=== PATIENT | female | born 1980 | race Caucasian/White ===

== ENCOUNTER → 2021-01-17 09:39 | Outpatient (CLI) | payer BC, SELFPAY ==
[2019-06-10 14:00] VITALS: BMI 34.4
[2021-01-17 11:04] LABS: EXAGEN MAILED SPECIMEN
[2021-01-17 12:26] LABS: Prothrombin Time (Protime)PT. 12.7 SECONDS (11.7-14.9)
[2021-01-17 12:27] LABS: Color, Urine Yellow (Yellow); Glucose, Dipstick Normal (Normal); Ketone-Dipstick Negative (Negative); Leukocyte Esterase-Dipstick Negative /ul (Negative); Nitrite-Dipstick Negative (Negative); Occult Blood-Urine Negative /ul (Negative); Protein-Dipstick Negative (Negative); Specific Gravity, Urine 1.015 (1.002-1.030); Urine Bilirubin Dipstick Negative (Negative); Urine Clarity Clear (Clear); Urine Urobilinogen Normal (Normal)
[2021-01-17 12:28] LABS: Erythrocyte Sedimentation Rate 4 mm/hr (0-30)
[2021-01-17 12:31] LABS: Absolute Lymphocyte Count 1.81 X10^3/uL (0.83-4.51); Absolute Neutrophil Count 5.4 X10^3/uL (2.0-7.7); Basophil# 0.05 X10^3/uL; Basophil% 0.6 % (0-1); Eosinophil# 0.51 X10^3/uL; Eosinophils% 6.1 % (0-5); Hematocrit 39.4 % (37-47); Lymphocyte # 1.81 X10^3/ul (0.83-4.51); Lymphocyte % 21.7 % (19-41); Mean Corpuscular Hgb 29.7 pg (27.0-32.0); Mean Corpuscular Volume 90.2 fL (81-99); Mean Platelet Vol. 9.3 fl (6.2-12.0); Monocyte# 0.51 X10^3/uL; Monocyte% 6.1 % (0-10); NRBC Flagged by Analyzer 0 % (0-5); Neutrophil # 5.44 X10^3/uL (2.7-7.7); Neutrophil % 65.3 % (47-70); Platelet Count 366 K/mm3 (150-450); RBC Distribution Width CV 12.7 % (11.6-14.6); RBC Distribution Width SD 42.3 fl (35.1-43.9); Red Blood Count 4.37 M/mm3 (4.2-5.4); White Blood Count 8.3 K/mm3 (4.4-11.0)
[2021-01-17 12:53] LABS: Protein, Urine (Random) < 6.0 mg/dL (<11.9)
[2021-01-17 13:15] LABS: Hepatitis B Surface Antibody Reactive; Hepatitis B Surface Antigen Non-Reactive (Nonreactive); Hepatitis C Antibody Non-Reactive (Nonreactive)
[2021-01-17 13:27] LABS: ALB/GLOB Ratio 1.2 RATIO (0.9-2.4); AST(SGOT) 12 U/L (15-37); Alanine Aminotransfer ALT/SGPT 23 U/L (13-56); Albumin, Serum 3.9 g/dL (3.2-5.0); Alkaline Phosphatase 51 U/L (45-117); Anion Gap 5 (5-15); BUN 8 mg/dL (7-18); BUN/Creat Ratio 12.8 RATIO (10-20); CRP < 2.90 mg/L (0.0-3.0); Calcium,Total 8.7 mg/dL (8.5-10.1); Chloride 107 mmol/L (98-107); Creatinine, Serum 0.62 mg/dL (0.55-1.02); EST Glomerular Filtration Rate 113 mL/min (>60); Est Glom Filt Rate - Afr Amer 137 mL/min (>60); Globulin 3.3 g/dL (2.2-4.2); Glucose 85 mg/dL (74-106); Potassium 3.5 mmol/L (3.5-5.1); Protein, Total 7.2 g/dL (6.4-8.2); Sodium Level 140 mmol/L (136-145)
[2021-01-19 04:07] LABS: Dilute Prothrombin Time (dPT) 41.3 sec (0.0-55.0); Dilute Russell Viper Venom 37.1 sec (0.0-47.0); PTT-LA 35.5 sec (0.0-51.9); Thrombin Time 15.6 sec (0.0-23.0); dPT Confirm Ratio 1.17 Ratio (0.00-1.40)
[2021-01-19 07:07] LABS: Hexagonal Phase Phospholipid 0 sec (0-11); Thrombin Time 15.7 sec (0.0-23.0)
[2021-01-19 08:32] LABS: Interpretation Comment: (.)
== END ==
PROVIDERS: PCP Family Medicine; Referring Provider Internal Medicine Rheumatology; Visit Provider Internal Medicine Rheumatology
DX: M06.4 Inflammatory polyarthropathy (principal); R76.8 Other specified abnormal immunological findings in serum; M79.7 Fibromyalgia; Q66.70 Congenital pes cavus, unspecified foot; J45.909 Unspecified asthma, uncomplicated; K21.9 Gastro-esophageal reflux disease without esophagitis; R51.9 Headache, unspecified; J98.6 Disorders of diaphragm; Z86.59 Personal history of other mental and behavioral disorders; G47.30 Sleep apnea, unspecified
CPT/HCPCS: 36415; 80053; 81002; 82570; 84156; 85025; 85598; 85610; 85652; 85670; 86140; 86706; 86803; 87340

== ENCOUNTER → 2021-01-19 12:16 | Outpatient (CLI) | payer BC, SELFPAY ==
[2019-06-10 14:00] VITALS: BMI 34.4
[2021-01-19 15:40] LABS: Partial Thromboplast Time 27.3 Seconds (24.1-36.2)
== END ==
PROVIDERS: PCP Family Medicine; Referring Provider Internal Medicine Rheumatology; Visit Provider Internal Medicine Rheumatology
DX: M06.4 Inflammatory polyarthropathy (principal); R76.8 Other specified abnormal immunological findings in serum; M79.7 Fibromyalgia; Q66.70 Congenital pes cavus, unspecified foot; J45.909 Unspecified asthma, uncomplicated; K21.9 Gastro-esophageal reflux disease without esophagitis; R51.9 Headache, unspecified; J98.6 Disorders of diaphragm; Z86.59 Personal history of other mental and behavioral disorders; G47.30 Sleep apnea, unspecified
CPT/HCPCS: 85730

== ENCOUNTER → 2021-04-13 07:54 | Outpatient (CLI) | payer BC, SELFPAY ==
[2021-02-14 07:48] VITALS: BMI 34.4
[2021-04-13 10:07] LABS: Absolute Lymphocyte Count 1.68 X10^3/uL (0.83-4.51); Absolute Neutrophil Count 7.5 X10^3/uL (2.0-7.7); Basophil# 0.05 X10^3/uL; Basophil% 0.5 % (0-1); Eosinophils% 3.9 % (0-5); Hematocrit 40.1 % (37-47); Hemoglobin 13.2 g/dL (12.0-15.0); Lymphocyte # 1.68 X10^3/ul (0.83-4.51); Lymphocyte % 16.4 % (19-41); Mean Corp Hgb Conc 32.9 g/dL (32-36); Mean Corpuscular Hgb 30.7 pg (27.0-32.0); Mean Corpuscular Volume 93.3 fL (81-99); Monocyte# 0.64 X10^3/uL; Monocyte% 6.2 % (0-10); NRBC Flagged by Analyzer 0 % (0-5); Neutrophil # 7.46 X10^3/uL (2.7-7.7); Neutrophil % 72.7 % (47-70); Platelet Count 314 K/mm3 (150-450); RBC Distribution Width SD 47.1 fl (35.1-43.9); White Blood Count 10.3 K/mm3 (4.4-11.0)
[2021-04-13 10:28] LABS: ALB/GLOB Ratio 1.1 RATIO (0.9-2.4); AST(SGOT) 15 U/L (15-37); Alanine Aminotransfer ALT/SGPT 26 U/L (13-56); Albumin, Serum 3.9 g/dL (3.2-5.0); Alkaline Phosphatase 42 U/L (45-117); Anion Gap 6 (5-15); BUN 16 mg/dL (7-18); Calcium,Total 8.9 mg/dL (8.5-10.1); Chloride 106 mmol/L (98-107); Creatinine, Serum 0.67 mg/dL (0.55-1.02); EST Glomerular Filtration Rate 104 mL/min (>60); Est Glom Filt Rate - Afr Amer 126 mL/min (>60); Globulin 3.4 g/dL (2.2-4.2); Glucose 94 mg/dL (74-106); Potassium 3.7 mmol/L (3.5-5.1); Protein, Total 7.3 g/dL (6.4-8.2); Sodium Level 138 mmol/L (136-145)
== END ==
PROVIDERS: PCP Family Medicine; Referring Provider Internal Medicine Rheumatology; Visit Provider Internal Medicine Rheumatology
DX: M06.4 Inflammatory polyarthropathy (principal); Z79.899 Other long term (current) drug therapy; R76.8 Other specified abnormal immunological findings in serum; M79.7 Fibromyalgia; Q66.70 Congenital pes cavus, unspecified foot; J45.909 Unspecified asthma, uncomplicated; K21.9 Gastro-esophageal reflux disease without esophagitis; R51.9 Headache, unspecified; J98.6 Disorders of diaphragm; Z86.59 Personal history of other mental and behavioral disorders; G47.30 Sleep apnea, unspecified
CPT/HCPCS: 36415; 80053; 85025

== ENCOUNTER → 2021-06-19 07:33 | Outpatient (CLI) | payer BC, SELFPAY ==
[2021-06-19 09:56] LABS: Absolute Lymphocyte Count 1.97 X10^3/uL (0.83-4.51); Absolute Neutrophil Count 4.5 X10^3/uL (2.0-7.7); Basophil# 0.04 X10^3/uL; Basophil% 0.6 % (0-1); Eosinophil# 0.09 X10^3/uL; Eosinophils% 1.2 % (0-5); Hemoglobin 12.4 g/dL (12.0-15.0); Lymphocyte # 1.97 X10^3/ul (0.83-4.51); Lymphocyte % 27.3 % (19-41); Mean Corp Hgb Conc 33.5 g/dL (32-36); Mean Corpuscular Hgb 31.8 pg (27.0-32.0); Mean Corpuscular Volume 94.9 fL (81-99); Mean Platelet Vol. 8.9 fl (6.2-12.0); Monocyte# 0.61 X10^3/uL; Monocyte% 8.4 % (0-10); NRBC Flagged by Analyzer 0 % (0-5); Neutrophil # 4.49 X10^3/uL (2.7-7.7); Neutrophil % 62.2 % (47-70); Platelet Count 341 K/mm3 (150-450); RBC Distribution Width CV 14.4 % (11.6-14.6); RBC Distribution Width SD 49.5 fl (35.1-43.9); White Blood Count 7.2 K/mm3 (4.4-11.0)
[2021-06-19 10:54] LABS: ALB/GLOB Ratio 1.2 RATIO (0.9-2.4); AST(SGOT) 13 U/L (15-37); Alanine Aminotransfer ALT/SGPT 20 U/L (13-56); Albumin, Serum 3.8 g/dL (3.2-5.0); Alkaline Phosphatase 39 U/L (45-117); Anion Gap 11 (5-15); BUN 10 mg/dL (7-18); BUN/Creat Ratio 16.3 RATIO (10-20); Calcium,Total 8.7 mg/dL (8.5-10.1); Chloride 104 mmol/L (98-107); Creatinine, Serum 0.62 mg/dL (0.55-1.02); EST Glomerular Filtration Rate 114 mL/min (>60); Est Glom Filt Rate - Afr Amer 138 mL/min (>60); Globulin 3.3 g/dL (2.2-4.2); Glucose 80 mg/dL (74-106); Potassium 3.4 mmol/L (3.5-5.1); Protein, Total 7.1 g/dL (6.4-8.2); Sodium Level 141 mmol/L (136-145)
== END ==
PROVIDERS: PCP Family Medicine; Referring Provider Internal Medicine Rheumatology; Visit Provider Internal Medicine Rheumatology
DX: M06.4 Inflammatory polyarthropathy (principal); R76.8 Other specified abnormal immunological findings in serum; M79.7 Fibromyalgia; Q66.70 Congenital pes cavus, unspecified foot; J45.909 Unspecified asthma, uncomplicated; K21.9 Gastro-esophageal reflux disease without esophagitis; R51.9 Headache, unspecified; J98.6 Disorders of diaphragm; Z86.59 Personal history of other mental and behavioral disorders; G47.30 Sleep apnea, unspecified; Z79.899 Other long term (current) drug therapy
CPT/HCPCS: 36415; 80053; 85025

== ENCOUNTER → 2021-08-28 10:41 | Outpatient (CLI) | payer BC, SELFPAY ==
[2021-08-28 12:29] LABS: Absolute Lymphocyte Count 1.66 X10^3/uL (0.83-4.51); Absolute Neutrophil Count 4.2 X10^3/uL (2.0-7.7); Basophil# 0.03 X10^3/uL; Basophil% 0.5 % (0-1); Eosinophil# 0.15 X10^3/uL; Eosinophils% 2.3 % (0-5); Hematocrit 43.2 % (37-47); Hemoglobin 14.1 g/dL (12.0-15.0); Lymphocyte # 1.66 X10^3/ul (0.83-4.51); Lymphocyte % 25.1 % (19-41); Mean Corp Hgb Conc 32.6 g/dL (32-36); Mean Corpuscular Hgb 31.7 pg (27.0-32.0); Mean Corpuscular Volume 97.1 fL (81-99); Mean Platelet Vol. 8.5 fl (6.2-12.0); Monocyte# 0.52 X10^3/uL; Monocyte% 7.9 % (0-10); NRBC Flagged by Analyzer 0 % (0-5); Neutrophil # 4.24 X10^3/uL (2.7-7.7); Neutrophil % 63.9 % (47-70); Platelet Count 315 K/mm3 (150-450); RBC Distribution Width CV 12.6 % (11.6-14.6); RBC Distribution Width SD 44.7 fl (35.1-43.9); Red Blood Count 4.45 M/mm3 (4.2-5.4); White Blood Count 6.6 K/mm3 (4.4-11.0)
[2021-08-28 12:41] LABS: AST(SGOT) 13 U/L (15-37); Alanine Aminotransfer ALT/SGPT 21 U/L (13-56); Albumin, Serum 3.5 g/dL (3.2-5.0); Alkaline Phosphatase 44 U/L (45-117); Anion Gap 6 (5-15); BUN 9 mg/dL (7-18); BUN/Creat Ratio 14.4 RATIO (10-20); Calcium,Total 8.8 mg/dL (8.5-10.1); Chloride 106 mmol/L (98-107); Creatinine, Serum 0.62 mg/dL (0.55-1.02); EST Glomerular Filtration Rate 112 mL/min (>60); Est Glom Filt Rate - Afr Amer 136 mL/min (>60); Globulin 3.6 g/dL (2.2-4.2); Glucose 63 mg/dL (74-106); Potassium 3.7 mmol/L (3.5-5.1); Protein, Total 7.1 g/dL (6.4-8.2); Sodium Level 142 mmol/L (136-145)
== END ==
PROVIDERS: PCP Family Medicine; Referring Provider Internal Medicine Rheumatology; Visit Provider Internal Medicine Rheumatology
DX: M06.4 Inflammatory polyarthropathy (principal); Z79.899 Other long term (current) drug therapy; R76.8 Other specified abnormal immunological findings in serum; M79.7 Fibromyalgia; Q66.70 Congenital pes cavus, unspecified foot; J45.909 Unspecified asthma, uncomplicated; K21.9 Gastro-esophageal reflux disease without esophagitis; R51.9 Headache, unspecified; J98.6 Disorders of diaphragm; Z86.59 Personal history of other mental and behavioral disorders; G47.30 Sleep apnea, unspecified
CPT/HCPCS: 36415; 80053; 85025

== ENCOUNTER 2021-10-26 07:23 | Outpatient (CLI) | payer BC, SELFPAY ==
[2021-10-26 10:04] LABS: Absolute Lymphocyte Count 1.61 X10^3/uL (0.83-4.51); Absolute Neutrophil Count 1.9 X10^3/uL (2.0-7.7); Basophil# 0.02 X10^3/uL; Basophil% 0.5 % (0-1); Eosinophils% 2.5 % (0-5); Hematocrit 37.4 % (37-47); Hemoglobin 12.5 g/dL (12.0-15.0); Lymphocyte # 1.61 X10^3/ul (0.83-4.51); Lymphocyte % 40.4 % (19-41); Mean Corp Hgb Conc 33.4 g/dL (32-36); Mean Corpuscular Hgb 32.8 pg (27.0-32.0); Mean Corpuscular Volume 98.2 fL (81-99); Mean Platelet Vol. 8.7 fl (6.2-12.0); Monocyte# 0.35 X10^3/uL; Monocyte% 8.8 % (0-10); NRBC Flagged by Analyzer 0 % (0-5); Neutrophil % 47.5 % (47-70); Platelet Count 296 K/mm3 (150-450); RBC Distribution Width CV 13.3 % (11.6-14.6); RBC Distribution Width SD 48.5 fl (35.1-43.9); Red Blood Count 3.81 M/mm3 (4.2-5.4)
[2021-10-26 10:22] LABS: ALB/GLOB Ratio 1.2 RATIO (0.9-2.4); AST(SGOT) 18 U/L (15-37); Alanine Aminotransfer ALT/SGPT 31 U/L (13-56); Albumin, Serum 3.6 g/dL (3.2-5.0); Alkaline Phosphatase 40 U/L (45-117); Anion Gap 2 (5-15); BUN 8 mg/dL (7-18); BUN/Creat Ratio 12.9 RATIO (10-20); Chloride 107 mmol/L (98-107); Creatinine, Serum 0.62 mg/dL (0.55-1.02); EST Glomerular Filtration Rate 113 mL/min (>60); Est Glom Filt Rate - Afr Amer 137 mL/min (>60); Globulin 3.1 g/dL (2.2-4.2); Glucose 71 mg/dL (74-106); Potassium 3.9 mmol/L (3.5-5.1); Protein, Total 6.7 g/dL (6.4-8.2); Sodium Level 138 mmol/L (136-145)
== END 2021-10-26 23:59 | disposition home or self-care (01) ==
LOC: MTLAB 07:25
PROVIDERS: PCP Family Medicine; Referring Provider Internal Medicine Rheumatology; Visit Provider Internal Medicine Rheumatology
DX: M06.4 Inflammatory polyarthropathy (principal); Z79.899 Other long term (current) drug therapy; R76.8 Other specified abnormal immunological findings in serum; M79.7 Fibromyalgia; Q66.70 Congenital pes cavus, unspecified foot; J45.909 Unspecified asthma, uncomplicated; K21.9 Gastro-esophageal reflux disease without esophagitis; R51.9 Headache, unspecified; J98.6 Disorders of diaphragm; Z86.59 Personal history of other mental and behavioral disorders; G47.30 Sleep apnea, unspecified
CPT/HCPCS: 36415; 80053; 85025

== ENCOUNTER → 2021-12-21 | Outpatient (CLI) | payer BC, SELFPAY ==
[2021-12-21 10:19] LABS: Absolute Lymphocyte Count 1.65 X10^3/uL (0.83-4.51); Basophil# 0.04 X10^3/uL; Basophil% 0.7 % (0-1); Eosinophil# 0.16 X10^3/uL; Hematocrit 37.7 % (37-47); Hemoglobin 12.5 g/dL (12.0-15.0); Lymphocyte # 1.65 X10^3/ul (0.83-4.51); Lymphocyte % 30.8 % (19-41); Mean Corp Hgb Conc 33.2 g/dL (32-36); Mean Corpuscular Hgb 31.7 pg (27.0-32.0); Mean Corpuscular Volume 95.7 fL (81-99); Mean Platelet Vol. 8.5 fl (6.2-12.0); Monocyte# 0.53 X10^3/uL; Monocyte% 9.9 % (0-10); NRBC Flagged by Analyzer 0 % (0-5); Neutrophil # 2.97 X10^3/uL (2.7-7.7); Neutrophil % 55.4 % (47-70); Platelet Count 331 K/mm3 (150-450); RBC Distribution Width CV 12.5 % (11.6-14.6); RBC Distribution Width SD 43.9 fl (35.1-43.9); Red Blood Count 3.94 M/mm3 (4.2-5.4); White Blood Count 5.4 K/mm3 (4.4-11.0)
[2021-12-21 10:42] LABS: ALB/GLOB Ratio 1.1 RATIO (0.9-2.4); AST(SGOT) 20 U/L (15-37); Alanine Aminotransfer ALT/SGPT 23 U/L (13-56); Albumin, Serum 3.7 g/dL (3.2-5.0); Alkaline Phosphatase 38 U/L (45-117); Anion Gap 3 (5-15); BUN 10 mg/dL (7-18); Calcium,Total 8.3 mg/dL (8.5-10.1); Chloride 106 mmol/L (98-107); Creatinine, Serum 0.62 mg/dL (0.55-1.02); EST Glomerular Filtration Rate 112 mL/min (>60); Est Glom Filt Rate - Afr Amer 136 mL/min (>60); Globulin 3.3 g/dL (2.2-4.2); Glucose 90 mg/dL (74-106); Sodium Level 137 mmol/L (136-145)
== END | disposition home or self-care (01) ==
LOC: MTLAB 07:45
PROVIDERS: PCP Family Medicine; Referring Provider Internal Medicine Rheumatology; Visit Provider Internal Medicine Rheumatology
DX: M06.4 Inflammatory polyarthropathy (principal); R76.8 Other specified abnormal immunological findings in serum; M79.7 Fibromyalgia; Q66.70 Congenital pes cavus, unspecified foot; J45.909 Unspecified asthma, uncomplicated; K21.9 Gastro-esophageal reflux disease without esophagitis; R51.9 Headache, unspecified; J98.6 Disorders of diaphragm; G47.30 Sleep apnea, unspecified; Z79.899 Other long term (current) drug therapy; Z86.59 Personal history of other mental and behavioral disorders
CPT/HCPCS: 36415; 80053; 85025

== ENCOUNTER → 2022-03-08 | Outpatient (CLI) | payer BC, SELFPAY ==
[2022-03-08 12:36] LABS: Absolute Lymphocyte Count 1.96 X10^3/uL (0.83-4.51); Absolute Neutrophil Count 2.9 X10^3/uL (2.0-7.7); Basophil# 0.02 X10^3/uL; Basophil% 0.4 % (0-1); Eosinophil# 0.11 X10^3/uL; Hemoglobin 12.3 g/dL (12.0-15.0); Lymphocyte # 1.96 X10^3/ul (0.83-4.51); Mean Corp Hgb Conc 34.2 g/dL (32-36); Mean Corpuscular Hgb 32.8 pg (27.0-32.0); Mean Platelet Vol. 8.9 fl (6.2-12.0); Monocyte# 0.49 X10^3/uL; NRBC Flagged by Analyzer 0 % (0-5); Neutrophil # 2.86 X10^3/uL (2.7-7.7); Neutrophil % 52.4 % (47-70); Platelet Count 260 K/mm3 (150-450); RBC Distribution Width SD 45.3 fl (35.1-43.9); Red Blood Count 3.75 M/mm3 (4.2-5.4); White Blood Count 5.5 K/mm3 (4.4-11.0)
[2022-03-08 12:51] LABS: ALB/GLOB Ratio 1.3 RATIO (0.9-2.4); AST(SGOT) 18 U/L (15-37); Alanine Aminotransfer ALT/SGPT 22 U/L (13-56); Albumin, Serum 3.8 g/dL (3.2-5.0); Alkaline Phosphatase 35 U/L (45-117); Anion Gap 5 (5-15); BUN 16 mg/dL (7-18); BUN/Creat Ratio 21.2 RATIO (10-20); Calcium,Total 8.7 mg/dL (8.5-10.1); Chloride 108 mmol/L (98-107); Creatinine, Serum 0.76 mg/dL (0.55-1.02); EST Glomerular Filtration Rate 90 mL/min (>60); Est Glom Filt Rate - Afr Amer 109 mL/min (>60); Globulin 2.9 g/dL (2.2-4.2); Glucose 76 mg/dL (74-106); Potassium 3.6 mmol/L (3.5-5.1); Protein, Total 6.7 g/dL (6.4-8.2); Sodium Level 139 mmol/L (136-145)
== END | disposition home or self-care (01) ==
LOC: MTLAB 10:25
PROVIDERS: PCP Family Medicine; Referring Provider Internal Medicine Rheumatology; Visit Provider Internal Medicine Rheumatology
DX: M06.4 Inflammatory polyarthropathy (principal); R76.8 Other specified abnormal immunological findings in serum; M79.7 Fibromyalgia; Q66.70 Congenital pes cavus, unspecified foot; J45.909 Unspecified asthma, uncomplicated; K21.9 Gastro-esophageal reflux disease without esophagitis; R51.9 Headache, unspecified; J98.6 Disorders of diaphragm; G47.30 Sleep apnea, unspecified; Z86.59 Personal history of other mental and behavioral disorders; Z79.899 Other long term (current) drug therapy
CPT/HCPCS: 36415; 80053; 85025

== ENCOUNTER → 2022-06-21 | Outpatient (CLI) | payer BC, SELFPAY ==
[2022-06-21 09:59] LABS: Absolute Lymphocyte Count 1.46 X10^3/uL (0.83-4.51); Absolute Neutrophil Count 2.3 X10^3/uL (2.0-7.7); Basophil# 0.02 X10^3/uL; Basophil% 0.5 % (0-1); Eosinophil# 0.09 X10^3/uL; Eosinophils% 2.2 % (0-5); Hematocrit 36.6 % (37-47); Hemoglobin 12.2 g/dL (12.0-15.0); Lymphocyte # 1.46 X10^3/ul (0.83-4.51); Lymphocyte % 34.9 % (19-41); Mean Corp Hgb Conc 33.3 g/dL (32-36); Mean Corpuscular Volume 96.1 fL (81-99); Mean Platelet Vol. 8.7 fl (6.2-12.0); Monocyte# 0.29 X10^3/uL; Monocyte% 6.9 % (0-10); NRBC Flagged by Analyzer 0 % (0-5); Platelet Count 305 K/mm3 (150-450); RBC Distribution Width CV 12.5 % (11.6-14.6); RBC Distribution Width SD 42.8 fl (35.1-43.9); Red Blood Count 3.81 M/mm3 (4.2-5.4); White Blood Count 4.2 K/mm3 (4.4-11.0)
[2022-06-21 10:36] LABS: ALB/GLOB Ratio 1.2 RATIO (0.9-2.4); AST(SGOT) 15 U/L (15-37); Alanine Aminotransfer ALT/SGPT 20 U/L (13-56); Albumin, Serum 3.6 g/dL (3.2-5.0); Alkaline Phosphatase 39 U/L (45-117); Anion Gap 5 (5-15); BUN 9 mg/dL (7-18); BUN/Creat Ratio 15.1 RATIO (10-20); Calcium,Total 8.7 mg/dL (8.5-10.1); Chloride 107 mmol/L (98-107); EST Glomerular Filtration Rate 118 mL/min (>60); Est Glom Filt Rate - Afr Amer 143 mL/min (>60); Glucose 83 mg/dL (74-106); Potassium 3.6 mmol/L (3.5-5.1); Protein, Total 6.6 g/dL (6.4-8.2); Sodium Level 139 mmol/L (136-145)
== END | disposition home or self-care (01) ==
LOC: MTLAB 07:25
PROVIDERS: PCP Family Medicine; Referring Provider Internal Medicine Rheumatology; Visit Provider Internal Medicine Rheumatology
DX: M06.4 Inflammatory polyarthropathy (principal); Z79.899 Other long term (current) drug therapy; R76.8 Other specified abnormal immunological findings in serum; M79.7 Fibromyalgia; Q66.70 Congenital pes cavus, unspecified foot; J45.909 Unspecified asthma, uncomplicated; K21.9 Gastro-esophageal reflux disease without esophagitis; R51.9 Headache, unspecified; J98.6 Disorders of diaphragm; Z86.59 Personal history of other mental and behavioral disorders; G47.30 Sleep apnea, unspecified
CPT/HCPCS: 36415; 80053; 85025

== ENCOUNTER → 2022-06-28 | Outpatient (CLI) | payer BC, SELFPAY ==
--- NOTE | 2022-06-28 08:55 | RAD_ITS ---
HISTORY: PAIN. TECHNIQUE: XR Chest 2 Views. COMPARISON: None. FINDINGS: CARDIOMEDIASTINAL BORDERS: Cardiac silhouette within normal limits in size. Mediastinal contour unremarkable. LUNGS: Mild linear left basilar opacity with elevation of the left hemidiaphragm. Right upper quadrant surgical clips. PLEURA: No pleural effusion or pneumothorax seen. OSSEOUS STRUCTURES: Unremarkable. RAD/Chest PA and Lateral IMPRESSION: Elevation of the left hemidiaphragm with mild left basilar atelectasis or scarring. Electronically Signed: Leah Lackey MD at 9:21 EDT ,
[2022-07-02 15:07] LABS: QNTFERON TB Mitogen Value > 10.00 IU/mL (.); QNTFERON TB Nil Value 0.06 IU/mL (.); QNTFERON TB1+ Ag Value 0.13 IU/mL (.); QNTFERON TB2+ Ag Value 0.23 IU/mL (.)
[2022-07-04 15:43] LABS: QNTIFERON TB Positive Criteria Negative (Negative)
== END | disposition home or self-care (01) ==
LOC: MTLAB 08:25
PROVIDERS: PCP Family Medicine; Referring Provider Internal Medicine Rheumatology; Visit Provider Internal Medicine Rheumatology
DX: M06.09 Rheumatoid arthritis without rheumatoid factor, multiple sites (principal); Z79.899 Other long term (current) drug therapy; R76.8 Other specified abnormal immunological findings in serum; M79.7 Fibromyalgia; M70.62 Trochanteric bursitis, left hip; J45.909 Unspecified asthma, uncomplicated; K21.9 Gastro-esophageal reflux disease without esophagitis; R51.9 Headache, unspecified; J98.6 Disorders of diaphragm; Z86.59 Personal history of other mental and behavioral disorders; G47.30 Sleep apnea, unspecified; Q66.70 Congenital pes cavus, unspecified foot
CPT/HCPCS: 36415; 71046; 86480

== ENCOUNTER → 2022-09-19 | Outpatient (CLI) | payer BC, SELFPAY ==
[2022-09-19 10:17] LABS: Absolute Lymphocyte Count 1.05 X10^3/uL (0.83-4.51); Absolute Neutrophil Count 2.9 X10^3/uL (2.0-7.7); Basophil# 0.03 X10^3/uL; Basophil% 0.7 % (0-1); Eosinophil# 0.09 X10^3/uL; Hematocrit 36.6 % (37-47); Hemoglobin 12.1 g/dL (12.0-15.0); Lymphocyte # 1.05 X10^3/ul (0.83-4.51); Lymphocyte % 22.9 % (19-41); Mean Corp Hgb Conc 33.1 g/dL (32-36); Mean Corpuscular Hgb 32.1 pg (27.0-32.0); Mean Corpuscular Volume 97.1 fL (81-99); Monocyte# 0.48 X10^3/uL; Monocyte% 10.5 % (0-10); NRBC Flagged by Analyzer 0 % (0-5); Neutrophil # 2.88 X10^3/uL (2.7-7.7); Neutrophil % 62.6 % (47-70); Platelet Count 274 K/mm3 (150-450); RBC Distribution Width CV 12.6 % (11.6-14.6); RBC Distribution Width SD 43.7 fl (35.1-43.9); Red Blood Count 3.77 M/mm3 (4.2-5.4); White Blood Count 4.6 K/mm3 (4.4-11.0)
[2022-09-19 10:38] LABS: ALB/GLOB Ratio 1.3 RATIO (0.9-2.4); AST(SGOT) 19 U/L (15-37); Alanine Aminotransfer ALT/SGPT 26 U/L (13-56); Albumin, Serum 3.8 g/dL (3.2-5.0); Alkaline Phosphatase 37 U/L (45-117); Anion Gap 4 (5-15); BUN 7 mg/dL (7-18); BUN/Creat Ratio 10.1 RATIO (10-20); Calcium,Total 8.6 mg/dL (8.5-10.1); Chloride 107 mmol/L (98-107); Creatinine, Serum 0.69 mg/dL (0.55-1.02); EST Glomerular Filtration Rate 100 mL/min (>60); Est Glom Filt Rate - Afr Amer 121 mL/min (>60); Glucose 78 mg/dL (74-106); Potassium 3.8 mmol/L (3.5-5.1); Protein, Total 6.8 g/dL (6.4-8.2); Sodium Level 140 mmol/L (136-145)
== END | disposition home or self-care (01) ==
LOC: MTLAB 07:29
PROVIDERS: PCP Family Medicine; Referring Provider Internal Medicine Rheumatology; Visit Provider Internal Medicine Rheumatology
DX: Z79.899 Other long term (current) drug therapy (principal); M06.4 Inflammatory polyarthropathy; R76.8 Other specified abnormal immunological findings in serum; M79.7 Fibromyalgia; Q66.70 Congenital pes cavus, unspecified foot; J45.909 Unspecified asthma, uncomplicated; K21.9 Gastro-esophageal reflux disease without esophagitis; R51.9 Headache, unspecified; J98.6 Disorders of diaphragm; Z86.59 Personal history of other mental and behavioral disorders; G47.30 Sleep apnea, unspecified
CPT/HCPCS: 36415; 80053; 85025

== ENCOUNTER → 2022-12-13 | Outpatient (CLI) | payer BC, SELFPAY ==
[2022-12-13 10:22] LABS: Absolute Lymphocyte Count 1.83 X10^3/uL (0.83-4.51); Absolute Neutrophil Count 3.6 X10^3/uL (2.0-7.7); Basophil# 0.02 X10^3/uL; Basophil% 0.3 % (0-1); Eosinophil# 0.12 X10^3/uL; Hematocrit 37.2 % (37-47); Hemoglobin 12.2 g/dL (12.0-15.0); Lymphocyte # 1.83 X10^3/ul (0.83-4.51); Lymphocyte % 30.1 % (19-41); Mean Corp Hgb Conc 32.8 g/dL (32-36); Mean Corpuscular Hgb 31.7 pg (27.0-32.0); Mean Corpuscular Volume 96.6 fL (81-99); Mean Platelet Vol. 8.9 fl (6.2-12.0); Monocyte# 0.48 X10^3/uL; Monocyte% 7.9 % (0-10); NRBC Flagged by Analyzer 0 % (0-5); Neutrophil % 59.4 % (47-70); Platelet Count 371 K/mm3 (150-450); RBC Distribution Width CV 12.7 % (11.6-14.6); RBC Distribution Width SD 43.8 fl (35.1-43.9); Red Blood Count 3.85 M/mm3 (4.2-5.4); White Blood Count 6.1 K/mm3 (4.4-11.0)
[2022-12-13 11:20] LABS: ALB/GLOB Ratio 1.2 RATIO (0.9-2.4); AST(SGOT) 16 U/L (15-37); Alanine Aminotransfer ALT/SGPT 21 U/L (13-56); Albumin, Serum 3.7 g/dL (3.2-5.0); Alkaline Phosphatase 40 U/L (45-117); Anion Gap 4 (5-15); BUN 12 mg/dL (7-18); BUN/Creat Ratio 16.5 RATIO (10-20); Calcium,Total 8.9 mg/dL (8.5-10.1); Chloride 107 mmol/L (98-107); Creatinine, Serum 0.73 mg/dL (0.55-1.02); EST Glomerular Filtration Rate 94 mL/min (>60); Est Glom Filt Rate - Afr Amer 113 mL/min (>60); Globulin 3.2 g/dL (2.2-4.2); Glucose 88 mg/dL (74-106); Potassium 3.8 mmol/L (3.5-5.1); Protein, Total 6.9 g/dL (6.4-8.2); Sodium Level 137 mmol/L (136-145)
== END | disposition home or self-care (01) ==
PROVIDERS: PCP Family Medicine; Referring Provider Internal Medicine Rheumatology; Visit Provider Internal Medicine Rheumatology
DX: M06.09 Rheumatoid arthritis without rheumatoid factor, multiple sites (principal); Z79.899 Other long term (current) drug therapy; R76.8 Other specified abnormal immunological findings in serum; M79.7 Fibromyalgia; M70.62 Trochanteric bursitis, left hip; J45.909 Unspecified asthma, uncomplicated; K21.9 Gastro-esophageal reflux disease without esophagitis; R51.9 Headache, unspecified; J98.6 Disorders of diaphragm; Z86.59 Personal history of other mental and behavioral disorders; G47.30 Sleep apnea, unspecified; Q66.70 Congenital pes cavus, unspecified foot
CPT/HCPCS: 36415; 80053; 85025

== ENCOUNTER → 2023-03-10 | Outpatient (CLI) | payer BC, SELFPAY ==
[2023-03-10 10:22] LABS: ALB/GLOB Ratio 1.2 RATIO (0.9-2.4); AST(SGOT) 18 U/L (15-37); Alanine Aminotransfer ALT/SGPT 25 U/L (13-56); Albumin, Serum 3.6 g/dL (3.2-5.0); Alkaline Phosphatase 38 U/L (45-117); Anion Gap 3 (5-15); BUN 10 mg/dL (7-18); BUN/Creat Ratio 14.3 RATIO (10-20); Calcium,Total 8.6 mg/dL (8.5-10.1); Chloride 109 mmol/L (98-107); EST Glomerular Filtration Rate 98 mL/min (>60); Est Glom Filt Rate - Afr Amer 119 mL/min (>60); Globulin 2.9 g/dL (2.2-4.2); Glucose 88 mg/dL (74-106); Potassium 3.4 mmol/L (3.5-5.1); Protein, Total 6.5 g/dL (6.4-8.2); Sodium Level 140 mmol/L (136-145)
[2023-03-10 10:58] LABS: Absolute Lymphocyte Count 2.06 X10^3/uL (0.83-4.51); Absolute Neutrophil Count 3.8 X10^3/uL (2.0-7.7); Basophil# 0.03 X10^3/uL; Basophil% 0.5 % (0-1); Eosinophil# 0.13 X10^3/uL; Hematocrit 37.2 % (37-47); Hemoglobin 12.2 g/dL (12.0-15.0); Lymphocyte # 2.06 X10^3/ul (0.83-4.51); Lymphocyte % 31.3 % (19-41); Mean Corp Hgb Conc 32.8 g/dL (32-36); Mean Corpuscular Hgb 31.9 pg (27.0-32.0); Mean Corpuscular Volume 97.4 fL (81-99); Mean Platelet Vol. 9.1 fl (6.2-12.0); Monocyte# 0.55 X10^3/uL; Monocyte% 8.3 % (0-10); NRBC Flagged by Analyzer 0 % (0-5); Neutrophil % 57.6 % (47-70); Platelet Count 293 K/mm3 (150-450); RBC Distribution Width CV 12.7 % (11.6-14.6); RBC Distribution Width SD 45.1 fl (35.1-43.9); Red Blood Count 3.82 M/mm3 (4.2-5.4); White Blood Count 6.6 K/mm3 (4.4-11.0)
== END | disposition home or self-care (01) ==
LOC: MTLAB 07:16
PROVIDERS: PCP Family Medicine; Referring Provider Internal Medicine Rheumatology; Visit Provider Internal Medicine Rheumatology
DX: M06.09 Rheumatoid arthritis without rheumatoid factor, multiple sites (principal); Z79.899 Other long term (current) drug therapy; R76.8 Other specified abnormal immunological findings in serum; M79.7 Fibromyalgia; M70.62 Trochanteric bursitis, left hip; J45.909 Unspecified asthma, uncomplicated; K21.9 Gastro-esophageal reflux disease without esophagitis; R51.9 Headache, unspecified; J98.6 Disorders of diaphragm; Z86.59 Personal history of other mental and behavioral disorders; G47.30 Sleep apnea, unspecified; Q66.70 Congenital pes cavus, unspecified foot
CPT/HCPCS: 36415; 80053; 85025

== ENCOUNTER → 2023-06-03 | Outpatient (CLI) | payer BC, SELFPAY ==
[2023-06-03 10:06] LABS: Absolute Lymphocyte Count 1.88 X10^3/uL (0.83-4.51); Absolute Neutrophil Count 5.4 X10^3/uL (2.0-7.7); Basophil# 0.03 X10^3/uL; Basophil% 0.4 % (0-1); Eosinophil# 0.09 X10^3/uL; Eosinophils% 1.1 % (0-5); Hematocrit 38.3 % (37-47); Hemoglobin 12.2 g/dL (12.0-15.0); Lymphocyte # 1.88 X10^3/ul (0.83-4.51); Lymphocyte % 23.5 % (19-41); Mean Corp Hgb Conc 31.9 g/dL (32-36); Mean Corpuscular Hgb 30.7 pg (27.0-32.0); Mean Corpuscular Volume 96.2 fL (81-99); Mean Platelet Vol. 8.7 fl (6.2-12.0); Monocyte# 0.56 X10^3/uL; NRBC Flagged by Analyzer 0 % (0-5); Neutrophil # 5.43 X10^3/uL (2.7-7.7); Neutrophil % 67.9 % (47-70); Platelet Count 295 K/mm3 (150-450); RBC Distribution Width CV 12.6 % (11.6-14.6); RBC Distribution Width SD 45.2 fl (35.1-43.9); Red Blood Count 3.98 M/mm3 (4.2-5.4)
[2023-06-03 10:47] LABS: ALB/GLOB Ratio 1.3 RATIO (0.9-2.4); AST(SGOT) 15 U/L (15-37); Alanine Aminotransfer ALT/SGPT 22 U/L (13-56); Albumin, Serum 3.7 g/dL (3.2-5.0); Alkaline Phosphatase 42 U/L (45-117); Anion Gap 5 (5-15); BUN 6 mg/dL (7-18); BUN/Creat Ratio 10.7 RATIO (10-20); Calcium,Total 8.8 mg/dL (8.5-10.1); Chloride 109 mmol/L (98-107); Creatinine, Serum 0.56 mg/dL (0.55-1.02); EST Glomerular Filtration Rate 126 mL/min (>60); Est Glom Filt Rate - Afr Amer 152 mL/min (>60); Globulin 2.8 g/dL (2.2-4.2); Glucose 81 mg/dL (74-106); Potassium 3.5 mmol/L (3.5-5.1); Protein, Total 6.5 g/dL (6.4-8.2); Sodium Level 141 mmol/L (136-145)
== END | disposition home or self-care (01) ==
LOC: MTLAB 07:23
PROVIDERS: PCP Family Medicine; Referring Provider Internal Medicine Rheumatology; Visit Provider Internal Medicine Rheumatology
DX: M06.09 Rheumatoid arthritis without rheumatoid factor, multiple sites (principal); Z79.899 Other long term (current) drug therapy; R76.8 Other specified abnormal immunological findings in serum; M79.7 Fibromyalgia; M70.62 Trochanteric bursitis, left hip; J45.909 Unspecified asthma, uncomplicated; K21.9 Gastro-esophageal reflux disease without esophagitis; R51.9 Headache, unspecified; J98.6 Disorders of diaphragm; Z86.59 Personal history of other mental and behavioral disorders; G47.30 Sleep apnea, unspecified; Q66.70 Congenital pes cavus, unspecified foot
CPT/HCPCS: 36415; 80053; 85025

== ENCOUNTER → 2023-09-04 | Outpatient (CLI) | payer BC, SELFPAY ==
--- OUTSIDE RECORDS SUMMARY | 2023-09-04 07:29 | XMS RPT_ITS | CCD ---
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 Davide Lee Primary Care Unavail sunni Lee, Dr. Davide Severino Attending Unavail able Dr. Davide Lee Referring Unavail able Medications Current Medications Medication Drug Class(es) Dates Sig (Normalized) Sig (Original) 1 ml etanercept 50 mg/ml auto-injector (1 source) Tumor Necrosis Factor Karen Start: 10-25-2022 EnbreL SureClick 50 mg/mL (1 mL) Pen single use prefilled syringe folic acid 1 mg oral tablet (16 sources) Start: 11-13-2022 folic acid (FOLVITE) 1 MG tablet Completed/Discontinued Medications Medication Drug Class(es) Dates Sig (Normalized) Sig (Original) [id number] 200 actuat albuterol 0.09 mg/actuat metered dose inhaler (20 sources) beta2-Adrenergic Agonist Start: 07-12-2021 Albuterol Sulfate HFA 108 (90 Base) MCG/ACT Inhalation Aerosol Solution Quantity: 18 Refills: 0 Ordered: 12-Jul-2021 DO Start : 12-Jul-2021 Active Problems Active Problems Problem Classification Problem Date Documented Date Episodic/Chronic Asthma (20 sources) Mild persistent asthma; Translations: [Asthma, unspecified type, unspecified] Onset: 02-11-2023 Chronic Conditions associated with dizziness or vertigo (8 sources) Dizziness; Translations: [Dizziness and giddiness] 04-29-2021 Episodic Esophageal disorders (18 sources) Gastroesophageal reflux disease; Translations: [Esophageal reflux] Chronic Genitourinary symptoms and ill-defined conditions (4 sources) Increased frequency of urination; Translations: [Urinary frequency] Episodic Immunizations and screening for infectious disease (1 source) Contact with or exposure to other viral diseases; Translations: [Exposure to confirmed case of COVID-19] Episodic Mood disorders (3 sources) Major depressive disorder; Translations: [Major depression] Chronic Osteoarthritis (1 source) Osteoarthritis of wrist Chronic Other aftercare (9 sources) Drug-induced immunodeficiency ; Translations: [Long-term (current) use of other medications] Episodic Other connective tissue disease (2 sources) Fibromyalgia; Translations: [Myalgia and myositis, unspecified] Episodic Other connective tissue disease (1 source) Pain in both feet; Translations: [Pain in right foot] 11-25-2022 Episodic Other connective tissue disease (2 sources) Pain in right foot; Translations: [Pain in right foot] Onset: 11-25-2022 Episodic Other connective tissue disease (2 sources) Pain in left foot; Translations: [Pain in left foot] Onset: 11-25-2022 Episodic Other lower respiratory disease (18 sources) Paralysis of diaphragm ; Translations: [Disorders of diaphragm] Episodic Other lower respiratory disease (2 sources) Cough; Translations: [Cough] Episodic Other nervous system disorders (2 sources) Ataxia; Translations: [Lack of coordination] 04-30-2021 Episodic Other non-traumatic joint disorders (11 sources) Multiple joint pain; Translations: [Pain in joint, multiple sites] Episodic Other non-traumatic joint disorders (2 sources) Sesamoiditis; Translations: [Other specified joint disorders, left ankle and foot] 11-25-2022 Episodic Other non-traumatic joint disorders (2 sources) Other specified joint disorders, left ankle and foot; Translations: [Other specified joint disorders, left ankle and foot] Onset: 11-25-2022 Episodic Other non-traumatic joint disorders (2 sources) Other specified joint disorders, right ankle and foot; Translations: [Other specified joint disorders, right ankle and foot] Onset: 11-25-2022 Episodic Other nutritional; endocrine; and metabolic disorders (3 sources) Obesity; Translations: [Obesity] Chronic Other nutritional; endocrine; and metabolic disorders (18 sources) Body mass index 30+ - obesity; Translations: [Body Mass Index 33.0-33.9, adult] Chronic Other nutritional; endocrine; and metabolic disorders (2 sources) Abnormal weight loss; Translations: [Loss of weight] Episodic Other screening for suspected conditions (not mental disorders or infectious disease) (10 sources) Breast neoplasm screening status; Translations: [Other screening mammogram] Onset: 02-11-2023 Episodic Other skin disorders (1 source) Acquired keratoderma; Translations: [Acquired keratosis [keratoderma] palmaris et plantaris] 11-25-2022 Episodic Other skin disorders (2 sources) Acquired keratosis [keratoderma] palmaris et plantaris; Translations: [Acquired keratosis (keratoderma) palmaris et plantaris] Onset: 11-25-2022 Episodic Other upper respiratory disease (18 sources) Allergic rhinitis; Translations: [Allergic rhinitis, cause unspecified] Chronic Other upper respiratory infections (9 sources) Chronic sinusitis; Translations: [Unspecified sinusitis (chronic)] Chronic Other upper respiratory infections (1 source) Acute upper respiratory infection; Translations: [Acute upper respiratory infections of unspecified site] Episodic Otitis media and related conditions (5 sources) Dysfunction of eustachian tube; Translations: [Dysfunction of Eustachian tube] Episodic Residual codes; unclassified (18 sources) Sleep apnea; Translations: [Unspecified sleep apnea] Chronic Residual codes; unclassified (2 sources) Generalized aches and pains; Translations: [Generalized pain] Episodic Rheumatoid arthritis and related disease (4 sources) Inflammatory polyarthropathy; Translations: [Unspecified inflammatory polyarthropathy] Onset: 02-11-2023 Chronic Unclassified (2 sources) DIZZY,NAUSEA 04-29-2021 Past or Other Problems Problem Classification Problem Date Documented Da te Episodic/Chronic Screening and history of mental health and substance abuse codes (15 sources) H/O: depression; Translations: [Personal history of other mental disorders] Resolved: 10-16-2020 Episodic Unclassified (1 source) Left wrist pain Results Test Name Value Interpretation Reference Range Facil ity Vital Signs Date Time Vital Sign Value Performing Clinician Facility 11-25-2022 10:47-0400 Body temperature 99.1 [degF] Rhonda Adolfo DPM Work Phone: [facility] 11-25-2022 10:47-0400 Diastolic blood pressure 66 mm[Hg] Rhonda Adolfo DPM Work Phone: [facility] 11-25-2022 10:47-0400 Heart rate 91 /min Rhonda Adolfo DPM Work Phone: [facility] 11-25-2022 10:47-0400 Systolic blood pressure 99 mm[Hg] Rhonda Compton DPM Work Phone: [facility] 02-08-2022 08:22-0400 Body height 147.32 cm Davide Lee Work Phone: [facility] Work Phone: 02-08-2022 08:22-0400 Body mass index (BMI) [Ratio] 30.72 kg/m2 Davide Lee Work Phone: [facility] Work Phone: 02-08-2022 08:22-0400 Body surface area Derived from formula 1.6 m2 Davide Lee [facility] Phone[facility] Work Phone: 02-08-2022 08:22-0400 Body weight 66.68 kg Davide Lee Work Phone: [facility] Work Phone: 02-08-2022 08:22-0400 Diastolic blood pressure 72 mm[Hg] Davide Lee Work Phone: [facility] Work Phone: 02-08-2022 08:22-0400 Heart rate 78 /min Davide Lee Work Phone: [facility] Work Phone: 02-08-2022 08:22-0400 SaO2% (BldA) [Mass fraction] 98 % Davide Lee Work Phone: [facility] Work Phone: 02-08-2022 08:22-0400 Systolic blood pressure 118 mm[Hg] Davide Lee Work Phone: [facility] Work Phone: 12-04-2021 10:27-0400 Body height 147.32 cm Daivde Lee Work Phone: [facility] Work Phone: 12-04-2021 10:27-0400 Body mass index (BMI) [Ratio] 31.56 kg/m2 Davide Lee Work Phone: [facility] Work Phone: 12-04-2021 10:27-0400 Body surface area Derived from formula 1.62 m2 Davide Lee Work Phone: [facility] Work Phone: 12-04-2021 10:27-0400 Body weight 68.49 kg Davide Lee Work Phone: [facility] Work Phone: 12-04-2021 10:27-0400 Diastolic blood pressure 64 mm[Hg] Davide Lee Work Phone: [facility] Work Phone: 12-04-2021 10:27-0400 Heart rate 96 /min Davide Lee Work Phone: [facility] Work Phone: 12-04-2021 10:27-0400 Systolic blood pressure 120 mm[Hg] Davide Lee Work Phone: [facility] Work Phone: 07-13-2021 11:36-0500 Body height 147.32 cm Davide Lee Work Phone: [facility] Work Phone: 07-13-2021 11:36-0500 Body mass index (BMI) [Ratio] 29.29 kg/m2 Davide Lee Work Phone: [facility] Work Phone: 07-13-2021 11:36-0500 Body surface area Derived from formula 1.57 m2 Davide Lee Work Phone: [facility] Work Phone: 07-13-2021 11:36-0500 Body temperature 98.9 [degF] Davide Huber Lee Work Phone: [facility] Work Phone: 07-13-2021 11:36-0500 Body weight 63.56 kg Davide Lee Work Phone: [facility] Work Phone: 07-13-2021 11:36-0500 Diastolic blood pressure 68 mm[Hg] Davide Lee Work Phone: [facility] Work Phone: 07-13-2021 11:36-0500 Heart rate 84 /min Davide Lee Work Phone: [facility] Work Phone: 07-13-2021 11:36-0500 Systolic blood pressure 118 mm[Hg] Davide Lee Work Phone: [facility] Work Phone: 05-25-2021 08:52-0400 Body height 147.32 cm Davide Lee Work Phone: [facility] Work Phone: 05-25-2021 08:52-0400 Body mass index (BMI) [Ratio] 31.21 kg/m2 Davide Lee Work Phone: [facility] Work Phone: 05-25-2021 08:52-0400 Body surface area Derived from formula 1.61 m2 Davide Lee Work Phone: [facility] Work Phone: 05-25-2021 08:52-0400 Body temperature 97.7 [degF] Davide Lee Work Phone: [facility] Work Phone: 05-25-2021 08:52-0400 Body weight 67.73 kg Davideestuardo Lee Work Phone: [facility] Work Phone: 05-25-2021 08:52-0400 Diastolic blood pressure 70 mm[Hg] Davideestuardo Lee Work Phone: [facility] Work Phone: 05-25-2021 08:52-0400 Heart rate 94 /min Davide Lee Work Phone: [facility] Work Phone: 05-25-2021 08:52-0400 SaO2% (BldA) [Mass fraction] 99 % Davideestuardo Lee Work Phone: [facility] Work Phone: 05-25-2021 08:52-0400 Systolic blood pressure 116 mm[Hg] Davide Lee Work Phone: [facility] Work Phone: 05-11-2021 17:21-0400 Diastolic blood pressure 65 mm[Hg] Davide Lee Other Phone: [facility] 05-11-2021 17:21-0400 Heart rate 92 /min Davide Lee Other Phone: [facility] 05-11-2021 17:21-0400 Respiratory rate 16 /min Davide Lee Other Phone: [facility] 05-11-2021 17:21-0400 SaO2% (BldA) [Mass fraction] 96 % Davide Lee Other Phone: [facility] 05-11-2021 17:21-0400 Systolic blood pressure 106 mm[Hg] Davide Lee Other Phone: [facility] 04-30-2021 06:30-0400 Diastolic blood pressure 75 mm[Hg] Davide Lee Other Phone: [facility] 04-30-2021 06:30-0400 Heart rate 69 /min Davide Lee Other Phone: [facility] 04-30-2021 06:30-0400 Respiratory rate 16 /min Davide Lee Other Phone: [facility] 04-30-2021 06:30-0400 SaO2% (BldA) [Mass fraction] 95 % Davide Lee Other Phone: [facility] 04-30-2021 06:30-0400 Systolic blood pressure 99 mm[Hg] Davide Lee Other Phone: [facility] 07-20-2018 10:16-0500 BMI (Body Mass Index) 28.28 kg/m2 Jayy Saab [facility] 07-20-2018 10:16-0500 Height 149.9 cm Jayy Saab [facility] 07-20-2018 10:16-0500 Weight 63.5 kg Jayy Saab [facility] Encounters Encounter Date Encounter Type Care Provider Facility Start: 02-27-[address] Davide Lee Facility:[id number] Start: 02-18-2023 End: 02-19-2023 ambulatory DAVIDE LEE [facility] Start: 02-11-2023 End: 02-11-[address] [facility] Start: 11-25-2022 End: 11-25-2022 ambulatory DAVIDE LEE [facility] Start: 11-25-2022 End: 11-25-2022 Office outpatient new 30 minutes Rhonda Cope DPM Work Phone: [facility] Physician [facility] Pod[facility] Procedures Date Procedure Procedure Detail Performing Clinician Start: 02-18-2023 Lipid panel DAVIDE Escamilla Start: 04-29-2021 End: 04-29-2021 EKG impression Alessia Alexandraneri Start: 07-20-2018 End: 07-20-2018 Radex wrist complete minimum 3 views Jayy Saab Work Phone: Abdominal hysterectomy Davide Lee section Davide Lee Cholecystectomy Davide Lee Endoscopic balloon dilatation of ostium of paranasal sinus Davide Lee Tonsillectomy Davide Lee Plan of Treatment Date Care Activity Detail Author Start: 12-16-2022 End: 12-16-2022 Patient encounter procedure 12/16/2022 7:45 AM EDT Office Visit [facility] Physician [facility] [address] [place] [address] Rhonda Cope DPM [address] [place] [address] [facility] Start: 05-02-2022 Influenza vaccination Sequential Influenza Vaccine (#1) [facility] Start: 02-08-2022 EPV, Provider: Davide Lee, Status: Pen, Time: 8:20 AM EPV, Provider: Davide Lee, Status: Pen, Time: 8:20 AM [facility] Work Phone: Start: 2021 Screening for malignant neoplasm of breast Mammogram [facility] Start: 05-02-2018 Influenza vaccination SEQUENTIAL INFLUENZA VACCINE (#1) [facility] Start: 1999 Hepatitis C screening Hepatitis C Screening [facility] Start: 1996 HIV screening HIV Screening [facility] Start: 1993 Depression screening using PHQ-9 (Patient Health Questionnaire 9) score Depression Screening (PHQ-2/9) [facility] Start: 1984 History and physical examination, annual for health maintenance Wellness Visit [facility] Start: 01-15-1982 COVID-19 Vaccine (#1) COVID-19 Vaccine (#1) [facility] Start: 1981 Screening for malignant neoplasm of cervix PAP SMEAR [facility] Start: 1981 Tetanus vaccination [facility] Immunizations Immunization Date Immunization Notes Care Provider Fa andres 05-17-2020 Seasonal, quadrivale nt, recombinant, injectable influenza vaccine, preservative free Davide Lee Work Phone: [employer] Work Phone: 10-22-2006 TD(adult) unspecifie d formulation Davide Lee Work Phone: [facility] Phone: 10-29-1999 hepatitis B vaccine, pediatric or pediatric/adolescent dosage Davide Lee Work Phone: [facility] Phone: 10-29-1999 TD(adult) unspecifie d formulation Davide Lee Work Phone: [employer] Phone: 03-14-1999 hepatitis B vaccine, pediatric or pediatric/adolescent dosage Davide Lee Work Phone: [employer] Phone: 01-31-1999 hepatitis B vaccine, pediatric or pediatric/adolescent dosage Davide Lee Work Phone: [employer] Work Phone: 05-15-1994 measles, mumps and rubella virus vaccine Davide Lee Work Phone: [facility] Work Phone: 11-16-1986 diphtheria, tetanus toxoids and acellular pertussis vaccine, unspecified formulation Davide Huber Lee Work Phone: [facility] Work Phone: 11-16-1986 trivalent poliovirus vaccine, live, oral Davide Huebr Brooks Work Phone: [facility] Work Phone: 06-12-1983 diphtheria, tetanus toxoids and acellular pertussis vaccine, unspecified formulation Davide Huber Lee Work Phone: [facility] Work Phone: 04-10-1983 measles, mumps and rubella virus vaccine Davide Huber Lee Work Phone: [facility] Work Phone: 06-12-1982 trivalent poliovirus vaccine, live, oral Davide Huber Lee Work Phone: [facility] Work Phone: 04-25-1982 diphtheria, tetanus toxoids and pertussis vaccine Davide Huber Lee Work Phone: [facility] Work Phone: 1980 diphtheria, tetanus toxoids and pertussis vaccine Davide Huber Lee Work Phone: [facility] Work Phone: 1980 trivalent poliovirus vaccine, live, oral Davide Lee Work Phone: [facility] Work Phone: 1980 diphtheria, tetanus toxoids and pertussis vaccine Davide Lee Work Phone: [facility] Work Phone: 1980 trivalent poliovirus vaccine, live, oral Davide Lee Work Phone: [facility] Work Phone: Payers Date Payer Category Payer Unknown 2022 Unknown [id number] 1980 Unknown [id number] 1980 Unknown [id number] 1980 Unknown [id number] 1980 Unknown [id number] Social History Date Type Detail Facility Start: 07-20-2018 End: 11-25-2022 Tobacco smoking status NHIS Never smoker [facility] Start: 1980 Sex Assigned At Not on file [facility] Tobacco smoking consumption unknown [facility] Start: 10-10-2021 Denies alcohol consumption Denies alcohol consumption [facility] Work Phone: Start: 11-25-2022 Tobacco use and exposure Smokeless tobacco non-user [facility] Start: 11-25-2022 Alcohol intake Current drinke r of alcohol (finding) [facility] Start: 10-10-2021 Tobacco use panel [facility] Start: 11-25-2022 Alcohol Comment rarely [facility] Start: 07-20-2018 Gender identity Identifies as female gender (finding) [facility] Start: 07-20-2018 Sexual orientation Heterosexual (fin ding) [facility] Start: 11-15-2022 End: 11-25-2022 Exposure to SARS-CoV-2 (event) Not sure [facility] NEGATED: Highlighted row - - [facility] Work Phone: Functional Status Date Assessment Result Facility NEGATED: Highlighted row Functional performance Functional status health issues are not documented Disease [facility] Work Phone: Mental Status Date Assessment Result Facility NEGATED: Highlighted row Cognitive function [Interpretation] Cognitive status health issues are not documented Disease [facility] Work Phone: Clinical Notes 05-01-2021 to 11-25-2022 Patient InstructionsRhonda Cope DPM - 11/25/2022 10:48 AM EDT Note Date & Type Note Facility 11-25-2022 Instructions Rhonda Cope DPM - 11/25/2022 11:32 AM EDT Sesamoiditis Plantar Porokeratosis (PPK) documented in this encounter [facility] 11-25-2022 History of Present illness Narrative Images from the original note were not included. NEW Patient Visit Rhonda Cope DPM Patient Name: Darrin Flores. . Date of : 1980, 42 y.o.. Gender: female. Subjective: Patient is a pleasant 42-year-old female who presents to clinic concerned about warts to bilateral feet. States that they have been present for 2-3 months. States that she has tried oxao-coj-odjgvxe remedies with no success. States that her feet hurt her at the end of the day after she has been on for 10 hours wearing steel toe shoes. 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 Denies any trauma or injury. Denies fevers, chills, nausea, vomiting, chest pain, shortness of breath, or any other constitutional symptoms. Past Medical History: Diagnosis Date Asthma Fibromyalgia RA (rheumatoid arthritis) ([facility]) Past Surgical History: Procedure Laterality Date SECTION, CLASSIC GALLBLADDER PARTIAL HYSTERECTOMY TONSILLECTOMY Social History Socioeconomic History Marital status: Tobacco Use Smoking status: Never Smokeless tobacco: Never Vaping Use Vaping status: Never Used Substance and Sexual Activity Alcohol use: Yes Comment: rarely Drug use: Never Physical Examination: BP 99/66 (BP Location: Left arm, Patient Position: Sitting, BP Cuff Size: Adult) Pulse 91 Temp 99.1 F (37.3 C) (Infrared) General Appearance: Alert, cooperative, no distress, appears stated age. Podiatric Exam Vascular: DP and PT pulses are palpable 2/4. Capillary refill time is less than 3 secs to distal digits. Skin temperature is warm to warm from proximal tibial tuberosity to distal digit. Neurological: Gross sensation is intact. Protective sensation is intact. Dermatologic: No appreciable verrucous lesions noted to the plantar first metatarsal head, bilaterally. 1 small very superficial plantar porokeratotic lesion noted subfirst metatarsal head. Upon debridement no underlying nucleated core is noted. No surrounding erythema, edema. Interdigital spaces are clean dry and intact. Musculoskeletal: Pain on palpation subfirst metatarsal head, bilaterally, especially at the medial sesamoid. Patient is able to wiggle digits. Hallux abductovalgus deformity noted bilaterally, left worse than right. Small medial prominence noted bilaterally. Ankle joint range of motion is intact. Muscle strength is 5/5 to dorsiflexors, plantar flexors, inverters and everters. Compartments soft and compressible. No calf pain Diagnoses: 1. Sesamoiditis of left foot 2. Sesamoiditis of right foot 3. Acquired plantar porokeratosis 4. Bilateral foot pain Assessment/Plan: Patient was seen and evaluated. Discussed all clinical findings. Patient has small porokeratotic lesions of the first metatarsal head, bilaterally. Upon debridement of lesions, no nucleated core noted. Discussed with patient that her pain is likely secondary to her hallux abductovalgus deformity which puts pressures on her sesamoid bones and her pain is primarily at the tibial sesamoid. Discussed offloading and good supportive shoes while at home and to avoid barefoot walking, flip-flops or slippers. Meloxicam was prescribed and sent to her pharmacy to help decrease pain and inflammation. All questions were answered to patient satisfaction. Patient understands to call with any questions or concerns. Patient is to follow-up in 2-3 weeks for evaluation and new x-rays of bilateral feet This note was partially created using voice recognition software and is inherently subject to errors including those of syntax and sound-alike substitutions which may escape proofreading. In such instances, original meaning may be extrapolated by contextual derivation. Rhonda Cope DPM, MS Podiatric Physician & Surgeon documented in this encounter [facility] 01-17-2022 History of Present illness Narrative Darrin presents with a few days of urinary urgency, frequency and left flank pain, mild nausea. No vomiting, no fevers/chills.Left eyebrow twitching the last week, will monitor and let us know if that persists. [facility] Work Phone: 11-27-2021 History of Present illness Narrative Darrin presents with a few days of urinary urgency, frequency and left flank pain, mild nausea. No vomiting, no fevers/chills.Left eyebrow twitching the last week, will monitor and let us know if that persists. [facility] Work Phone: 09-11-2021 History of Present illness Narrative Darrin presents virtually with cough and cold symptoms that started around 09/11. She went to urgent care 09/13 and was treated with augmentin. COmpleted the augmentin, still has cough and congestion, and now has symptoms of vaginal yeast infection. She has a history of mild persistent asthma and has used her rescue inhaler a few times.She had covid this past fall and received the monoclonal antibody infusion. She is not vaccinated. . Her spouse has covid. Advised I do not recommend testing as its not going to change our management at this point. She states she needs it for work since her spouse is positive.Denies shortness of breath. [facility] Work Phone: 05-01-2021 Note Send Summary: Discharge Summary Providers: Provider RoleProvider Name AttendingSoSharon Suárez Julie O Note Recipients: PCP Discharge: Summary: Admission Date: .30-Apr-2021 06:20:00 Discharge Date: 01-May-2021 Attending Physician at Discharge: Sharon Ricardo Admission Reason: VERTIGO Final Discharge Diagnoses: 1. Vertigo 2. Hx of asthma 3. dizziness 4. dehydration Procedures: none Condition at Discharge: Satisfactory Disposition at Discharge: .Home Vital Signs: T PRBPSpO2 [id number]% Date/Time05/01 8: 8: 8: 8: 8:05 Range(36.5C - 36.5C ) (84 - 84 ) (18 - 18 ) (114 - 114 )/ (78 - 78 ) (94% - 94% ) Date: Weight/Scale Type:Height: 30-Apr-2021 18:4870 kg / tzi766.3 cm Physical Exam: Constitutional: Well developed female resting in bed on room air, awake/alert/oriented x3, no distress, alert and cooperative Eyes: PERRL, EOMI, clear sclera ENMT: mucous membranes moist, no apparent injury, no lesions seen Head/Neck: NCAT Respiratory/Thorax: Patent airways, CTAB, normal breath sounds with good chest expansion, thorax symmetric on room air Cardiovascular: Regular, rate and rhythm, no murmurs, 2+ equal pulses of the extremities, normal S 1and S 2 Gastrointestinal: Nondistended, soft, non-tender, no rebound tenderness or guarding, +BS Musculoskeletal: ROM intact, no joint swelling, normal strength Extremities: Freely moves all extremities, no cyanosis, edema, contusions or wounds, no clubbing Neurological: alert and oriented x3, intact senses and motor responses, normal strength Lymphatic: No significant lymphadenopathy Psychological: Appropriate mood and behavior, no confusion or delusions Skin: Warm and dry, no lesions, no rashes Hospital Course: Darrin Flores is a 40 year old female with past medical history of fibromyalgia, asthma, arthritis, and allergies since to the emergency department today as a transfer from an outside hospital for an MRI in the setting of dizziness, ataxia, and nausea. Patient was transferred here for an MRI with concern for a potential basilar stroke. Upon examination of patient on [place] [id number], patient is resting in bed on her back on room air. She states that Friday night she began to develop dizziness and nausea. She states that it has worsened since then and she has had trouble walking. When asked if she falls more to the left or right when she tries to walk, she states that she does not recall falling in a certain direction. At this time she states that she is not currently nauseous. She states that the dizziness is worse when moving and she currently states that she is not dizzy while resting in bed. Patient states that she has never experienced dizziness like this before. She notes a mild headache across her forehead, but states that it is improving. She denies any episodes of emesis over the last few days. She denies fever, chills, chest pain, shortness of breath, abdominal pain, trouble urinating, diarrhea, constipation, lower extremity pain and weakness. Neurology was consulted and examined patient in the ED. They reviewed the MRI brain and found no evidence of a posterior stroke. Neurology believes this is likely benign vertigo and they recommend Adenike maneuvers, meclizine, and symptomatic treatment per primary team. stable for discharge > 35 minutes spent coordinating the discharge of the patient Discharge Information: and Continuing Care: Lab Results - Pending: None Radiology Results - Pending: None Discharge Instructions: Activity: activity as tolerated. Nutrition/Diet: resume normal diet Additional Orders: Additional Instructions: 1. You been diagnosed with vertigo. continue meclizine 25 mg every 8 hours for dizziness and for refills please contact your primary care provider Follow Up Appointments: Follow-Up Appointment 01: Physician/Dept/Service: Dr. Davide Lee Primary Care Physician Scheduled Date/Time: 08-May-2021 08:40 Location: [address] [place] [address] Discharge Medications: Home Medication montelukast 10 mg oral tablet - 1 tab(s) orally once a day omeprazole 20 mg oral delayed release capsule - 1 cap(s) orally once a day Breo Ellipta 100 mcg-25 mcg/inh inhalation powder - 1 puff(s) inhaled once a day Flonase 50 mcg/inh nasal spray - 1 spray(s) nasal once a day meclizine 25 mg oral tablet - 1 tab(s) orally 3 times a day PRN Medication albuterol 2.5 mg/3 mL (0.083%) inhalation solution - 3 milliliter(s) inhaled every 6 hours, As Needed wheezing and dyspnea Electronic Signatures: Sharon Ricardo () (Signed 02-May-2021 04:02) Authored: Send Summary, Summary Content, Ongoing Care, Note Completion Last Updated: 02-May-2021 04:02 by Sharon Ricardo () [facility] 05-01-2021 Note History of Present I llness: /Lactating: Are You no (1) Are You Currently Breastfeedingno (1) HPI: Darrin Flores is a 40 year old female with past medical history of fibromyalgia, asthma, arthritis, and allergies since to the emergency department today as a transfer from an outside hospital for an MRI in the setting of dizziness, ataxia, and nausea. Patient was transferred here for an MRI with concern for a potential basilar stroke. Upon examination of patient [place] [address], patient is resting in bed on her back on room air. She states that Friday night she began to develop dizziness and nausea. She states that it has worsened since then and she has had trouble walking. When asked if she falls more to the left or right when she tries to walk, she states that she does not recall falling in a certain direction. At this time she states that she is not currently nauseous. She states that the dizziness is worse when moving and she currently states that she is not dizzy while resting in bed. Patient states that she has never experienced dizziness like this before. She notes a mild headache across her forehead, but states that it is improving. She denies any episodes of emesis over the last few days. She denies fever, chills, chest pain, shortness of breath, abdominal pain, trouble urinating, diarrhea, constipation, lower extremity pain and weakness. Neurology was consulted and examined patient in the ED. They reviewed the MRI brain and found no evidence of a posterior stroke. Neurology believes this is likely benign vertigo and they recommend Adenike maneuvers, meclizine, and symptomatic treatment per primary team. ED Course: 04/29/21 Labs: CBC: WNL, Repeat PENDING CMP: Glucose 108. K 3.4. AG 8. Repeat PENDING UA: WNL UDS: WNL COVID: Negative on 04/29/2021 Imaging: CT Head w/o contrast: No findings of an acute intracranial process. MRI Brain w/o contrast: No acute infarct, hemorrhage or mass is noted. The white matter has a few focal FLAIR hyperintensities which may be secondary to migraine, hypertension, demyelinating, degenerative,chronic microvascular ischemic or other etiologies. MRA Head and Neck w/o contrast: Normal cerebral MR angiogram. Normal cervical carotid/vertebral MR angiogram. CXR: No acute disease. Elevation of the left hemidiaphragm. Medications: Tylenol, valium, toradol, Compazine, NS 1L IV bolus VS: T 98.6. HR 83. RR 18. BP 120/82. 98% on room air Past Medical History: Fibromyalgia, asthma, arthritis, allergies Past Surgical History: x 3, partial hysterectomy, balloon septoplasty, cholecystectomy, tonsillectomy Allergies/Intolerances: NKDA Home medications: Confirmed with Patient. Albuterol nebulizer 3ml Q6hr PRN Breo Ellipta 100mcg-25mcg inhalation 1 puff PO Daily Flonase 50mcg 1 spray per nasal Daily Montelukast 10mg PO Daily Omeprazole 20mg PO Daily Social History: Tobacco: denies; Alcohol: denies; Illicit: denies Family History: lung CA, leukemia, CHF, Skin CA, asthma ROS: a 14 point review of systems was performed and is negatives except for positives noted in HPI above. Social History: Social History: Smoking Statusnever smoker (1) Alcohol Usedenies(1) Drug Usedenies (1) Allergies: No Known Allergies: Medications Prior to Admission: Outpatient Meds have not been reviewed. Objective: Objective Information: T PRBPSpO2 [id number]% Date/Time04/30 6:288/30 18: 18: 18: 18:00 Range(37C - 37C ) (78 - 105 ) (10 - 18 ) (101 - 120 )/ (63 - 82 ) (78% - 100% ) Highest temp of 37 C was recorded at 04/30 6:28 Pain reported at 04/30 22:00: 0 = None Physical Exam by System: Constitutional: Well developed female resting in bed on room air, awake/alert/oriented x3, no distress, alert and cooperative Eyes: PERRL, EOMI, clear sclera ENMT: mucous membranes moist, no apparent injury, no lesions seen Head/Neck: NCAT Respiratory/Thorax: Patent airways, CTAB, normal breath sounds with good chest expansion, thorax symmetric on room air Cardiovascular: Regular, rate and rhythm, no murmurs, 2+ equal pulses of the extremities, normal S 1and S 2 Gastrointestinal: Nondistended, soft, non-tender, no rebound tenderness or guarding, +BS Musculoskeletal: ROM intact, no joint swelling, normal strength Extremities: Freely moves all extremities, no cyanosis, edema, contusions or wounds, no clubbing Neurological: alert and oriented x3, intact senses and motor responses, normal strength Lymphatic: No significant lymphadenopathy Psychological: Appropriate mood and behavior, no confusion or delusions Skin: Warm and dry, no lesions, no rashes Medications: Medications: Continuous Medications 1. Lactated Ringers Infusion: 1000 mL IntraVenous Scheduled Medications (more content not included)... [facility] N[facility] infusion. helped with symptoms.[facility] [employer] Phone: History of Present illness NarrativeShe presents today for right ear pain after having COVID, having some pressure in both ears. She was treated with z pack and prednisone. She continues to have a lingering cough. It is improved. No sputum. Some shortness of breath. Denies fever or body aches. No GI symptoms. Did have infusion. helped with symptoms.[employer] Phone: History of Present illness Narrative* Pt presents for flare up of chronic sinus symptoms . History of recurrent sinus infections, on methotrexate for inflammatory polyarthropathy. * Several days of nasal congestion and bilateral maxillary pain. No cough, no shortness of breath. * Note weight loss, states started new job in September, and doesn't eat regular meals, working third shift. Recommend some labs to begin with. [facility] Phone: Summary Purpose Family History No Family History Records Found Grandparent Name Dates Details Family history of lung cance r(V16.1, Z80.1) Status:Active Family history of heart fail ure(V17.49, Z82.49) Status:Active Family history of leukemia(V 16.6, Z80.6) Status:Active Mother Name Dates Details Family history of malignant neoplasm of skin(V16.8, Z80.8) Status:Active Family history of asthma(V17 .5, Z82.5) Status:Active Grandparent Name Dates Details Family history of lung cance r(V16.1, Z80.1) Status:Active Family history of heart fail ure(V17.49, Z82.49) Status:Active Family history of leukemia(V 16.6, Z80.6) Status:Active Mother Name Dates Details Family history of malignant neoplasm of skin(V16.8, Z80.8) Status:Active Family history of asthma(V17 .5, Z82.5) Status:Active Grandparent Name Dates Details Family history of lung cance r(V16.1, Z80.1) Status:Active Family history of heart fail ure(V17.49, Z82.49) Status:Active Family history of leukemia(V 16.6, Z80.6) Status:Active Mother Name Dates Details Family history of malignant neoplasm of skin(V16.8, Z80.8) Status:Active Family history of asthma(V17 .5, Z82.5) Status:Active Unknown Family Member Name Dates Details Family history of malignant neoplasm of skin: Mother(V16.8, Z80.8) Status:Active Family history of asthma: Mo ther(V17.5, Z82.5) Status:Active Family history of lung cance r: Grandparent(V16.1, Z80.1) Status:Active Family history of heart fail ure: Grandparent(V17.49, Z82.49) Status:Active Family history of leukemia: Grandparent(V16.6, Z80.6) Status:Active Unknown Family Member Name Dates Details Family history of malignant neoplasm of skin: Mother(V16.8, Z80.8) Status:Active Family history of asthma: Mo ther(V17.5, Z82.5) Status:Active Family history of lung cance r: Grandparent(V16.1, Z80.1) Status:Active Family history of heart fail ure: Grandparent(V17.49, Z82.49) Status:Active Family history of leukemia: Grandparent(V16.6, Z80.6) Status:Active Unknown Family Member Name Dates Details Family history of malignant neoplasm of skin: Mother(V16.8, Z80.8) Status:Active Family history of asthma: Mo ther(V17.5, Z82.5) Status:Active Family history of lung cance r: Grandparent(V16.1, Z80.1) Status:Active Family history of heart fail ure: Grandparent(V17.49, Z82.49) Status:Active Family history of leukemia: Grandparent(V16.6, Z80.6) Status:Active Unknown Family Member Name Dates Details Family history of malignant neoplasm of skin: Mother(V16.8, Z80.8) Status:Active Family history of asthma: Mo ther(V17.5, Z82.5) Status:Active Family history of lung cance r: Grandparent(V16.1, Z80.1) Status:Active Family history of heart fail ure: Grandparent(V17.49, Z82.49) Status:Active Family history of leukemia: Grandparent(V16.6, Z80.6) Status:Active Unknown Family Member Name Dates Details Family history of malignant neoplasm of skin: Mother(V16.8, Z80.8) Status:Active Family history of asthma: Mo ther(V17.5, Z82.5) Status:Active Family history of lung cance r: Grandparent(V16.1, Z80.1) Status:Active Family history of heart fail ure: Grandparent(V17.49, Z82.49) Status:Active Family history of leukemia: Grandparent(V16.6, Z80.6) Status:Active Unknown Family Member Name Dates Details Family history of malignant neoplasm of skin: Mother(V16.8, Z80.8) Status:Active Family history of asthma: Mo ther(V17.5, Z82.5) Status:Active Family history of lung cance r: Grandparent(V16.1, Z80.1) Status:Active Family history of heart fail ure: Grandparent(V17.49, Z82.49) Status:Active Family history of leukemia: Grandparent(V16.6, Z80.6) Status:Active Unknown Family Member Name Dates Details Family history of malignant neoplasm of skin: Mother(V16.8, Z80.8) Status:Active Family history of asthma: Mo ther(V17.5, Z82.5) Status:Active Family history of lung cance r: Grandparent(V16.1, Z80.1) Status:Active Family history of heart fail ure: Grandparent(V17.49, Z82.49) Status:Active Family history of leukemia: Grandparent(V16.6, Z80.6) Status:Active Unknown Family Member Name Dates Details Family history of malignant neoplasm of skin: Mother(V16.8, Z80.8) Status:Active Family history of asthma: Mo ther(V17.5, Z82.5) Status:Active Family history of lung cance r: Grandparent(V16.1, Z80.1) Status:Active Family history of heart fail ure: Grandparent(V17.49, Z82.49) Status:Active Family history of leukemia: Grandparent(V16.6, Z80.6) Status:Active Unknown Family Member Name Dates Details Family history of malignant neoplasm of skin: Mother(V16.8, Z80.8) Status:Active Family history of asthma: Mo ther(V17.5, Z82.5) Status:Active Family history of lung cance r: Grandparent(V16.1, Z80.1) Status:Active Family history of heart fail ure: Grandparent(V17.49, Z82.49) Status:Active Family history of leukemia: Grandparent(V16.6, Z80.6) Status:Active Unknown Family Member Name Dates Details Family history of malignant neoplasm of skin: Mother(V16.8, Z80.8) Status:Active Family history of asthma: Mo ther(V17.5, Z82.5) Status:Active Family history of lung cance r: Grandparent(V16.1, Z80.1) Status:Active Family history of heart fail ure: Grandparent(V17.49, Z82.49) Status:Active Family history of leukemia: Grandparent(V16.6, Z80.6) Status:Active Unknown Family Member Name Dates Details Family history of leukemia: Grandparent(V16.6, Z80.6) Status:Active Family history of heart fail ure: Grandparent(V17.49, Z82.49) Status:Active Family history of lung cance r: Grandparent(V16.1, Z80.1) Status:Active Family history of asthma: Mo ther(V17.5, Z82.5) Status:Active Family history of malignant neoplasm of skin: Mother(V16.8, Z80.8) Status:Active Unknown Family Member Name Dates Details Family history of malignant neoplasm of skin: Mother(V16.8, Z80.8) Status:Active Family history of asthma: Mo ther(V17.5, Z82.5) Status:Active Family history of lung cance r: Grandparent(V16.1, Z80.1) Status:Active Family history of heart fail ure: Grandparent(V17.49, Z82.49) Status:Active Family history of leukemia: Grandparent(V16.6, Z80.6) Status:Active Unknown Family Member Name Dates Details Family history of malignant neoplasm of skin: Mother(V16.8, Z80.8) Status:Active Family history of asthma: Mo ther(V17.5, Z82.5) Status:Active Family history of lung cance r: Grandparent(V16.1, Z80.1) Status:Active Family history of heart fail ure: Grandparent(V17.49, Z82.49) Status:Active Family history of leukemia: Grandparent(V16.6, Z80.6) Status:Active Unknown Family Member Name Dates Details Family history of malignant neoplasm of skin: Mother(V16.8, Z80.8) Status:Active Family history of asthma: Mo ther(V17.5, Z82.5) Status:Active Family history of lung cance r: Grandparent(V16.1, Z80.1) Status:Active Family history of heart fail ure: Grandparent(V17.49, Z82.49) Status:Active Family history of leukemia: Grandparent(V16.6, Z80.6) Status:Active Unknown Family Member Name Dates Details Family history of leukemia: Grandparent(V16.6, Z80.6) Status:Active Family history of heart fail ure: Grandparent(V17.49, Z82.49) Status:Active Family history of lung cance r: Grandparent(V16.1, Z80.1) Status:Active Family history of asthma: Mo ther(V17.5, Z82.5) Status:Active Family history of malignant neoplasm of skin: Mother(V16.8, Z80.8) Status:Active Advance Directives No Advanced Directives Records FoundNo Advanced Directives Records FoundNo Advanced Directives Records FoundNo Advanced Directives Records FoundNo Advanced Directives Records FoundNo Advanced Directives Records FoundNo Advanced Directives Records FoundNo Advanced Directives Records Found History of Present Illness * Jayy Saab MD - 07/20/2018 12:32 PM EST Darrin comes in today for followup of left wrist. Darrin had a significant injury to her left wrist she said back in May of 2018. At the end of May she was helping her family tear a roof off a building and the repetitive activity and the motion, she said she had a significant pain and discomfort on the outside of the left wrist and it has been about 2 months. She has had no brace, no shots, no therapy. She has been doing some Tylenol. ALLERGIES None. MEDICINES Singulair. Claritin, Tylenol. SURGERIES She had 3 C sections, partial hysterectomy, gallbladder surgery, tonsillectomy, foot neuroma. ILLNESSES Asthma. REVIEW OF SYSTEMS Left wrist pain. SOCIAL HISTORY Does not smoke. Does not drink. FAMILY HISTORY Positive for cancer. Negative for heart attack and stroke. IMAGING X-rays 3 views of the left wrist due to pain reveals normal left wrist with no fracture, no dislocation, no malalignment. PHYSICAL EXAM General: She is awake, alert and oriented x3. Ambulates without assistive device. Extremities: Full range of motion throughout the left hand. Full range of motion throughout the left wrist. She has no snuffbox tenderness. Negative Los's negative. Negative Tinel's and Phalen's. Negative Adson and Doss maneuver. Negative Thomas test. She has exquisite tenderness over theleft wrist flexor carpi ulnaris and triangular fibrocartilage complex. IMPRESSION 1. Left wrist flexor tendinitis. 2. Left wrist triangular fibrocartilage complex (TFCC) tear. PLAN At this point in time, we are going to proceed forward with 20 mg of Kenalog and 2.5 mL of 1% lidocaine without epinephrine in the left wrist TFCC. Patient tolerated the procedure well. If this failsto give her relief, we will have to consider potential physical therapy. If all measures would fail, we would consider MRI and surgical arthroscopy. in this encounter Assessments Diagnosis TFCC (triangular fibrocartil age complex) injury, left, initial encounter - Primary Left wrist pain Pain in joint, forearm Chief Complaint right ear pain on and off since having covid. Had covid stymptom 05/06 tested positive 05/10. Still does have a little bit of coughright ear pain on and off since having covid. Had covid stymptom 05/06 tested positive 05/10. Still does have a little bit of coughChief Complaint: DARRIN FLORES is here with a chief complaint of C/O SINUS PAIN AND PRESSURE; ALSOHAS SOME SINUS DRAINAGE X 2-3D.* Chief Complaint: DARRIN FLORES is here with a chief complaint of VIRTUAL VISIT; C/O NONPRODUCTIVE COUGH AND HEAD CONGESTION SINCE 09/13/21; WAS SEEN AT [facility] AND TREATED FOR EAR INFECTION; HAS COMPLETED THOSE ATB'S; PTS TESTED POSITIVE FOR COVID YESTERDAY. * An interactive audio and video telecommunication system which permits real time communications between the patient (at the originating site) and provider (at the distant site) was utilized to providethis telehealth service. Chief Complaint: DARRIN FLORES is here with a chief complaint of C/O URINARY FREQUENCY AND URGENCYX 5-6D.Chief Complaint: DARRIN FLORES is here with a chief complaint of C/O URINARY FREQUENCY AND URGENCYX 5-6D. Additional Source Comments INFORMATION SOURCE (unrecogn ized section and content) DATE CREATED AUTHOR AUTHOR'S ORGANIZ ATION 04/30/2019 [facility] DATE CREATED AUTHOR AUTHOR'S ORGANIZ ATION 02/08/2022 [facility] DATE CREATED AUTHOR AUTHOR'S ORGANIZ ATION 02/08/2022 [facility] DATE CREATED AUTHOR AUTHOR'S ORGANIZ ATION 11/26/2022 [facility] DATE CREATED AUTHOR AUTHOR'S ORGANIZ ATION 02/19/2023 [facility] DATE CREATED AUTHOR AUTHOR'S ORGANIZ ATION 02/22/2023 [facility] DATE CREATED AUTHOR AUTHOR'S ORGANIZ ATION 03/01/2023 [facility] Reason for Visit (unrecogniz ed section and content) Reason Comments Foot Problem Bilateral possible w arts x 2-3 mos - pt has tried OTC remedies with no success - pt states that the areas are becoming painful <item><item> Privacy Markings (unrecogniz ed section and content) Section Author: Virgie العلي PROHIBITION ON REDISCLOSURE OF CONFIDENTIAL INFORMATION This notice accompanies a disclosure of information concerning a client made to you with the consent of such client. Section Author: Virgie العلي PROHIBITION ON REDISCLOSURE OF CONFIDENTIAL INFORMATION This notice accompanies a disclosure of information concerning a client made to you with the consent of such client. Care Teams (unrecognized sec tion and content) FOR RECORDS PERTAINING TO PATIENTS WHO ARE OR HAVE BEEN ENROLLED IN A CHEMICAL DEPENDENCY/SUBSTANCEABUSE PROGRAM, SOME INFORMATION MAY BE OMITTED. This clinical summary was aggregated from multiple sources. Caution should be exercised in using it in the provision of clinical care. This summary normalizes information from multiple sources, and as a consequence, information in this document may materially change the coding, format and clinical context of patient data. In addition, data may be omitted in some cases. CLINICAL DECISIONS SHOULD BE BASED ON THE PRIMARY CLINICAL RECORDS. [employer] [facility]. provides no warranty or guarantee of the accuracy or completeness of information in this document.
[2023-09-04 10:24] LABS: Absolute Lymphocyte Count 2.64 X10^3/uL (0.83-4.51); Basophil# 0.04 X10^3/uL; Basophil% 0.5 % (0-1); Eosinophil# 0.26 X10^3/uL; Eosinophils% 3.5 % (0-5); Hematocrit 38.2 % (37-47); Hemoglobin 12.5 g/dL (12.0-15.0); Lymphocyte # 2.64 X10^3/ul (0.83-4.51); Lymphocyte % 35.1 % (19-41); Mean Corp Hgb Conc 32.7 g/dL (32-36); Mean Corpuscular Hgb 30.9 pg (27.0-32.0); Mean Corpuscular Volume 94.6 fL (81-99); Mean Platelet Vol. 8.9 fl (6.2-12.0); Monocyte# 0.56 X10^3/uL; Monocyte% 7.4 % (0-10); NRBC Flagged by Analyzer 0 % (0-5); Neutrophil # 4.01 X10^3/uL (2.7-7.7); Neutrophil % 53.4 % (47-70); Platelet Count 312 K/mm3 (150-450); RBC Distribution Width CV 12.5 % (11.6-14.6); RBC Distribution Width SD 43.5 fl (35.1-43.9); Red Blood Count 4.04 M/mm3 (4.2-5.4); White Blood Count 7.5 K/mm3 (4.4-11.0)
[2023-09-04 10:53] LABS: ALB/GLOB Ratio 1.1 RATIO (0.9-2.4); AST(SGOT) 12 U/L (15-37); Alanine Aminotransfer ALT/SGPT 20 U/L (13-56); Albumin, Serum 3.5 g/dL (3.2-5.0); Alkaline Phosphatase 45 U/L (45-117); Anion Gap 6 (5-15); BUN 11 mg/dL (7-18); BUN/Creat Ratio 15.6 RATIO (10-20); Calcium,Total 8.7 mg/dL (8.5-10.1); Chloride 106 mmol/L (98-107); EST Glomerular Filtration Rate 97 mL/min (>60); Est Glom Filt Rate - Afr Amer 117 mL/min (>60); Globulin 3.2 g/dL (2.2-4.2); Glucose 79 mg/dL (74-106); Protein, Total 6.7 g/dL (6.4-8.2); Sodium Level 138 mmol/L (136-145)
== END | disposition home or self-care (01) ==
LOC: MTLAB 07:25
PROVIDERS: PCP Family Medicine; Referring Provider Internal Medicine Rheumatology; Visit Provider Internal Medicine Rheumatology
DX: M06.09 Rheumatoid arthritis without rheumatoid factor, multiple sites (principal); Z79.899 Other long term (current) drug therapy; R76.8 Other specified abnormal immunological findings in serum; M79.7 Fibromyalgia; M70.62 Trochanteric bursitis, left hip; J45.909 Unspecified asthma, uncomplicated; K21.9 Gastro-esophageal reflux disease without esophagitis; R51.9 Headache, unspecified; J98.6 Disorders of diaphragm; Z86.59 Personal history of other mental and behavioral disorders; G47.30 Sleep apnea, unspecified; Q66.70 Congenital pes cavus, unspecified foot
CPT/HCPCS: 36415; 80053; 85025

== ENCOUNTER → 2023-11-26 | Outpatient (CLI) | payer BC, SELFPAY ==
[2023-11-26 10:44] LABS: Absolute Lymphocyte Count 1.86 X10^3/uL (0.83-4.51); Absolute Neutrophil Count 5.1 X10^3/uL (2.0-7.7); Basophil# 0.06 X10^3/uL; Basophil% 0.8 % (0-1); Eosinophil# 0.29 X10^3/uL; Eosinophils% 3.7 % (0-5); Hematocrit 40.4 % (37-47); Hemoglobin 13.3 g/dL (12.0-15.0); Lymphocyte # 1.86 X10^3/ul (0.83-4.51); Lymphocyte % 23.6 % (19-41); Mean Corp Hgb Conc 32.9 g/dL (32-36); Mean Corpuscular Hgb 30.4 pg (27.0-32.0); Mean Corpuscular Volume 92.2 fL (81-99); Mean Platelet Vol. 9.1 fl (6.2-12.0); Monocyte# 0.54 X10^3/uL; Monocyte% 6.9 % (0-10); NRBC Flagged by Analyzer 0 % (0-5); Neutrophil % 64.6 % (47-70); Platelet Count 334 K/mm3 (150-450); RBC Distribution Width CV 12.5 % (11.6-14.6); RBC Distribution Width SD 42.5 fl (35.1-43.9); Red Blood Count 4.38 M/mm3 (4.2-5.4); White Blood Count 7.9 K/mm3 (4.4-11.0)
[2023-11-26 11:08] LABS: ALB/GLOB Ratio 1.2 RATIO (0.9-2.4); AST(SGOT) 17 U/L (15-37); Alanine Aminotransfer ALT/SGPT 22 U/L (13-56); Albumin, Serum 3.8 g/dL (3.2-5.0); Alkaline Phosphatase 48 U/L (45-117); Anion Gap 4 (5-15); BUN 9 mg/dL (7-18); BUN/Creat Ratio 13.5 RATIO (10-20); Calcium,Total 8.5 mg/dL (8.5-10.1); Chloride 107 mmol/L (98-107); Creatinine, Serum 0.67 mg/dL (0.55-1.02); EST Glomerular Filtration Rate 103 mL/min (>60); Est Glom Filt Rate - Afr Amer 125 mL/min (>60); Globulin 3.3 g/dL (2.2-4.2); Glucose 90 mg/dL (74-106); Potassium 4.1 mmol/L (3.5-5.1); Protein, Total 7.1 g/dL (6.4-8.2); Sodium Level 137 mmol/L (136-145)
== END | disposition home or self-care (01) ==
PROVIDERS: PCP Family Medicine; Referring Provider Internal Medicine Rheumatology; Visit Provider Internal Medicine Rheumatology
DX: M06.09 Rheumatoid arthritis without rheumatoid factor, multiple sites (principal); Z79.899 Other long term (current) drug therapy; R76.8 Other specified abnormal immunological findings in serum; M79.7 Fibromyalgia
CPT/HCPCS: 36415; 80053; 85025

== ENCOUNTER → 2024-02-19 | Outpatient (CLI) | payer BC, SELFPAY ==
[2024-02-19 09:49] LABS: Absolute Lymphocyte Count 2.02 X10^3/uL (0.83-4.51); Absolute Neutrophil Count 5.3 X10^3/uL (2.0-7.7); Basophil# 0.05 X10^3/uL; Basophil% 0.6 % (0-1); Eosinophil# 0.21 X10^3/uL; Eosinophils% 2.5 % (0-5); Hematocrit 39.3 % (37-47); Hemoglobin 12.9 g/dL (12.0-15.0); Lymphocyte # 2.02 X10^3/ul (0.83-4.51); Lymphocyte % 24.3 % (19-41); Mean Corp Hgb Conc 32.8 g/dL (32-36); Mean Corpuscular Volume 91.4 fL (81-99); Mean Platelet Vol. 8.8 fl (6.2-12.0); Monocyte# 0.69 X10^3/uL; Monocyte% 8.3 % (0-10); NRBC Flagged by Analyzer 0 % (0-5); Neutrophil # 5.31 X10^3/uL (2.7-7.7); Neutrophil % 64.1 % (47-70); Platelet Count 324 K/mm3 (150-450); RBC Distribution Width CV 12.5 % (11.6-14.6); RBC Distribution Width SD 41.5 fl (35.1-43.9); White Blood Count 8.3 K/mm3 (4.4-11.0)
[2024-02-19 11:02] LABS: ALB/GLOB Ratio 1.1 RATIO (0.9-2.4); AST(SGOT) 17 U/L (15-37); Alanine Aminotransfer ALT/SGPT 19 U/L (13-56); Albumin, Serum 3.7 g/dL (3.2-5.0); Alkaline Phosphatase 48 U/L (45-117); Anion Gap 10 (5-15); BUN 18 mg/dL (7-18); Chloride 104 mmol/L (98-107); Creatinine, Serum 0.82 mg/dL (0.55-1.02); EST Glomerular Filtration Rate 81 mL/min (>60); Est Glom Filt Rate - Afr Amer 98 mL/min (>60); Globulin 3.3 g/dL (2.2-4.2); Glucose 88 mg/dL (74-106); Potassium 3.8 mmol/L (3.5-5.1); Sodium Level 136 mmol/L (136-145)
== END | disposition home or self-care (01) ==
LOC: MTLAB 07:20
PROVIDERS: PCP Family Medicine; Referring Provider Internal Medicine Rheumatology; Visit Provider Internal Medicine Rheumatology
DX: M06.09 Rheumatoid arthritis without rheumatoid factor, multiple sites (principal); R76.8 Other specified abnormal immunological findings in serum; M79.7 Fibromyalgia; Z79.899 Other long term (current) drug therapy
CPT/HCPCS: 36415; 80053; 85025

== ENCOUNTER → 2024-05-12 | Outpatient (CLI) | payer BC, SELFPAY ==
[2024-05-12 10:07] LABS: Absolute Lymphocyte Count 2.07 X10^3/uL (0.83-4.51); Absolute Neutrophil Count 5.7 X10^3/uL (2.0-7.7); Basophil# 0.05 X10^3/uL; Basophil% 0.6 % (0-1); Eosinophil# 0.15 X10^3/uL; Eosinophils% 1.8 % (0-5); Hematocrit 37.3 % (37-47); Hemoglobin 12.3 g/dL (12.0-15.0); Lymphocyte # 2.07 X10^3/ul (0.83-4.51); Lymphocyte % 24.2 % (19-41); Mean Corpuscular Hgb 30.3 pg (27.0-32.0); Mean Corpuscular Volume 91.9 fL (81-99); Mean Platelet Vol. 8.8 fl (6.2-12.0); Monocyte# 0.59 X10^3/uL; Monocyte% 6.9 % (0-10); NRBC Flagged by Analyzer 0 % (0-5); Neutrophil # 5.65 X10^3/uL (2.7-7.7); Neutrophil % 66.1 % (47-70); Platelet Count 313 K/mm3 (150-450); RBC Distribution Width SD 43.8 fl (35.1-43.9); Red Blood Count 4.06 M/mm3 (4.2-5.4); White Blood Count 8.5 K/mm3 (4.4-11.0)
[2024-05-12 10:48] LABS: ALB/GLOB Ratio 1.1 RATIO (0.9-2.4); AST(SGOT) 19 U/L (15-37); Alanine Aminotransfer ALT/SGPT 26 U/L (13-56); Albumin, Serum 3.7 g/dL (3.2-5.0); Alkaline Phosphatase 45 U/L (45-117); Anion Gap 9 (5-15); BUN 14 mg/dL (7-18); BUN/Creat Ratio 22.2 RATIO (10-20); Calcium,Total 8.9 mg/dL (8.5-10.1); Chloride 105 mmol/L (98-107); Creatinine, Serum 0.63 mg/dL (0.55-1.02); EST Glomerular Filtration Rate 110 mL/min (>60); Est Glom Filt Rate - Afr Amer 133 mL/min (>60); Globulin 3.3 g/dL (2.2-4.2); Glucose 77 mg/dL (74-106); Potassium 4.1 mmol/L (3.5-5.1); Sodium Level 138 mmol/L (136-145)
== END | disposition home or self-care (01) ==
LOC: MTLAB 07:21
PROVIDERS: PCP Family Medicine; Referring Provider Internal Medicine Rheumatology; Visit Provider Internal Medicine Rheumatology
DX: M06.09 Rheumatoid arthritis without rheumatoid factor, multiple sites (principal); Z79.899 Other long term (current) drug therapy; R76.8 Other specified abnormal immunological findings in serum; M79.7 Fibromyalgia
CPT/HCPCS: 36415; 80053; 85025

== ENCOUNTER → 2024-07-01 | Outpatient (CLI) | payer BC, SELFPAY | END | disposition home or self-care (01) | PROVIDERS: PCP Family Medicine; Referring Provider Otolaryngology; Visit Provider Otolaryngology | DX: J32.9 Chronic sinusitis, unspecified (principal) | CPT/HCPCS: 87070; 87077; 87186; 87205 ==

== ENCOUNTER → 2024-07-20 | Outpatient (CLI) | payer BC, SELFPAY | END | disposition home or self-care (01) | LOC: PSN 07:48 | PROVIDERS: PCP Family Medicine; Referring Provider Internal Medicine Critical Care Medicine; Visit Provider Internal Medicine Critical Care Medicine | DX: J45.909 Unspecified asthma, uncomplicated (principal); Z79.631 Long term (current) use of antimetabolite agent | CPT/HCPCS: 94060; 94726; 94729 ==

== ENCOUNTER → 2024-08-04 | Outpatient (CLI) | payer BC, SELFPAY ==
[2024-08-04 10:40] LABS: Absolute Lymphocyte Count 2.08 X10^3/uL (0.83-4.51); Absolute Neutrophil Count 4.3 X10^3/uL (2.0-7.7); Basophil# 0.06 X10^3/uL; Basophil% 0.8 % (0-1); Eosinophil# 0.16 X10^3/uL; Eosinophils% 2.2 % (0-5); Hematocrit 38.4 % (37-47); Hemoglobin 12.5 g/dL (12.0-15.0); Lymphocyte # 2.08 X10^3/ul (0.83-4.51); Lymphocyte % 28.9 % (19-41); Mean Corp Hgb Conc 32.6 g/dL (32-36); Mean Corpuscular Hgb 29.6 pg (27.0-32.0); Mean Platelet Vol. 8.8 fl (6.2-12.0); Monocyte# 0.58 X10^3/uL; Monocyte% 8.1 % (0-10); NRBC Flagged by Analyzer 0 % (0-5); Neutrophil # 4.29 X10^3/uL (2.7-7.7); Neutrophil % 59.7 % (47-70); Platelet Count 322 K/mm3 (150-450); RBC Distribution Width CV 12.7 % (11.6-14.6); RBC Distribution Width SD 41.8 fl (35.1-43.9); Red Blood Count 4.22 M/mm3 (4.2-5.4); White Blood Count 7.2 K/mm3 (4.4-11.0)
[2024-08-04 11:13] LABS: ALB/GLOB Ratio 1.6 RATIO (0.9-2.4); AST(SGOT) 17 U/L (15-37); Alanine Aminotransfer ALT/SGPT 19 U/L (13-56); Albumin, Serum 4.1 g/dL (3.2-5.0); Alkaline Phosphatase 44 U/L (45-117); Anion Gap 6 (5-15); BUN 8 mg/dL (7-18); BUN/Creat Ratio 11.8 RATIO (10-20); Calcium,Total 8.6 mg/dL (8.5-10.1); Chloride 107 mmol/L (98-107); Creatinine, Serum 0.68 mg/dL (0.55-1.02); EST Glomerular Filtration Rate 101 mL/min (>60); Est Glom Filt Rate - Afr Amer 122 mL/min (>60); Globulin 2.5 g/dL (2.2-4.2); Glucose 84 mg/dL (74-106); Potassium 3.6 mmol/L (3.5-5.1); Protein, Total 6.6 g/dL (6.4-8.2); Sodium Level 138 mmol/L (136-145)
== END | disposition home or self-care (01) ==
LOC: MTLAB 07:38
PROVIDERS: PCP Family Medicine; Referring Provider Internal Medicine Rheumatology; Visit Provider Internal Medicine Rheumatology
DX: M06.09 Rheumatoid arthritis without rheumatoid factor, multiple sites (principal); Z79.899 Other long term (current) drug therapy; R76.8 Other specified abnormal immunological findings in serum; M79.7 Fibromyalgia
CPT/HCPCS: 36415; 80053; 85025

== ENCOUNTER → 2024-09-09 | Outpatient (CLI) | payer BC, SELFPAY | END | disposition home or self-care (01) | PROVIDERS: PCP Family Medicine; Referring Provider Nurse Practitioner Family; Visit Provider Nurse Practitioner Family | DX: G47.33 Obstructive sleep apnea (adult) (pediatric) (principal) | CPT/HCPCS: 95806 ==

== ENCOUNTER → 2024-11-04 | Outpatient (CLI) | payer BC, SELFPAY ==
[2024-11-04 10:04] LABS: Absolute Lymphocyte Count 1.95 X10^3/uL (0.83-4.51); Absolute Neutrophil Count 4.7 X10^3/uL (2.0-7.7); Basophil# 0.03 X10^3/uL; Basophil% 0.4 % (0-1); Eosinophil# 0.17 X10^3/uL; Eosinophils% 2.3 % (0-5); Hematocrit 39.4 % (37-47); Hemoglobin 12.8 g/dL (12.0-15.0); Lymphocyte # 1.95 X10^3/ul (0.83-4.51); Lymphocyte % 26.1 % (19-41); Mean Corp Hgb Conc 32.5 g/dL (32-36); Mean Corpuscular Volume 92.5 fL (81-99); Mean Platelet Vol. 8.8 fl (6.2-12.0); Monocyte# 0.56 X10^3/uL; Monocyte% 7.5 % (0-10); NRBC Flagged by Analyzer 0 % (0-5); Neutrophil # 4.73 X10^3/uL (2.7-7.7); Neutrophil % 63.4 % (47-70); Platelet Count 380 K/mm3 (150-450); RBC Distribution Width CV 13.2 % (11.6-14.6); Red Blood Count 4.26 M/mm3 (4.2-5.4); White Blood Count 7.5 K/mm3 (4.4-11.0)
[2024-11-04 10:44] LABS: ALB/GLOB Ratio 1.6 RATIO (0.9-2.4); AST(SGOT) 20 U/L (<=31); Alanine Aminotransfer ALT/SGPT 16 U/L (<=34); Albumin, Serum 4.2 g/dL (3.5-5.0); Alkaline Phosphatase 48 U/L (35-104); Anion Gap 11 (5-15); BUN 8 mg/dL (4-19); Calcium,Total 8.9 mg/dL (7.6-11.0); Carbon Dioxide 23.7 mmol/L (21.0-32.0); Chloride 105 mmol/L (98-108); EST Glomerular Filtration Rate 110 (>60); Globulin 2.6 g/dL (2.2-4.2); Glucose 79 mg/dL (70-99); Potassium 3.7 mmol/L (3.3-5.1); Protein, Total 6.8 g/dL (5.9-8.4); Sodium Level 139 mmol/L (133-145); Total Bilirubin 0.24 mg/dL (0.00-1.30)
== END | disposition home or self-care (01) ==
LOC: MTLAB 07:04
PROVIDERS: PCP Family Medicine; Referring Provider Internal Medicine Rheumatology; Visit Provider Internal Medicine Rheumatology
DX: M06.09 Rheumatoid arthritis without rheumatoid factor, multiple sites (principal); Z79.899 Other long term (current) drug therapy; R76.8 Other specified abnormal immunological findings in serum; M79.7 Fibromyalgia
CPT/HCPCS: 36415; 80053; 85025

== ENCOUNTER → 2025-02-01 | Outpatient (CLI) | payer BC, SELFPAY ==
--- OUTSIDE RECORDS SUMMARY | 2025-02-01 07:13 | XMS RPT_ITS | CCD ---
Author Organization [facility] Care Team Providers Care Remelt Operator Name Role Phone Yesenia Lee Unavailable Yesenia Lee Unavailable Yesenia Lee Unavailable Unavailable Yesenia Lee Unavailable Yesenia Lee Unavailable Francisco J Frazier Unavailable Unavailable Yesenia Lee Unavailable Unavailable Unavailable Hiram Seth Unavailable Dr. Yesenia Lee Primary Care Provider Dr. Dom Diamond Attending Provider Dr. Dom Diamond Referring Provider Dr. Yesenia Lee Primary Care Provider Dr. Yesenia Lee Referring Provider Fernanda APPLICATION ENGINEER, APPLICATION ENGINEER-C Suzanna Attending Provider Yesenia Lee MD Primary Care Provider YESENIA LEE Primary Care Unavailable RHONDA COPE Attending Unavailable Dr. Yesenia Lee Primary Care Provider Dr. Yesenia Lee Referring Provider [phone] Fernanda APPLICATION ENGINEER, APPLICATION ENGINEER-C Suzanna Attending Provider YESENIA LEE Primary Care Unavailable Dr. Yesenia Lee Primary Care Unavail Dr. Yesenia Westfall Attending Unavail able Dr. Yesenia Lee Referring Unavail Dr. Yesenia Westfall Primary Care Provider Dr. Yesenia Lee Referring Provider [phone] Dr. Dom Diamond Attending Provider Dr. Yesenia Lee Primary Care Provider Dr. Yesenia Lee Referring Provider Dr. Dom Diamond Attending Provider Yesenia Lee MD Unavailable Yesenia Lee MD Primary Care Provider YESENIA LEE Referring Unavailable YESENIA LEE Primary Care Unavailable YESENIA LEE Referring Unavailable YESENIA LEE Primary Care Unavailable YESENIA LEE Primary Care Unavailable SENTHIL ALAS Attending Unavailable Yesenia Lee MD Unavailable Yesenia Lee MD Primary Care Provider YESENIA LEE Attending Unavailable YESENIA LEE Primary Care Unavailable YESENIA LEE Attending Unavailable YESENIA LEE Referring Unavailable YESENIA LEE Primary Care Unavailable YESENIA LEE Attending Unavailable YESENIA LEE Primary Care Unavailable YESENIA LEE Attending Unavailable YESENIA LEE Primary Care Unavailable Brooks WHITLEY, Dr. Yesenia Ngo Primary Care Provider Amber WHITLEY, Dr. Russell Attending Provider Amber WHITLEY, Dr. Russell Referring Provider Brooks WHITLEY, Dr. Yesenia Ngo Referring Provider Zenobia SANCHEZ-Faviola Little Attending Provider Zenobia SANCHEZ-Faviola Little Referring Provider Yesenia Lee Referring Unavailable Yesenia Lee Primary Care Unavailable Faviola Fregoso Attending Unavailable Yvonne Clark Referring Unavailable Yesenia Lee Primary Care Unavailable Yvonne Clark Attending Unavailable Yvonne Clark Referring Unavailable Yesenia Lee Primary Care Unavailable Yvonne Clark Attending Unavailable Yvonne Clark Referring Unavailable Yvonne Clark Attending Unavailable Yesenia Lee Primary Care Unavailable Dom Diamond Referring Unavailable Stanley Dalton Attending Unavailable Yesenia Lee Primary Care Unavailable Yesenia Lee Referring Unavailable Yesenia Lee Primary Care Unavailable Faviola Fregoso Attending Unavailable Yesenia Lee Primary Care Unavailable Faviola Fregoso Attending Unavailable Yesenia Lee Referring Unavailable Yvonne Clark Attending Unavailable Yesenia Lee Primary Care Unavailable Yvonne Clark Referring Unavailable Yesenia Lee Primary Care Unavailable Faviola Fregoso Attending Unavailable Faviola Fregoso Referring Unavailable Yesenia Lee Primary Care Unavailable Quang Locke Attending UnavailQuang Michale Referring UnavailDom Khan Referring Unavailable Yesenia Lee Primary Care Unavailable Dom Diamond Attending Unavailable Medications Current Medications Medication Drug Class(es) Dates Sig (Normalized) Sig (Original) 8 hr acetaminophen 650 mg extended release oral tablet (3 sources) Start: 08-28-2023 Acetaminophen (Tylenol Arthritis Pain) 650 mg tablet extended release Active 1300 mg PO Q8H as needed for pain August 28, 2023 1:00am albuterol 0.83 mg/ml inhalation solution (20 sources) beta2-Adrenergic Agonist Start: 08-21-2021 take 1 puff(s) by inhalation every six hours Albuterol Sulfate Active 2 PUFF INHALATION EVERY 6 HOURS August 21, 2021 1:54pm Start: 08-16-2021 End: 08-21-2021 take 1 puff(s) by inhalation every six hours Albuterol Sulfate Discontinued 2 PUFF INHALATION EVERY 6 HOURS August 16, 2021 1:44pm August 21, 2021 1:55pm Start: 07-12-2021 Albuterol Sulf ate HFA 108 (90 Base) MCG/ACT Inhalation Aerosol Solution Quantity: 18 Refills: 0 Ordered: 12-Jul-2021 DO Start : 12-Jul-2021 Active Start: 07-12-2021 Albuterol Sulf ate HFA 108 (90 Base) MCG/ACT Inhalation Aerosol Solution Quantity: 18 Refills: 0 Ordered: 12-Jul-2021 DO Start : 12-Jul-2021 Active Start: 05-16-2020 albuterol 2.5 mg /3 mL (0.083 %) nebulizer solution Inhale. 05/16/2020 Active Start: 05-16-2020 End: 08-28-2023 take 2.5 mg by inhalation every four hours as needed for wheezing Albuterol Sulfate 2.5 mg /3 mL (0.083 %) solution for nebulization Discontinued 2.5 mg INHALATION Q4H as needed for shortness of breath or wheezing August 30, 2022 10:07am August 28, 2023 9:17am Start: 06-09-2019 End: 08-28-2023 Albuterol Sulfate 90 mcg/act uation HFA aerosol inhaler Active 2 NMA INHALATION EVERY 6 HOURS August 28, 2023 9:16am Start: 06-09-2019 End: 08-28-2023 take 1 puff(s) by inhalation every six hours Albuterol Sulfate Discontinued 2 PUFF INHALATION EVERY 6 HOURS August 21, 2021 1:54pm February 28, 2022 7:51am take 2 puff(s) by in halation every six hours albuterol 90 mcg/actuation inhaler 2 PUFF INHALED EVERY 6 HOURS Active ALBUTEROL INHL I nhale . 0 Active take 3 mL by inhalat ion every six hours as needed albuterol 2.5 mg/3 mL (0.083%) inhalation solution ; 3 milliliter(s) inhaled every 6 hours, As Needed wheezing and dyspnea Quantity: 0 Refills: 0 Ordered: 30-Apr-2021 Sharon Ricardo Generic Substitution Allowed amoxicillin 875 mg / clavulanate 125 mg oral tablet (3 sources) Penicillin-class Antibacterial Start: 06-11-2024 End: 06-18-2024 take 1 tablet by mouth twice daily amoxicillin-pot clavulanate (Augmentin) 875-125 mg tablet Indications: Left facial swelling Take 1 tablet (875 mg) by mouth 2 times a day for 7 days. 14 tablet 06/11/2024 06/18/2024 Discontinued (Therapy completed) Start: 05-18-2024 End: 05-25-2024 take 1 tablet by mouth twice daily amoxicillin-pot clavulanate (Augmentin) 875-125 mg tablet Indications: Acute non-recurrent maxillary sinusitis Take 1 tablet by mouth 2 times a day for 7 days. 14 tablet 05/18/2024 05/25/2024 Active 60 actuat budesonide 0.16 mg/actuat / formoterol fumarate 0.0045 mg/actuat metered dose inhaler (10 sources) Corticosteroid, beta2-Adrenergic Agonist Start: 08-28-2023 take 2 puff(s) by inhalation twice daily Symbicort 160-4.5 mcg/actuation inhaler Inhale 2 puffs 2 times a day. 08/28/2023 Active Start: 08-28-2023 End: 08-20-2024 Budesonide-Formoterol (Symbi anna) 160-4.5 mcg/actuation HFA aerosol inhaler Discontinued 2 NMA INHALATION TWICE A DAY 10.2 August 28, 2023 1:00am August 20, 2024 12:02pm Start: 08-28-2023 take 1 puff(s) by in halation twice daily Budesonide-Formoterol (Symbicort) 160-4.5 mcg/actuation HFA aerosol inhaler Active 2 PUFF INHALATION TWICE A DAY 10.2 August 28, 2023 1:00am Start: 08-28-2023 take 1 puff(s) by in halation twice daily Budesonide-Formoterol (Symbicort) 160-4.5 mcg/actuation HFA aerosol inhaler Active 2 PUFF INHALATION TWICE A DAY 10.2 August 28, 2023 12:00am 1 ml etanercept 50 mg/ml auto-injector (6 sources) Tumor Necrosis Factor Karen Start: 10-25-2022 EnbreL SureClick 50 mg/mL (1 mL) Pen single use prefilled syringe Start: 08-30-2022 End: 08-28-2023 Etanercept (Enbrel) 50 mg/mL (1 mL) syringe Discontinued 50 mg SC EVERY WEEK August 30, 2022 1:00am August 28, 2023 8:54am fluconazole 150 mg oral tablet (7 sources) Azole Antifungal Start: 06-11-2024 End: 06-18-2024 take 1 tablet by mouth once fluconazole (Diflucan) 150 mg tablet Indications: Left facial swelling Take 1 tablet (150 mg) by mouth 1 time for 1 dose. 1 tablet 1 06/11/2024 06/18/2024 Discontinued (Therapy completed) Start: 05-18-2024 End: 05-22-2024 fluconazole (Diflucan) 150 m g tablet Indications: Acute non-recurrent maxillary sinusitis Take 1 tablet (150 mg) by mouth every 3 days for 2 doses. 2 tablet 05/18/2024 05/22/2024 Active Start: 09-25-2021 take 1 tablet by mouth once Fl uconazole 150 MG Oral Tablet TAKE 1 TABLET 1 TIME ONLY. Quantity: 1 Refills: 1 Ordered: 25-Sep-2021 Yesenia Lee MD Start : 25-Sep-2021 Active Start: 08-10-2019 take 1 tablet by mouth once Fl uconazole 150 MG Oral Tablet TAKE 1 TABLET 1 TIME ONLY. Quantity: 1 Refills: 1 Yesenia Lee MD Start : 10-Aug-2019 Active fluticasone propionate 0.05 mg/actuat metered dose nasal spray (20 sources) Corticosteroid Start: 07-26-2019 take 1 spray(s) nasal route twice daily Fluticasone Propionate 50 MCG/ACT Nasal Suspension USE 1 SPRAY IN EACH NOSTRIL TWICE DAILY Quantity: 1 Refills: 11 Ordered: 25-May-2021 Madeline Ruiz Start : 26-Jul-2019 Active Start: 07-26-2019 take 2 spray(s) nasa l route once daily Fluticasone Propionate 50 MCG/ACT Nasal Suspension SPRAY 2 SPRAY Daily in each nostril Quantity: 1 Refills: 3 Ordered: 26-Jul-2019 Yesenia Lee MD Start : 26-Jul-2019 Active Start: 06-09-2019 End: 08-28-2023 Fluticasone Propionate (Flon ase Allergy Relief) 50 mcg/actuation spray,suspension Active 2 NMA INTRANASAL DAILY 3 August 28, 2023 9:12am Start: 06-09-2019 End: 08-28-2023 Fluticasone Propionate (Flon ase Allergy Relief) 50 mcg/actuation spray,suspension Discontinued 2 SPRAY INTRANASAL DAILY 47.4 September 20, 2020 4:42pm February 28, 2022 7:51am take 2 spray(s) nasa l route once daily fluticasone (Flonase) 50 mcg/actuation nasal spray Administer 2 sprays into each nostril once daily. Active Flonase 50 mcg/i nh nasal spray ; 1 spray(s) nasal once a day Quantity: 0 Refills: 0 Ordered: 30-Apr-2021 Sharon Ricardo Generic Substitution Allowed 30 actuat fluticasone furoate 0.1 mg/actuat / vilanterol 0.025 mg/actuat dry powder inhaler (20 sources) Corticosteroid, beta2-Adrenergic Agonist Start: 08-20-2024 Fluticasone Furoate-Vilanterol (Breo Ellipta) 100-25 mcg/dose blister with device Active 1 NMA INHALATION Q24H 60 August 20, 2024 1:00am Start: 08-30-2022 End: 08-28-2023 Fluticasone Furoate-Vilanter ol (Breo Ellipta) 200-25 mcg/dose blister with device Discontinued 1 NMA INHALATION Q24H 3 August 30, 2022 10:07am August 28, 2023 9:09am Start: 08-30-2022 End: 08-28-2023 Fluticasone Furoate-Vilanter ol (Breo Ellipta) 200-25 mcg/dose blister with device Discontinued 1 INH INHALATION Q24H 3 August 30, 2022 10:07am August 28, 2023 9:09am Start: 08-30-2022 End: 08-28-2023 Fluticasone Furoate-Vilanter ol (Breo Ellipta) 200-25 mcg/dose blister with device Discontinued 1 INH INHALATION Q24H 3 August 30, 2022 9:07am August 28, 2023 8:09am Start: 08-30-2022 Fluticasone Fu roate-Vilanterol (Breo Ellipta) 200-25 mcg/dose blister with device Active 1 INH INHALATION Q24H 3 August 30, 2022 10:07am Start: 08-30-2022 Fluticasone Fu roate-Vilanterol (Breo Ellipta) 200-25 mcg/dose blister with device Active 1 INH INHALATION Q24H 3 August 30, 2022 9:07am Start: 02-28-2022 End: 08-30-2022 Fluticasone Furoate-Vilanter ol (Breo Ellipta) 200-25 mcg/dose blister with device Discontinued 1 NMA INHALATION Q24H 60 February 28, 2022 7:50am August 30, 2022 10:10am Start: 02-28-2022 End: 08-30-2022 Fluticasone Furoate-Vilanter ol (Breo Ellipta) 200-25 mcg/dose blister with device Discontinued 1 INH INHALATION Q24H 60 February 28, 2022 7:50am August 30, 2022 10:10am Start: 02-28-2022 End: 08-30-2022 Fluticasone Furoate-Vilanter ol (Breo Ellipta) 200-25 mcg/dose blister with device Discontinued 1 INH INHALATION Q24H 60 February 28, 2022 6:50am August 30, 2022 9:10am Start: 02-28-2022 Fluticasone Fu roate-Vilanterol (Breo Ellipta) 200-25 mcg/dose blister with device Active 1 INH INHALATION Q24H 60 February 28, 2022 7:50am Start: 07-12-2021 Breo Ellipta 2 00-25 MCG/INH AEPB Quantity: 60 Refills: 0 Ordered: 12-Jul-2021 DO Start : 12-Jul-2021 Active Start: 02-14-2021 Fluticasone Fu roate-Vilanterol (Breo Ellipta) 200-25 mcg/dose blister with device Active 1 INH INHALATION Q24H 60 February 14, 2021 8:02am Start: 02-14-2021 End: 02-28-2022 Fluticasone Furoate-Vilanter ol (Breo Ellipta) 200-25 mcg/dose blister with device Discontinued 1 NMA INHALATION Q24H 60 February 14, 2021 12:00am February 28, 2022 7:51am Start: 02-14-2021 End: 02-28-2022 Fluticasone Furoate-Vilanter ol (Breo Ellipta) 200-25 mcg/dose blister with device Discontinued 1 INH INHALATION Q24H 60 February 13, 2021 11:00pm February 28, 2022 6:51am Start: 02-14-2021 End: 02-28-2022 Fluticasone Furoate-Vilanter ol (Breo Ellipta) 200-25 mcg/dose blister with device Discontinued 1 INH INHALATION Q24H 60 February 14, 2021 12:00am February 28, 2022 7:51am Start: 06-10-2019 End: 02-14-2021 Fluticasone Furoate-Vilanter ol (Breo Ellipta) 100-25 mcg/dose blister with device Discontinued 1 NMA INHALATION Q24H September 20, 2020 4:41pm February 14, 2021 8:02am after inhalation, rinse mouth with water and spit out; do not swallow Start: 06-10-2019 End: 02-14-2021 Fluticasone Furoate-Vilanter ol (Breo Ellipta) 100-25 mcg/dose blister with device Discontinued 1 INH INHALATION Q24H 3 September 20, 2020 4:41pm February 14, 2021 8:02am after inhalation, rinse mouth with water and spit out; do not swallow End: 01-02-2024 Breo Ellipta 200-25 mcg/dose inhaler TAKE 1 INHALATION EVERY DAY 01/02/2024 Discontinued (Med List Cleanup) fluticasone furo ate-vilanteroL (Breo Ellipta) 200-25 mcg/dose DsDv Inhale daily . 0 Active Breo Ellipta 100 -25 MCG/INH Inhalation Aerosol Powder Breath Activated Quantity: 0 Refills: 0 Ordered: 02-Aug-2019 DO Active take 1 puff(s) by in halation once daily Breo Ellipta 100 mcg-25 mcg/inh inhalation powder ; 1 puff(s) inhaled once a day Quantity: 0 Refills: 0 Ordered: 30-Apr-2021 Sharon Ricardo Generic Substitution Allowed folic acid 1 mg oral tablet (20 sources) Start: 11-13-2022 folic acid (FO LVITE) 1 MG tablet Start: 08-16-2021 take 2 tablets by [facility] once daily Folic Acid 1 mg tablet Active 2 mg PO DAILY August 16, 2021 1:00am Start: 08-16-2021 take 2 mg by mouth once daily Folic Acid Active 2 MG PO DAILY August 16, 2021 1:00am Start: 04-20-2021 Folic Acid 1 M G Oral Tablet Quantity: 180 Refills: 0 Ordered: 20-Apr-2021 DO Start : 20-Apr-2021 Active hydroxychloroquine sulfate 200 mg oral tablet (20 sources) Antimalarial, Antirheumatic Agent Start: 10-08-2022 take 1.5 tablets by mouth once daily hydroxychloroquine (Plaquenil) 200 mg tablet Take 1.5 tablets (300 mg) by mouth once daily. 10/08/2022 Active Start: 02-28-2022 take 1 tablet by constantino once daily Hydroxychloroquine 200 mg tablet Active 200 mg PO DAILY February 28, 2022 12:00am loratadine 10 mg oral tablet (1 source) Start: 08-20-2024 take 1 capsule by mouth once daily Loratadine (Allergy Relief (Loratadine)) 10 mg capsule Active 10 mg PO daily August 20, 2024 1:00am 24 hr loratadine 10 mg / pseudoephedrine sulfate 240 mg extended release oral tablet (20 sources) alpha-Adrenerg ic Agonist Start: 06-18-2024 take 1 tablet by mouth once daily loratadine-pseudoep hedrine (Claritin-D 24-hour) 10-240 mg 24 hr tablet Indications: Chronic sinusitis, unspecified location TAKE 1 TABLET BY MOUTH EVERY DAY 90 tablet 3 06/18/2024 Active Start: 02-23-2024 End: 06-18-2024 take 1 tablet by mouth once daily in the morning loratadine-pseudoephedrine (Claritin-D 24-hour) 10-240 mg 24 hr tablet Indications: Chronic sinusitis, unspecified location TAKE 1 TABLET BY MOUTH EVERY DAY 30 tablet 2 06/01/2024 8:01 AM EDT 02/23/2024 06/18/2024 Discontinued (Reorder) Start: 06-09-2019 End: 02-07-2024 take 1 tablet by mouth once daily loratadine-pseudoephedrine (Claritin-D 24-hour) 10-240 mg 24 hr tablet TAKE 1 TABLET BY MOUTH EVERY DAY 30 tablet 11 02/07/2023 Active Start: 07-14-2018 End: 08-20-2024 take 1 tablet by mouth every twenty-four hours Loratadine-Pseudoephedrine (Claritin-D 2 4 Hour) 10-240 mg tablet extended release 24 hr Discontinued 1 {tbl} PO DAILY February 07, 2023 2:44pm August 20, 2024 12:04pm Start: 04-12-2018 End: 06-11-2024 loratadine-pseudoephedrine ( Claritin-D 24-hour) 10-240 mg 24 hr tablet 04/12/2018 06/11/2024 Discontinued (Therapy completed) meclizine hydrochloride 25 mg oral tablet (9 sources) Antiemetic Start: 05-01-2021 End: 05-15-2021 take 1 tablet by mouth three times daily meclizine 25 mg oral tablet ; 1 tab(s) orally 3 times a day Quantity: 45 Refills: 0 Ordered: 01-May-2021 Sharon Ricardo Start: 01-May-2021 End: 15-May-2021 Generic Substitution Allowed Meclizine HCl - 25 MG Oral Tablet Quantity: 0 Refills: 0 Ordered: 08-May-2021 DO Active meloxicam 15 mg oral tablet (1 source) Nonsteroidal Anti-inflammatory Drug Start: 11-25-2022 End: 11-25-2023 take 1 tablet by mouth once daily meloxicam (MOBIC) 15 MG tablet Take 1 (one) tablet (15 mg total) by mouth daily . 30 tablet 3 11/25/2022 11/25/2023 Active methotrexate 2.5 mg oral tablet (20 sources) Folate Analog Metabolic Inhibitor Start: 08-16-2021 Methotrexate Sodium 2.5 mg tablet Active 17.5 mg PO EVERY WEEK August 16, 2021 1:00am Start: 08-16-2021 take 17.5 mg by mout h every week Methotrexate Sodium Active 17.5 MG PO EVERY WEEK August 16, 2021 1:00am Start: 04-20-2021 take 8 tablets by mo uth every week methotrexate (TREXALL) 2.5 MG tablet TAKE 8 TABLETS BY MOUTH ONE TIME PER WEEK 0 09/26/2022 Active Start: 04-20-2021 take 7 tablets by mo uth every week Methotrexate Sodium 2.5 MG Oral Tablet TAKE 7 TABLETS PER WEEK. Quantity: 0 Refills: 0 Ordered: 20-Apr-2021 DO Start : 20-Apr-2021 Active Start: 04-20-2021 take 6 tablets by mo uth every week Methotrexate Sodium 2.5 MG Oral Tablet TAKE 6 TABLET(S) ORAL ONCE A WEEK Quantity: 24 Refills: 0 Ordered: 20-Apr-2021 DO Start : 20-Apr-2021 Active multivitamin (THERAGRAN) per tablet (1 source) multivitamin (THERAGRAN) per tablet Take by mouth . 0 Active multivitamin tablet (1 source) End: multivitamin tablet Take by mouth. 01/02/2024 Discontinued (Med List Cleanup) omeprazole 40 mg delayed release oral capsule (20 sources) Proton Pump Inhibitor Start: take 1 capsule by mouth once daily omeprazole (PriLOSEC) [address] capsule Indications: Mild persistent asthma, uncomplicated ([facility]) Take 1 capsule (40 mg) by mouth once daily. Do not crush or chew. 90 capsule 05/17/2024 Active take 1 capsule by mouth once adriana ly omeprazole 20 mg oral delayed release capsule ; 1 cap(s) orally once a day Quantity: 0 Refills: 0 Ordered: 30-Apr-2021 Sharon Ricardo Generic Substitution Allowed predniSONE 10 mg oral tablet (20 sources) Start: 01-02-2024 End: 06-11-2024 predniSONE (Deltasone) 10 mg tablet Indications: Pruritic rash 4 tabs daily for 3 days, 3 tabs daily for 3 days, 2 tabs daily for 3 days, 1 tab daily for 3 days, then discontinue 30 tablet 01/02/2024 06/11/2024 Discontinued (Therapy completed) Start: 09-25-2021 predniSONE 10 MG Oral Tablet TAKE 4 TABLETS DAILY FOR 3 DAYS,3 TABLETS DAILY FOR 3 DAYS, 2 TABLETS DAILY FOR 3 DAYS AND 1 TABLET DAILY FOR 3 DAYS, THEN STOP. Quantity: 30 Refills: 0 Ordered: 25-Sep-2021 Yesenia Lee MD Start : 25-Sep-2021 Active Start: 08-16-2021 Prednisone 10 mg tablet Active 10 mg PO .prn as needed August 16, 2021 1:00am Start: 05-10-2021 predniSONE 10 MG Oral Tablet TAKE 4 TABLETS DAILY FOR 3 DAYS,3 TABLETS DAILY FOR 3 DAYS, 2 TABLETS DAILY FOR 3 DAYS AND 1 TABLET DAILY FOR 3 DAYS, THEN STOP. Quantity: 30 Refills: 0 Ordered: 10-May-2021 Yesenia Lee MD Start : 10-May-2021 Active Start: 03-15-2021 predniSONE 10 MG Oral Tablet Quantity: 30 Refills: 0 Ordered: 15-Mar-2021 DO Start : 15-Mar-2021 Active Start: 06-17-2019 End: 02-14-2021 take 3 tablets by mouth once daily at mealtime Prednisone 20 mg tablet Discontinued 60 mg PO daily June 21, 2019 9:36am February 14, 2021 7:45am administer with food or milk Start: 06-17-2019 End: 02-14-2021 take 60 mg by mouth once daily at mealtime Prednisone Discontinued 60 MG PO daily June 21, 2019 9:36am February 14, 2021 7:45am administer with food or milk Completed/Discontinued Medications Medication Drug Class(es) Dates Sig (Normalized) Sig (Original) azithromycin 500 mg oral tablet (14 sources) Macrolide Antimicrobial Start: 07-13-2021 take 1 tablet by mouth once daily Azithromycin 500 MG Oral Tablet TAKE 1 TABLET DAILY UNTIL FINISHED. Quantity: 5 Refills: 1 Ordered: 13-Jul-2021 Yesenia Lee MD Start : 13-Jul-2021 Active Start: 05-08-2021 take 1 tablet by constantino th once daily Azithromycin 500 MG Oral Tablet TAKE 1 TABLET DAILY UNTIL FINISHED. Quantity: 5 Refills: 0 Ordered: 08-May-2021 Yesenia Lee MD Start : 08-May-2021 Active Start: 06-21-2019 End: 05-16-2020 take 1 tablet by mouth once daily Azithromycin 250 mg tablet Discontinued 250 mg PO daily June 21, 2019 12:00am May 16, 2020 7:18am cephalexin 500 mg oral capsule (2 sources) Cephalosporin Antibacterial Start: 12-06-2021 take 1 capsule by mouth three times daily Cephalexin 500 MG Oral Capsule TAKE 1 CAPSULE 3 TIMES DAILY. Quantity: 21 Refills: 0 Ordered: 06-Dec-2021 Yesenia Lee MD Start : 06-Dec-2021 Active repalce macrobid cholecalciferol 0.025 mg oral capsule (6 sources) Vitamin D Vitamin D (Cholecalciferol) 25 MCG (1000 UT) Oral Capsule Quantity: 0 Refills: 0 Ordered: 16-Oct-2020 DO Active clobetasol propionate 0.0005 mg/mg topical ointment (12 sources) Corticosteroid Start: 06-09-2019 End: 08-28-2023 Clobetasol 0.05 % ointment Discontinued 1 NMA TOPICAL THREE TIMES A DAY June 09, 2019 12:00am August 28, 2023 8:54am Clobetasol Propi mag 0.05 % External Ointment Refills: 0 DO Active DULoxetine 30 mg delayed release oral capsule (3 sources) Serotonin and Norepinephrine Reuptake Inhibitor Start: 09-16-2019 take 1 capsule by mouth once daily DULoxetine HCl - 30 MG Oral Capsule Delayed Release Particles TAKE 1 CAPSULE Daily Quantity: 30 Refills: 5 Yesenia Lee MD Start : 16-Sep-2019 Active 120 actuat formoterol fumarate 0.005 mg/actuat / mometasone furoate 0.2 mg/actuat metered dose inhaler (9 sources) Corticosteroid, beta2-Adrenergic Agonist Start: 06-09-2019 End: 06-10-2019 Mometasone-Formote rol (Dulera) 200-5 mcg/actuation HFA aerosol inhaler Discontinued 2 NMA INHALATION TWICE A DAY June 09, 2019 12:00am June 10, 2019 2:29pm Start: 06-09-2019 End: 06-10-2019 take 1 puff(s) by inhalation twice daily Mometasone-Formoterol (Dulera) 200-5 mcg/actuation HFA aerosol inhaler Discontinued 2 PUFF INHALATION TWICE A DAY June 09, 2019 12:00am June 10, 2019 2:29pm montelukast 10 mg oral tablet (20 sources) Leukotriene Receptor Antagonist Start: 06-09-2019 End: 08-28-2023 take 1 tablet by mouth once daily in the evening Montelukast 10 mg tablet Discontinued 10 mg PO EVERY EVENING September 20, 2020 4:42pm February 14, 2021 8:07am Start: 06-26-2018 montelukast (S INGULAIR) 10 mg tablet every evening . 12 06/26/2018 Active Multi-Vitamins Oral Tablet (1 source) Multi-Vitamins O ral Tablet Refills: 0 DO Active Multi-Vitamins TABS (2 sources) Multi-Vitamins T ABS Refills: 0 DO Active Multi-Vitamins T ABS Refills: 0 Active Multi-Vitamins TABS (6 sources) Multi-Vitamins T ABS Quantity: 0 Refills: 0 Ordered: 02-Aug-2019 DO Active nitrofurantoin, macrocrystals 25 mg / nitrofurantoin, monohydrate 75 mg oral capsule (6 sources) Nitrofuran Antibacterial Start: 022 take 1 capsule by mouth once daily Nitrofurantoin Monohyd Macro 100 MG Oral Capsule TAKE 1 CAPSULE EVERY 12 HOURS DAILY. Quantity: 14 Refills: 0 Ordered: 04-Dec-2021 Yesenia Lee MD Start : 04-Dec-2021 Active Start: 04-10-2021 take 1 capsule by mo ut every twelve hours Nitrofurantoin Monohyd Macro 100 MG Oral Capsule TAKE 1 CAPSULE BY MOUTH EVERY 12 HOURS FOR 5 DAYS Quantity: 10 Refills: 0 Ordered: 10-Apr-2021 DO Start : 10-Apr-2021 Complete Potassimin TABS (1 source) Potassimin TABS Quantity: 0 Refills: 0 Ordered: 25-Sep-2021 DO Active 1 ml triamcinolone acetonide 40 mg/ml injection (2 sources) Corticosteroid Start: 07-20-2018 End: 07-20-2018 triamcinolone acetonide (KENALOG-40) injection 20 mg Start: 07-20-2018 End: 07-20-2018 triamcinolone acetonide (MARINA ALOG-40) injection 20 mg Vitamin B12 TABS (6 sources) Vitamin B12 TABS Quantity: 0 Refills: 0 Ordered: 16-Oct-2020 DO Active Problems Active Problems Problem Classification Problem Date Documented Date Episodic/Chronic Allergic reactions (12 sources) Environmental allergy; Translations: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 or hospitalization. She has not required prednisone or antibiotic therapy for her breathing. She denies shortness of breath. 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 She will utilize her albuterol inhaler when she experiences this. She has no cough and no shortness of breath. She denies fever, chills, body aches. She denies chest palpitations and chest tightness. She continues to not consistently use Breo 100. She reports understanding of rinsing her mouth out after use. She is also using Claritin with good benefit. Patient does remain on hydroxychloroquine and methotrexate. Patient is not reporting any changes in recent dosing. Patient does have prednisone, but states she rarely takes it as she hates the fact that it keeps her awake at night. Patient never takes more than 10 mg a day. Patient does state that her family has told her that she is starting to snore again. Patient did have mild sleep apnea initially from a study in 2016 when her BMI was 34. Patient is not currently using any CPAP machine. Nocturia occurs times 2. She does experience occasional morning headache and occasional dry mouth. She indicates that she will sleep in all positions and that she has a new adjustable bed. She indicates that she did not have routine smoking in her lifetime. She reports that she smoked approximately 20 to 30 cigarettes in her lifetime. The smoking occurred when she would drink alcohol in her younger years. She no longer drinks alcohol. PFT from July 20, 2024 which shows no evidence of large airway obstructive ventilatory defect. There is no significant response to aerosolized bronchodilators. Lung volumes are within normal limits along with diffusion capacity. Documentation reviewed with patient today includes: Unattended sleep study shows AHI 7.5 from September 09, 2024. Intake Vital Signs 08/20/24 08:09 09/28/24 07:44 Height 4 ft 10.5 in 4 ft 10.5 in Weight: 158 lb BMI 32.4 BP 107/69 Blood Pressure Location Lt brachial Position Sitting Respiration 18 Pulse 102 H Pulse Source Monitor Temp 97.4 F L Temperature Source Temporal Artery Pulse Oximetry (%) 98 Oxygen Delivery (more content not included)... Normal [facility] Pulmonary Visit Reporton Pulmonary Visit Report [facility] [place] [address] [place] [address] OFFICE VISIT Date of Service: 08/20/24 MR#: [id number] Acct: [id number] Name: TRUDY FLORES Rep #: [id number] : 1980 Provider: Faviola Fregoso NP Age/Sex: 44/F [place] [facility] Status: Signed Assessment and Plan Assessment and Plan (1) Asthma: Status: Chronic Qualifiers: Asthma complication type: uncomplicated Asthma persistence: persistent Asthma severity: moderate Qualified Code(s): J45.40 - Moderate persistent asthma, uncomplicated Plan: The patient is willing to return to inhaler use as she continues to be symptomatic with wheeze despite a stable PFT. I have recommended Breo 100, 1 inhalation daily followed by good oral care. Continue to use albuterol and as-needed basis. If symptoms worsen or respiratory illness occurs she is to notify this practice. Flu shot has been recommended but patient declined today. The patient is asking today about a refill for Claritin-D. She is asking why it was not sent in as requested. This was discussed at length as to the potential side effects of the pseudoephedrine. The patient understands that Claritin-D should not be used on a daily basis. She would like to receive an order for Claritin to help control her allergy symptoms, this was send to pharmacy. 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 There is no evidence of this occurring today with a preserved gas transfer. (3) Rheumatoid arthritis: Status: Chronic Qualifiers: Laterality: bilateral Rheumatoid arthritis location: hand Rheumatoid factor presence: unspecified presence Qualified Code(s): M06.9 - Rheumatoid arthritis, unspecified Plan: Rheumatoid can also occur in lung but there is no evidence that this is present with the preserved DLCO and lung volumes seen on recent PFT. (4) JASON (obstructive sleep apnea): Status: Chronic Comment: AHI 7.4 when BMI was 34 from 2016 Plan: There is a possibility that the patient could continue to have mild sleep apnea especially in supine positioning. She does have clinical symptoms of sleep apnea. Unfortunately the last testing is greater than 5 years old. At this point I would recommend a home sleep study and attempt to obtain supine sleep. I plan to follow-up in 6 weeks to reassess. Orders: Orders Unattended Sleep Study Today G47.33 - Obstructive sleep apnea (adult) (pediatric) Medications: New fluticasone furoate-vilanterol 100-25 mcg/dose (Breo Ellipta) 1 inh inhalation Q24H 60 ea 2RF J45.40 - Moderate persistent asthma, uncomplicated loratadine (Allergy Relief (loratadine)) 10 mg PO QDAY 90 caps 3RF Discontinued loratadine-pseudoephedrine 10-240 mg ER (Claritin-D 24 Hour) Discontinued Reason: Order Changed 1 TAB PO DAILY 30 tabs 11RF budesonide-formoterol 160-4.5 mcg/actuation (Symbicort) Discontinued Reason: Order Changed 2 puffs inhalation BID 10.2 grams 11RF Plan Details Follow Up: 6 Weeks (LMR) HPI HPI Comments Details: This is a 44-year-old female patient who presents for follow-up regarding asthma and with a history of methotrexate use for rheumatoid arthritis. She is ambulatory and on room air She has not had recent ER visits or hospitalization. She has not required prednisone or antibiotic therapy for her breathing. However, she did require use of antibiotic therapy for a nasal infection in May and then in June. She is planning for a balloon sinuplasty in a few weeks. At last visit she had indicated that her symptoms had worsened. She had not been using Breo in a consistent manner. Symbicort was prescribed to patient and it was recommended that she utilize this inhaler on an as-needed basis. The patient reports that she has not utilized this inhaled therapy. 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 She will utilize her albuterol inhaler when she experiences this. She has no cough and no shortness of breath. She denies fever, chills, body aches. She denies chest palpitations and chest tightness. She does have occasional right lateral chest wall pain which will occur 0-1 times per month. For her occupation she does lift and rotate when lifting quite often. The patient is asking today about a refill for Claritin-D. She is asking why it was not sent in as requested. This was discussed at length as to the potential side effects of the pseudoephedrine. The patient understands that Claritin-D should not be used on a daily basis. She would like to receive an order for Claritin to help control her allergy symptoms. Patient does remain on hydroxychloroquine and methotrexate. Patient is not reporting any changes in recent dosing. Patient d (more content not included)... Normal [facility] Absolute neutrophil countOrd ered By: Yvonne Clark on 08-04-2024 Neutrophils (Bld) [#/Vol] 4.3 10*3/uL 2.0-7.7 [facility] Albumin to globulin ratioOrd ered By: Yvonne Clark on 08-04-2024 Albumin/Globulin [Mass ratio] 1.6 {ratio} 0.9-2.4 [facility] Basophil percentageOrdered B y: Yvonne Clark on 08-04-2024 Basophils/100 WBC (Bld) 0.8 % 0-1 [facility] Bilirubin, totalOrdered By: Yvonne Clark on 08-04-2024 Bilirubin [Mass/Vol] 0.30 mg/dL 0.20-1.00 [facility] Comment on above: For patients on eltr ombopag therapy, use of Dimension [place] TBIL is not recommended. Blood urea nitrogen (BUN)/cr eatinine ratioOrdered By: Yvonne Clark on 08-04-2024 Urea nitrogen/Creatinine [Mass ratio] 11.8 mg/mg 10-20 [facility] CBC W/Diff, Automatedon 12-0 Absolute Lymph 2.08 X10 3/uL Normal 0.83-4.51 [facility] Comment on above: Performed By: #### L 100.0100, L500.4050 #### [facility] [address] [place], [address] Absolute Neut 4.3 X10 3/uL Normal 2.0-7.7 [facility] Comment on above: Performed By: #### L 100.0100, L500.4050 #### [facility] [address] [place], [address] Basophils/100 WBC (Bld) 0.8 % Normal 0-1 [facility] Comment on above: Performed By: #### L 100.0100, L500.4050 #### [facility] [address] [place], [address] Eosinophils/100 WBC (Bld) 2.2 % Normal 0-5 [facility] Comment on above: Performed By: #### L 100.0100, L500.4050 #### [facility] [address] [place], [address] Erythrocyte distribution width (RBC) [Ratio] 12.7 % Normal 11.6-14.6 [facility] Comment on above: Performed By: #### L 100.0100, L500.4050 #### [facility] [address] [place], [address] Hematocrit (Bld) [Volume fraction] 38.4 % Normal 37-47 [facility] Comment on above: Performed By: #### L 100.0100, L500.4050 #### [facility] [address] [place], [address] Hemoglobin (Bld) [Mass/Vol] 12.5 g/dL Normal 12.0-15.0 [facility] Comment on above: Performed By: #### L 100.0100, L500.4050 #### [facility] [address] [place], [address] IG% 0.300 Normal 0.0-0.9 [facility] Comment on above: Result Comment: IG% - Immature Granulocytes (promyelocytes, myelocytes and metamyelocytes) > 1% indicates that a LEFT SHIFT is Present. Performed By: #### L 100.0100, L500.4050 #### [facility] [address] [place], [address] Lymphocytes/100 WBC (Bld) 28.9 % Normal 19-41 [facility] Comment on above: Performed By: #### L 100.0100, L500.4050 #### [facility] [address] [place], [address] MCH (RBC) [Entitic mass] 29.6 pg Normal 27.0-32.0 [facility] Comment on above: Performed By: #### L 100.0100, L500.4050 #### [facility] [address] [place], [address] MCHC (RBC) [Mass/Vol] 32.6 g/dL Normal 32-36 [facility] Comment on above: Performed By: #### L 100.0100, L500.4050 #### [facility] [address] [place], [address] MCV (RBC) [Entitic vol] 91.0 fL Normal 81-99 [facility] Comment on above: Performed By: #### L 100.0100, L500.4050 #### [facility] [address] [place], [address] Monocytes/100 WBC (Bld) 8.1 % Normal 0-10 [facility] Comment on above: Performed By: #### L 100.0100, L500.4050 #### [facility] [address] [place], [address] Neutrophils/100 WBC (Bld) 59.7 % Normal 47-70 [facility] Comment on above: Performed By: #### L 100.0100, L500.4050 #### [facility] [address] [place], [address] Nucleated RBC (Bld) [#/Vol] 0 10*3/uL Normal 0-5 [facility] Comment on above: Performed By: #### L 100.0100, L500.4050 #### [facility] [address] [place], [address] Platelet mean volume (Bld) [Entitic vol] 8.8 fL Normal 6.2-12.0 [facility] Comment on above: Performed By: #### L 100.0100, L500.4050 #### [facility] [address] [place], [address] Platelets (Bld) [#/Vol] 322 10*3/uL Normal 150-450 [facility] Comment on above: Performed By: #### L 100.0100, L500.4050 #### [facility] [address] [place], [address] RBC (Bld) [#/Vol] 4.22 10*6/uL Normal 4.2-5.4 [facility] Comment on above: Performed By: #### L 100.0100, L500.4050 #### [facility] [address] [place], [address] RDW SD 41.8 fl Normal 35.1-43.9 [facility] Comment on above: Performed By: #### L 100.0100, L500.4050 #### [facility] [address] [place], [address] WBC (Bld) [#/Vol] 7.2 10*3/uL Normal 4.4-11.0 [facility] Comment on above: Performed By: #### L 100.0100, L500.4050 #### [facility] [address] [place], [address] Carbon dioxide measurementOr dered By: Yvonne Clark on 08-04-2024 CO2 [Moles/Vol] 26.0 mmol/L 21.0-32.0 [facility] Chloride measurementOrdered By: Yvonne Clark on 08-04-2024 Chloride [Moles/Vol] 107 mmol/L 98-107 [facility] Comprehensive Metabolic Prof ilon 08-04-2024 Albumin [Mass/Vol] 4.1 g/dL Normal 3.2-5.0 [facility] Comment on above: Performed By: #### L 100.0100, L500.4050 #### [facility] [address] [place], [address] Albumin/Globulin [Mass ratio] 1.6 {ratio} Normal 0.9-2.4 [facility] Comment on above: Performed By: #### L 100.0100, L500.4050 #### [facility] [address] [place], [address] ALK P 44 U/L Low 45-117 [facility] Comment on above: Performed By: #### L 100.0100, L500.4050 #### [facility] [address] [place], [address] ALT [Catalytic activity/Vol] 19 U/L Normal 13-56 [facility] Comment on above: Performed By: #### L 100.0100, L500.4050 #### [facility] [address] [place], [address] AST [Catalytic activity/Vol] 17 U/L Normal 15-37 [facility] Comment on above: Performed By: #### L 100.0100, L500.4050 #### [facility] [address] [place], [address] Bilirubin [Mass/Vol] 0.30 mg/dL Normal 0.20-1.00 [facility] Comment on above: Result Comment: For patients on eltrombopag therapy, use of Dimension [place] TBIL is not recommended. Performed By: #### L 100.0100, L500.4050 #### [facility] [address] [place], [address] BUN/CRE 11.8 RATIO Normal 10-20 [facility] Comment on above: Performed By: #### L 100.0100, L500.4050 #### [facility] [address] [place], [address] CA,Total 8.6 mg/dL Normal 8.5-10.1 [facility] Comment on above: Performed By: #### L 100.0100, L500.4050 #### [facility] [address] [place], [address] Chloride [Moles/Vol] 107 mmol/L Normal 98-107 [facility] Comment on above: Performed By: #### L 100.0100, L500.4050 #### [facility] [address] [place], [address] CO2 [Moles/Vol] 26.0 mmol/L Normal 21.0-32.0 [facility] Comment on above: Performed By: #### L 100.0100, L500.4050 #### [facility] [address] [place], [address] Creatinine [Mass/Vol] 0.68 mg/dL Normal 0.55-1.02 [facility] Comment on above: Result Comment: The validity of the calculated GFR GFRAA in patients over 70 years has not been determined. Clinical correlation is essential. Performed By: #### L 100.0100, L500.4050 #### [facility] [address] [place], [address] EST GFR - AA 122 mL/min Normal >60 [facility] Comment on above: Result Comment: Afri can [place] GFR Calc Performed By: #### L 100.0100, L500.4050 #### [facility] [address] [place], [address] GAP 6 Normal 5-15 [facility] Comment on above: Performed By: #### L 100.0100, L500.4050 #### [facility] [address] [place], [address] GFR/1.73 sq M.predicted among non-blacks MDRD (S/P/Bld) [Vol rate/Area] 101 mL/min/{1.73_m2} Normal >60 [facility] Comment on above: Result Comment: Non- GFR Calc Performed By: #### L 100.0100, L500.4050 #### [facility] [address] [place], [address] Globulin (S) [Mass/Vol] 2.5 g/dL Normal 2.2-4.2 [facility] Comment on above: Performed By: #### L 100.0100, L500.4050 #### [facility] [address] [place], [address] Glucose [Mass/Vol] 84 mg/dL Normal 74-106 [facility] Comment on above: Performed By: #### L 100.0100, L500.4050 #### [facility] [address] [place], [address] Potassium [Moles/Vol] 3.6 mmol/L Normal 3.5-5.1 [facility] Comment on above: Performed By: #### L 100.0100, L500.4050 #### [facility] [address] [place], [address] Sodium [Moles/Vol] 138 mmol/L Normal 136-145 [facility] Comment on above: Performed By: #### L 100.0100, L500.4050 #### [facility] [address] [place], [address] T PROT 6.6 g/dL Normal 6.4-8.2 [facility] Comment on above: Performed By: #### L 100.0100, L500.4050 #### [facility] [address] [place], [address] Urea nitrogen [Mass/Vol] 8 mg/dL Normal 7-18 [facility] Comment on above: Performed By: #### L 100.0100, L500.4050 #### [facility] [address] [place], [address] Eosinophil percentageOrdered By: Yvonne Clark on 08-04-2024 Eosinophils/100 WBC (Bld) 2.2 % 0-5 [facility] Erythrocyte distribution wid th ratioOrdered By: Yvonne Clark on 08-04-2024 Erythrocyte distribution width (RBC) [Ratio] 12.7 % 11.6-14.6 [facility] Erythrocyte distribution wid th standard deviationOrdered By: Yvonne Clark on 08-04-2024 Erythrocyte distribution width (RBC) [Entitic vol] 41.8 fL 35.1-43.9 [facility] Estimated glomerular filtrat ion rate (GFR) AmericanOrdered By: Yvonne Clark on 08-04-2024 Estimated GFR (MDRD) Amer 122 mL/min >60 [facility] Comment on above: GFR Calc Glomerular filtration rate ( GFR) estimationOrdered By: Yvonne Clark on 08-04-2024 Estimated GFR (MDRD) Non-Af Amer 101 mL/min >60 [facility] Comment on above: Non- GFR Calc Glucose measurementOrdered B y: Yvonne Clark on 08-04-2024 Glucose [Mass/Vol] 84 mg/dL 74-106 [facility] Hematocrit Auto (Bld) [Volum e fraction]Ordered By: Yvonne Clark on 08-04-2024 Hematocrit (Bld) [Volume fraction] 38.4 % 37-47 [facility] Hemoglobin measurementOrdere d By: Yvonne Clark on 08-04-2024 Hemoglobin (Bld) [Mass/Vol] 12.5 g/dL 12.0-15.0 [facility] Immature granulocytes/100 WB C Auto (Bld)Ordered By: Yvonne Clark on 08-04-2024 Immature granulocytes/100 WBC (Bld) 0.300 % 0.0-0.9 [facility] Comment on above: IG% - Immature Granu locytes (promyelocytes, myelocytes and metamyelocytes) > 1% indicates that a LEFT SHIFT is Present. Laboratory - Chemistry and C hemistry - challengeOrdered By: Yvonne Clark on 08-04-2024 AST [Catalytic activity/Vol] 17 U/L 15-37 [facility] Lymphocytes Auto (Unsp spec) [#/Vol]Ordered By: Yvonne Clark on 08-04-2024 Lymphocytes (Bld) [#/Vol] 2.08 10*3/uL 0.83-4.51 [facility] Lymphocytes/100 WBC Auto (Un sp spec)Ordered By: Yvonne Clark on 08-04-2024 Lymphocytes/100 WBC (Bld) 28.9 % 19-41 [facility] MCV (mean corpuscular volume ) determinationOrdered By: Yvonne Clark on 08-04-2024 MCV (RBC) [Entitic vol] 91.0 fL 81-99 [facility] Mean corpuscular hemoglobin (MCH) determinationOrdered By: Yvonne Clark on 08-04-2024 MCH (RBC) [Entitic mass] 29.6 pg 27.0-32.0 [facility] Mean corpuscular hemoglobin concentration (MCHC) determinationOrdered By: Yvonne Clark on 08-04-2024 MCHC (RBC) [Mass/Vol] 32.6 g/dL 32-36 [facility] Mean platelet volume determi nationOrdered By: Yvonne Clark on 08-04-2024 Platelet mean volume (Bld) [Entitic vol] 8.8 fL 6.2-12.0 [facility] Monocyte percentageOrdered B y: Yvonne Clark on 08-04-2024 Monocytes/100 WBC (Bld) 8.1 % 0-10 [facility] Neutrophil percentageOrdered By: Yvonne Clark on 08-04-2024 Neutrophils/100 WBC (Bld) 59.7 % 47-70 [facility] Nucleated red blood cell per centageOrdered By: Yvonne Clark on 08-04-2024 Nucleated RBC/100 WBC (Bld) [Ratio] 0 % 0-5 [facility] Platelet countOrdered By: Roni Clark on 08-04-2024 Platelets (Bld) [#/Vol] 322 10*3/uL 150-450 [facility] Potassium measurementOrdered By: Yvonne Clark on 08-04-2024 Potassium [Moles/Vol] 3.6 mmol/L 3.5-5.1 [facility] RBC Auto (Bld) [#/Vol]Ordere d By: Yvonne Clark on 08-04-2024 RBC (Bld) [#/Vol] 4.22 10*6/uL 4.2-5.4 [facility] Serum anion gap measurementO rdered By: Yvonne Clark on 08-04-2024 Anion gap [Moles/Vol] 6 mmol/L 5-15 [facility] Serum globulin measurementOr dered By: Yvonne Clark on 08-04-2024 Globulin (S) [Mass/Vol] 2.5 g/dL 2.2-4.2 [facility] Serum or plasma alanine sullivan otransferase (ALT) measurementOrdered By: Yvonne Clark on 08-04-2024 ALT [Catalytic activity/Vol] 19 U/L 13-56 [facility] Serum or plasma albumin gracia urement (mass/volume)Ordered By: Yvonne Clark on 08-04-2024 Albumin [Mass/Vol] 4.1 g/dL 3.2-5.0 [facility] Serum or plasma alkaline nicole sphatase measurementOrdered By: Yvonne Clark on 08-04-2024 ALP [Catalytic activity/Vol] 44 U/L Low 45-117 [facility] Serum or plasma calcium gracia urement (mass/volume)Ordered By: Yvonne Clark on 08-04-2024 Calcium [Mass/Vol] 8.6 mg/dL 8.5-10.1 [facility] Serum or plasma creatinine m easurement (mass/volume)Ordered By: Yvonne Clark on 08-04-2024 Creatinine [Mass/Vol] 0.68 mg/dL 0.55-1.02 [facility] Comment on above: The validity of the calculated GFR & GFRAA in patients over 70 years has not been determined. Clinical correlation is essential. Serum or plasma urea nitroge n measurement (mass/volume)Ordered By: Yvonne Clark on 08-04-2024 Urea nitrogen [Mass/Vol] 8 mg/dL 7-18 [facility] Sodium levelOrdered By: Rey Clark on 08-04-2024 Sodium [Moles/Vol] 138 mmol/L 136-145 [facility] Total proteinOrdered By: Mikel Clark on 08-04-2024 Protein [Mass/Vol] 6.6 g/dL 6.4-8.2 [facility] White blood cell (WBC) count Ordered By: Yvonne Clark on 08-04-2024 WBC (Bld) [#/Vol] 7.2 10*3/uL 4.4-11.0 [facility] Nasopharyngeal Cultureon NAC Staphylococcus aureu s Amount Growth 2+ Staphylococcus aureus: REACTION cefOXitin Susc Islt Doxycycline Islt BLUE <=0.5 S Clindamycin Islt BLUE 0.25 S Clindamycin.induced Susc Islt NEG Erythromycin Islt BLUE >=8 R Gentamicin Islt BLUE <=0.5 S Linezolid Islt BLUE 2 S Moxifloxacin Islt BLUE <=0.25 S Oxacillin Susc Islt 0.5 S Tetracycline Islt BLUE <=1 S TMP SMX Islt BLUE <=10 S Vancomycin Islt BLUE 1 S Normal [facility] Comment on above: Performed By: #### M 100.1999, M100.2500 #### [facility] [address] [place], [address] Gram Stainon 07-02-2024 GS Positive Normal [facility] Comment on above: Performed By: #### M 100.1999, M100.2500 #### [facility] [address] [place], [address] CBC W/Diff, Automatedon 05-02 Absolute Lymph 2.07 X10 3/uL Normal 0.83-4.51 [facility] Comment on above: Performed By: #### L 100.0100, L500.4050 #### [facility] [address] [place], [address] Absolute Neut 5.7 X10 3/uL Normal 2.0-7.7 [facility] Comment on above: Performed By: #### L 100.0100, L500.4050 #### [facility] [address] [place], [address] Basophils/100 WBC (Bld) 0.6 % Normal 0-1 [facility] Comment on above: Performed By: #### L 100.0100, L500.4050 #### [facility] [address] [place], [address] Eosinophils/100 WBC (Bld) 1.8 % Normal 0-5 [facility] Comment on above: Performed By: #### L 100.0100, L500.4050 #### [facility] [address] [place], [address] Erythrocyte distribution width (RBC) [Ratio] 13.0 % Normal 11.6-14.6 [facility] Comment on above: Performed By: #### L 100.0100, L500.4050 #### [facility] [address] [place], [address] Hematocrit (Bld) [Volume fraction] 37.3 % Normal 37-47 [facility] Comment on above: Performed By: #### L 100.0100, L500.4050 #### [facility] [address] [place], [address] Hemoglobin (Bld) [Mass/Vol] 12.3 g/dL Normal 12.0-15.0 [facility] Comment on above: Performed By: #### L 100.0100, L500.4050 #### [facility] [address], [address] IG% 0.400 Normal 0.0-0.9 [facility] Comment on above: Result Comment: IG% - Immature Granulocytes (promyelocytes, myelocytes and metamyelocytes) > 1% indicates that a LEFT SHIFT is Present. Performed By: #### L 100.0100, L500.4050 #### [facility] [address] [place], [address] Lymphocytes/100 WBC (Bld) 24.2 % Normal 19-41 [facility] Comment on above: Performed By: #### L 100.0100, L500.4050 #### [facility] [address] [place], [address] MCH (RBC) [Entitic mass] 30.3 pg Normal 27.0-32.0 [facility] Comment on above: Performed By: #### L 100.0100, L500.4050 #### [facility] [address] [place], [address] MCHC (RBC) [Mass/Vol] 33.0 g/dL Normal 32-36 [facility] Comment on above: Performed By: #### L 100.0100, L500.4050 #### [facility] [address] [place], [address] MCV (RBC) [Entitic vol] 91.9 fL Normal 81-99 [facility] Comment on above: Performed By: #### L 100.0100, L500.4050 #### [facility] [address] [place], [address] Monocytes/100 WBC (Bld) 6.9 % Normal 0-10 [facility] Comment on above: Performed By: #### L 100.0100, L500.4050 #### [facility] [address] [place], [address] Neutrophils/100 WBC (Bld) 66.1 % Normal 47-70 [facility] Comment on above: Performed By: #### L 100.0100, L500.4050 #### [facility] [address] [place], [address] Nucleated RBC (Bld) [#/Vol] 0 10*3/uL Normal 0-5 [facility] Comment on above: Performed By: #### L 100.0100, L500.4050 #### [facility] [address] [place], [address] Platelet mean volume (Bld) [Entitic vol] 8.8 fL Normal 6.2-12.0 [facility] Comment on above: Performed By: #### L 100.0100, L500.4050 #### [facility] [address] [place], [address] Platelets (Bld) [#/Vol] 313 10*3/uL Normal 150-450 [facility] Comment on above: Performed By: #### L 100.0100, L500.4050 #### [facility] [address] [place], [address] RBC (Bld) [#/Vol] 4.06 10*6/uL Low 4.2-5.4 [facility] Comment on above: Performed By: #### L 100.0100, L500.4050 #### [facility] [address] [place], [address] RDW SD 43.8 fl Normal 35.1-43.9 [facility] Comment on above: Performed By: #### L 100.0100, L500.4050 #### [facility] [address] [place], [address] WBC (Bld) [#/Vol] 8.5 10*3/uL Normal 4.4-11.0 [facility] Comment on above: Performed By: #### L 100.0100, L500.4050 #### [facility] [address] [place], [address] Comprehensive Metabolic Prof [facility] 05-12-2024 Albumin [Mass/Vol] 3.7 g/dL Normal 3.2-5.0 [facility] Comment on above: Performed By: #### L 100.0100, L500.4050 #### [facility] [address] [place], [address] Albumin/Globulin [Mass ratio] 1.1 {ratio} Normal 0.9-2.4 [facility] Comment on above: Performed By: #### L 100.0100, L500.4050 #### [facility] [address] [place], [address] ALK P 45 U/L Normal 45-117 [facility] Comment on above: Performed By: #### L 100.0100, L500.4050 #### [facility] [address] [place], [address] ALT [Catalytic activity/Vol] 26 U/L Normal 13-56 [facility] Comment on above: Performed By: #### L 100.0100, L500.4050 #### [facility] [address] [place], [address] AST [Catalytic activity/Vol] 19 U/L Normal 15-37 [facility] Comment on above: Performed By: #### L 100.0100, L500.4050 #### [facility] [address] [place], [address] Bilirubin [Mass/Vol] 0.30 mg/dL Normal 0.20-1.00 [facility] Comment on above: Result Comment: For patients on eltrombopag therapy, use of Dimension [place] TBIL is not recommended. Performed By: #### L 100.0100, L500.4050 #### [facility] [address] [place], [address] BUN/CRE 22.2 RATIO High 10-20 [facility] Comment on above: Performed By: #### L 100.0100, L500.4050 #### [facility] [address] [place], [address] CA,Total 8.9 mg/dL Normal 8.5-10.1 [facility] Comment on above: Performed By: #### L 100.0100, L500.4050 #### [facility] [address] [place], [address] Chloride [Moles/Vol] 105 mmol/L Normal 98-107 [facility] Comment on above: Performed By: #### L 100.0100, L500.4050 #### [facility] [address] [place], [address] CO2 [Moles/Vol] 24.0 mmol/L Normal 21.0-32.0 [facility] Comment on above: Performed By: #### L 100.0100, L500.4050 #### [facility] [address] [place], [address] Creatinine [Mass/Vol] 0.63 mg/dL Normal 0.55-1.02 [facility] Comment on above: Result Comment: The validity of the calculated GFR GFRAA in patients over 70 years has not been determined. Clinical correlation is essential. Performed By: #### L 100.0100, L500.4050 #### [facility] [address] [place], [address] EST GFR - AA 133 mL/min Normal >60 [facility] Comment on above: Result Comment: Afri can [place] GFR Calc Performed By: #### L 100.0100, L500.4050 #### [facility] [address] [place], [address] GAP 9 Normal 5-15 [facility] Comment on above: Performed By: #### L 100.0100, L500.4050 #### [facility] [address] [place], [address] GFR/1.73 sq M.predicted among non-blacks MDRD (S/P/Bld) [Vol rate/Area] 110 mL/min/{1.73_m2} Normal >60 [facility] Comment on above: Result Comment: Non- GFR Calc Performed By: #### L 100.0100, L500.4050 #### [facility] [address] [place], [address] Globulin (S) [Mass/Vol] 3.3 g/dL Normal 2.2-4.2 [facility] Comment on above: Performed By: #### L 100.0100, L500.4050 #### [facility] [address] [place], [address] Glucose [Mass/Vol] 77 mg/dL Normal 74-106 [facility] Comment on above: Performed By: #### L 100.0100, L500.4050 #### [facility] [address] [place], [address] Potassium [Moles/Vol] 4.1 mmol/L Normal 3.5-5.1 [facility] Comment on above: Performed By: #### L 100.0100, L500.4050 #### [facility] [address] [place], [address] Sodium [Moles/Vol] 138 mmol/L Normal 136-145 [facility] Comment on above: Performed By: #### L 100.0100, L500.4050 #### [facility] [address] [place], [address] T PROT 7.0 g/dL Normal 6.4-8.2 [facility] Comment on above: Performed By: #### L 100.0100, L500.4050 #### [facility] [address] [place], [address] Urea nitrogen [Mass/Vol] 14 mg/dL Normal 7-18 [facility] Comment on above: Performed By: #### L 100.0100, L500.4050 #### [facility] [address] [place], [address] BI MAMMO BILATERAL SCREENING TOMOSYNTHESISon 03-08-2024 BI MAMMO BILATERAL SCREENING TOMOSYNTHESIS Interpreted By: Anthony Espinoza, STUDY: BI MAMMO BILATERAL SCREENING TOMOSYNTHESIS; 03/08/2024 9:48 am ACCESSION NUMBER(S): [id number] ORDERING CLINICIAN: YESENIA LEE INDICATION: Screening. COMPARISON: Digital mammograms dated 02/27/2023 FINDINGS: CC and MLO 2D digital mammograms and digital breast tomosynthesis images were obtained of the bilateral breasts. 3-D volume images were reconstructed in 4 views at an independent workstation as 1 mm slices through the breasts in both the CC and MLO projections. Density: There are areas of scattered fibroglandular tissue. No discrete mass or focal asymmetry is identified. No suspicious microcalcifications or foci of architectural distortion are seen. There has been no significant change. This study was interpreted with CAD. IMPRESSION: No mammographic evidence of malignancy. BI-RADS CATEGORY: BI-RADS Category: 1 Negative. Recommendation: Routine Screening Mammogram in 1 Year. Recommended Date: 1 Year. Laterality: Bilateral. MACRO: None Signed by: Anthony Espinoza 03/08/2024 11:40 AM Dictation workstation: [id number] [facility] CT CARDIAC SCORING WO IV CON TRASTon 03-08-2024 CT CARDIAC SCORING WO IV CONTRAST Interpreted By: Lorrie Camargo, STUDY: CT CARDIAC SCORING WO IV CONTRAST; 03/08/2024 9:21 am INDICATION: Signs/Symptoms:screening. COMPARISON: None. ACCESSION NUMBER(S): [id number] ORDERING CLINICIAN: YESENIA LEE TECHNIQUE: Using prospective ECG gating, CT scan of the coronary arteries was performed without intravenous contrast. Coronary calcium scoring was performed according to the method of Agatston. FINDINGS: The score and distribution of calcium in the coronary arteries is as follows: LM 0 LAD 0 LCx 0 RCA 0 Total 0 The visualized mid/lower ascending thoracic aorta measures 2.5 cm in diameter. The heart is normal in size. No pericardial effusion is present. No gross evidence of mediastinal or hilar lymphadenopathy or masses is identified. The visualized segments of the lungs are normally expanded. Left hemidiaphragm is elevated. The visualized subdiaphragmatic structures appear intact. IMPRESSION: 1. Coronary artery calcium score of 0*. 2. Left hemidiaphragm is elevated *Coronary artery calcium scoring may be helpful in predicting the risk for future coronary heart disease events. According to the [place] [employer] Clinical Expert Consensus Task Force, such testing provides important prognostic information in patients with more than one coronary heart disease risk factor. The coronary artery calcium score correlates with the annual risk of a non-fatal myocardial infarction or coronary heart disease . Coronary artery score Annual Risk 0-99 0.4% 100-399 1.3% >400 2.4% These three breakpoints correspond to lower, intermediate and high risk states for future coronary events. Such information should be used, along with appropriate clinical judgment, to make decisions regarding the intensity of risk factor management strategies to treat blood lipids and to modify other non-lipid coronary risk factors. Reference: Adama P et al. Circulation. 2007; 115:402-426 MACRO: None Signed by: Lorrie Camargo 03/08/2024 4:32 PM Dictation workstation: [id number] [facility] CT for calcium scoring WO co ntrast and CTA W contrast IV Heart and coronary arterieson 03-08-2024 1. Coronary artery c alcium score of 0*. 2. Left hemidiaphragm is elevated *Coronary artery calcium scoring may be helpful in predicting the risk for future coronary heart disease events. According to the [place] [employer] Clinical Expert Consensus Task Force, such testing provides important prognostic information in patients with more than one coronary heart disease risk factor. The coronary artery calcium score correlates with the annual risk of a non-fatal myocardial infarction or coronary heart disease . Coronary artery score Annual Risk 0-99 0.4% 100-399 1.3% >400 2.4% These three breakpoints correspond to lower, intermediate and high risk states for future coronary events. Such information should be used, along with appropriate clinical judgment, to make decisions regarding the intensity of risk factor management strategies to treat blood lipids and to modify other non-lipid coronary risk factors. Reference: Deerfield P et al. Circulation. 2007; 115:402-426 MACRO: None Signed by: Lorrie Camargo 03/08/2024 4:32 PM Dictation workstation: [id number] [facility] Interpreted By: Lorrie Pulliam, STUDY: CT CARDIAC SCORING WO IV CONTRAST; 03/08/2024 9:21 am INDICATION: Signs/Symptoms:screening. COMPARISON: None. ACCESSION NUMBER(S): [id number] ORDERING CLINICIAN: YESENIA LEE TECHNIQUE: Using prospective ECG gating, CT scan of the coronary arteries was performed without intravenous contrast. Coronary calcium scoring was performed according to the method of Agatston. FINDINGS: The score and distribution of calcium in the coronary arteries is as follows: LM 0 LAD 0 LCx 0 RCA 0 Total 0 The visualized mid/lower ascending thoracic aorta measures 2.5 cm in diameter. The heart is normal in size. No pericardial effusion is present. No gross evidence of mediastinal or hilar lymphadenopathy or masses is identified. The visualized segments of the lungs are normally expanded. Left hemidiaphragm is elevated. The visualized subdiaphragmatic structures appear intact. Lorrie Frankel MD - 03/08/2024 Interpreted By: Lorrie Camargo, STUDY: CT CARDIAC SCORING WO IV CONTRAST; 03/08/2024 9:21 am INDICATION: Signs/Symptoms:screening. COMPARISON: None. ACCESSION NUMBER(S): [id number] ORDERING CLINICIAN: YESENIA LEE TECHNIQUE: Using prospective ECG gating, CT scan of the coronary arteries was performed without intravenous contrast. Coronary calcium scoring was performed according to the method of Agatston. FINDINGS: The score and distribution of calcium in the coronary arteries is as follows: LM 0 LAD 0 LCx 0 RCA 0 Total 0 The visualized mid/lower ascending thoracic aorta measures 2.5 cm in diameter. The heart is normal in size. No pericardial effusion is present. No gross evidence of mediastinal or hilar lymphadenopathy or masses is identified. The visualized segments of the lungs are normally expanded. Left hemidiaphragm is elevated. The visualized subdiaphragmatic structures appear intact. IMPRESSION: 1. Coronary artery calcium score of 0*. 2. Left hemidiaphragm is elevated *Coronary artery calcium scoring may be helpful in predicting the risk for future coronary heart disease events. According to the [place] [employer] Clinical Expert Consensus Task Force, such testing provides important prognostic information in patients with more than one coronary heart disease risk factor. The coronary artery calcium score correlates with the annual risk of a non-fatal myocardial infarction or coronary heart disease . Coronary artery score Annual Risk 0-99 0.4% 100-399 1.3% >400 2.4% These three breakpoints correspond to lower, intermediate and high risk states for future coronary events. Such information should be used, along with appropriate clinical judgment, to make decisions regarding the intensity of risk factor management strategies to treat blood lipids and to modify other non-lipid coronary risk factors. Reference: Deerfield P et al. Circulation. 2007; 115:402-426 MACRO: None Signed by: Lorrie Camargo 03/08/2024 4:32 PM Dictation workstation: [id number] [facility] Work Phone: Radiology Study observation (narrative) [facility] Work Phone: CT for calcium scoring WO co ntrast and CTA W contrast IV Heart and coronary arteriesOrdered By: Lorrie Camargo on 03-08-2024 [facility] Work Phone: DBT Breast - bilateralon No mammographic evid ence of malignancy. BI-RADS CATEGORY: BI-RADS Category: 1 Negative. Recommendation: Routine Screening Mammogram in 1 Year. Recommended Date: 1 Year. Laterality: Bilateral. MACRO: None Signed by: Anthony Espinoza 03/08/2024 11:40 AM Dictation workstation: [id number] [facility]ODAL Interpreted By: Anthony Pina, STUDY: BI MAMMO BILATERAL SCREENING TOMOSYNTHESIS; 03/08/2024 9:48 am ACCESSION NUMBER(S): [id number] ORDERING CLINICIAN: YESENIA LEE INDICATION: Screening. COMPARISON: Digital mammograms dated 02/27/2023 FINDINGS: CC and MLO 2D digital mammograms and digital breast tomosynthesis images were obtained of the bilateral breasts. 3-D volume images were reconstructed in 4 views at an independent workstation as 1 mm slices through the breasts in both the CC and MLO projections. Density: There are areas of scattered fibroglandular tissue. No discrete mass or focal asymmetry is identified. No suspicious microcalcifications or foci of architectural distortion are seen. There has been no significant change. This study was interpreted with CAD. MMODAL Anthony Espinoza MD - 03/08/2024 Interpreted By: Anthony Espinoza, STUDY: BI MAMMO BILATERAL SCREENING TOMOSYNTHESIS; 03/08/2024 9:48 am ACCESSION NUMBER(S): [id number] ORDERING CLINICIAN: YESENIA LEE INDICATION: Screening. COMPARISON: Digital mammograms dated 02/27/2023 FINDINGS: CC and MLO 2D digital mammograms and digital breast tomosynthesis images were obtained of the bilateral breasts. 3-D volume images were reconstructed in 4 views at an independent workstation as 1 mm slices through the breasts in both the CC and MLO projections. Density: There are areas of scattered fibroglandular tissue. No discrete mass or focal asymmetry is identified. No suspicious microcalcifications or foci of architectural distortion are seen. There has been no significant change. This study was interpreted with CAD. IMPRESSION: No mammographic evidence of malignancy. BI-RADS CATEGORY: BI-RADS Category: 1 Negative. Recommendation: Routine Screening Mammogram in 1 Year. Recommended Date: 1 Year. Laterality: Bilateral. MACRO: None Signed by: Anthony Espinoza 03/08/2024 11:40 AM Dictation workstation: [id number] [facility] Work Phone: Radiology Study observation (narrative) [facility] Work Phone: DBT Breast - bilateralOrdere d By: Anthony Espinoza on 03-08-2024 [facility] Work Phone: CBC W/Diff, Automatedon 01-31 Absolute Lymph 2.02 X10 3/uL Normal 0.83-4.51 [facility] Comment on above: Performed By: #### L 500.4050, L100.0100 ####[facility] [address] [place], [address] Absolute Neut 5.3 X10 3/uL Normal 2.0-7.7 [facility] Comment on above: Performed By: #### L 500.4050, L100.0100 ####[facility] [address] [place], [address] Basophils/100 WBC (Bld) 0.6 % Normal 0-1 [facility] Comment on above: Performed By: #### L 500.4050, L100.0100 ####[facility] [address] [place], [address] Eosinophils/100 WBC (Bld) 2.5 % Normal 0-5 [facility] Comment on above: Performed By: #### L 500.4050, L100.0100 ####[facility] [address] [place], [address] Erythrocyte distribution width (RBC) [Ratio] 12.5 % Normal 11.6-14.6 [facility] Comment on above: Performed By: #### L 500.4050, L100.0100 ####[facility] [address] [place], [address] Hematocrit (Bld) [Volume fraction] 39.3 % Normal 37-47 [facility] Comment on above: Performed By: #### L 500.4050, L100.0100 ####[facility] [address] [place], [address] Hemoglobin (Bld) [Mass/Vol] 12.9 g/dL Normal 12.0-15.0 [facility] Comment on above: Performed By: #### L 500.4050, L100.0100 ####[facility] [address] [place], [address] IG% 0.200 Normal 0.0-0.9 [facility] Comment on above: Result Comment: IG% - Immature Granulocytes (promyelocytes, myelocytes and metamyelocytes) > 1% indicates that a LEFT SHIFT is Present. Performed By: #### L 500.4050, L100.0100 ####[facility] [address] [place], [address] Lymphocytes/100 WBC (Bld) 24.3 % Normal 19-41 [facility] Comment on above: Performed By: #### L 500.4050, L100.0100 ####[facility] [address] [place], [address] MCH (RBC) [Entitic mass] 30.0 pg Normal 27.0-32.0 [facility] Comment on above: Performed By: #### L 500.4050, L100.0100 ####[facility] [address] [place], [address] MCHC (RBC) [Mass/Vol] 32.8 g/dL Normal 32-36 [facility] Comment on above: Performed By: #### L 500.4050, L100.0100 ####[facility] [address] [place], [address] MCV (RBC) [Entitic vol] 91.4 fL Normal 81-99 [facility] Comment on above: Performed By: #### L 500.4050, L100.0100 ####[facility] [address] [place], [address] Monocytes/100 WBC (Bld) 8.3 % Normal 0-10 [facility] Comment on above: Performed By: #### L 500.4050, L100.0100 ####[facility] [address] [place], [address] Neutrophils/100 WBC (Bld) 64.1 % Normal 47-70 [facility] Comment on above: Performed By: #### L 500.4050, L100.0100 ####[facility] [address] [place], [address] Nucleated RBC (Bld) [#/Vol] 0 10*3/uL Normal 0-5 [facility] Comment on above: Performed By: #### L 500.4050, L100.0100 ####[facility] [address] [place], [address] Platelet mean volume (Bld) [Entitic vol] 8.8 fL Normal 6.2-12.0 [facility] Comment on above: Performed By: #### L 500.4050, L100.0100 ####[facility] [address] [place], [address] Platelets (Bld) [#/Vol] 324 10*3/uL Normal 150-450 [facility] Comment on above: Performed By: #### L 500.4050, L100.0100 ####[facility] [address] [place], [address] RBC (Bld) [#/Vol] 4.30 10*6/uL Normal 4.2-5.4 [facility] Comment on above: Performed By: #### L 500.4050, L100.0100 ####[facility] [address] [place], [address] RDW SD 41.5 fl Normal 35.1-43.9 [facility] Comment on above: Performed By: #### L 500.4050, L100.0100 ####[facility] [address] [place], [address] WBC (Bld) [#/Vol] 8.3 10*3/uL Normal 4.4-11.0 [facility] Comment on above: Performed By: #### L 500.4050, L100.0100 ####[facility] [address] [place], [address] Comprehensive Metabolic [facility] 02-19-2024 Albumin [Mass/Vol] 3.7 g/dL Normal 3.2-5.0 [facility] Comment on above: Performed By: #### L 500.4050, L100.0100 ####[facility] [address] [place], [address] Albumin/Globulin [Mass ratio] 1.1 {ratio} Normal 0.9-2.4 [facility] Comment on above: Performed By: #### L 500.4050, L100.0100 ####[facility] [address] [place], [address] ALK P 48 U/L Normal 45-117 [facility] Comment on above: Performed By: #### L 500.4050, L100.0100 ####[facility] [address] [place], [address] ALT [Catalytic activity/Vol] 19 U/L Normal 13-56 [facility] Comment on above: Performed By: #### L 500.4050, L100.0100 ####[facility] [address] [place], [address] AST [Catalytic activity/Vol] 17 U/L Normal 15-37 [facility] Comment on above: Performed By: #### L 500.4050, L100.0100 ####[facility] [address] [place], [address] Bilirubin [Mass/Vol] 0.30 mg/dL Normal 0.20-1.00 [facility] Comment on above: Result Comment: For patients on eltrombopag therapy, use of Dimension [place] TBIL is not recommended. Performed By: #### L 500.4050, L100.0100 ####[facility] [address] [place], [address] BUN/CRE 22.0 RATIO High 10-20 [facility] Comment on above: Performed By: #### L 500.4050, L100.0100 ####[facility] [address] [place], [address] CA,Total 9.0 mg/dL Normal 8.5-10.1 [facility] Comment on above: Performed By: #### L 500.4050, L100.0100 ####[facility] [address] [place], [address] Chloride [Moles/Vol] 104 mmol/L Normal 98-107 [facility] Comment on above: Performed By: #### L 500.4050, L100.0100 ####[facility] [address] [place], [address] CO2 [Moles/Vol] 22.0 mmol/L Normal 21.0-32.0 [facility] Comment on above: Performed By: #### L 500.4050, L100.0100 ####[facility] [address] [place], [address] Creatinine [Mass/Vol] 0.82 mg/dL Normal 0.55-1.02 [facility] Comment on above: Result Comment: The validity of the calculated GFR GFRAA in patients over 70 years has not been determined. Clinical correlation is essential. Performed By: #### L 500.4050, L100.0100 ####[facility] [address] [place], [address] EST GFR - AA 98 mL/min Normal >60 [facility] Comment on above: Result Comment: Afri can [place] GFR Calc Performed By: #### L 500.4050, L100.0100 ####[facility] [address] [place], [address] GAP 10 Normal 5-15 [facility] Comment on above: Performed By: #### L 500.4050, L100.0100 ####[facility] [address] [place], [address] GFR/1.73 sq M.predicted among non-blacks MDRD (S/P/Bld) [Vol rate/Area] 81 mL/min/{1.73_m2} Normal >60 [facility] Comment on above: Result Comment: Non- GFR Calc Performed By: #### L 500.4050, L100.0100 ####[facility] [address] [place], [address] Globulin (S) [Mass/Vol] 3.3 g/dL Normal 2.2-4.2 [facility] Comment on above: Performed By: #### L 500.4050, L100.0100 ####[facility] [address] [place], [address] Glucose [Mass/Vol] 88 mg/dL Normal 74-106 [facility] Comment on above: Performed By: #### L 500.4050, L100.0100 ####[facility] [address] [place], [address] Potassium [Moles/Vol] 3.8 mmol/L Normal 3.5-5.1 [facility] Comment on above: Performed By: #### L 500.4050, L100.0100 ####[facility] [address] [place], [address] Sodium [Moles/Vol] 136 mmol/L Normal 136-145 [facility] Comment on above: Performed By: #### L 500.4050, L100.0100 ####[facility] [address] [place], [address] T PROT 7.0 g/dL Normal 6.4-8.2 [facility] Comment on above: Performed By: #### L 500.4050, L100.0100 ####[facility] [address] [place], [address] Urea nitrogen [Mass/Vol] 18 mg/dL Normal 7-18 [facility] Comment on above: Performed By: #### L 500.4050, L100.0100 ####[facility] [address] [place], [address] Absolute lymphocyte countOrd ered By: Yvonne Clark on 11-26-2023 Lymphocytes Auto (Unsp spec) [#/Vol] 1.86 10*3/uL 0.83-4.51 [facility] Automated lymphocyte count a s percentage of total leukocytesOrdered By: Yvonne Clark on 11-26-2023 Lymphocytes/100 WBC Auto (Unsp spec) 23.6 % 19-41 [facility] Basophil percentageOrdered B y: Yvonne Clark on 11-26-2023 Basophils/100 WBC (Bld) 0.8 % 0-1 [facility] Bilirubin [Mass/Vol] 0.30 mg/dL 0.20-1.00 [facility] Comment on above: For patients on eltr ombopag therapy, use of Dimension [place] TBIL is not recommended. Chloride [Moles/Vol] 107 mmol/L 98-107 [facility] Eosinophils/100 WBC (Bld) 3.7 % 0-5 [facility] Glucose [Mass/Vol] 90 mg/dL 74-106 [facility] Hemoglobin (Bld) [Mass/Vol] 13.3 g/dL 12.0-15.0 [facility] Monocytes/100 WBC (Bld) 6.9 % 0-10 [facility] Neutrophils (Bld) [#/Vol] 5.1 10*3/uL 2.0-7.7 [facility] Neutrophils/100 WBC (Bld) 64.6 % 47-70 [facility] Potassium [Moles/Vol] 4.1 mmol/L 3.5-5.1 [facility] Protein [Mass/Vol] 7.1 g/dL 6.4-8.2 [facility] Sodium [Moles/Vol] 137 mmol/L 136-145 [facility] WBC (Bld) [#/Vol] 7.9 10*3/uL 4.4-11.0 [facility] Determination of erythrocyte mean corpuscular volume (MCV)Ordered By: Yvonne Clark on 11-26-2023 MCV (RBC) [Entitic vol] 92.2 fL 81-99 [facility] Erythrocyte distribution wid th ratioOrdered By: Yvonne Clark on 11-26-2023 Erythrocyte distribution width (RBC) [Ratio] 12.5 % 11.6-14.6 [facility] Erythrocyte distribution wid th standard deviationOrdered By: Yvonne Clark on 11-26-2023 Erythrocyte distribution width (RBC) [Entitic vol] 42.5 fL 35.1-43.9 [facility] Hematocrit Auto (Bld) [Volum e fraction]Ordered By: Yvonne Clark on 11-26-2023 Hematocrit (Bld) [Volume fraction] 40.4 % 37-47 [facility] Immature granulocytes/100 WB C Auto (Bld)Ordered By: Yvonne Clark on 11-26-2023 Immature granulocytes/100 WBC (Bld) 0.400 % 0.0-0.9 [facility] Comment on above: IG% - Immature Granu locytes (promyelocytes, myelocytes and metamyelocytes) > 1% indicates that a LEFT SHIFT is Present. Laboratory - Chemistry and C hemistry - challengeOrdered By: Yvonne Clark on 11-26-2023 Albumin/Globulin [Mass ratio] 1.2 {ratio} 0.9-2.4 [facility] ALP [Catalytic activity/Vol] 48 U/L 45-117 [facility] ALT [Catalytic activity/Vol] 22 U/L 13-56 [facility] CO2 [Moles/Vol] 26.0 mmol/L 21.0-32.0 [facility] Globulin (S) [Mass/Vol] 3.3 g/dL 2.2-4.2 [facility] Urea nitrogen/Creatinine [Mass ratio] 13.5 mg/mg 10-20 [facility] Laboratory - Hematology and Cell countsOrdered By: Yvonne Clark on 11-26-2023 MCH (RBC) [Entitic mass] 30.4 pg 27.0-32.0 [facility] MCHC (RBC) [Mass/Vol] 32.9 g/dL 32-36 [facility] Nucleated RBC/100 WBC (Bld) [Ratio] 0 % 0-5 [facility] Platelet mean volume (Bld) [Entitic vol] 9.1 fL 6.2-12.0 [facility] Platelets (Bld) [#/Vol] 334 10*3/uL 150-450 [facility] No Panel InformationOrdered By: Yvonne Clark on 11-26-2023 Estimated GFR (MDRD) Amer 125 mL/min >60 [facility] Comment on above: GFR Calc Estimated GFR (MDRD) Non-Af Amer 103 mL/min >60 [facility] Comment on above: Non- GFR Calc RBC Auto (Bld) [#/Vol]Ordere d By: Yvonne Clark on 11-26-2023 RBC (Bld) [#/Vol] 4.38 10*6/uL 4.2-5.4 [facility] Serum or plasma calcium gracia urement (mass/volume)Ordered By: Yvonne Clark on 11-26-2023 Calcium [Mass/Vol] 8.5 mg/dL 8.5-10.1 [facility] Serum or plasma creatinine m easurement (mass/volume)Ordered By: Yvonne Clark on 03-27-2024 Creatinine [Mass/Vol] 0.67 mg/dL 0.55-1.02 [facility] Comment on above: The validity of the calculated GFR & GFRAA in patients over 70 years has not been determined. Clinical correlation is essential. Serum or plasma urea nitroge n measurement (mass/volume)Ordered By: Yvonne Clark on 11-26-2023 Urea nitrogen [Mass/Vol] 9 mg/dL 7-18 [facility] Thin prep Papanicolaou smear with manual screeningOrdered By: Yvonne Clark on 11-26-2023 Thin prep Papanicolaou smear with manual screening 3.8 g/dL 3.2-5.0 [facility] Thin prep Papanicolaou smear with manual screening 17 U/L 15-37 [facility] Thin prep Papanicolaou smear with manual screening 4 5-15 [facility] Absolute lymphocyte countOrd ered By: Yvonne Clark on 09-04-2023 Lymphocytes Auto (Unsp spec) [#/Vol] 2.64 10*3/uL 0.83-4.51 [facility] Basophil percentageOrdered B y: Yvonne Clark on 09-04-2023 Basophils/100 WBC (Bld) 0.5 % 0-1 [facility] Bilirubin [Mass/Vol] 0.20 mg/dL 0.20-1.00 [facility] Comment on above: For patients on eltr ombopag therapy, use of Dimension [place] TBIL is not recommended. Chloride [Moles/Vol] 106 mmol/L 98-107 [facility] Eosinophils/100 WBC (Bld) 3.5 % 0-5 [facility] Glucose [Mass/Vol] 79 mg/dL 74-106 [facility] Neutrophils (Bld) [#/Vol] 4.0 10*3/uL 2.0-7.7 [facility] Neutrophils/100 WBC (Bld) 53.4 % 47-70 [facility] Potassium [Moles/Vol] 4.0 mmol/L 3.5-5.1 [facility] Protein [Mass/Vol] 6.7 g/dL 6.4-8.2 [facility] Sodium [Moles/Vol] 138 mmol/L 136-145 [facility] WBC (Bld) [#/Vol] 7.5 10*3/uL 4.4-11.0 [facility] Blood erythrocytes count (nu mber/volume)Ordered By: Yvonne Clark on 09-04-2023 RBC (Bld) [#/Vol] 4.04 10*6/uL 4.2-5.4 [facility] Blood hemoglobin measurement (mass/volume)Ordered By: Yvonne Clark on 09-04-2023 Hemoglobin (Bld) [Mass/Vol] 12.5 g/dL 12.0-15.0 [facility] Blood lymphocytes/100 leukoc ytesOrdered By: Yvonneconner Clark on 09-04-2023 Lymphocytes/100 WBC (Bld) 35.1 % 19-41 [facility] Blood monocytes/100 leukocyt esOrdered By: Yvonne Clark on 09-04-2023 Monocytes/100 WBC (Bld) 7.4 % 0-10 [facility] Blood platelet mean volumeOr dered By: Yvonne Clark on 09-04-2023 Platelet mean volume (Bld) [Entitic vol] 8.9 fL 6.2-12.0 [facility] Determination of erythrocyte mean corpuscular volume (MCV)Ordered By: Yvonne Clark on 09-04-2023 MCV (RBC) [Entitic vol] 94.6 fL 81-99 [facility] Hematocrit Auto (Bld) [Volum e fraction]Ordered By: Yvonne Clark on 09-04-2023 Hematocrit (Bld) [Volume fraction] 38.2 % 37-47 [facility] Laboratory - Chemistry and C hemistry - challengeOrdered By: Yvonne Clark on 09-04-2023 ALP [Catalytic activity/Vol] 45 U/L 45-117 [facility] ALT [Catalytic activity/Vol] 20 U/L 13-56 [facility] CO2 [Moles/Vol] 26.0 mmol/L 21.0-32.0 [facility] Globulin (S) [Mass/Vol] 3.2 g/dL 2.2-4.2 [facility] Urea nitrogen/Creatinine [Mass ratio] 15.6 mg/mg 10-20 [facility] Laboratory - Hematology and Cell countsOrdered By: Yvonne Clark on 09-04-2023 Erythrocyte distribution width (RBC) [Entitic vol] 43.5 fL 35.1-43.9 [facility] Erythrocyte distribution width (RBC) [Ratio] 12.5 % 11.6-14.6 [facility] Immature granulocytes/100 WBC (Bld) 0.100 % 0.0-0.9 [facility] Comment on above: IG% - Immature Granu locytes (promyelocytes, myelocytes and metamyelocytes) > 1% indicates that a LEFT SHIFT is Present. MCH (RBC) [Entitic mass] 30.9 pg 27.0-32.0 [facility] Nucleated RBC/100 WBC (Bld) [Ratio] 0 % 0-5 [facility] MCHC Auto (RBC) [Mass/Vol]Or dered By: Yvonne Clark on 09-04-2023 MCHC (RBC) [Mass/Vol] 32.7 g/dL 32-36 [facility] No Panel InformationOrdered By: Yvonne Clark on 09-04-2023 Estimated GFR (MDRD) Amer 117 mL/min >60 [facility] Comment on above: GFR Calc Estimated GFR (MDRD) Non-Af Amer 97 mL/min >60 [facility] Comment on above: Non- GFR Calc Platelets bldOrdered By: Mikel Clark on 09-04-2023 Platelets (Bld) [#/Vol] 312 10*3/uL 150-450 [facility] Serum or plasma albumin gracia urement (mass/volume)Ordered By: Yvonne Clark on 09-04-2023 Albumin [Mass/Vol] 3.5 g/dL 3.2-5.0 [facility] Serum or plasma albumin/glob ulin mass ratioOrdered By: Yvonne Clark on 09-04-2023 Albumin/Globulin [Mass ratio] 1.1 {ratio} 0.9-2.4 [facility] Serum or plasma calcium gracia urement (mass/volume)Ordered By: Yvonne Clark on 09-04-2023 Calcium [Mass/Vol] 8.7 mg/dL 8.5-10.1 [facility] Serum or plasma creatinine m easurement (mass/volume)Ordered By: Yvonne Clark on 09-04-2023 Creatinine [Mass/Vol] 0.70 mg/dL 0.55-1.02 [facility] Comment on above: The validity of the calculated GFR & GFRAA in patients over 70 years has not been determined. Clinical correlation is essential. Serum or plasma urea nitroge n measurement (mass/volume)Ordered By: Yvonne Clark on 09-04-2023 Urea nitrogen [Mass/Vol] 11 mg/dL 7-18 [facility] Thin prep Papanicolaou smear with manual screeningOrdered By: Yvonneconner Clark on 09-04-2023 Thin prep Papanicolaou smear with manual screening 12 U/L 15-37 [facility] Thin prep Papanicolaou smear with manual screening 6 5-15 [facility] Absolute lymphocyte countOrd ered By: Yvonne Clark on 06-03-2023 Lymphocytes Auto (Unsp spec) [#/Vol] 1.88 10*3/uL 0.83-4.51 [facility] Basophil percentageOrdered B y: Yvonne Clark on 06-03-2023 Basophils/100 WBC (Bld) 0.4 % 0-1 [facility] Bilirubin [Mass/Vol] 0.30 mg/dL 0.20-1.00 [facility] Comment on above: For patients on eltr ombopag therapy, use of Dimension [place] TBIL is not recommended. Chloride [Moles/Vol] 109 mmol/L 98-107 [facility] Eosinophils/100 WBC (Bld) 1.1 % 0-5 [facility] Glucose [Mass/Vol] 81 mg/dL 74-106 [facility] Neutrophils (Bld) [#/Vol] 5.4 10*3/uL 2.0-7.7 [facility] Neutrophils/100 WBC (Bld) 67.9 % 47-70 [facility] Potassium [Moles/Vol] 3.5 mmol/L 3.5-5.1 [facility] Protein [Mass/Vol] 6.5 g/dL 6.4-8.2 [facility] Sodium [Moles/Vol] 141 mmol/L 136-145 [facility] WBC (Bld) [#/Vol] 8.0 10*3/uL 4.4-11.0 [facility] Blood erythrocytes count (nu mber/volume)Ordered By: Yvonne Clark on 06-03-2023 RBC (Bld) [#/Vol] 3.98 10*6/uL 4.2-5.4 [facility] Blood hemoglobin measurement (mass/volume)Ordered By: Yvonne Clark on 06-03-2023 Hemoglobin (Bld) [Mass/Vol] 12.2 g/dL 12.0-15.0 [facility] Blood lymphocytes/100 leukoc ytesOrdered By: Yvonneconner Clark on 06-03-2023 Lymphocytes/100 WBC (Bld) 23.5 % 19-41 [facility] Blood monocytes/100 leukocyt esOrdered By: Yvonneconner Clark on 06-03-2023 Monocytes/100 WBC (Bld) 7.0 % 0-10 [facility] Blood platelet mean volumeOr dered By: Yvonne Clark on 06-03-2023 Platelet mean volume (Bld) [Entitic vol] 8.7 fL 6.2-12.0 [facility] Determination of erythrocyte mean corpuscular volume (MCV)Ordered By: Yvonne Clark on 06-03-2023 MCV (RBC) [Entitic vol] 96.2 fL 81-99 [facility] Hematocrit Auto (Bld) [Volum e fraction]Ordered By: Yvonne Clark on 06-03-2023 Hematocrit (Bld) [Volume fraction] 38.3 % 37-47 [facility] Laboratory - Chemistry and C hemistry - challengeOrdered By: Yvonne Clark on 06-03-2023 ALP [Catalytic activity/Vol] 42 U/L 45-117 [facility] ALT [Catalytic activity/Vol] 22 U/L 13-56 [facility] CO2 [Moles/Vol] 27.0 mmol/L 21.0-32.0 [facility] Globulin (S) [Mass/Vol] 2.8 g/dL 2.2-4.2 [facility] Urea nitrogen/Creatinine [Mass ratio] 10.7 mg/mg 10-20 [facility] Laboratory - Hematology and Cell countsOrdered By: Yvonne Clark on 06-03-2023 Erythrocyte distribution width (RBC) [Entitic vol] 45.2 fL 35.1-43.9 [facility] Erythrocyte distribution width (RBC) [Ratio] 12.6 % 11.6-14.6 [facility] Immature granulocytes/100 WBC (Bld) 0.100 % 0.0-0.9 [facility] Comment on above: IG% - Immature Granu locytes (promyelocytes, myelocytes and metamyelocytes) > 1% indicates that a LEFT SHIFT is Present. MCH (RBC) [Entitic mass] 30.7 pg 27.0-32.0 [facility] Nucleated RBC/100 WBC (Bld) [Ratio] 0 % 0-5 [facility] MCHC Auto (RBC) [Mass/Vol]Or dered By: Yvonne Clark on 06-03-2023 MCHC (RBC) [Mass/Vol] 31.9 g/dL 32-36 [facility] No Panel InformationOrdered By: Yvonne Clark on 06-03-2023 Estimated GFR (MDRD) Amer 152 mL/min >60 [facility] Comment on above: GFR Calc Estimated GFR (MDRD) Non-Af Amer 126 mL/min >60 [facility] Comment on above: Non- GFR Calc Platelets bldOrdered By: Mikel Clark on 06-03-2023 Platelets (Bld) [#/Vol] 295 10*3/uL 150-450 [facility] Serum or plasma albumin gracia urement (mass/volume)Ordered By: Yvonne Clark on 06-03-2023 Albumin [Mass/Vol] 3.7 g/dL 3.2-5.0 [facility] Serum or plasma albumin/glob ulin mass ratioOrdered By: Yvonne Clark on 06-03-2023 Albumin/Globulin [Mass ratio] 1.3 {ratio} 0.9-2.4 [facility] Serum or plasma calcium gracia urement (mass/volume)Ordered By: Yvonne Clark on 06-03-2023 Calcium [Mass/Vol] 8.8 mg/dL 8.5-10.1 [facility] Serum or plasma creatinine m easurement (mass/volume)Ordered By: Yvonne Clark on 06-03-2023 Creatinine [Mass/Vol] 0.56 mg/dL 0.55-1.02 [facility] Comment on above: The validity of the calculated GFR & GFRAA in patients over 70 years has not been determined. Clinical correlation is essential. Serum or plasma urea nitroge n measurement (mass/volume)Ordered By: Yvonne Clark on 06-03-2023 Urea nitrogen [Mass/Vol] 6 mg/dL 7-18 [facility] Thin prep Papanicolaou smear with manual screeningOrdered By: Yvonne Clark on 06-03-2023 Thin prep Papanicolaou smear with manual screening 15 U/L 15-37 [facility] Thin prep Papanicolaou smear with manual screening 5 5-15 [facility] DIGITAL MAMM SCREENING W/ TO Odom 02-27-2023 DIGITAL MAMM SCREENING W/ AGUSTIN Patient Name: TRUDY FLORES STUDY: Digital mammography screening with agustin; 02/27/2023 9:55 am ACCESSION NUMBER(S): [id number] ORDERING CLINICIAN: YESENIA LEE INDICATION: Screening. COMPARISON: Comparison is made to prior digital mammograms dated 02/22/2022 FINDINGS: CC and MLO 2D digital mammograms and digital breast tomosynthesis images were obtained of the bilateral breasts. 3-D volume images were reconstructed in 4 views at an independent workstation as 1 mm slices through the breasts in both the CC and MLO projections. There are areas of scattered fibroglandular tissue. No discrete mass or focal asymmetry is identified. No suspicious microcalcifications or foci of architectural distortion are seen. There has been no significant change. This study was interpreted with CAD. IMPRESSION: No mammographic evidence of malignancy. BI-RADS CATEGORY: Category: 1 - Negative. Recommendation: 1 Year Screening. Electronically signed by: ANTHONY ESPINOZA MD Normal [facility] LIPID PANEL (CORONARY RISK 2 )on 02-18-2023 Cholesterol [Mass/Vol] 145 mg/dL Normal 0 - 199 [facility] Comment on above: Result Comment: . AGE DESIRABLE BORDERLINE HIGH HIGH 0-19 Y 0 - 169 170 - 199 >/= 200 20-24 Y 0 - 189 190 - 224 >/= 225 >24 Y 0 - 199 200 - 239 >/= 240 All ranges are based on fasting samples. Specific therapeutic targets will vary based on patient-specific cardiac risk. . Pediatric guidelines reference:Pediatrics 2011, 128(S5). Adult guidelines reference: NCEP ATPIII Guidelines, ARMEN 2001, 258:2486-97 . Venipuncture immediately after or during the administration of Metamizole may lead to falsely low results. Testing should be performed immediately prior to Metamizole dosing. Performed By: #### L IPID #### [address] [address] Cholesterol in HDL [Mass/Vol] 60.0 mg/dL Normal [facility] Comment on above: Result Comment: . AGE VERY LOW LOW NORMAL HIGH 0-19 Y < 35 < 40 40-45 ---- 20-24 Y ---- < 40 >45 ---- >24 Y ---- < 40 40-60 >60 . Performed By: #### L IPID #### [address] [address] Cholesterol in LDL [Mass/Vol] 72 mg/dL Normal 0 - 99 [facility] Comment on above: Result Comment: . NEAR BORD AGE DESIRABLE OPTIMAL HIGH HIGH VERY HIGH 0-19 Y 0 - 109 --- 110-129 >/= 130 ---- 20-24 Y 0 - 119 --- 120-159 >/= 160 ---- >24 Y 0 - 99 100-129 130-159 160-189 >/=190 . Performed By: #### L IPID #### [address] [id number] Cholesterol in VLDL [Mass/Vol] 13 mg/dL Normal 0 - 40 [facility] Comment on above: Performed By: #### L IPID #### [address] [address] Cholesterol.total/Cho lesterol in HDL [Mass ratio] 2.4 {ratio} Normal [facility] Comment on above: Result Comment: REF VALUES DESIRABLE < 3.4 HIGH RISK > 5.0 Performed By: #### L IPID #### [address] [address] Triglyceride [Mass/Vol] 64 mg/dL Normal 0 - 149 [facility] Comment on above: Result Comment: . AGE DESIRABLE BORDERLINE HIGH HIGH VERY HIGH 0 D-90 D 19 - 174 ---- ---- ---- 91 D- 9 Y 0 - 74 75 - 99 >/= 100 ---- 10-19 Y 0 - 89 90 - 129 >/= 130 ---- 20-24 Y 0 - 114 115 - 149 >/= 150 ---- >24 Y 0 - 149 150 - 199 200- 499 >/= 500 . Venipuncture immediately after or during the administration of Metamizole may lead to falsely low results. Testing should be performed immediately prior to Metamizole dosing. Performed By: #### L IPID #### [place] [id number] Lab Specimen Source Normal [facility] Comment on above: Performed By: #### L IPID #### [address] [address] Absolute lymphocyte countOrd ered By: Dr. Clark on 12-13-2022 Lymphocytes Auto (Unsp spec) [#/Vol] 1.83 10*3/uL 0.83-4.51 [facility] Basophil percentageOrdered B y: Dr. Clark on 12-13-2022 Basophils/100 WBC (Bld) 0.3 % 0-1 [facility] Bilirubin [Mass/Vol] 0.20 mg/dL 0.20-1.00 [facility] Comment on above: For patients on eltr ombopag therapy, use of Dimension [place] TBIL is not recommended. Chloride [Moles/Vol] 107 mmol/L 98-107 [facility] Eosinophils/100 WBC (Bld) 2.0 % 0-5 [facility] Glucose [Mass/Vol] 88 mg/dL 74-106 [facility] Neutrophils (Bld) [#/Vol] 3.6 10*3/uL 2.0-7.7 [facility] Neutrophils/100 WBC (Bld) 59.4 % 47-70 [facility] Potassium [Moles/Vol] 3.8 mmol/L 3.5-5.1 [facility] Protein [Mass/Vol] 6.9 g/dL 6.4-8.2 [facility] Sodium [Moles/Vol] 137 mmol/L 136-145 [facility] WBC (Bld) [#/Vol] 6.1 10*3/uL 4.4-11.0 [facility] Blood erythrocytes count (nu mber/volume)Ordered By: Dr. Clark on 12-13-2022 RBC (Bld) [#/Vol] 3.85 10*6/uL 4.2-5.4 [facility] Blood hemoglobin measurement (mass/volume)Ordered By: Dr. Clark on 12-13-2022 Hemoglobin (Bld) [Mass/Vol] 12.2 g/dL 12.0-15.0 [facility] Blood lymphocytes/100 leukoc ytesOrdered By: Dr. Clark on 12-13-2022 Lymphocytes/100 WBC (Bld) 30.1 % 19-41 [facility] Blood monocytes/100 leukocyt esOrdered By: Dr. Clark on 12-13-2022 Monocytes/100 WBC (Bld) 7.9 % 0-10 [facility] Blood platelet mean volumeOr dered By: Dr. Clark on 12-13-2022 Platelet mean volume (Bld) [Entitic vol] 8.9 fL 6.2-12.0 [facility] Determination of erythrocyte mean corpuscular volume (MCV)Ordered By: Dr. Clrak on 12-13-2022 MCV (RBC) [Entitic vol] 96.6 fL 81-99 [facility] Hematocrit Auto (Bld) [Volum e fraction]Ordered By: Dr. Clark on 12-13-2022 Hematocrit (Bld) [Volume fraction] 37.2 % 37-47 [facility] Laboratory - Chemistry and C hemistry - challengeOrdered By: Dr. Clark on 12-13-2022 ALP [Catalytic activity/Vol] 40 U/L 45-117 [facility] ALT [Catalytic activity/Vol] 21 U/L 13-56 [facility] CO2 [Moles/Vol] 26.0 mmol/L 21.0-32.0 [facility] Globulin (S) [Mass/Vol] 3.2 g/dL 2.2-4.2 [facility] Urea nitrogen/Creatinine [Mass ratio] 16.5 mg/mg 10-20 [facility] Laboratory - Hematology and Cell countsOrdered By: Dr. Clark on 12-13-2022 Erythrocyte distribution width (RBC) [Entitic vol] 43.8 fL 35.1-43.9 [facility] Erythrocyte distribution width (RBC) [Ratio] 12.7 % 11.6-14.6 [facility] Immature granulocytes/100 WBC (Bld) 0.300 % 0.0-0.9 [facility] Comment on above: IG% - Immature Granu locytes (promyelocytes, myelocytes and metamyelocytes) > 1% indicates that a LEFT SHIFT is Present. MCH (RBC) [Entitic mass] 31.7 pg 27.0-32.0 [facility] Nucleated RBC/100 WBC (Bld) [Ratio] 0 % 0-5 [facility] MCHC Auto (RBC) [Mass/Vol]Or dered By: Dr. Clark on 12-13-2022 MCHC (RBC) [Mass/Vol] 32.8 g/dL 32-36 [facility] No Panel InformationOrdered By: Dr. Clark on 12-13-2022 Estimated GFR (MDRD) Amer 113 mL/min >60 [facility] Comment on above: GFR Calc Estimated GFR (MDRD) Non-Af Amer 94 mL/min >60 [facility] Comment on above: Non- GFR Calc Platelets bldOrdered By: Dr. Clark on 12-13-2022 Platelets (Bld) [#/Vol] 371 10*3/uL 150-450 [facility] Serum or plasma albumin gracia urement (mass/volume)Ordered By: Dr. Clark on 12-13-2022 Albumin [Mass/Vol] 3.7 g/dL 3.2-5.0 [facility] Serum or plasma albumin/glob ulin mass ratioOrdered By: Dr. Clark on 12-13-2022 Albumin/Globulin [Mass ratio] 1.2 {ratio} 0.9-2.4 [facility] Serum or plasma calcium gracia urement (mass/volume)Ordered By: Dr. Clark on 12-13-2022 Calcium [Mass/Vol] 8.9 mg/dL 8.5-10.1 [facility] Serum or plasma creatinine m easurement (mass/volume)Ordered By: Dr. Clark on 12-13-2022 Creatinine [Mass/Vol] 0.73 mg/dL 0.55-1.02 [facility] Comment on above: The validity of the calculated GFR & GFRAA in patients over 70 years has not been determined. Clinical correlation is essential. Serum or plasma urea nitroge n measurement (mass/volume)Ordered By: Dr. Clark on 12-13-2022 Urea nitrogen [Mass/Vol] 12 mg/dL 7-18 [facility] Thin prep Papanicolaou smear with manual screeningOrdered By: Dr. Clark on 12-13-2022 Thin prep Papanicolaou smear with manual screening 16 U/L 15-37 [facility] Thin prep Papanicolaou smear with manual screening 4 5-15 [facility] Absolute lymphocyte countOrd ered By: Dr. Clark on 09-19-2022 Lymphocytes Auto (Unsp spec) [#/Vol] 1.05 10*3/uL 0.83-4.51 [facility] Basophil percentageOrdered B y: Dr. Clark on 09-19-2022 Basophils/100 WBC (Bld) 0.7 % 0-1 [facility] Bilirubin [Mass/Vol] 0.40 mg/dL 0.20-1.00 [facility] Comment on above: For patients on eltr ombopag therapy, use of Dimension [place] TBIL is not recommended. Chloride [Moles/Vol] 107 mmol/L 98-107 [facility] Eosinophils/100 WBC (Bld) 2.0 % 0-5 [facility] Glucose [Mass/Vol] 78 mg/dL 74-106 [facility] Neutrophils (Bld) [#/Vol] 2.9 10*3/uL 2.0-7.7 [facility] Neutrophils/100 WBC (Bld) 62.6 % 47-70 [facility] Potassium [Moles/Vol] 3.8 mmol/L 3.5-5.1 [facility] Protein [Mass/Vol] 6.8 g/dL 6.4-8.2 [facility] Sodium [Moles/Vol] 140 mmol/L 136-145 [facility] WBC (Bld) [#/Vol] 4.6 10*3/uL 4.4-11.0 [facility] Blood erythrocytes count (nu mber/volume)Ordered By: Dr. Clark on 09-19-2022 RBC (Bld) [#/Vol] 3.77 10*6/uL 4.2-5.4 [facility] Blood hemoglobin measurement (mass/volume)Ordered By: Dr. Clark on 09-19-2022 Hemoglobin (Bld) [Mass/Vol] 12.1 g/dL 12.0-15.0 [facility] Blood lymphocytes/100 leukoc ytesOrdered By: Dr. Clark on 09-19-2022 Lymphocytes/100 WBC (Bld) 22.9 % 19-41 [facility] Blood monocytes/100 leukocyt esOrdered By: Dr. Clark on 09-19-2022 Monocytes/100 WBC (Bld) 10.5 % 0-10 [facility] Blood platelet mean volumeOr dered By: Dr. Clark on 09-19-2022 Platelet mean volume (Bld) [Entitic vol] 9.0 fL 6.2-12.0 [facility] Determination of erythrocyte mean corpuscular volume (MCV)Ordered By: Dr. Clark on 09-19-2022 MCV (RBC) [Entitic vol] 97.1 fL 81-99 [facility] Hematocrit Auto (Bld) [Volum e fraction]Ordered By: Dr. Clark on 09-19-2022 Hematocrit (Bld) [Volume fraction] 36.6 % 37-47 [facility] Laboratory - Chemistry and C hemistry - challengeOrdered By: Dr. Clark on 09-19-2022 ALP [Catalytic activity/Vol] 37 U/L 45-117 [facility] ALT [Catalytic activity/Vol] 26 U/L 13-56 [facility] CO2 [Moles/Vol] 29.0 mmol/L 21.0-32.0 [facility] Globulin (S) [Mass/Vol] 3.0 g/dL 2.2-4.2 [facility] Urea nitrogen/Creatinine [Mass ratio] 10.1 mg/mg 10-20 [facility] Laboratory - Hematology and Cell countsOrdered By: Dr. Clark on 09-19-2022 Erythrocyte distribution width (RBC) [Entitic vol] 43.7 fL 35.1-43.9 [facility] Erythrocyte distribution width (RBC) [Ratio] 12.6 % 11.6-14.6 [facility] Immature granulocytes/100 WBC (Bld) 1.300 % 0.0-0.9 [facility] Comment on above: IG% - Immature Granu locytes (promyelocytes, myelocytes and metamyelocytes) > 1% indicates that a LEFT SHIFT is Present. MCH (RBC) [Entitic mass] 32.1 pg 27.0-32.0 [facility] Nucleated RBC/100 WBC (Bld) [Ratio] 0 % 0-5 [facility] MCHC Auto (RBC) [Mass/Vol]Or dered By: Dr. Clark on 09-19-2022 MCHC (RBC) [Mass/Vol] 33.1 g/dL 32-36 [facility] No Panel InformationOrdered By: Dr. Clark on 09-19-2022 Estimated GFR (MDRD) Amer 121 mL/min >60 [facility] Comment on above: GFR Calc Estimated GFR (MDRD) Non-Af Amer 100 mL/min >60 [facility] Comment on above: Non- GFR Calc Platelets bldOrdered By: Dr. Clark on 09-19-2022 Platelets (Bld) [#/Vol] 274 10*3/uL 150-450 [facility] Serum or plasma albumin gracia urement (mass/volume)Ordered By: Dr. Clark on 09-19-2022 Albumin [Mass/Vol] 3.8 g/dL 3.2-5.0 [facility] Serum or plasma albumin/glob ulin mass ratioOrdered By: Dr. Clark on 09-19-2022 Albumin/Globulin [Mass ratio] 1.3 {ratio} 0.9-2.4 [facility] Serum or plasma calcium gracia urement (mass/volume)Ordered By: Dr. Clark on 09-19-2022 Calcium [Mass/Vol] 8.6 mg/dL 8.5-10.1 [facility] Serum or plasma creatinine m easurement (mass/volume)Ordered By: Dr. Clark on 09-19-2022 Creatinine [Mass/Vol] 0.69 mg/dL 0.55-1.02 [facility] Comment on above: The validity of the calculated GFR & GFRAA in patients over 70 years has not been determined. Clinical correlation is essential. Serum or plasma urea nitroge n measurement (mass/volume)Ordered By: Dr. Clark on 09-19-2022 Urea nitrogen [Mass/Vol] 7 mg/dL 7-18 [facility] Thin prep Papanicolaou smear with manual screeningOrdered By: Dr. Clark on 09-19-2022 Thin prep Papanicolaou smear with manual screening 19 U/L 15-37 [facility] Thin prep Papanicolaou smear with manual screening 4 5-15 [facility] Qualitative QuantiFERON-TB g old in tube testOrdered By: Dr. Clark on 06-28-2022 M. tuberculosis tuberculin stim IFN-g Ql (Bld) 0.13 IU/mL . [facility] Thin prep Papanicolaou smear with manual screeningOrdered By: Dr. Clark on 06-28-2022 Thin prep Papanicolaou smear with manual screening Comment . [facility] Comment on above: QuantiFERON-TB Gold Plus is a qualitative indirect test forM tuberculosis infection (including disease) and isintended for use in conjunction with risk assessment,radiography, and other medical and diagnostic evaluations.The QuantiFERON-TB Gold Plus result is determined bysubtracting the Nil value from either TB antigen (Ag)value. The Mitogen tube serves as a control for the test. Thin prep Papanicolaou smear with manual screening 0.23 IU/mL . [facility] Thin prep Papanicolaou smear with manual screening 0.06 IU/mL . [facility] Thin prep Papanicolaou smear with manual screening > 10.00 IU/mL . [facility] Thin prep Papanicolaou smear with manual screening Negative Negative [facility] Comment on above: No response to M tub erculosis antigens detected.Infection with M tuberculosis is unlikely, but high riskindividuals should be considered for additional testing(ATS/IDSA/CDC Clinical Practice Guidelines, 2017). Thereference range is an Antigen minus Nil result of <0.35IU/mL.The specimen received for QuantiFERON testing was incubatedby the ordering institution. Specific procedures outlinedin our Directory of Services and in the package insert forthe QuantiFERON Gold (In Tube) test must be followed toenable for proper stimulation of cells for the productionof interferon gamma. Chemiluminescence immunoassaymethodologyPerformed at: [facility] [id number] Director: Wilson Gatica PhD, Phone: [phone] Absolute lymphocyte countOrd ered By: Dr. Clark on 06-21-2022 Lymphocytes Auto (Unsp spec) [#/Vol] 1.46 10*3/uL 0.83-4.51 [facility] Basophil percentageOrdered B y: Dr. Clark on 06-21-2022 Basophils/100 WBC (Bld) 0.5 % 0-1 [facility] Bilirubin [Mass/Vol] 0.30 mg/dL 0.20-1.00 [facility] Comment on above: For patients on eltr ombopag therapy, use of Dimension [place] TBIL is not recommended. Chloride [Moles/Vol] 107 mmol/L 98-107 [facility] Eosinophils/100 WBC (Bld) 2.2 % 0-5 [facility] Glucose [Mass/Vol] 83 mg/dL 74-106 [facility] Neutrophils (Bld) [#/Vol] 2.3 10*3/uL 2.0-7.7 [facility] Neutrophils/100 WBC (Bld) 55.0 % 47-70 [facility] Potassium [Moles/Vol] 3.6 mmol/L 3.5-5.1 [facility] Protein [Mass/Vol] 6.6 g/dL 6.4-8.2 [facility] Sodium [Moles/Vol] 139 mmol/L 136-145 [facility] WBC (Bld) [#/Vol] 4.2 10*3/uL 4.4-11.0 [facility] Blood erythrocytes count (nu mber/volume)Ordered By: Dr. Clark on 06-21-2022 RBC (Bld) [#/Vol] 3.81 10*6/uL 4.2-5.4 [facility] Blood hemoglobin measurement (mass/volume)Ordered By: Dr. Clark on 06-21-2022 Hemoglobin (Bld) [Mass/Vol] 12.2 g/dL 12.0-15.0 [facility] Blood lymphocytes/100 leukoc ytesOrdered By: Dr. Clark on 06-21-2022 Lymphocytes/100 WBC (Bld) 34.9 % 19-41 [facility] Blood monocytes/100 leukocyt esOrdered By: Dr. Clark on 06-21-2022 Monocytes/100 WBC (Bld) 6.9 % 0-10 [facility] Blood platelet mean volumeOr dered By: Dr. Clark on 06-21-2022 Platelet mean volume (Bld) [Entitic vol] 8.7 fL 6.2-12.0 [facility] Determination of erythrocyte mean corpuscular volume (MCV)Ordered By: Dr. Clark on 06-21-2022 MCV (RBC) [Entitic vol] 96.1 fL 81-99 [facility] Hematocrit Auto (Bld) [Volum e fraction]Ordered By: Dr. Clark on 06-21-2022 Hematocrit (Bld) [Volume fraction] 36.6 % 37-47 [facility] Laboratory - Chemistry and C hemistry - challengeOrdered By: Dr. Clark on 06-21-2022 ALP [Catalytic activity/Vol] 39 U/L 45-117 [facility] ALT [Catalytic activity/Vol] 20 U/L 13-56 [facility] CO2 [Moles/Vol] 27.0 mmol/L 21.0-32.0 [facility] Globulin (S) [Mass/Vol] 3.0 g/dL 2.2-4.2 [facility] Urea nitrogen/Creatinine [Mass ratio] 15.1 mg/mg 10-20 [facility] Laboratory - Hematology and Cell countsOrdered By: Dr. Clark on 06-21-2022 Erythrocyte distribution width (RBC) [Entitic vol] 42.8 fL 35.1-43.9 [facility] Erythrocyte distribution width (RBC) [Ratio] 12.5 % 11.6-14.6 [facility] Immature granulocytes/100 WBC (Bld) 0.500 % 0.0-0.9 [facility] Comment on above: IG% - Immature Granu locytes (promyelocytes, myelocytes and metamyelocytes) > 1% indicates that a LEFT SHIFT is Present. MCH (RBC) [Entitic mass] 32.0 pg 27.0-32.0 [facility] Nucleated RBC/100 WBC (Bld) [Ratio] 0 % 0-5 [facility] MCHC Auto (RBC) [Mass/Vol]Or dered By: Dr. Clark on 06-21-2022 MCHC (RBC) [Mass/Vol] 33.3 g/dL 32-36 [facility] No Panel InformationOrdered By: Dr. Clark on 06-21-2022 Estimated GFR (MDRD) Amer 143 mL/min >60 [facility] Comment on above: GFR Calc Estimated GFR (MDRD) Non-Af Amer 118 mL/min >60 [facility] Comment on above: Non- GFR Calc Platelets bldOrdered By: Dr. Clark on 06-21-2022 Platelets (Bld) [#/Vol] 305 10*3/uL 150-450 [facility] Serum or plasma albumin gracia urement (mass/volume)Ordered By: Dr. Clark on 06-21-2022 Albumin [Mass/Vol] 3.6 g/dL 3.2-5.0 [facility] Serum or plasma albumin/glob ulin mass ratioOrdered By: Dr. lCark on 06-21-2022 Albumin/Globulin [Mass ratio] 1.2 {ratio} 0.9-2.4 [facility] Serum or plasma calcium gracia urement (mass/volume)Ordered By: Dr. Clark on 06-21-2022 Calcium [Mass/Vol] 8.7 mg/dL 8.5-10.1 [facility] Serum or plasma creatinine m easurement (mass/volume)Ordered By: Dr. Clark on 06-21-2022 Creatinine [Mass/Vol] 0.60 mg/dL 0.55-1.02 [facility] Comment on above: The validity of the calculated GFR & GFRAA in patients over 70 years has not been determined. Clinical correlation is essential. Serum or plasma urea nitroge n measurement (mass/volume)Ordered By: Dr. Clark on 06-21-2022 Urea nitrogen [Mass/Vol] 9 mg/dL 7-18 [facility] Thin prep Papanicolaou smear with manual screeningOrdered By: Dr. Clark on 06-21-2022 Thin prep Papanicolaou smear with manual screening 15 U/L 15-37 [facility] Thin prep Papanicolaou smear with manual screening 5 5-15 [facility] Absolute lymphocyte counton 03-08-2022 Lymphocytes Auto (Unsp spec) [#/Vol] 1.96 10*3/uL 0.83-4.51 [facility] Work Phone: Basophil percentageon 2021 Basophils/100 WBC (Bld) 0.4 % 0-1 [facility] Work Phone: Bilirubin [Mass/Vol] 0.40 mg/dL 0.20-1.00 [facility] Work Phone: Comment on above: For patients on eltr ombopag therapy, use of Dimension [place] TBIL is not recommended. Chloride [Moles/Vol] 108 mmol/L 98-107 [facility] Work Phone: [phone] Eosinophils/100 WBC (Bld) 2.0 % 0-5 [facility] Work Phone: Glucose [Mass/Vol] 76 mg/dL 74-106 [facility] Work Phone: Neutrophils (Bld) [#/Vol] 2.9 10*3/uL 2.0-7.7 [facility] Work Phone: [phone] Neutrophils/100 WBC (Bld) 52.4 % 47-70 [facility] Work Phone: Potassium [Moles/Vol] 3.6 mmol/L 3.5-5.1 [facility] Work Phone: Protein [Mass/Vol] 6.7 g/dL 6.4-8.2 [facility] Work Phone: Sodium [Moles/Vol] 139 mmol/L 136-145 [facility] Work Phone: WBC (Bld) [#/Vol] 5.5 10*3/uL 4.4-11.0 [facility] Work Phone: Blood erythrocytes count (nu mber/volume)on 03-08-2022 RBC (Bld) [#/Vol] 3.75 10*6/uL 4.2-5.4 [facility]: Blood hemoglobin measurement (mass/volume)on 03-08-2022 Hemoglobin (Bld) [Mass/Vol] 12.3 g/dL 12.0-15.0 [facility] Work Phone: Blood lymphocytes/100 leukoc yteson 03-08-2022 Lymphocytes/100 WBC (Bld) 36.0 % 19-41 [facility] Work Phone: Blood monocytes/100 leukocyt eson 03-08-2022 Monocytes/100 WBC (Bld) 9.0 % 0-10 [facility] Work Phone: Blood platelet mean volumeon 03-08-2022 Platelet mean volume (Bld) [Entitic vol] 8.9 fL 6.2-12.0 [facility] Work Phone: Determination of erythrocyte mean corpuscular volume (MCV)on 03-08-2022 MCV (RBC) [Entitic vol] 96.0 fL 81-99 [facility] Work Phone: Hematocrit Auto (Bld) [Volum e fraction]on 03-08-2022 Hematocrit (Bld) [Volume fraction] 36.0 % 37-47 [facility] Work Phone: Laboratory - Chemistry and C hemistry - challengeon 03-08-2022 ALP [Catalytic activity/Vol] 35 U/L 45-117 [facility] Work Phone: ALT [Catalytic activity/Vol] 22 U/L 13-56 [facility] Work Phone: CO2 [Moles/Vol] 26.0 mmol/L 21.0-32.0 [facility] Work Phone: Globulin (S) [Mass/Vol] 2.9 g/dL 2.2-4.2 [facility] Work Phone: Urea nitrogen/Creatinine [Mass ratio] 21.2 mg/mg 10-20 [facility] Work Phone: Laboratory - Hematology and Cell countson 03-08-2022 Erythrocyte distribution width (RBC) [Entitic vol] 45.3 fL 35.1-43.9 [facility] Work Phone: Erythrocyte distribution width (RBC) [Ratio] 13.0 % 11.6-14.6 [facility] Work Phone: Immature granulocytes/100 WBC (Bld) 0.200 % 0.0-0.9 [facility] Work Phone: Comment on above: IG% - Immature Granu locytes (promyelocytes, myelocytes and metamyelocytes) > 1% indicates that a LEFT SHIFT is Present. MCH (RBC) [Entitic mass] 32.8 pg 27.0-32.0 [facility] Work Phone: Nucleated RBC/100 WBC (Bld) [Ratio] 0 % 0-5 [facility] Work Phone: MCHC Auto (RBC) [Mass/Vol]on 03-08-2022 MCHC (RBC) [Mass/Vol] 34.2 g/dL 32-36 [facility] Work Phone: No Panel Informationon 03-08 Estimated GFR (MDRD) Amer 109 mL/min >60 [facility] Work Phone: Comment on above: GFR Calc Estimated GFR (MDRD) Non-Af Amer 90 mL/min >60 [facility] Work Phone: Comment on above: Non- GFR Calc Platelets bldon 03-08-2022 Platelets (Bld) [#/Vol] 260 10*3/uL 150-450 [facility] Work Phone: Serum or plasma albumin gracia urement (mass/volume)on 03-08-2022 Albumin [Mass/Vol] 3.8 g/dL 3.2-5.0 [facility] Work Phone: Serum or plasma albumin/glob ulin mass ratioon 03-08-2022 Albumin/Globulin [Mass ratio] 1.3 {ratio} 0.9-2.4 [facility] Work Phone: Serum or plasma calcium gracia urement (mass/volume)on 03-08-2022 Calcium [Mass/Vol] 8.7 mg/dL 8.5-10.1 [facility] Work Phone: Serum or plasma creatinine m easurement (mass/volume)on 03-08-2022 Creatinine [Mass/Vol] 0.76 mg/dL 0.55-1.02 [facility] Work Phone: Comment on above: The validity of the calculated GFR & GFRAA in patients over 70 years has not been determined. Clinical correlation is essential. Serum or plasma urea nitroge n measurement (mass/volume)on 03-08-2022 Urea nitrogen [Mass/Vol] 16 mg/dL 7-18 [facility] Work Phone: Thin prep Papanicolaou smear with manual screeningon 03-08-2022 Thin prep Papanicolaou smear with manual screening 18 U/L 15-37 [facility] Work Phone: Thin prep Papanicolaou smear with manual screening 5 5-15 [facility] Work Phone: Mamm - Screening Mammogram w / Tomosynthesison 02-22-2022 MG Breast Screening Normal [facility] Work Phone: Office Visit ([facility])on 02-08-2022 Follow-up visit Diagnoses/Problems Other screening mammogram (V76.12) (Z12.31) 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 : Annual Screening Mammogram PMH: History of urinary frequency Stop: Cephalexin 500 MG Oral Capsule Patient Discussion/Summary Continue current care, annually checkup, call concerns. Chief Complaint routine med check. Adult Risk Screening Depression/Suicide Screening: During the past 2 weeks, the patient has not felt down, depressed or hopeless. During the past 2 weeks, the patient has not felt little interest or pleasure in doing things. History of Present Illness Trudy presents for wellness check up.. Doing well, states no new concerns. Asthma, stable, scheduled to see Dr Diamond pulmonary in [place] next week Allergic rhinitis, GERd, both stale Sees Rheum for inflammatory polyarthropathy, stable, states had to stop medicine when she had covid and she could definitely tell how much the medicine does help her pain at that time Recommend screening mammogram. Has had hysterectomy for nonmalignant reasons. Review of Systems Constitutional: as noted in HPI. Cardiovascular: no chest pain. Respiratory: as noted in HPI. Musculoskeletal: as noted in HPI. Psychiatric: no anxiety and no depression. Active Problems Allergic rhinitis (477.9) (J30.9) Asthma, mild persistent (493.90) (J45.30) Chronic GERD (530.81) (K21.9) Chronic sinusitis (473.9) (J32.9) Diaphragmatic paralysis (519.4) (J98.6) History of major depression (V11.8) (Z86.59) Immunocompromised state due to drug therapy (V58.69) (D84.821,Z79.899) Mild sleep apnea (780.57) (G47.30) Past Medical History History of major depression (V11.8) (Z86.59) Resolved Date: 16 Oct 2020 Surgical History History of Balloon sinuplasty History of section History of Cholecystectomy History of Hysterectomy abdominal History of Tonsillectomy Family History Family history of asthma (V17.5) (Z82.5) Family history of malignant neoplasm of skin (V16.8) (Z80.8) Family history of heart failure (V17.49) (Z82.49) Family history of leukemia (V16.6) (Z80.6) Family history of lung cancer (V16.1) (Z80.1) Social History Caffeine use (V49.89) (Z78.9) Coffee Denies alcohol consumption (V49.89) (Z78.9) Former smoker (V15.82) (Z87.891) Patient has living will (V49.89) (Z78.9) Allergies No Known Drug Allergies Recorded By: Katelyn Mao; 07/26/2019 9:36:48 AM Current Meds Medication NameInstructionReason Albuterol Sulfate (2.5 MG/3ML) 0.083% Inhalation Nebulization SolutionAsthma, mild persistent Claritin-D 24 Hour 10-240 MG Oral Tablet Extended Release 24 HourTAKE 1 TABLET DAILY NEEDED.Asthma, mild persistent Montelukast Sodium 10 MG Oral TabletTAKE 1 TABLET IN THE EVENING.Asthma, mild persistent Omeprazole 40 MG Oral Capsule Delayed ReleaseTAKE 1 CAPSULE BY MOUTH EVERY DAYAsthma, mild persistent Fluticasone Propionate 50 MCG/ACT Nasal SuspensionUSE 1 SPRAY IN EACH NOSTRIL TWICE DAILYPMH: Dysfunction of both eustachian tubes Cephalexin 500 MG Oral CapsuleTAKE 1 CAPSULE 3 TIMES DAILY.PMH: History of urinary frequency Nitrofurantoin Monohyd Macro 100 MG Oral CapsuleTAKE 1 CAPSULE EVERY 12 HOURS DAILY.PMH: History of urinary frequency Albuterol Sulfate HFA 108 (90 Base) MCG/ACT Inhalation Aerosol Solution Breo Ellipta 200-25 MCG/INH Inhalation Aerosol Powder Breath Activated Folic Acid 1 MG Oral Tablet Hydroxychloroquine Sulfate 200 MG Oral TabletTAKE 1 TABLET DAILY WITH FOOD Methotrexate Sodium 2.5 MG Oral TabletTAKE 8 TABLETS PER WEEK. predniSONE 10 MG Oral Tablet Vitals Vital Signs Recorded: 08Feb2022 08:22AM Heart Rate78 Iilmyabb213 Pftvfldff84 Height4 ft 10 in Leuxez835 lb BMI Seahvaodxi62.72 kg/m2 BSA Calculated1.6 Tobacco Useb) No O2 Gozhsmczwc18 Physical Exam Constitutional: Alert and in no acute distress. Well developed, well nourished. Head and Face: Head and face: Normal. Cardiovascular: Heart rate and rhythm were normal, normal S1 and S2, no gallops, no murmurs and no pericardial rub. Pulmonary: No respiratory distress. Musculoskeletal: Gait and station: Normal. 'Scores and Scales' Signatures Electronically signed by : Yesenia Lee MD; Feb 08 2022 8:45AM EST (Author) Normal [employer] Tobacco Screening.on 022 Tobacco use status CPHS b) No [facility] Work Phone: Absolute lymphocyte counton 12-21-2021 Lymphocytes Auto (Unsp spec) [#/Vol] 1.65 10*3/uL 0.83-4.51 [facility] Work Phone: Basophil percentageon 2021 Basophils/100 WBC (Bld) 0.7 % 0-1 [facility] Work Phone: Bilirubin [Mass/Vol] 0.30 mg/dL 0.20-1.00 [facility] Work Phone: Comment on above: For patients on eltr ombopag therapy, use of Dimension [place] TBIL is not recommended. Chloride [Moles/Vol] 106 mmol/L 98-107 [facility] Work Phone: Eosinophils/100 WBC (Bld) 3.0 % 0-5 [facility] Work Phone: Glucose [Mass/Vol] 90 mg/dL 74-106 [facility] Work Phone: Neutrophils (Bld) [#/Vol] 3.0 10*3/uL 2.0-7.7 [facility] Work Phone: Neutrophils/100 WBC (Bld) 55.4 % 47-70 [facility] Work Phone: Potassium [Moles/Vol] 4.0 mmol/L 3.5-5.1 [facility] Work Phone: Protein [Mass/Vol] 7.0 g/dL 6.4-8.2 [facility] Work Phone: Sodium [Moles/Vol] 137 mmol/L 136-145 [facility] Work Phone: WBC (Bld) [#/Vol] 5.4 10*3/uL 4.4-11.0 [facility] Work Phone: Blood erythrocytes count (nu mber/volume)on 12-21-2021 RBC (Bld) [#/Vol] 3.94 10*6/uL 4.2-5.4 [facility] Work Phone: Blood hemoglobin measurement (mass/volume)on 12-21-2021 Hemoglobin (Bld) [Mass/Vol] 12.5 g/dL 12.0-15.0 [facility] Work Phone: [phone] Blood lymphocytes/100 leukoc yteson 12-21-2021 Lymphocytes/100 WBC (Bld) 30.8 % 19-41 [facility] Work Phone: Blood monocytes/100 leukocyt eson 12-21-2021 Monocytes/100 WBC (Bld) 9.9 % 0-10 [facility] Work Phone: Blood platelet mean volumeon 12-21-2021 Platelet mean volume (Bld) [Entitic vol] 8.5 fL 6.2-12.0 [facility] Work Phone: Determination of erythrocyte mean corpuscular volume (MCV)on 12-21-2021 MCV (RBC) [Entitic vol] 95.7 fL 81-99 [facility] Work Phone: Hematocrit Auto (Bld) [Volum e fraction]on 12-21-2021 Hematocrit (Bld) [Volume fraction] 37.7 % 37-47 [facility] Work Phone: Laboratory - Chemistry and C hemistry - challengeon 12-21-2021 ALP [Catalytic activity/Vol] 38 U/L 45-117 [facility] Work Phone: ALT [Catalytic activity/Vol] 23 U/L 13-56 [facility] Work Phone: CO2 [Moles/Vol] 28.0 mmol/L 21.0-32.0 [facility] Work Phone: Globulin (S) [Mass/Vol] 3.3 g/dL 2.2-4.2 [facility] Work Phone: Urea nitrogen/Creatinine [Mass ratio] 16.0 mg/mg 10-20 [facility] Work Phone: Laboratory - Hematology and Cell countson 12-21-2021 Erythrocyte distribution width (RBC) [Entitic vol] 43.9 fL 35.1-43.9 [facility] Work Phone: Erythrocyte distribution width (RBC) [Ratio] 12.5 % 11.6-14.6 [facility] Work Phone: Immature granulocytes/100 WBC (Bld) 0.200 % 0.0-0.9 [facility] Work Phone: Comment on above: IG% - Immature Granu locytes (promyelocytes, myelocytes and metamyelocytes) > 1% indicates that a LEFT SHIFT is Present. MCH (RBC) [Entitic mass] 31.7 pg 27.0-32.0 [facility] Work Phone: Nucleated RBC/100 WBC (Bld) [Ratio] 0 % 0-5 [facility] Work Phone: MCHC Auto (RBC) [Mass/Vol]on 12-21-2021 MCHC (RBC) [Mass/Vol] 33.2 g/dL 32-36 [facility] Work Phone: No Panel Informationon 12-21 Estimated GFR (MDRD) Amer 136 mL/min >60 [facility] Work Phone: Comment on above: GFR Calc Estimated GFR (MDRD) Non-Af Amer 112 mL/min >60 [facility] Work Phone: Comment on above: Non- GFR Calc Platelets bldon 12-21-2021 Platelets (Bld) [#/Vol] 331 10*3/uL 150-450 [facility] Work Phone: Serum or plasma albumin gracia urement (mass/volume)on 12-21-2021 Albumin [Mass/Vol] 3.7 g/dL 3.2-5.0 [facility] Work Phone: Serum or plasma albumin/glob ulin mass ratioon 12-21-2021 Albumin/Globulin [Mass ratio] 1.1 {ratio} 0.9-2.4 [facility] Work Phone: Serum or plasma calcium gracia urement (mass/volume)on 12-21-2021 Calcium [Mass/Vol] 8.3 mg/dL 8.5-10.1 [facility] Work Phone: Serum or plasma creatinine m easurement (mass/volume)on 12-21-2021 Creatinine [Mass/Vol] 0.62 mg/dL 0.55-1.02 [facility] Work Phone: Comment on above: The validity of the calculated GFR & GFRAA in patients over 70 years has not been determined. Clinical correlation is essential. Serum or plasma urea nitroge n measurement (mass/volume)on 12-21-2021 Urea nitrogen [Mass/Vol] 10 mg/dL 7-18 [facility] Work Phone: Thin prep Papanicolaou smear with manual screeningon 12-21-2021 Thin prep Papanicolaou smear with manual screening 20 U/L 15-37 [facility] Work Phone: Thin prep Papanicolaou smear with manual screening 3 5-15 [facility] Work Phone: Cult, Urineon 12-04-2021 Bacteria identified Cx Nom (U) Abnormal [facility] 205 DO Work Phone: IO UA (automated w/o microsc opy)on 12-04-2021 Protein (U) [Mass/Vol] 100 mg/dL [facility] Work Phone: IO UA (automated w/o microscopy) Negative [facility] Work Phone: IO UA (automated w/o microscopy) Normal (0.2-1.0 mg/dl) [facility] Work Phone: IO UA (automated w/o microscopy) 7.0 1 [facility] Work Phone: IO UA (automated w/o microscopy) 1.030 1 [facility] Work Phone: IO UA (automated w/o microscopy) Clear [facility] Work Phone: IO UA (automated w/o microscopy) Yellow [facility] Work Phone: Office Visit ([facility])on 12-04-2021 Follow-up visit Diagnoses/Problems Urinary frequency (788.41) (R35.0) Orders Urinary frequency Start: Nitrofurantoin Monohyd Macro 100 MG Oral Capsule (Macrobid); TAKE 1 CAPSULE EVERY 12 HOURS DAILY Cult, Urine; Status:Active; Requested for:04Dec2021; Patient Discussion/Summary Call concerns. Chief Complaint Chief Complaint: TRUDY FLORES is here with a chief complaint of C/O URINARY FREQUENCY AND URGENCY X 5-6D. History of Present Illness Trudy presents with a few days of urinary urgency, frequency and left flank pain, mild nausea. No vomiting, no fevers/chills. Left eyebrow twitching the last week, will monitor and let us know if that persists. Review of Systems Constitutional: as noted in HPI. Genitourinary: as noted in HPI. Active Problems Allergic rhinitis (477.9) (J30.9) Asthma, mild persistent (493.90) (J45.30) Chronic GERD (530.81) (K21.9) Chronic sinusitis (473.9) (J32.9) Diaphragmatic paralysis (519.4) (J98.6) History of major depression (V11.8) (Z86.59) Immunocompromised state due to drug therapy (V58.69) (D84.821,Z79.899) Mild sleep apnea (780.57) (G47.30) Past Medical History History of major depression (V11.8) (Z86.59) Resolved Date: 16 Oct 2020 Surgical History History of Balloon sinuplasty History of section History of Cholecystectomy History of Hysterectomy abdominal History of Tonsillectomy Family History Family history of asthma (V17.5) (Z82.5) Family history of malignant neoplasm of skin (V16.8) (Z80.8) Family history of heart failure (V17.49) (Z82.49) Family history of leukemia (V16.6) (Z80.6) Family history of lung cancer (V16.1) (Z80.1) Social History Caffeine use (V49.89) (Z78.9) Coffee Denies alcohol consumption (V49.89) (Z78.9) Former smoker (V15.82) (Z87.891) Patient has living will (V49.89) (Z78.9) Allergies No Known Drug Allergies Recorded By: Katelyn Mao; 07/26/2019 9:36:48 AM Current Meds Medication NameInstructionReason Albuterol Sulfate (2.5 MG/3ML) 0.083% Inhalation Nebulization SolutionAsthma, mild persistent Claritin-D 24 Hour 10-240 MG Oral Tablet Extended Release 24 HourTAKE 1 TABLET DAILY NEEDED.Asthma, mild persistent Montelukast Sodium 10 MG Oral TabletTAKE 1 TABLET IN THE EVENING.Asthma, mild persistent Omeprazole 40 MG Oral Capsule Delayed ReleaseTAKE 1 CAPSULE BY MOUTH EVERY DAYAsthma, mild persistent Fluticasone Propionate 50 MCG/ACT Nasal SuspensionUSE 1 SPRAY IN EACH NOSTRIL TWICE DAILYPMH: Dysfunction of both eustachian tubes Albuterol Sulfate HFA 108 (90 Base) MCG/ACT Inhalation Aerosol Solution Breo Ellipta 200-25 MCG/INH Inhalation Aerosol Powder Breath Activated Folic Acid 1 MG Oral Tablet Hydroxychloroquine Sulfate 200 MG Oral TabletTAKE 1 TABLET DAILY WITH FOOD Methotrexate Sodium 2.5 MG Oral TabletTAKE 8 TABLETS PER WEEK. predniSONE 10 MG Oral Tablet Vitals Vital Signs Recorded: 04Dec2021 10:27AM Heart Rate96 Dqeptefc524, LUE, Sitting Fyiqpsvhs46, LUE, Sitting Height4 ft 10 in Dpzkuw083 lb BMI Tqvupsfwpt45.56 kg/m2 BSA Calculated1.62 Tobacco Useb) No Physical Exam Constitutional: Alert and in no acute distress. Well developed, well nourished. Pulmonary: No respiratory distress. Abdomen: no cva tenderness. Results/Data IO UA (automated w/o microscopy)04Dec2021 10:27AMYesenia Lee [employer] [id number] 07/01/22 Test NameResultFlagReference IO ColorYellow IO AppearanceClear IO Glucose - UrineNegative IO BilirubinNegative IO KetonesNegative IO Specific Gravity1.030 IO BloodNegative IO pH7.0 IO Protein, Urine(++)100 IO Urobilinogen Normal (0.2-1.0 mg/dl) IO Nitrite, UrineNegative IO LeukocytesNegative IO ColorYellow IO AppearanceClear IO Glucose - UrineNegative IO BilirubinNegative IO KetonesNegative IO Specific Gravity1.030 IO BloodNegative IO pH7.0 IO Protein, Urine(++)100 IO Urobilinogen Normal (0.2-1.0 mg/dl) IO Nitrite, UrineNegative IO LeukocytesNegative 'Scores and Scales' Signatures Electronically signed by : Yesenia Lee MD; Dec 04 2021 11:11AM EST (Author) Normal [employer] Tobacco Screening.on 022 Tobacco use status CPHS b) No [facility] Work Phone: URINE CULTURE,BACTERIALon URINE CULTURE,BACTERIAL PATIENT: TRUDY FLORES LOCATION: [facility] BILL#: [id number] : 82 AGE: SEX: F ORDERED BY: YESENIA LEE SOURCE: URINE COLLECTED: 12/04/21 10:55 ANTIBIOTICS AT [facility].: RECEIVED : 12/04/21 16:00 SITE: Clean Catch/Voided R E S U L T S URINE CULTURE,BACTERIAL FINAL 12/06/21 12:30 ISOLATE1 : Klebsiella pneumoniae 20,000-80,000 CFU/ML Organism Kl pneum Antibiotic BP INTRP Ampicillin R Amox/Clavulanate S Ceftriaxone S Cefazolin S Ciprofloxacin S Nitrofurantoin I Gentamicin S Levofloxacin S Piperc/Tazobact S Trimeth/Sulfa S S=SUSCEPTIBLE I=INTERMEDIATE R=RESISTANT SDD=SUSCEPTIBLE DOSE DEPENDENT NS=NONSUSCEPTIBLE X=REPORTED IN ERROR Normal [facility] Comment on above: Performed By: #### U [facility] #### [facility] [id number] [place] [address] Absolute lymphocyte counton 10-26-2021 Lymphocytes Auto (Unsp spec) [#/Vol] 1.61 10*3/uL 0.83-4.51 [facility] Work Phone: Basophil percentageon 2021 Basophils/100 WBC (Bld) 0.5 % 0-1 [facility] Work Phone: Bilirubin [Mass/Vol] 0.30 mg/dL 0.20-1.00 [facility] Work Phone: Comment on above: For patients on eltr ombopag therapy, use of Dimension [place] TBIL is not recommended. Chloride [Moles/Vol] 107 mmol/L 98-107 [facility] Work Phone: Eosinophils/100 WBC (Bld) 2.5 % 0-5 [facility] Work Phone: Glucose [Mass/Vol] 71 mg/dL 74-106 [facility] Work Phone: Neutrophils (Bld) [#/Vol] 1.9 10*3/uL 2.0-7.7 [facility] Work Phone: Neutrophils/100 WBC (Bld) 47.5 % 47-70 [facility] Work Phone: Potassium [Moles/Vol] 3.9 mmol/L 3.5-5.1 [facility] Work Phone: Protein [Mass/Vol] 6.7 g/dL 6.4-8.2 [facility] Work Phone: Sodium [Moles/Vol] 138 mmol/L 136-145 [facility] Work Phone: WBC (Bld) [#/Vol] 4.0 10*3/uL 4.4-11.0 [facility] Work Phone: Blood erythrocytes count (nu mber/volume)on 10-26-2021 RBC (Bld) [#/Vol] 3.81 10*6/uL 4.2-5.4 [facility] Work Phone: Blood hemoglobin measurement (mass/volume)on 10-26-2021 Hemoglobin (Bld) [Mass/Vol] 12.5 g/dL 12.0-15.0 [facility] Work Phone: Blood lymphocytes/100 leukoc yteson 10-26-2021 Lymphocytes/100 WBC (Bld) 40.4 % 19-41 [facility] Work Phone: Blood monocytes/100 leukocyt eson 10-26-2021 Monocytes/100 WBC (Bld) 8.8 % 0-10 [facility] Work Phone: Blood platelet mean volumeon 10-26-2021 Platelet mean volume (Bld) [Entitic vol] 8.7 fL 6.2-12.0 [facility] Work Phone: Determination of erythrocyte mean corpuscular volume (MCV)on 10-26-2021 MCV (RBC) [Entitic vol] 98.2 fL 81-99 [facility] Work Phone: Hematocrit Auto (Bld) [Volum e fraction]on 10-26-2021 Hematocrit (Bld) [Volume fraction] 37.4 % 37-47 [facility] Work Phone: Laboratory - Chemistry and C hemistry - challengeon 10-26-2021 ALP [Catalytic activity/Vol] 40 U/L 45-117 [facility] Work Phone: ALT [Catalytic activity/Vol] 31 U/L 13-56 [facility] Work Phone: CO2 [Moles/Vol] 29.0 mmol/L 21.0-32.0 [facility] Work Phone: Globulin (S) [Mass/Vol] 3.1 g/dL 2.2-4.2 [facility] Work Phone: Urea nitrogen/Creatinine [Mass ratio] 12.9 mg/mg 10-20 [facility] Work Phone: Laboratory - Hematology and Cell countson 10-26-2021 Erythrocyte distribution width (RBC) [Entitic vol] 48.5 fL 35.1-43.9 [facility] Work Phone: Erythrocyte distribution width (RBC) [Ratio] 13.3 % 11.6-14.6 [facility] Work Phone: Immature granulocytes/100 WBC (Bld) 0.300 % 0.0-0.9 [facility] Work Phone: Comment on above: IG% - Immature Granu locytes (promyelocytes, myelocytes and metamyelocytes) > 1% indicates that a LEFT SHIFT is Present. MCH (RBC) [Entitic mass] 32.8 pg 27.0-32.0 [facility] Work Phone: Nucleated RBC/100 WBC (Bld) [Ratio] 0 % 0-5 [facility] Work Phone: MCHC Auto (RBC) [Mass/Vol]on 10-26-2021 MCHC (RBC) [Mass/Vol] 33.4 g/dL 32-36 [facility] Work Phone: No Panel Informationon 10-26 Estimated GFR (MDRD) Amer 137 mL/min >60 [facility] Work Phone: Comment on above: GFR Calc Estimated GFR (MDRD) Non-Af Amer 113 mL/min >60 [facility] Work Phone: Comment on above: Non- GFR Calc Platelets bldon 10-26-2021 Platelets (Bld) [#/Vol] 296 10*3/uL 150-450 [facility] Work Phone: Serum or plasma albumin gracia urement (mass/volume)on 10-26-2021 Albumin [Mass/Vol] 3.6 g/dL 3.2-5.0 [facility] Work Phone: Serum or plasma albumin/glob ulin mass ratioon 10-26-2021 Albumin/Globulin [Mass ratio] 1.2 {ratio} 0.9-2.4 [facility] Work Phone: Serum or plasma calcium gracia urement (mass/volume)on 10-26-2021 Calcium [Mass/Vol] 9.0 mg/dL 8.5-10.1 [facility] Work Phone: Serum or plasma creatinine m easurement (mass/volume)on 10-26-2021 Creatinine [Mass/Vol] 0.62 mg/dL 0.55-1.02 [facility] Work Phone: Comment on above: The validity of the calculated GFR & GFRAA in patients over 70 years has not been determined. Clinical correlation is essential. Serum or plasma urea nitroge n measurement (mass/volume)on 10-26-2021 Urea nitrogen [Mass/Vol] 8 mg/dL 7-18 [facility] Work Phone: Thin prep Papanicolaou smear with manual screeningon 10-26-2021 Thin prep Papanicolaou smear with manual screening 18 U/L 15-37 [facility] Work Phone: Thin prep Papanicolaou smear with manual screening 2 5-15 [facility] Work Phone: Covid 19 Resultson SARS-CoV-2 (COVID-19) RNA LIVIER+probe Ql (Unsp spec) NEGATIVE COVID-19 Test Coronaviruses are common world-wide and are the cause of many common colds. SARS-COV2 is a new coronavirus that began circulating worldwide in 2019 so we are calling it COVID-19. It has been estimated that four out of five patients with COVID-19 will recover at home without the need for medical attention. Symptoms of COVID-19 may include cough, fever, shortness of breath, loss of taste or smell and other flu-like symptoms including chills, sore muscles, sore throat, and headache. Severe illness is more common in older people and people with other health problems such as high blood pressure, obesity, and immune system problems. If the test is positive, you have COVID-19. You will be contacted by the ordering physicians office and instructed to remain on home isolation, in accordance with CDC guidelines. You may also be contacted by the [facility] to see if any of your close contacts may have been exposed to the virus and need to quarantine. If the test is negative, you likely do not have COVID-19 at this time, but you still may have a different illness that can spread to other people (like Influenza, or the Flu) and could still be at risk for getting COVID-19. We recommend that you stay away from other people to limit the spread of illness until your symptoms are improving and you are fever-free for 24 hours without the use of fever lowering medications such as acetaminophen or ibuprofen. No test is 100% accurate so if you are still concerned you may have COVID-19, talk to your doctor about the need to continue to stay away from others. Medicines Unless your provider told you not to use the following: Acetaminophen (Tylenol and others) is generally safe. Anti-inflammatory medications, such as Ibuprofen (Advil or Motrin) or Naproxen (Aleve) can also be used. Wwdg-dow-kzozlgc cough and cold medicines can be used according to the instructions on the package. Some bamc-dar-nbigagt medicines also contain acetaminophen. Make sure you are not taking more than your recommended dose. For those not hospitalized, there is no specific treatment available for this illness. Antibiotics do not treat Coronaviruses. Follow-Up Follow up with your doctor by scheduling a virtual visit or consider follow-up at one of our urgent care fever clinics. If you are having difficulty breathing, or are very weak and having difficulty standing, this is a medical emergency. Call 911 or have someone take you to the nearest emergency room immediately. If possible, wear a facemask. Additional guidance from the CDC for patients who tested POSITIVE for COVID-19 How to isolate: Isolate yourself in a specific room at home and limit your contact with others. Use a separate bathroom from other members of the household, when possible. Leave home only to get essential medical care. Do not go to work, school or public areas. Avoid using public transportation, ride-sharing, or taxis. Restrict contact with pets and other animals. If you must care for your pet or be around animals while you are sick, wash your hands before and after your interaction and wear a facemask. Make sure that shared spaces in the home have good airflow, such as by an air conditioner or an opened window, weather permitting. Personal Hygiene Procedures: Wear a face mask when in the same room as other people or pets. If a face mask interferes with your breathing, others should wear a mask when sharing space with you. Frequent hand-washing: wash your hands with soap and water for at least 20 seconds. If soap and water are not available, use alcohol-based hand senior sales associate. Avoid touching your eyes, nose, and mouth with unwashed hands. Household Hygiene Procedures: Avoid sharing personal household items such as dishes, glassware, cups, eating utensils, towels or bedding with other people or pets in your home. After use, these items should be washed with soap and hot water. Disinfect all high-touch surfaces every day with antibacterial cleaning solutions such as Lysol wipes, bleach, cleansers, etc. High-touch surfaces include tabletops, doorknobs, bathroom fixtures, toilets, phones, keyboards, tablets and bedside tables. Immediately clean any surfaces that may have blood, poop or body fluids on them, using antibacterial cleaning solutions such as Lysol wipes, bleach, cleansers, etc. If clothing or bedding come into contact with blood, poop or body fluids, they should be washed immediately. Follow the directions on the laundry detergent and clothing labels but hot water is recommended when possible. Stopping home isolation precautions: If possible, consult your doctor before stopping home isolation precautions. According to the CDC, you can discontinue home isolation precautions when you have met both of these criteria: Your fever and respiratory symptoms have been gone for 24 edward (more content not included)... Normal [facility] INFLUENZA A/B, COVID 2019 PC R,SYMPTOMATICon 09-26-2021 INFLUENZA A, PCR Not detected Normal Not Detected [facility] Comment on above: Result Comment: Resp iratory virus testing is performed routinely by PCR for Influenza A/B and RSV. If Influenza and RSV PCR are negative, testing for parainfluenza 1,2,3 viruses and adenovirus is routinely performed for oncology inpatients and intensive care unit patients at [facility] and is available on request on other patients by calling Laboratory Client Services at [phone]. Not Detected results do not preclude Influenza A/B or RSV infections since the adequacy of sample collection or low viral burden may impact the clinical sensitivity of this test method. Performed By: #### C OINP #### [facility] [address] [place] [address] INFLUENZA B, PCR Not detected Normal Not Detected [facility] Comment on above: Result Comment: Resp iratory virus testing is performed routinely by PCR for Influenza A/B and RSV. If Influenza and RSV PCR are negative, testing for parainfluenza 1,2,3 viruses and adenovirus is routinely performed for oncology inpatients and intensive care unit patients at [facility] and is available on request on other patients by calling Laboratory Client Services at [phone] Not Detected results do not preclude Influenza A/B or RSV infections since the adequacy of sample collection or low viral burden may impact the clinical sensitivity of this test method. . The TaqManTM SARS-CoV-2, Flu A, Flu B Multiplex Assay is a multiplex, real-time RT-PCR assay for the detection of RNA from the SARS-CoV-2, Influenza A, and Influenza B viruses. A negative result does not preclude the possibility of SARS-CoV-2, Influenza A, or Influenza B infections, and should not be used as the sole basis for patient management decision as a negative result may be caused by very low levels of infection, collection errors, or testing errors. . This test was developed and its performance characteristics were determined by the Microbiology Laboratory, Department of Pathology, [facility], [place], [place]. It has not been cleared or approved by the US Food and Drug Administration; however, FDA clearance or approval is not currently required for clinical use. This test should not be regarded as investigational or for research purposes. Performed By: #### C OINP #### [facility] [address] [place] [address] SARS-CoV-2 (COVID-19) RNA LIVIER+probe Ql (Unsp spec) Not detected Normal Not Detected [facility] Comment on above: Result Comment: . This assay is designed to detect the N, ORF1ab and/or S genes of SARS-CoV-2 via nucleic acid amplification. A Negative (NOT DETECTED) result does not preclude 2019-nCoV infection since the adequacy of sample collection and/or low viral burden may result in presence of viral nucleic acids below the clinical sensitivity of this test method. Negative (NOT DETECTED) result should not be used as the sole basis for treatment or other patient management decisions. Rather negative results should be combined with clinical observations, patient history, and epidemiological information to make patient management decisions. Fact sheet for providers: https://www.fda.gov/media/808275/download Fact sheet for patients: https://www.fda.gov/media/318359/download This test has received FDA Emergency Use Authorization (EUA) and has been verified by [facility] ([facility]). This test is only authorized for the duration of time that circumstances exist to justify the authorization of the emergency use of in vitro diagnostic tests for the detection of SARS-CoV-2 virus and/or diagnosis of COVID-19 infection under section 564(b)(1) of the Act, 21 U.S.C. 360bbb-3(b)(1), unless the authorization is terminated or revoked sooner. [facility] is certified under CLIA-88 as qualified to perform high complexity testing. Testing is performed in the [facility] laboratories located at [id number] [place] [address]. Performed By: #### C OINP #### [address] [place] [address] INFLUENZA A/B, COVID 2019 PC R,SYMPTOMATICon 09-25-2021 DATE OF SYMPTOM ONSET [[id number]]? [id number] Normal [facility] Comment on above: Performed By: #### C OINP #### [address] [place] [address] Lab Specimen Source Nasal, Nasopharyngeal Normal [facility] Comment on above: Performed By: #### C OINP #### [address] [place] [address] Office Visit (Family Medicin e)on 09-25-2021 Follow-up visit Diagnoses/Problems Acute URI (465.9) (J06.9) Exposure to confirmed case of COVID-19 (V01.79) (Z20.822) Immunocompromised state due to drug therapy (V58.69) (D84.821,Z79.899) Asthma, mild persistent (493.90) (J45.30) Orders Acute URI, Asthma, mild persistent Start: Fluconazole 150 MG Oral Tablet (Diflucan); TAKE 1 TABLET 1 TIME ONLY Start: predniSONE 10 MG Oral Tablet; TAKE 4 TABLETS DAILY FOR 3 DAYS,3 TABLETS DAILY FOR 3 DAYS, 2 TABLETS DAILY FOR 3 DAYS AND 1 TABLET DAILY FOR 3 DAYS, THEN STOP Acute URI, Exposure to confirmed case of COVID-19 INFLUENZA A/B, COVID 2018 PCR,SYMPTOMATIC; Status:Active; Requested for:25Sep2021; ? : Unknown RESIDENT IN CONGREGATE CARE SETTING? : No ICU? : No HOSPITALIZED (OR PLANNED TO BE ADMITTED)? : No EMPLOYED IN HEALTHCARE? : No FIRST COVID NASAL SWAB TEST? : Yes Symptom 1 : Cough DATE OF SYMPTOM ONSET? : [id number] IS THE PATIENT SYMPTOMATIC DEFINED BY THE CDC (FEVER>100, NEW WORSENING COUGH OR SHORTNESS OF BREATH, NEW LOSS OF TASTE OR SMELL, SORE THROAT, DIARRHEA, BODY ACHES/MALAISE, HEADACHE, NAUSEA/VOMITING, OR RUNNY NOSE/CONGESTION)? : Yes Patient Discussion/Summary Call concerns, treat symptoms, reviewed when to seek urgent emergent care. Chief Complaint Chief Complaint: TRUDY FLORES is here with a chief complaint of VIRTUAL VISIT; C/O NONPRODUCTIVE COUGH AND HEAD CONGESTION SINCE 09/13/21; WAS SEEN AT [facility] AND TREATED FOR EAR INFECTION; HAS COMPLETED THOSE ATB'S; PTS TESTED POSITIVE FOR COVID YESTERDAY. An interactive audio and video telecommunication system which permits real time communications between the patient (at the originating site) and provider (at the distant site) was utilized to provide this telehealth service. History of Present Illness Trudy presents virtually with cough and cold symptoms that started around 09/11. She went to urgent care 09/13 and was treated with augmentin. COmpleted the augmentin, still has cough and congestion, and now has symptoms of vaginal yeast infection. She has a history of mild persistent asthma and has used her rescue inhaler a few times. She had covid this past fall and received the monoclonal antibody infusion. She is not vaccinated. . Her spouse has covid. Advised I do not recommend testing as its not going to change our management at this point. She states she needs it for work since her spouse is positive. Denies shortness of breath. Review of Systems Constitutional: as noted in HPI. ENT: as noted in HPI. Respiratory: as noted in HPI. Active Problems Allergic rhinitis (477.9) (J30.9) Asthma, mild persistent (493.90) (J45.30) BMI 33.0-33.9,adult (V85.33) (Z68.33) Chronic GERD (530.81) (K21.9) Chronic sinusitis (473.9) (J32.9) Diaphragmatic paralysis (519.4) (J98.6) History of major depression (V11.8) (Z86.59) Immunocompromised state due to drug therapy (V58.69) (D84.821,Z79.899) Mild sleep apnea (780.57) (G47.30) Obesity (BMI 30-39.9) (278.00) (E66.9) Past Medical History History of major depression (V11.8) (Z86.59) Resolved Date: 16 Oct 2020 Surgical History History of Balloon sinuplasty History of section History of Cholecystectomy History of Hysterectomy abdominal History of Tonsillectomy Family History Family history of asthma (V17.5) (Z82.5) Family history of malignant neoplasm of skin (V16.8) (Z80.8) Family history of heart failure (V17.49) (Z82.49) Family history of leukemia (V16.6) (Z80.6) Family history of lung cancer (V16.1) (Z80.1) Social History Caffeine use (V49.89) (Z78.9) Coffee Denies alcohol consumption (V49.89) (Z78.9) Former smoker (V15.82) (Z87.891) Patient has living will (V49.89) (Z78.9) Allergies No Known Drug Allergies Recorded By: Katelyn Mao; 07/26/2019 9:36:48 AM Current Meds Medication NameInstructionReason Albuterol Sulfate (2.5 MG/3ML) 0.083% Inhalation Nebulization SolutionAsthma, mild persistent Claritin-D 24 Hour 10-240 MG Oral Tablet Extended Release 24 HourTAKE 1 TABLET DAILY NEEDED.Asthma, mild persistent Montelukast Sodium 10 MG Oral TabletTAKE 1 TABLET IN THE EVENING.Asthma, mild persistent Omeprazole 40 MG Oral Capsule Delayed ReleaseTAKE 1 CAPSULE BY MOUTH EVERY DAYAsthma, mild persistent Fluticasone Propionate 50 MCG/ACT Nasal SuspensionUSE 1 SPRAY IN EACH NOSTRIL TWICE DAILYPMH: Dysfunction of both eustachian tubes Albuterol Sulfate HFA 108 (90 Base) MCG/ACT Inhalation Aerosol Solution Breo Ellipta 200-25 MCG/INH Inhalation Aerosol Powder Breath Activated Folic Acid 1 MG Oral Tablet Methotrexate Sodium 2.5 MG Oral TabletTAKE 8 TABLETS PER WEEK. Potassimin TABS predniSONE 10 MG Oral Tablet Vitals Vital Signs Recorded: 25Sep2021 08:11AM Tobacco Useb) No Physical Exam Constitutional: Alert and in no acute distress. Well developed, well nourished. 'Scores and Scales' Signatures Electronically signed by : Yesenia Lee MD; Sep 25 2021 8:46AM EST (more content not included)... Normal [facility] Tobacco Screening.on 022 Tobacco use status CPHS b) No [facility] Work Phone: CBC AND DIFFERENTIALon 07-13 Basophils (Bld) [#/Vol] 0.10 10*3/uL Normal 0.00 - 0.10 [facility] Comment on above: Performed By: #### C BCDF #### [address] [address] Basophils/100 WBC (Bld) 0.6 % Normal 0.0 - 2.0 [facility] Comment on above: Performed By: #### C BCDF #### [address] [address] Eosinophils (Bld) [#/Vol] 0.20 10*3/uL Normal 0.00 - 0.70 [facility] Comment on above: Performed By: #### C BCDF #### [address] [address] Eosinophils/100 WBC (Bld) 2.2 % Normal 0.0 - 6.0 [facility] Comment on above: Performed By: #### C BCDF #### [address] [address] Erythrocyte distribution width (RBC) [Ratio] 15.2 % High 11.5 - 14.5 [facility] Comment on above: Performed By: #### C BCDF #### [address] [address] Hematocrit (Bld) [Volume fraction] 38.5 % Normal 36.0 - 46.0 [facility] Comment on above: Performed By: #### C BCDF #### [address] [address] Hemoglobin (Bld) [Mass/Vol] 12.6 g/dL Normal 12.0 - 16.0 [facility] Comment on above: Performed By: #### C BCDF #### [address] [address] Lymphocytes (Bld) [#/Vol] 1.60 10*3/uL Normal 1.20 - 4.80 [facility] Comment on above: Performed By: #### C BCDF #### [address] [address] Lymphocytes/100 WBC (Bld) 17.6 % Normal 13.0 - 44.0 [facility] Comment on above: Performed By: #### C BCDF #### [address] [address] MCHC (RBC) [Mass/Vol] 32.7 g/dL Normal 32.0 - 36.0 [facility] Comment on above: Performed By: #### C BCDF #### [address] [address] MCV (RBC) [Entitic vol] 97 fL Normal 80 - 100 [facility] Comment on above: Performed By: #### C BCDF #### [address] [address] Monocytes (Bld) [#/Vol] 0.80 10*3/uL Normal 0.10 - 1.00 [facility] Comment on above: Performed By: #### C BCDF #### [address] [address] Monocytes/100 WBC (Bld) 8.5 % Normal 2.0 - 10.0 [facility] Comment on above: Performed By: #### C BCDF #### [address] [address] Neutrophils (Bld) [#/Vol] 6.40 10*3/uL Normal 1.20 - 7.70 [facility] Comment on above: Result Comment: Perc ent differential counts (%) should be interpreted in the context of the absolute cell counts (cells/L). Performed By: #### C BCDF #### [address] [address] Neutrophils/100 WBC (Bld) 71.1 % Normal 40.0 - 80.0 [facility] Comment on above: Performed By: #### C BCDF #### [address] [address] NUCLEATED RBC 0.1 /100 WBC Normal [facility] Comment on above: Performed By: #### C BCDF #### [address] [address] Platelets (Bld) [#/Vol] 291 10*3/uL Normal 150 - 450 [facility] Comment on above: Performed By: #### C BCDF #### [place] [id number] RBC 3.97 x10E12/L Low 4.00 - 5.20 [facility] Comment on above: Performed By: #### C BCDF #### [address] [address] WBC (Bld) [#/Vol] 9.0 10*3/uL Normal 4.4 - 11.3 [facility] Comment on above: Performed By: #### C BCDF #### [place] [id number] COMPREHENSIVE PANELon 2020 Albumin [Mass/Vol] 4.1 g/dL Normal 3.4 - 5.0 [facility] Comment on above: Performed By: #### C MP #### [address] [address] ALP [Catalytic activity/Vol] 38 U/L Normal 33 - 110 [facility] Comment on above: Performed By: #### C MP #### [address] [address] ALT [Catalytic activity/Vol] 14 U/L Normal 7 - 45 [facility] Comment on above: Result Comment: Ysabel ents treated with Sulfasalazine may generate falsely decreased results for ALT. Performed By: #### C MP #### [address] [address] Anion gap [Moles/Vol] 11 mmol/L Normal 10 - 20 [facility] Comment on above: Performed By: #### C MP #### [place] [id number] AST [Catalytic activity/Vol] 17 U/L Normal 9 - 39 [facility] Comment on above: Performed By: #### C MP #### [address] [address] Bilirubin [Mass/Vol] 0.5 mg/dL Normal 0.0 - 1.2 [facility] Comment on above: Performed By: #### C MP #### [address] [address] Calcium [Mass/Vol] 8.8 mg/dL Normal 8.6 - 10.3 [facility] Comment on above: Performed By: #### C MP #### [address] [address] Chloride [Moles/Vol] 105 mmol/L Normal 98 - 107 [facility] Comment on above: Performed By: #### C MP #### [address] [address] Creatinine [Mass/Vol] 0.60 mg/dL Normal 0.50 - 1.05 [facility] Comment on above: Performed By: #### C MP #### [address] [address] GFR- AM. >60 Normal >60 [facility] Comment on above: Result Comment: CALC ULATIONS OF ESTIMATED GFR ARE PERFORMED USING THE MDRD STUDY EQUATION FOR THE IDMS-TRACEABLE CREATININE METHODS. CLIN CHEM 2007;53:766-72 Performed By: #### C MP #### [address] [address] GFR-NON AM. >60 Normal >60 [facility] Comment on above: Performed By: #### C MP #### [address] [address] Glucose [Mass/Vol] 80 mg/dL Normal 74 - 99 [facility] Comment on above: Performed By: #### C MP #### [address] [address] HCO3 (Bld) [Moles/Vol] 26 mmol/L Normal 21 - 32 [facility] Comment on above: Performed By: #### C MP #### [address] [address] Potassium [Moles/Vol] 3.6 mmol/L Normal 3.5 - 5.3 [facility] Comment on above: Performed By: #### C MP #### [address] [address] Protein [Mass/Vol] 6.7 g/dL Normal 6.4 - 8.2 [facility] Comment on above: Performed By: #### C MP #### [address] [address] Sodium [Moles/Vol] 138 mmol/L Normal 136 - 145 [facility] Comment on above: Performed By: #### C MP #### [address] [address] Urea nitrogen [Mass/Vol] 11 mg/dL Normal 6 - 23 [facility] Comment on above: Performed By: #### C MP #### [address] [address] Complete Blood Count + Diffe rentialon 07-13-2021 Basophils/100 WBC (Bld) 0.6 % 0.0 - 2.0 [facility] [facility] Work Phone: Erythrocyte distribution width (RBC) [Ratio] 15.2 % above high threshold See Below -[facility] Work Phone: Comment on above: Reference Range: 11. 5 - 14.5 Hematocrit (Bld) [Volume fraction] 38.5 % See Below [facility] Work Phone: Comment on above: Reference Range: 36. 0 - 46.0 Hemoglobin (Bld) [Mass/Vol] 12.6 g/dL See Below [facility] [facility] Work Phone: Comment on above: Reference Range: 12. 0 - 16.0 Lymphocytes/100 WBC (Bld) 17.6 % See Below [facility] Work Phone: Comment on above: Reference Range: 13. 0 - 44.0 MCHC (RBC) [Mass/Vol] 32.7 g/dL See Below [facility] [facility] Work Phone: Comment on above: Reference Range: 32. 0 - 36.0 MCV (RBC) [Entitic vol] 97 fL 80 - 100 [facility] [facility] Work Phone: Monocytes/100 WBC (Bld) 8.5 % 2.0 - 10.0 [facility] [facility] Work Phone: Neutrophils/100 WBC (Bld) 71.1 % See Below [facility] [facility] Work Phone: Comment on above: Reference Range: 40. 0 - 80.0 Platelets (Bld) [#/Vol] 291 10*3/uL 150 - 450 [facility] [facility] Work Phone: RBC (Bld) [#/Vol] 3.97 {x10E12/L} below low threshold See Below [facility] [facility] Work Phone: Comment on above: Reference Range: 4.0 0 - 5.20 WBC (Bld) [#/Vol] 9.0 10*3/uL 4.4 - 11.3 [facility] Work Phone: Complete Blood Count + Differential 0.10 {x10E9/L} See Below [facility] [facility] Work Phone: Comment on above: Reference Range: 0.0 0 - 0.10 Complete Blood Count + Differential 0.20 {x10E9/L} See Below [facility] [facility] Work Phone: Comment on above: Reference Range: 0.0 0 - 0.70 Complete Blood Count + Differential 0.80 {x10E9/L} See Below [facility] [facility] Work Phone: Comment on above: Reference Range: 0.1 0 - 1.00 Complete Blood Count + Differential 1.60 {x10E9/L} See Below [facility] Work Phone: Comment on above: Reference Range: 1.2 0 - 4.80 Complete Blood Count + Differential 6.40 {x10E9/L} See Below [facility] Work Phone: Comment on above: Reference Range: 1.2 0 - 7.70 Percent differential counts (%) should be interpreted in the context of the absolute cell counts (cells/L). Complete Blood Count + Differential 2.2 % 0.0 - 6.0 [facility] Work Phone: Complete Blood Count + Differential 0.1 {/100_WBC} [facility] Work Phone: Laboratory - Chemistry and C hemistry - challengeon 07-13-2021 Albumin BCP dye [Mass/Vol] 4.1 g/dL 3.4 - 5.0 [facility] Work Phone: ALP [Catalytic activity/Vol] 38 U/L 33 - 110 [facility] Work Phone: ALT With P-5'-P [Catalytic activity/Vol] 14 U/L 7 - 45 [facility] Work Phone: Comment on above: Patients treated wit h Sulfasalazine may generate falsely decreased results for ALT. Anion gap [Moles/Vol] 11 mmol/L 10 - 20 - [facility] Work Phone: AST With P-5'-P [Catalytic activity/Vol] 17 U/L 9 - 39 [facility] Work Phone: Bilirubin [Mass/Vol] 0.5 mg/dL 0.0 - 1.2 [facility] Work Phone: Calcium [Mass/Vol] 8.8 mg/dL 8.6 - 10.3 [facility] Work Phone: Chloride [Moles/Vol] 105 mmol/L 98 - 107 [facility] Work Phone: CO2 [Moles/Vol] 26 mmol/L 21 - 32 [facility] Work Phone: Creatinine [Mass/Vol] 0.60 mg/dL See Below [facility] Work Phone: Comment on above: Reference Range: 0.5 0 - 1.05 Glucose [Mass/Vol] 80 mg/dL 74 - 99 [facility] Work Phone: Potassium [Moles/Vol] 3.6 mmol/L 3.5 - 5.3 [facility] [facility] Work Phone: Protein [Mass/Vol] 6.7 g/dL 6.4 - 8.2 [facility] Work Phone: Sodium [Moles/Vol] 138 mmol/L 136 - 145 [facility] Work Phone: TSH Qn 1.76 m[IU]/L See Below [facility] [facility] Work Phone: Comment on above: Reference Range: 0.4 4 - 3.98 TSH testing is performed using different testing methodology at [facility] than at other [facility]. Direct result comparisons should only be made within the same method. Urea nitrogen [Mass/Vol] 11 mg/dL 6 - 23 MP-Claremon t [facility] Work Phone: No Panel Informationon 07-13 >60 >60 -Adeline [facility] Work Phone: Comment on above: CALCULATIONS OF DIDIER MATED GFR ARE PERFORMED USING THE MDRD STUDY EQUATION FOR THE IDMS-TRACEABLE CREATININE METHODS. 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.69) (D84.821,Z79.899) Orders Abnormal weight loss Complete Blood Count + Differential; Status:Active; Requested for:13Jul2021; Comprehensive Metabolic Panel; Status:Active; Requested for:13Jul2021; TSH WITH REFLEX TO FREE T4 IF ABNORMAL; Status:Active; Requested for:13Jul2021; Chronic sinusitis, Immunocompromised state due to drug therapy Start: Azithromycin 500 MG Oral Tablet (Zithromax); TAKE 1 TABLET DAILY UNTIL FINISHED Patient Discussion/Summary Call concerns Chief Complaint Chief Complaint: TRUDY FLORES is here with a chief complaint of C/O SINUS PAIN AND PRESSURE; ALSO HAS SOME SINUS DRAINAGE X 2-3D. History of Present Illness Pt presents for flare up of chronic sinus symptoms . History of recurrent sinus infections, on methotrexate for inflammatory polyarthropathy. Several days of nasal congestion and bilateral maxillary pain. No cough, no shortness of breath. Note weight loss, states started new job in September, and doesn't eat regular meals, working third shift. Recommend some labs to begin with. Review of Systems Constitutional: as noted in HPI and no fever. ENT: as noted in HPI. Cardiovascular: no chest pain. Respiratory: no cough. Active Problems Allergic rhinitis (477.9) (J30.9) Asthma, mild persistent (493.90) (J45.30) BMI 33.0-33.9,adult (V85.33) (Z68.33) Chronic GERD (530.81) (K21.9) COVID-19 (079.89) (U07.1) Diaphragmatic paralysis (519.4) (J98.6) Dysfunction of both eustachian tubes (381.81) (H69.83) History of major depression (V11.8) (Z86.59) Mild sleep apnea (780.57) (G47.30) Obesity (BMI 30-39.9) (278.00) (E66.9) Polyarthralgia (719.49) (M25.50) Past Medical History History of major depression (V11.8) (Z86.59) Resolved Date: 16 Oct 2020 Surgical History History of Balloon sinuplasty History of section History of Cholecystectomy History of Hysterectomy abdominal History of Tonsillectomy Family History Family history of asthma (V17.5) (Z82.5) Family history of malignant neoplasm of skin (V16.8) (Z80.8) Family history of heart failure (V17.49) (Z82.49) Family history of leukemia (V16.6) (Z80.6) Family history of lung cancer (V16.1) (Z80.1) Social History Caffeine use (V49.89) (Z78.9) Coffee Denies alcohol consumption (V49.89) (Z78.9) Former smoker (V15.82) (Z87.891) Patient has living will (V49.89) (Z78.9) Allergies No Known Drug Allergies Recorded By: Katelyn Mao; 07/26/2019 9:36:48 AM Current Meds Medication NameInstructionReason Albuterol Sulfate (2.5 MG/3ML) 0.083% Inhalation Nebulization SolutionAsthma, mild persistent Claritin-D 24 Hour 10-240 MG Oral Tablet Extended Release 24 HourTAKE 1 TABLET DAILY NEEDED.Asthma, mild persistent Montelukast Sodium 10 MG Oral TabletTAKE 1 TABLET IN THE EVENING.Asthma, mild persistent Omeprazole 40 MG Oral Capsule Delayed ReleaseTAKE 1 CAPSULE BY MOUTH EVERY DAYAsthma, mild persistent Fluticasone Propionate 50 MCG/ACT Nasal SuspensionUSE 1 SPRAY IN EACH NOSTRIL TWICE DAILYDysfunction of both eustachian tubes Albuterol Sulfate HFA 108 (90 Base) MCG/ACT Inhalation Aerosol Solution Breo Ellipta 200-25 MCG/INH Inhalation Aerosol Powder Breath Activated Folic Acid 1 MG Oral Tablet Meclizine HCl - 25 MG Oral Tablet Methotrexate Sodium 2.5 MG Oral TabletTAKE 7 TABLETS PER WEEK. predniSONE 10 MG Oral Tablet Vitals Vital Signs Recorded: [id number] 11:36AM Pkvxztssnkb60.9 F Heart Rate84 Blontryp920, LUE, Sitting Xjrronfxq40, LUE, Sitting Height4 ft 10 in Dapglc424 lb 2 oz BMI Jakzfcpymi08.29 kg/m2 BSA Calculated1.57 Tobacco Useb) No Physical Exam Constitutional: Alert and in no acute distress. Well developed, well nourished. Head and Face: Head and face: Normal. Ears, Nose, Mouth, and Throat: Otoscopic examination: Normal. Cardiovascular: Heart rate and rhythm were normal, normal S1 and S2, no gallops, no murmurs and no pericardial rub. Pulmonary: No respiratory distress. Clear bilateral breath sounds. 'Scores and Scales' Signatures Electronically signed by : Yesenia Lee MD; Jul 13 2021 12:44PM EST (Author) Normal Touchworks TSH WITH REFLEX TO FREE T4 I F ABNORMALon 07-13-2021 TSH Qn 1.76 m[IU]/L Normal 0.44 - 3.98 [facility] Comment on above: Result Comment: TSH testing is performed using different testing methodology at [facility] than at other [facility]. Direct result comparisons should only be made within the same method. Performed By: #### T [facility] #### [place] [address] Tobacco Screening.on 021 Tobacco use status CPHS b) No [facility] Work Phone: Office Visiton 05-25-2021 Follow-up visit Diagnoses/Problems Dysfunction of both eustachian tubes (381.81) (H69.83) COVID-19 (079.89) (U07.1) Orders Dysfunction of both eustachian tubes Renew: Fluticasone Propionate 50 MCG/ACT Nasal Suspension; USE 1 SPRAY IN EACH NOSTRIL TWICE DAILY Patient Discussion/Summary Recommended treatment with flonase nose spray. If any new or worsening symptoms she should follow up. Chief Complaint right ear pain on and off since having covid. Had covid stymptom 05/06 tested positive 05/10. Still does have a little bit of cough History of Present IllnessShe presents today for right ear pain after having COVID, having some pressure in both ears. She was treated with z pack and prednisone. She continues to have a lingering cough. It is improved. No sputum. Some shortness of breath. Denies fever or body aches. No GI symptoms. Did have infusion. helped with symptoms. Review of Systems Pharmacy flu shot Active Problems Allergic rhinitis (477.9) (J30.9) Asthma, mild persistent (493.90) (J45.30) BMI 33.0-33.9,adult (V85.33) (Z68.33) Chronic GERD (530.81) (K21.9) COVID-19 (079.89) (U07.1) Diaphragmatic paralysis (519.4) (J98.6) History of major depression (V11.8) (Z86.59) Mild sleep apnea (780.57) (G47.30) Obesity (BMI 30-39.9) (278.00) (E66.9) Polyarthralgia (719.49) (M25.50) Vertigo (780.4) (R42) Past Medical History History of major depression (V11.8) (Z86.59) Resolved Date: 16 Oct 2020 Surgical History History of Balloon sinuplasty History of section History of Cholecystectomy History of Hysterectomy abdominal History of Tonsillectomy Family History Family history of asthma (V17.5) (Z82.5) Family history of malignant neoplasm of skin (V16.8) (Z80.8) Family history of heart failure (V17.49) (Z82.49) Family history of leukemia (V16.6) (Z80.6) Family history of lung cancer (V16.1) (Z80.1) Social History Caffeine use (V49.89) (Z78.9) Coffee Denies alcohol consumption (V49.89) (Z78.9) Former smoker (V15.82) (Z87.891) Patient has living will (V49.89) (Z78.9) Allergies No Known Drug Allergies Recorded By: Katelyn Mao; 07/26/2019 9:36:48 AM Current Meds Medication NameInstruction Albuterol Sulfate (2.5 MG/3ML) 0.083% Inhalation Nebulization Solution Breo Ellipta 100-25 MCG/INH Inhalation Aerosol Powder Breath Activated Claritin-D 24 Hour 10-240 MG Oral Tablet Extended Release 24 HourTAKE 1 TABLET DAILY NEEDED. Fluticasone Propionate 50 MCG/ACT Nasal SuspensionSPRAY 2 SPRAY Daily in each nostril Folic Acid 1 MG Oral Tablet Meclizine HCl - 25 MG Oral Tablet Methotrexate Sodium 2.5 MG Oral TabletTAKE 6 TABLET(S) ORAL ONCE A WEEK Montelukast Sodium 10 MG Oral TabletTAKE 1 TABLET IN THE EVENING. Multi-Vitamins TABS Omeprazole 40 MG Oral Capsule Delayed ReleaseTAKE 1 CAPSULE BY MOUTH EVERY DAY predniSONE 10 MG Oral Tablet Vitamin B12 TABS Vitamin D (Cholecalciferol) 25 MCG (1000 UT) Oral Capsule Vitals Vital Signs Recorded: 25May2021 08:52AM Ifnsxdlktbw60.7 F Heart Rate94 Aufpxguu877 Shdsyzcsu02 Height4 ft 10 in Kfoxqu540 lb 5 oz BMI Hpecdpchfu85.21 kg/m2 BSA Calculated1.61 Tobacco Useb) No O2 Rxvfacbldt03 Physical Exam General: vitals reviewed. Appears well , no distress ENT: TM with good light reflex, no redness or bulging. Pharynx no erythema or exudate. Nasal turbinates edematous. Respiratory: dry cough, Lungs are clear. Normal rate. Neck: No lymphadenopathy or tenderness Cardiac: Normal RR Head: No facial tenderness Signatures Electronically signed by : Madeline Arreguin APRN-STREET LIGHT SERVICER HELPER; May 26 2021 9:13PM EST (Author) Normal [employer] Tobacco Screening.on 021 Tobacco use status CPHS b) No MP-KFx [facility] Work Phone: CORONAVIRUS 2019 BY PCRon SARS-CoV-2 (COVID-19) RNA LIVIER+probe Ql (Unsp spec) Detected Abnormal Not Detected [facility] Comment on above: Order Comment: COVID CALLED TO BINH PARKS, 05/10/2021 11:23 Result Comment: . This assay is designed to detect the N, ORF1ab and/or S genes of SARS-CoV-2 via nucleic acid amplification. A Negative (NOT DETECTED) result does not preclude 2019-nCoV infection since the adequacy of sample collection and/or low viral burden may result in presence of viral nucleic acids below the clinical sensitivity of this test method. Negative (NOT DETECTED) result should not be used as the sole basis for treatment or other patient management decisions. Rather negative results should be combined with clinical observations, patient history, and epidemiological information to make patient management decisions. Fact sheet for providers: https://www.fda.gov/media/919429/download Fact sheet for patients: https://www.fda.gov/media/376706/download This test has received FDA Emergency Use Authorization (EUA) and has been verified by [facility] ([facility]). This test is only authorized for the duration of time that circumstances exist to justify the authorization of the emergency use of in vitro diagnostic tests for the detection of SARS-CoV-2 virus and/or diagnosis of COVID-19 infection under section 564(b)(1) of the Act, 21 U.S.C. 360bbb-3(b)(1), unless the authorization is terminated or revoked sooner. [facility] is certified under CLIA-88 as qualified to perform high complexity testing. Testing is performed in the [facility] laboratories located at [address] [place] [address]. COVID CALLED TO BINH PARKS, 05/10/2021 11:23 Performed By: #### C OV19 #### [address] [place] [address] Covid 19 Resultson 1 SARS-CoV-2 (COVID-19) RNA LIVIER+probe Ql (Unsp spec) POSITIVE COVID-19 Test Coronaviruses are common world-wide and are the cause of many common colds. SARS-COV2 is a new coronavirus that began circulating worldwide in 2019 so we are calling it COVID-19. It has been estimated that four out of five patients with COVID-19 will recover at home without the need for medical attention. Symptoms of COVID-19 may include cough, fever, shortness of breath, loss of taste or smell and other flu-like symptoms including chills, sore muscles, sore throat, and headache. Severe illness is more common in older people and people with other health problems such as high blood pressure, obesity, and immune system problems. If the test is positive, you have COVID-19. You will be contacted by the ordering physicians office and instructed to remain on home isolation, in accordance with CDC guidelines. You may also be contacted by the [facility] to see if any of your close contacts may have been exposed to the virus and need to quarantine. If the test is negative, you likely do not have COVID-19 at this time, but you still may have a different illness that can spread to other people (like Influenza, or the Flu) and could still be at risk for getting COVID-19. We recommend that you stay away from other people to limit the spread of illness until your symptoms are improving and you are fever-free for 24 hours without the use of fever lowering medications such as acetaminophen or ibuprofen. No test is 100% accurate so if you are still concerned you may have COVID-19, talk to your doctor about the need to continue to stay away from others. Medicines Unless your provider told you not to use the following: Acetaminophen (Tylenol and others) is generally safe. Anti-inflammatory medications, such as Ibuprofen (Advil or Motrin) or Naproxen (Aleve) can also be used. Aswk-mvk-saquecx cough and cold medicines can be used according to the instructions on the package. Some atfj-hyg-zxqnhsk medicines also contain acetaminophen. Make sure you are not taking more than your recommended dose. For those not hospitalized, there is no specific treatment available for this illness. Antibiotics do not treat Coronaviruses. Follow-Up Follow up with your doctor by scheduling a virtual visit or consider follow-up at one of our urgent care fever clinics. If you are having difficulty breathing, or are very weak and having difficulty standing, this is a medical emergency. Call 911 or have someone take you to the nearest emergency room immediately. If possible, wear a facemask. Additional guidance from the CDC for patients who tested POSITIVE for COVID-19 How to isolate: Isolate yourself in a specific room at home and limit your contact with others. Use a separate bathroom from other members of the household, when possible. Leave home only to get essential medical care. Do not go to work, school or public areas. Avoid using public transportation, ride-sharing, or taxis. Restrict contact with pets and other animals. If you must care for your pet or be around animals while you are sick, wash your hands before and after your interaction and wear a facemask. Make sure that shared spaces in the home have good airflow, such as by an air conditioner or an opened window, weather permitting. Personal Hygiene Procedures: Wear a face mask when in the same room as other people or pets. If a face mask interferes with your breathing, others should wear a mask when sharing space with you. Frequent hand-washing: wash your hands with soap and water for at least 20 seconds. If soap and water are not available, use alcohol-based hand senior sales associate. Avoid touching your eyes, nose, and mouth with unwashed hands. Household Hygiene Procedures: Avoid sharing personal household items such as dishes, glassware, cups, eating utensils, towels or bedding with other people or pets in your home. After use, these items should be washed with soap and hot water. Disinfect all high-touch surfaces every day with antibacterial cleaning solutions such as Lysol wipes, bleach, cleansers, etc. High-touch surfaces include tabletops, doorknobs, bathroom fixtures, toilets, phones, keyboards, tablets and bedside tables. Immediately clean any surfaces that may have blood, poop or body fluids on them, using antibacterial cleaning solutions such as Lysol wipes, bleach, cleansers, etc. If clothing or bedding come into contact with blood, poop or body fluids, they should be washed immediately. Follow the directions on the laundry detergent and clothing labels but hot water is recommended when possible. Stopping home isolation precautions: If possible, consult your doctor before stopping home isolation precautions. According to the CDC, you can discontinue home isolation precautions when you have met both of these criteria: Your fever and respiratory symptoms have been gone for 24 edward (more content not included)... Normal [facility] Office Visit (Family Medicin e)on 05-10-2021 Follow-up visit Diagnoses/Problems COVID-19 (079.89) (U07.1) Asthma, mild persistent (493.90) (J45.30) Orders Asthma, mild persistent, COVID-19 Start: predniSONE 10 MG Oral Tablet; TAKE 4 TABLETS DAILY FOR 3 DAYS,3 TABLETS DAILY FOR 3 DAYS, 2 TABLETS DAILY FOR 3 DAYS AND 1 TABLET DAILY FOR 3 DAYS, THEN STOP Chief Complaint Chief Complaint: TRUDY FLORES is here with a chief complaint of VIRTUAL VISIT; POSITIVE FOR COVID; DISCUSS INFUSION WITH DANII; HAS QUESTIONS ABOUT IT. An interactive audio and video telecommunication system which permits real time communications between the patient (at the originating site) and provider (at the distant site) was utilized to provide this telehealth service. History of Present Illness Trudy presents via telephone to discuss covid results. Tested positive, has cough, has asthma, on immunosuppressants for polyarthralgias. COugh is significant. Discussed the monoclonal antibody infusion, reviewed tne handout from website on same with her. She is higher risk for serious complicaitions and based on the available data I am recommending this infusion for her, she is agreeable. Also advised her she needs to quarantine for 10 days, ANd be fever free and cough improving before she breaks quarantine. Her Mom and spouse were aso on the phone, advised anyone who's been within six feet of her without a mask for 15 minutes needs to quarantine for two weeks, unless they are vaccinated, and then they should be sure and wear a mask. She verbalized understanding. 5m Review of Systems Constitutional: as noted in HPI. 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) History of major depression (V11.8) (Z86.59) Mild sleep apnea (780.57) (G47.30) Obesity (BMI 30-39.9) (278.00) (E66.9) Polyarthralgia (719.49) (M25.50) Vertigo (780.4) (R42) Past Medical History History of major depression (V11.8) (Z86.59) Resolved Date: 16 Oct 2020 Surgical History History of Balloon sinuplasty History of section History of Cholecystectomy History of Hysterectomy abdominal History of Tonsillectomy Family History Family history of asthma (V17.5) (Z82.5) Family history of malignant neoplasm of skin (V16.8) (Z80.8) Family history of heart failure (V17.49) (Z82.49) Family history of leukemia (V16.6) (Z80.6) Family history of lung cancer (V16.1) (Z80.1) Social History Caffeine use (V49.89) (Z78.9) Coffee Denies alcohol consumption (V49.89) (Z78.9) Former smoker (V15.82) (Z87.891) Patient has living will (V49.89) (Z78.9) Allergies No Known Drug Allergies Recorded By: Katelyn Mao; 07/26/2019 9:36:48 AM Current Meds Medication NameInstructionReason Fluticasone Propionate 50 MCG/ACT Nasal SuspensionSPRAY 2 SPRAY Daily in each nostrilAllergic rhinitis Albuterol Sulfate (2.5 MG/3ML) 0.083% Inhalation Nebulization SolutionAsthma, mild persistent Azithromycin 500 MG Oral TabletTAKE 1 TABLET DAILY UNTIL FINISHED.Asthma, mild persistent Claritin-D 24 Hour 10-240 MG Oral Tablet Extended Release 24 HourTAKE 1 TABLET DAILY NEEDED.Asthma, mild persistent Montelukast Sodium 10 MG Oral TabletTAKE 1 TABLET IN THE EVENING.Asthma, mild persistent Multi-Vitamins TABSAsthma, mild persistent Omeprazole 40 MG Oral Capsule Delayed ReleaseTAKE 1 CAPSULE BY MOUTH EVERY DAYAsthma, mild persistent Breo Ellipta 100-25 MCG/INH Inhalation Aerosol Powder Breath Activated Folic Acid 1 MG Oral Tablet Meclizine HCl - 25 MG Oral Tablet Methotrexate Sodium 2.5 MG Oral TabletTAKE 6 TABLET(S) ORAL ONCE A WEEK predniSONE 10 MG Oral Tablet Vitamin B12 TABS Vitamin D (Cholecalciferol) 25 MCG (1000 UT) Oral Capsule Vitals Vital Signs Recorded: 10May2021 01:14PM Tobacco Useb) No Physical Exam Constitutional: proonged cough. 'Scores and Scales' Signatures Electronically signed by : Yesenia Lee MD; May 10 2021 2:03PM EST (Author) Normal [employer] Tobacco Screening.on 021 Tobacco use status CPHS b) No -[facility] Work Phone: CORONAVIRUS 2019 BY Nahun DATE OF SYMPTOM ONSET [YYYYMMDD]? [id number] Normal [facility] Comment on above: Order Comment: COVID CALLED TO BINH PARKS, 05/10/2021 11:23 Performed By: #### C OV19 #### [facility] [address] [place] [address] Lab Specimen Source Nasal, Nasopharyngeal Normal [facility] Comment on above: Order Comment: COVID CALLED TO BINH PARKS, 05/10/2021 11:23 Performed By: #### C OV19 #### [facility] [address] [place] [address] Coronavirus 2019 RNA by PCR, Symptomaticon 05-09-2021 Date and time of symptom onset [id number] [facility] [facility] Work Phone: Coronavirus 2019 RNA by PCR, Symptomatic Detected Abnormal See Below [employer] [facility] [facility] Work Phone: Comment on above: SOURCE: Nasal, Nasop haryngealReference Range: Not Detected.This assay is designed to detect the N, ORF1ab and/or S genes of SARS-CoV-2 via nucleic acid amplification. A Negative (NOT DETECTED) result does not preclude 2019-nCoV infection since the adequacy of sample collection and/or low viral burden may result in presence of viral nucleic acids below the clinical sensitivity of this test method. Negative (NOT DETECTED) result should not be used as the sole basis for treatment or other patient management decisions. Rather negative results should be combined with clinical observations, patient history, and epidemiological information to make patient management decisions.Fact sheet for providers: https://www.fda.gov/media/783390/downloadFact sheet for patients: https://www.fda.gov/media/913255/downloadThis test has received FDA Emergency Use Authorization (EUA) and has been verified by [facility] ([facility]). This test is only authorized for the duration of time that circumstances exist to justify the authorization of the emergency use of in vitro diagnostic tests for the detection of SARS-CoV-2 virus and/or diagnosis of COVID-19 infection under section 564(b)(1) of the Act, 21 U.S.C. 360bbb-3(b)(1), unless the authorization is terminated or revoked sooner. [facility] is certified under CLIA-88 as qualified to perform high complexity testing. Testing is performed in the [facility] laboratories located at [address] [place] [address]. SOURCE: Nasal, Nasop haryngealReference Range: Not Detected.This assay is designed to detect the N, ORF1ab and/or S genes of SARS-CoV-2 via nucleic acid amplification. A Negative (NOT DETECTED) result does not preclude 2019-nCoV infection since the adequacy of sample collection and/or low viral burden may result in presence of viral nucleic acids below the clinical sensitivity of this test method. Negative (NOT DETECTED) result should not be used as the sole basis for treatment or other patient management decisions. Rather negative results should be combined with clinical observations, patient history, and epidemiological information to make patient management decisions.Fact sheet for providers: https://www.fda.gov/media/169243/downloadFact sheet for patients: https://www.fda.gov/media/049541/downloadThis test has received FDA Emergency Use Authorization (EUA) and has been verified by [facility] ([facility]). This test is only authorized for the duration of time that circumstances exist to justify the authorization of the emergency use of in vitro diagnostic tests for the detection of SARS-CoV-2 virus and/or diagnosis of COVID-19 infection under section 564(b)(1) of the Act, 21 U.S.C. 360bbb-3(b)(1), unless the authorization is terminated or revoked sooner. [facility] is certified under CLIA-88 as qualified to perform high complexity testing. Testing is performed in the [facility] laboratories located at [address] [place] [address].COVID CALLED TO BINH PARKS, 05/10/2021 11:23 Office Visit (Family Medicin e)on 05-08-2021 Follow-up visit Diagnoses/Problems Body aches (780.96) (R52) Cough (786.2) (R05) Vertigo (780.4) (R42) Asthma, mild persistent (493.90) (J45.30) Orders Asthma, mild persistent Start: Azithromycin 500 MG Oral Tablet (Zithromax); TAKE 1 TABLET DAILY UNTIL FINISHED Body aches, Cough Coronavirus 2019 RNA by PCR, Symptomatic; Status:Active; Requested for:08May2021; ? : Unknown RESIDENT IN CONGREGATE CARE SETTING? : No ICU? : No HOSPITALIZED (OR PLANNED TO BE ADMITTED)? : No EMPLOYED IN HEALTHCARE? : Unknown FIRST COVID NASAL SWAB TEST? : Unknown Symptom 1 : Body aches/Malaise DATE OF SYMPTOM ONSET? : 04May2021 IS THE PATIENT SYMPTOMATIC DEFINED BY THE CDC (FEVER>100, NEW WORSENING COUGH OR SHORTNESS OF BREATH, NEW LOSS OF TASTE OR SMELL, SORE THROAT, DIARRHEA, BODY ACHES/MALAISE, HEADACHE, NAUSEA/VOMITING, OR RUNNY NOSE/CONGESTION)? : Yes Chief Complaint Chief Complaint: TRUDY FLORES is here with a chief complaint of VIRTUAL VISIT; F/U [facility] T[facility]; DIZZINESS; C/O COUGH, CARVAJAL AND BODY ACHES X 4D. An interactive audio and video telecommunication system which permits real time communications between the patient (at the originating site) and provider (at the distant site) was utilized to provide this telehealth service. History of Present Illness Trudy presents virtually for hospital followup and acute illness as above From the discharge summary Hospital Course: Trudy Flores is a 40 year old female with past medical history of fibromyalgia, asthma, arthritis, and allergies since to the emergency department today as a transfer from an outside hospital for an MRI in the setting of dizziness, ataxia, and nausea. Patient was transferred here for an MRI with concern for a potential basilar stroke. Upon examination of patient on [place] [address], patient is resting in bed on her [...] meclizine, and symptomatic treatment per primary team. She is feeling better 90 percent as far as the vertigo. Has not driven yet. However, four days ago she developed body aches, chills, headache. Has cough that she feels like her allergies. No shortness of breath. No known exposure covid. She has asthma, bmi of 33 and is on methotrexate for polyarthalgia, and is unvaccinated for covid 19. Her ears hurt. We can treat empirically while getting covid testing. Recommend she isolate as if she has covid and not return to work at this time. If covid positive she is a candidate for monoclonal antibody infusion, discussed briefly. Review of Systems Constitutional: as noted in HPI. Eyes: as noted in HPI. Cardiovascular: as noted in HPI. Respiratory: as noted in HPI. Neurological: as noted in HPI. 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) History of major depression (V11.8) (Z86.59) Mild sleep apnea (780.57) (G47.30) Obesity (BMI 30-39.9) (278.00) (E66.9) Polyarthralgia (719.49) (M25.50) Past Medical History History of major depression (V11.8) (Z86.59) Resolved Date: 16 Oct 2020 Surgical History History of Balloon sinuplasty History of section History of Cholecystectomy History of Hysterectomy abdominal History of Tonsillectomy Family History Family history of asthma (V17.5) (Z82.5) Family history of malignant neoplasm of skin (V16.8) (Z80.8) Family history of heart failure (V17.49) (Z82.49) Family history of leukemia (V16.6) (Z80.6) Family history of lung cancer (V16.1) (Z80.1) Social History Caffeine use (V49.89) (Z78.9) Coffee Denies alcohol consumption (V49.89) (Z78.9) Former smoker (V15.82) (Z87.891) Patient has living will (V49.89) (Z78.9) Allergies No Known Drug Allergies Recorded By: Katelyn Mao; 07/26/2019 9:36:48 AM Current Meds Medic (more content not included)... Normal [employer] Tobacco Screening.on 021 Tobacco use status CPHS b) No [facility] [facility] Work Phone: CBC AND DIFFERENTIALon 05-01 % AUTOMATED IMMATURE GRAN 0.4 % Normal 0.0 - 0.9 [facility] Comment on above: Result Comment: Trinidad ture Granulocyte Count (IG) includes promyelocytes, myelocytes and metamyelocytes but does not include bands. Percent differential counts (%) should be interpreted in the context of the absolute cell counts (cells/L). Performed By: #### C OV19 #### [facility] [address] [place] [address] Basophils (Bld) [#/Vol] 0.01 10*3/uL Normal 0.00 - 0.10 [facility] Comment on above: Performed By: #### C OV19 #### [facility] [address] [place] [address] Basophils/100 WBC (Bld) 0.2 % Normal 0.0 - 2.0 [facility] Comment on above: Performed By: #### C OV19 #### [facility] [address] [place] [address] Eosinophils (Bld) [#/Vol] 0.10 10*3/uL Normal 0.00 - 0.70 [facility] Comment on above: Performed By: #### C OV19 #### [facility] [address] [place] [address] Eosinophils/100 WBC (Bld) 1.9 % Normal 0.0 - 6.0 [facility] Comment on above: Performed By: #### C OV19 #### [facility] [address] [place] [address] Erythrocyte distribution width (RBC) [Ratio] 13.9 % Normal 11.5 - 14.5 [facility] Comment on above: Performed By: #### C OV19 #### [facility] [address] [place] [address] Hematocrit (Bld) [Volume fraction] 36.3 % Normal 36.0 - 46.0 [facility] Comment on above: Performed By: #### C OV19 #### [facility] [address] [place] [address] Hemoglobin (Bld) [Mass/Vol] 12.3 g/dL Normal 12.0 - 16.0 [facility] Comment on above: Performed By: #### C OV19 #### [facility] [address] [place] [address] Lymphocytes (Bld) [#/Vol] 1.95 10*3/uL Normal 1.20 - 4.80 [facility] Comment on above: Performed By: #### C OV19 #### [facility] [address] [place] [address] Lymphocytes/100 WBC (Bld) 36.2 % Normal 13.0 - 44.0 [facility] Comment on above: Performed By: #### C OV19 #### [facility] [address] [place] [address] MCHC (RBC) [Mass/Vol] 33.9 g/dL Normal 32.0 - 36.0 [facility] Comment on above: Performed By: #### C OV19 #### [facility] [address] [place] [address] MCV (RBC) [Entitic vol] 93 fL Normal 80 - 100 [facility] Comment on above: Performed By: #### C OV19 #### [facility] [address] [place] [address] Monocytes (Bld) [#/Vol] 0.36 10*3/uL Normal 0.10 - 1.00 [facility] Comment on above: Performed By: #### C OV19 #### [facility] [address] [place] [address] Monocytes/100 WBC (Bld) 6.7 % Normal 2.0 - 10.0 [facility] Comment on above: Performed By: #### C OV19 #### [facility] [address] [place] [address] Neutrophils (Bld) [#/Vol] 2.95 10*3/uL Normal 1.20 - 7.70 [facility] Comment on above: Performed By: #### C OV19 #### [facility] [address] [place] [address] Neutrophils/100 WBC (Bld) 54.6 % Normal 40.0 - 80.0 [facility] Comment on above: Performed By: #### C OV19 #### [facility] [address] [place] [address] NUCLEATED RBC 0.0 /100 WBC Normal 0.0-0.0 [facility] Comment on above: Performed By: #### C OV19 #### [facility] [address] [place] [address] Platelets (Bld) [#/Vol] 286 10*3/uL Normal 150 - 450 [facility] Comment on above: Performed By: #### C OV19 #### [facility] [address] [place] [address] RBC 3.89 x10E12/L Low 4.00 - 5.20 [facility] Comment on above: Performed By: #### C OV19 #### [facility] [address] [place] [address] WBC (Bld) [#/Vol] 5.4 10*3/uL Normal 4.4 - 11.3 [facility] Comment on above: Performed By: #### C OV19 #### [facility] [address] [place] [address] COMPREHENSIVE PANELon 2020 Albumin [Mass/Vol] 3.5 g/dL Normal 3.4 - 5.0 [facility] Comment on above: Performed By: #### C MP #### [facility] [address] [place] [address] ALP [Catalytic activity/Vol] 33 U/L Normal 33 - 110 [facility] Comment on above: Performed By: #### C MP #### [facility] [address] [place] [address] ALT [Catalytic activity/Vol] 9 U/L Normal 7 - 45 [facility] Comment on above: Result Comment: Ysabel ents treated with Sulfasalazine may generate falsely decreased results for ALT. Performed By: #### C MP #### [facility] [address] [place] [address] Anion gap [Moles/Vol] 12 mmol/L Normal 10 - 20 [facility] Comment on above: Performed By: #### C MP #### [facility] [address] [place] [address] AST [Catalytic activity/Vol] 10 U/L Normal 9 - 39 [facility] Comment on above: Performed By: #### C MP #### [facility] [address] [place] [address] Bilirubin [Mass/Vol] 0.4 mg/dL Normal 0.0 - 1.2 [facility] Comment on above: Performed By: #### C MP #### [facility] [address] [place] [address] Calcium [Mass/Vol] 8.7 mg/dL Normal 8.6 - 10.6 [facility] Comment on above: Performed By: #### C MP #### [facility] [address] [place] [address] Chloride [Moles/Vol] 106 mmol/L Normal 98 - 107 [facility] Comment on above: Performed By: #### C MP #### [facility] [address] [place] [address] Creatinine [Mass/Vol] 0.56 mg/dL Normal 0.50 - 1.05 [facility] Comment on above: Performed By: #### C MP #### [facility] [address] [place] [address] GFR- AM. >60 Normal >60 [facility] Comment on above: Result Comment: CALC ULATIONS OF ESTIMATED GFR ARE PERFORMED USING THE MDRD STUDY EQUATION FOR THE IDMS-TRACEABLE CREATININE METHODS. CLIN CHEM 2007;53:766-72 Performed By: #### C MP #### [facility] [address] [place] [address] GFR-NON AM. >60 Normal >60 [facility] Comment on above: Performed By: #### C MP #### [facility] [address] [place] [address] Glucose [Mass/Vol] 82 mg/dL Normal 74 - 99 [facility] Comment on above: Performed By: #### C MP #### [facility] [address] [place] [address] HCO3 (Bld) [Moles/Vol] 26 mmol/L Normal 21 - 32 [facility] Comment on above: Performed By: #### C MP #### [facility] [address] [place] [address] Potassium [Moles/Vol] 3.7 mmol/L Normal 3.5 - 5.3 [facility] Comment on above: Performed By: #### C MP #### [facility] [address] [place] [address] Protein [Mass/Vol] 5.6 g/dL Low 6.4 - 8.2 [facility] Comment on above: Performed By: #### C MP #### [facility] [address] [place] [address] Sodium [Moles/Vol] 140 mmol/L Normal 136 - 145 [facility] Comment on above: Performed By: #### C MP #### [facility] [address] [place] [address] Urea nitrogen [Mass/Vol] 10 mg/dL Normal 6 - 23 [facility] Comment on above: Performed By: #### C MP #### [facility] [address] [place] [address] Complete Blood Count + Diffe adis 05-01-2021 Basophils/100 WBC (Bld) 0.2 % 0.0 - 2.0 [facility] [facility] Work Phone: Erythrocyte distribution width (RBC) [Ratio] 13.9 % See Below [facility] [facility] Work Phone: Comment on above: Reference Range: 11. 5 - 14.5 Hematocrit (Bld) [Volume fraction] 36.3 % See Below [facility] [facility] Work Phone: Comment on above: Reference Range: 36. 0 - 46.0 Hemoglobin (Bld) [Mass/Vol] 12.3 g/dL See Below [facility] [facility] Work Phone: Comment on above: Reference Range: 12. 0 - 16.0 Lymphocytes/100 WBC (Bld) 36.2 % See Below [facility] Work Phone: Comment on above: Reference Range: 13. 0 - 44.0 MCHC (RBC) [Mass/Vol] 33.9 g/dL See Below [facility] [facility] Work Phone: Comment on above: Reference Range: 32. 0 - 36.0 MCV (RBC) [Entitic vol] 93 fL 80 - 100 [facility] [facility] Work Phone: Monocytes/100 WBC (Bld) 6.7 % 2.0 - 10.0 [facility] Work Phone: Neutrophils/100 WBC (Bld) 54.6 % See Below [facility] Work Phone: Comment on above: Reference Range: 40. 0 - 80.0 Platelets (Bld) [#/Vol] 286 10*3/uL 150 - 450 [facility] [facility] Work Phone: RBC (Bld) [#/Vol] 3.89 {x10E12/L} below low threshold See Below [facility] [facility] Work Phone: Comment on above: Reference Range: 4.0 0 - 5.20 WBC (Bld) [#/Vol] 5.4 10*3/uL 4.4 - 11.3 [facility] [facility] Work Phone: Complete Blood Count + Differential 0.01 {x10E9/L} See Below [facility] [facility] Work Phone: Comment on above: Reference Range: 0.0 0 - 0.10 Complete Blood Count + Differential 0.10 {x10E9/L} See Below [facility] Work Phone: Comment on above: Reference Range: 0.0 0 - 0.70 Complete Blood Count + Differential 0.36 {x10E9/L} See Below -[facility] Work Phone: Comment on above: Reference Range: 0.1 0 - 1.00 Complete Blood Count + Differential 1.95 {x10E9/L} See Below -[facility] Work Phone: Comment on above: Reference Range: 1.2 0 - 4.80 Complete Blood Count + Differential 2.95 {x10E9/L} See Below -[facility] Work Phone: Comment on above: Reference Range: 1.2 0 - 7.70 Complete Blood Count + Differential 1.9 % 0.0 - 6.0 [facility] [facility] Work Phone: Complete Blood Count + Differential 0.4 % 0.0 - 0.9 [facility] [facility] Work Phone: Comment on above: Immature Granulocyte Count (IG) includes promyelocytes, myelocytes and metamyelocytes but does not include bands. Percent differential counts (%) should be interpreted in the context of the absolute cell counts (cells/L). Complete Blood Count + Differential 0.0 {/100_WBC} 0.0-0.0 -[facility] Work Phone: Discharge [id number] Discharge Profile2 Discharge Orders: Anticipated Discharge Date: Anticipated Discharge [id number] Anticipated Discharge Time11:45 Hospital Providers: Provider RoleProvider Name AttendingSharon Ricardo Julie O DNAR: DNAR Status: none Activity: activity as tolerated. Diet: Dietresume normal diet Additional Orders: Additional Instructions 1. You been diagnosed with vertigo. continue meclizine 25 mg every 8 hours for dizziness and for refills please contact your primary care provider Call Provider If (Homegoing Patients): Breathing faster than normal. Breathing harder than normal or having retractions. Fever of 100.4 F (38 C) or higher. Temperature is greater than 102 degrees. Chills. Drinking less than normal. Not being able to go 4-6 hours between albuterol treatments. Urinating less than normal, over 1 day. Urinating less than 4 times per day. Acting very sleepy and difficult to awaken. Provider FINAL REVIEW of Orders: Final Review: Final Review of Medication Reconciliation and Orders Completedby Physician Reviewing ProviderSharon Rice DO at 01-May-2021 11:46:42 Appointments: Follow-Up Appointment 01: Physician/Dept/ServiceDr. Yesenia Lee Primary Care Physician Scheduled Date/[id number] 08:[id number] [place] [address] Phone [phone] CommentsPlease arrive 10-15 minutes early, bring photo ID, insurance cards, discharge summary, and a list of current medications. Please call the office if you need to change this appointment. Electronic Signatures: Sharon Ricardo () (Signed 01-May-2021 11:46) Authored: Discharge Orders, Provider FINAL REVIEW of Orders, Gold Form - Air Brake Adjuster Summary Eugenia Biggs (PT ACC REP) (Signed 01-May-2021 12:11) Authored: Discharge Orders, Appointments Last Updated: 01-May-2021 12:11 by Eugenia Biggs (PT ACC REP) Normal [facility] Laboratory - Chemistry and C hemistry - [facility] 05-01-2021 Albumin BCP dye [Mass/Vol] 3.5 g/dL 3.4 - 5.0 [facility] Work Phone: ALP [Catalytic activity/Vol] 33 U/L 33 - 110 [facility] Work Phone: ALT With P-5'-P [Catalytic activity/Vol] 9 U/L 7 - 45 [facility] [facility] Work Phone: Comment on above: Patients treated wit h Sulfasalazine may generate falsely decreased results for ALT. Anion gap [Moles/Vol] 12 mmol/L 10 - 20 [facility] [facility] Work Phone: AST With P-5'-P [Catalytic activity/Vol] 10 U/L 9 - 39 [facility] [facility] Work Phone: Bilirubin [Mass/Vol] 0.4 mg/dL 0.0 - 1.2 [facility] [facility] Work Phone: Calcium [Mass/Vol] 8.7 mg/dL 8.6 - 10.6 [facility] [facility] Work Phone: Chloride [Moles/Vol] 106 mmol/L 98 - 107 [facility] [facility] Work Phone: CO2 [Moles/Vol] 26 mmol/L 21 - 32 [facility] [facility] Work Phone: Creatinine [Mass/Vol] 0.56 mg/dL See Below [facility] [facility] Work Phone: Comment on above: Reference Range: 0.5 0 - 1.05 Glucose [Mass/Vol] 82 mg/dL 74 - 99 [facility] [facility] Work Phone: Potassium [Moles/Vol] 3.7 mmol/L 3.5 - 5.3 [facility] Work Phone: Protein [Mass/Vol] 5.6 g/dL below low threshold 6.4 - 8.2 [facility] Work Phone: Sodium [Moles/Vol] 140 mmol/L 136 - 145 [facility] [facility] Work Phone: Urea nitrogen [Mass/Vol] 10 mg/dL 6 - 23 [facility] [facility] Work Phone: No Panel Informationon 05-01 >60 >60 [facility] Work Phone: Comment on above: CALCULATIONS OF DIDIER MATED GFR ARE PERFORMED USING THE MDRD STUDY EQUATION FOR THE IDMS-TRACEABLE CREATININE METHODS. CLIN CHEM 2007;53:766-72 Order Reconciliationon 05-01 Order Reconciliation Page 1 Discharge Reconciliation Document Reconciliation Type: Discharge requested on behalf of Sharon Ricardo (Physician) done by Sharon Ricardo (DO) Discharge - Reconciliation: 01-May-2021 11:43 by: Sharon Ricardo (DO) Home Medications EnteredHOME MEDICATIONS AT DISCHARGE DateReconciliation Comment/ Additional Information albuterol 2.5 mg/3 mL (0.083%) inhalation solution 3 milliliter(s) inhaled every 6 hours, As Needed wheezing and dyspnea 30-Apr-2021 17:54 albuterol 2.5 mg/3 mL (0.083%) inhalation solution 3 milliliter(s) inhaled every 6 hours, As Needed wheezing and dyspnea 30-Apr-2021 17:54 albuterol 2.5 mg/3 mL (0.083%) inhalation solution is continued as albuterol 2.5 mg/3 mL (0.083%) inhalation solution Breo Ellipta 100 mcg-25 mcg/inh inhalation powder 1 puff(s) inhaled once a day 30-Apr-2021 17:55 Breo Ellipta 100 mcg-25 mcg/inh inhalation powder 1 puff(s) inhaled once a day 30-Apr-2021 17:55 Breo Ellipta 100 mcg-25 mcg/inh inhalation powder is continued as Breo Ellipta 100 mcg-25 mcg/inh inhalation powder Flonase 50 mcg/inh nasal spray 1 spray(s) nasal once a day 30-Apr-2021 17:56 Flonase 50 mcg/inh nasal spray 1 spray(s) nasal once a day 30-Apr-2021 17:56 Flonase 50 mcg/inh nasal spray is continued as Flonase 50 mcg/inh nasal spray montelukast 10 mg oral tablet 1 tab(s) orally once a day 30-Apr-2021 17:54 montelukast 10 mg oral tablet 1 tab(s) orally once a day 30-Apr-2021 17:54 montelukast 10 mg oral tablet is continued as montelukast 10 mg oral tablet omeprazole 20 mg oral delayed release capsule 1 cap(s) orally once a day 30-Apr-2021 17:54 omeprazole 20 mg oral delayed release capsule 1 cap(s) orally once a day 30-Apr-2021 17:54 omeprazole 20 mg oral delayed release capsule is continued as omeprazole 20 mg oral delayed release capsule Current OrdersDateHOME MEDICATIONS AT DISCHARGE DateReconciliation Comment/ Additional Information Albuterol 2.5 mg/ 3 mL Nebulizer Soln (PROVENTIL)DOSE = 3 mL Inhalation Every 6 Hours via Nebulizer, PRN Shortness of Breath 30-Apr-2021 17:56 Albuterol 2.5 mg/ 3 mL Nebulizer Soln is not required Fluticasone 250 microgram -Salmeterol 50 microgram/ Inh Powder (ADVAIR)DOSE = 1 inhalation Every 12 HoursNotes from Pharmacy: [facility] 30-Apr-2021 17:56 Fluticasone 250 microgram -Salmeterol 50 microgram/ Inh is not required Fluticasone 50 microgram/ Nasal Inhalation (FLONASE)DOSE = 1 spray(s) Each Nostril DailyNotes from Pharmacy: [facility] 30-Apr-2021 17:56 Fluticasone 50 microgram/ Nasal Inhalation is not required Lactated Ringers Infusion IV Bag Volume = 1,000 mL Run at: 75 mL/hr IntraVenous Stop After 1 Days 30-Apr-2021 17:58 Lactated Ringers Infusion is not required Meclizine Tablet (ANTIVERT, BONINE)DOSE = 25 mg Oral 3 Times a Day 30-Apr-2021 17:52 meclizine 25 mg oral tablet 1 tab(s) orally 3 times a day 01-May-2021 11:43 Prescription is created for meclizine 25 mg oral tablet Montelukast Tablet (SINGULAIR)DOSE = 10 mg Oral At Bedtime 30-Apr-2021 17:56 Montelukast is not required Ondansetron Injectable (ZOFRAN)DOSE = 4 mg IntraVenous Push Every 6 Hours, PRN Nausea and/or Vomiting 30-Apr-2021 17:57 Ondansetron Injectable is not required Pantoprazole Enteric Coated Tablet (PROTONIX)DOSE = 20 mg Oral Daily 30-Apr-2021 17:56 Pantoprazole is not required All Active Home Medications at time of Discharge Reconciliation: 01-May-2021 11:43 albuterol 2.5 mg/3 mL (0.083%) inhalation solution 3 milliliter(s) inhaled every 6 hours, As Needed wheezing and dyspnea Breo Ellipta 100 mcg-25 mcg/inh inhalation powder 1 puff(s) inhaled once a day Flonase 50 mcg/inh nasal spray 1 spray(s) nasal once a day meclizine 25 mg oral tablet 1 tab(s) orally 3 times a day montelukast 10 mg oral tablet 1 tab(s) orally once a day omeprazole 20 mg oral delayed release capsule 1 cap(s) orally once a day Normal [facility] Admission Risk Screen - Adul ton 04-30-2021 Admission Risk Screen - Adult Allergies: Allergies: No Known Allergies: Patient Verification: New W ID Band Applied in my Departmentno Type of ID Patient is WearingW wristband, but not applied here Patient Transferred from Other Facility ([facility], [facility],etc)no Patient Identity Verified Bypatient ID Band FULL Name, include Middle, spelling matches patient's ID used for verificationyes ID Band Matches Patient ID used for Verficationyes ID Band MRN Matches EMR MRNyes Visitor Restriction: Coronavirus Visitor Restriction: Reasonable restrictions to in-person visitors will be observed due to current coronavirus pandemic. Travel History: COVID-19 Screening Completedno exposure or symptoms Travel or Exposure Past 30 DaysNO travel to International locations in the past 30 days Ebola AlertFor Ebola-like Symptoms: Isolate Patient and Notify Provider/Knitting Demonstrator For Contact: Notify Provider/Knitting Demonstrator Advance Directive: Advance Directive/DNRno (1) Advance Directive Information Givenpatient/family declined [place]ena Fall Screen: History of falling (immediate or previous)no (0) Secondary Diagnosisyes (15) Intravenous Therapy/ Heparin/Saline Lockyes (20) Gait/Transferringweak (10) Ambulatory Aidsnone/bedrest/nurse assist (0) Mental Statusoriented to own ability (0) Score: Low risk (<25). Moderate risk (25-44). High risk (>44).45 Pena InterventionsHIGH INTERVENTIONS *Low and Moderate Interventions Plus: * supervised toileting at all times Family Violence Screen: Are you or have you been threatened or abused physically, emotionally, or sexually by anyoneno Do you feel UNSAFE going back to the place where you are livingno Clinical assessment: Are there any apparent signs of injuries/behaviors that could be related to abuse/neglectno Social Service Consult for abuse/neglect needed this visitno Functional Screen: Functional Screen: In the recent/past 2-4 weeks, patient or family have noticedno issues that require a speech/language consult at this time AM-PAC- Basic Mobility/Daily Activity: Patient baseline bedboundno Learning Assessment (Patient): Patient is Able to be Assessed for Learningyes Factors Influencing Readiness to Learnacuteness of illness Factors that Impact Ability to Learnnone Devices/Methods Used to Communicatenone Learning Preferencesindividual instruction Cultural Considerationsnone Developmental Considerationsnone Jehovah'S Witness Considerationsnone Learning Assessment (Other Learner): Other learner availableno Depression Screen: During the past month, have you often been bothered by feeling down, depressed or hopelessno During the past month, have you often had little interest or pleasure in doing thingsno Have you had any thoughts of harming anyone elseno (2) Bruno Suicide: Risk Screen Not Applicable/Able to Answerable to be screened In the Past Month: Have you wished you were or could go to sleep and not wake upno(2) In the Past Month: Have you had any actual thoughts of killing yourself no(2) Lifetime: Have you ever done, started to do, or prepared to do anything to end your lifeno Bruno Suicide Risknegative Adult Nutrition Screen: Have you recently lost weight without tryingno Have you been eating poorly because of a decreased appetiteno Malnutrition Screening Tool Score0 Malnutrition Screening Tool RiskMST = 0 or 1 Not at risk. Eating well with little or no weight loss Nutrition Consult needed this visitno Can Patient Participate in Room Serviceyes Patient requires Paper Dishes/Plastic Utensilsno Pain Screen: Pain Scalenumerical 0-10 Pain Scale Educationteaching provided Current Pain Level0 = None Acceptable Pain Levelunable to assess Expression of Pain (nonverbal)none Chronic Painno Spiritual Screen: Are there any cultural, spiritual, latter-day practices/values/needs that are important for us to knowno CAGE: Is this an injured patient at a Trauma Center ([facility]/[place]): no (1) Vaccinations: Vaccination - Influenza Vaccination Screen: Is it flu season (between and November 29)No Vaccination - Pneumonia Vaccination Screen: Patient has received a previous pneumonia vaccine:no/unknown... Immunocompetent persons with underlying chronic conditions or reside in industrial custodian care facilitiesnone of these conditions Persons with Functional or Anatomic Asplenianone of these conditions Immunocompromised Personsnone of these conditions Pneumonia vaccine NOT indicated due to:patient DOES NOT have a condition that indicates vaccination Chacorta: Skin - Chacorta Scale: Chacorta: Sensory Perception (response to environment)(4) no impairment Chacorta: Moisture (degree skin exposed to moisture)(3) occasionally moist Chacorta: Activity (ability to walk)(3) walks occasionally Chacorta: Mobility (amount/control of body movement)(3) slightly (more content not included)... Normal [facility] CBC AND DIFFERENTIALon 04-30 % AUTOMATED IMMATURE GRAN Canceled Normal [facility] Comment on above: Order Comment: TEST CBC AND DIFFERENTIAL WAS CANCELLED, 04/30/2021 06:30 Result Comment: Trinidad ture Granulocyte Count (IG) includes promyelocytes, myelocytes and metamyelocytes but does not include bands. Percent differential counts (%) should be interpreted in the context of the absolute cell counts (cells/L). Performed By: #### C BCDF #### [facility] [address] [place] [address] % BASOPHIL Canceled Normal [facility] Comment on above: Order Comment: TEST CBC AND DIFFERENTIAL WAS CANCELLED, 04/30/2021 06:30 Performed By: #### C BCDF #### [facility] [address] [place] [address] % EOSINOPHIL Canceled Normal [facility] Comment on above: Order Comment: TEST CBC AND DIFFERENTIAL WAS CANCELLED, 04/30/2021 06:30 Performed By: #### C BCDF #### [facility] [address] [place] [address] % LYMPHOCYTE Canceled Normal [facility] Comment on above: Order Comment: TEST CBC AND DIFFERENTIAL WAS CANCELLED, 04/30/2021 06:30 Performed By: #### C BCDF #### [facility] [address] [place] [address] % MONOCYTE Canceled Normal [facility] Comment on above: Order Comment: TEST CBC AND DIFFERENTIAL WAS CANCELLED, 04/30/2021 06:30 Performed By: #### C BCDF #### [facility] [address] [place] [address] % NEUTROPHIL Canceled Normal [facility] Comment on above: Order Comment: TEST CBC AND DIFFERENTIAL WAS CANCELLED, 04/30/2021 06:30 Performed By: #### C BCDF #### [facility] [address] [place] [address] BASOPHIL Canceled Normal [facility] Comment on above: Order Comment: TEST CBC AND DIFFERENTIAL WAS CANCELLED, 04/30/2021 06:30 Performed By: #### C BCDF #### [facility] [address] [place] [address] DIFFERENTIAL Canceled Normal [facility] Comment on above: Order Comment: TEST CBC AND DIFFERENTIAL WAS CANCELLED, 04/30/2021 06:30 Performed By: #### C BCDF #### [facility] [address] [place] [address] EOSINOPHIL Canceled Normal [facility] Comment on above: Order Comment: TEST CBC AND DIFFERENTIAL WAS CANCELLED, 04/30/2021 06:30 Performed By: #### C BCDF #### [facility] [address] [place] [address] HCT Canceled Normal [facility] Comment on above: Order Comment: TEST CBC AND DIFFERENTIAL WAS CANCELLED, 04/30/2021 06:30 Performed By: #### C BCDF #### [facility] [address] [place] [address] HGB Canceled Normal [facility] Comment on above: Order Comment: TEST CBC AND DIFFERENTIAL WAS CANCELLED, 04/30/2021 06:30 Performed By: #### C BCDF #### [facility] [address] [place] [address] LYMPHOCYTE Canceled Normal [facility] Comment on above: Order Comment: TEST CBC AND DIFFERENTIAL WAS CANCELLED, 04/30/2021 06:30 Performed By: #### C BCDF #### [facility] [address] [place] [address] MCHC Canceled Normal [facility] Comment on above: Order Comment: TEST CBC AND DIFFERENTIAL WAS CANCELLED, 04/30/2021 06:30 Performed By: #### C BCDF #### [facility] [address] [place] [address] MCV Canceled Normal [facility] Comment on above: Order Comment: TEST CBC AND DIFFERENTIAL WAS CANCELLED, 04/30/2021 06:30 Performed By: #### C BCDF #### [facility] [address] [place] [address] MONOCYTE Canceled Normal [facility] Comment on above: Order Comment: TEST CBC AND DIFFERENTIAL WAS CANCELLED, 04/30/2021 06:30 Performed By: #### C BCDF #### [facility] [address] [place] [address] NEUTROPHIL Canceled Normal [facility] Comment on above: Order Comment: TEST CBC AND DIFFERENTIAL WAS CANCELLED, 04/30/2021 06:30 Performed By: #### C BCDF #### [facility] [address] [place] [address] NUCLEATED RBC Canceled Normal [facility] Comment on above: Order Comment: TEST CBC AND DIFFERENTIAL WAS CANCELLED, 04/30/2021 06:30 Performed By: #### C BCDF #### [facility] [address] [place] [id number] PLT Canceled Normal [facility] Comment on above: Order Comment: TEST CBC AND DIFFERENTIAL WAS CANCELLED, 04/30/2021 06:30 Performed By: #### C BCDF #### [facility] [address] [place] [id number] RBC Canceled Normal [facility] Comment on above: Order Comment: TEST CBC AND DIFFERENTIAL WAS CANCELLED, 04/30/2021 06:30 Performed By: #### C BCDF #### [facility] [address] [place] [address] RDW-CV Canceled Normal [facility] Comment on above: Order Comment: TEST CBC AND DIFFERENTIAL WAS CANCELLED, 04/30/2021 06:30 Performed By: #### C BCDF #### [facility] [address] [place] [id number] WBC Canceled Normal [facility] Comment on above: Order Comment: TEST CBC AND DIFFERENTIAL WAS CANCELLED, 04/30/2021 06:30 Performed By: #### C BCDF #### [facility] [address] [place] [id number] COMPREHENSIVE PANELon 2020 ALBUMIN Canceled Normal [facility] Comment on above: Order Comment: TEST COMPREHENSIVE PANEL WAS CANCELLED, 04/30/2021 06:30 Performed By: #### C MP #### [facility] [address] [place] [address] ALKALINE PHOSPHATASE Canceled Normal [facility] Comment on above: Order Comment: TEST COMPREHENSIVE PANEL WAS CANCELLED, 04/30/2021 06:30 Performed By: #### C MP #### [facility] [address] [place] [address] ALT Canceled Normal [facility] Comment on above: Order Comment: TEST COMPREHENSIVE PANEL WAS CANCELLED, 04/30/2021 06:30 Result Comment: Ysabel ents treated with Sulfasalazine may generate falsely decreased results for ALT. Performed By: #### C MP #### [facility] [address] [place] [address] ANION GAP Canceled Normal [facility] Comment on above: Order Comment: TEST COMPREHENSIVE PANEL WAS CANCELLED, 04/30/2021 06:30 Performed By: #### C MP #### [facility] [address] [place] [address] AST Canceled Normal [facility] Comment on above: Order Comment: TEST COMPREHENSIVE PANEL WAS CANCELLED, 04/30/2021 06:30 Performed By: #### C MP #### [facility] [address] [place] [address] BICARBONATE Canceled Normal [facility] Comment on above: Order Comment: TEST COMPREHENSIVE PANEL WAS CANCELLED, 04/30/2021 06:30 Performed By: #### C MP #### [facility] [address] [place] [address] BILIRUBIN,TOTAL Canceled Normal [facility] Comment on above: Order Comment: TEST COMPREHENSIVE PANEL WAS CANCELLED, 04/30/2021 06:30 Performed By: #### C MP #### [facility] [address] [place] [address] CALCIUM Canceled Normal [facility] Comment on above: Order Comment: TEST COMPREHENSIVE PANEL WAS CANCELLED, 04/30/2021 06:30 Performed By: #### C MP #### [facility] [address] [place] [address] CHLORIDE Canceled Normal [facility] Comment on above: Order Comment: TEST COMPREHENSIVE PANEL WAS CANCELLED, 04/30/2021 06:30 Performed By: #### C MP #### [facility] [address] [place] [address] CREATININE Canceled Normal [facility] Comment on above: Order Comment: TEST COMPREHENSIVE PANEL WAS CANCELLED, 04/30/2021 06:30 Performed By: #### C MP #### [facility] [address] [place] [address] GFR- AM. Canceled Normal [facility] Comment on above: Order Comment: TEST COMPREHENSIVE PANEL WAS CANCELLED, 04/30/2021 06:30 Result Comment: CALC ULATIONS OF ESTIMATED GFR ARE PERFORMED USING THE MDRD STUDY EQUATION FOR THE IDMS-TRACEABLE CREATININE METHODS. CLIN CHEM 2007;53:766-72 Performed By: #### C MP #### [facility] [address] [place] [address] GFR-NON AM. Canceled Normal [facility] Comment on above: Order Comment: TEST COMPREHENSIVE PANEL WAS CANCELLED, 04/30/2021 06:30 Performed By: #### C MP #### [facility] [address] [place] [address] GLUCOSE Canceled Normal [facility] Comment on above: Order Comment: TEST COMPREHENSIVE PANEL WAS CANCELLED, 04/30/2021 06:30 Performed By: #### C MP #### [facility] [address] [place] [address] POTASSIUM Canceled Normal [facility] Comment on above: Order Comment: TEST COMPREHENSIVE PANEL WAS CANCELLED, 04/30/2021 06:30 Performed By: #### C MP #### [facility] [address] [place] [address] SODIUM Canceled Normal [facility] Comment on above: Order Comment: TEST COMPREHENSIVE PANEL WAS CANCELLED, 04/30/2021 06:30 Performed By: #### C MP #### [facility] [address] [place] [address] TOTAL PROTEIN Canceled Normal [facility] Comment on above: Order Comment: TEST COMPREHENSIVE PANEL WAS CANCELLED, 04/30/2021 06:30 Performed By: #### C MP #### [facility] [address] [place] [address] UREA NITROGEN Canceled Normal [facility] Comment on above: Order Comment: TEST COMPREHENSIVE PANEL WAS CANCELLED, 04/30/2021 06:30 Performed By: #### C MP #### [facility] [address] [place] [address] Consult - Neuro-Generalon Consult - Neuro-General Service: Service: Service: General Consult: Consult requested by (Attending Name): ED Reason: dizziness History of Present Illness: HPI: Trudy Flores is a 40yoF with past medical history of arthritis on methotrexate, fibromyalgia, asthma, allergies who presents with dizziness, nausea, and postural instability. Neurology was consulted for dizziness. Patient reports that she started feeling some dizziness after getting home from work Saturday 04/28. She states that she was getting out of her car when she started feeling like she was off balance. Patient reports that that evening she played a game with her family but was having trouble focusing on it due to the dizziness. She reports that she then went to bed the night of 04/28 and woke up with worsening dizziness Sunday 04/29. She describes feeling imbalanced and reports that she wasn't steady on her feet so they took her to OSH for evaluation. At OSH patient received a CT Head without contrast which showed no acute intracranial process and was transferred here for MRI to rule out cerebellar infarct. Patient arrived in ED and MRI/MRA was obtained. On evaluation this afternoon patient continued to endorse dizziness, worsened when she looks down. She describes her dizziness as the room spinning. She endorses nausea and feeling close to vomiting but denies vomiting. She also endorses mild headache worsening in the frontal aspect of her head. Patient endorses a history of migraines but denies ever having dizziness with them. Regarding any recent changes, patient endorses that she has been taking methotrexate for 2-2.5 months for her arthritis which is being followed by Dr. Mac. She reports that her dose was recently increased but unable to state dose amount. Patient states that she takes her methotrexate once a week usually on Fridays and is unsure if she took her dose this past Friday. She denies fever, chills, loss of vision, chest pain, palpitations, loss of consciousness, or fall. ROS otherwise negative. 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 , has 3 children (13, 15, 19) and two cats. Denies drugs, alcohol, and tobacco. Allergies: No Known Allergies: Objective: Objective Information: T PRBPSpO2 [id number]% Date/Time04/30 6: 14: 14: 14: 14:00 Range(37C - 37C ) (78 - 99 ) (13 - 18 ) (108 - 120 )/ (63 - 82 ) (78% - 99% ) Highest temp of 37 C was recorded at 04/30 6:28 General Neurology: General Neurology Extensive Exam: GENERAL APPEARANCE: No distress, alert, interactive and cooperative. CARDIOVASCULAR: Regular, rate and rhythm, no murmurs, normal S1 and S2. Carotid pulses intact without any bruits. Pulses +2 and equal in all extremities. No swelling, varicosities, edema, or tenderness to palpation. MENTAL STATE: Orientation was normal to time, place and person. Recent and remote memory was intact. Attention span and concentration were normal. General fund of knowledge was intact. OPHTHALMOSCOPIC: Deferred due to coronavirus pandemic CRANIAL NERVES: Cranial nerves were normal. CN 2 Visual Acuity OD: 20/20 (corrected) OS: 20/20 (corrected); visual miranda full to confrontation. CN 3, 4, 6 Pupils round, 4 mm in diameter, equally reactive to light. Lids symmetric; no ptosis. EOMs normal alignment, full range with normal saccades, pursuit and convergence. No nystagmus. CN 5 Facial sensation intact bilaterally. Normal corneal reflexes. CN 7 Normal and symmetric facial strength. Nasolabial folds symmetric. CN 8 Hearing intact to finger rub and tuning fork. CN 9 Palate elevates symmetrically. Normal gag reflex. CN 11 Normal strength of shoulder shrug and neck turning. CN 12 Tongue midline, with normal bulk and strength; no fasciculations. MOTOR: Motor exam was normal. Muscle bulk and tone were normal in both upper and lower extremities. Muscle strength was 5/5 in distal and proximal muscles in both upper and lower extremities. No fasciculations, tremor or other abnormal movements were present. REFLEXES: Reflexes were normal. RIGHT UE LEFT UE BR:2 BR:2 Biceps:2 Biceps:2 Triceps:2 Triceps:2 RIGHT LLE LEFT LLE Knee:2 Knee:2 Ankle:2 Ankle:2 Babinski: toes downgoing to plantar stimulation. No clonus, frontal release signs or other pathologic reflexes present. SENSORY: Sensory exam was normal. In both upper and lower extremities, sensation was intact to light touch; sharp/dull, vibration and joint position sense. COORDINATION: Coordination exam was normal. In both upper ex (more content not included)... Normal [facility] Discharge Planning [id number] 04-30-2021 Discharge Planning Note2 Discharge Planning: Needs Prior to Discharge (ex. Home Care Orders, IV/O2 prescriptions) f/u appts Anticipated Discharge [id number] Discharge Planning 04/30/2021- Admission Pt admitted with chief complaint of dizziness. Pt. ambulatory upon admission with a x1 assist. Pt. at the bedside with belongings (clothing, cell phone)... No medications brought to the hospital. Pt. alert and oriented x4. Anticipated dispo back home when medically cleared. Shira Ac RN 05/01/21: Discharge Planning Note: 1429 Patient remained safe and stable. VS remained stable. Patient had no complain of pain. Patient had no significant event during the shift. Patient currently discharged home. IV removed. Tele monitor discontinued. Patient was given a copy of the discharged instruction. Patient was also given her medication script. Patient was reminded to follow up with her appointment and take her meds as prescribed. Patient was picked up by her . Patient left with all her belongings. Deysi Pierre RN Assessment: Discharge Planning Assessment [id number] Discharge Planning Assessment Completed bySiobhan Bateman RNchip washer Coordinator Primary Contact Name and NumberJoshua (spouse)-[phone] Prior Level of Functioningindependent with ADLS Lives Withspouse; dependent child(destin); and 13 and 15 y.o kids Living [facility](1) Stated Reason for AdmissionDizziness(1) Arrived Fromemergency department (1) Abbi Lee [facility] [place] Recent Falls/ Injury/ Need Assist with Ambulationdenies Equipment Currently Used at HomeN/A DME Supplier Name/NumberN/A Home Care Agency/Support ServicesN/A Diabetic/Supplies NeededN/A Hemodialysis ScheduleN/A Resource/Environmental Concernsnone(1) Anticipated Transition [place](1) Services Anticipated at Transitionnone(1) InsuranceAnthem HMP Equipment Needed After Dischargenone Anticipated Discharge Facility/Level of Care NeedsHome Discharge Planning CommentsPt has transportation to medical appointments, feels safe at home. Address, phone and emergency contact information verified. Oupt PT list given to pt. All questions and concerns answered. Will continue to follow for discharge needs. Siobhan Bateman, chip washer Coordinator Social Determinants of Health Identifieddenies Transportation Home Who/Howspouse Medication Adherence/Afford/Obtainyes Home O2/BiPAP/CPAPnebulizer machine at home O2 LPMN/A Home O2 SupplierN/A Electronic Signatures: Shira Ac (RN) (Signed 30-Apr-2021 18:52) Authored: Discharge Planning, Assessment Siobhan Bateman (CLIN COOR) (Signed 02-May-2021 15:09) Authored: Discharge Planning, Assessment Chelsey Pierre (ISABEL) (Signed 01-May-2021 14:30) Authored: Discharge Planning Last Updated: 02-May-2021 15:09 by Siobhan Bateman (CLIN COOR) References: 1. Data Referenced From Patient Profile - Adult v2 30-Apr-2021 18:48 Normal [facility] MRA Head without Contraston 04-30-2021 MRA Head vessels WO contrast Normal [facility] Work Phone: MRA Neck without Contraston 04-30-2021 MRA Neck vessels WO contrast Normal [facility] Work Phone: MRI Brain without Contraston 04-30-2021 MR Brain WO contrast Normal [facility] Work Phone: NR MRA HEAD W/O Con 04-30-20 21 NR MRA HEAD W/O C Patient Name: TRUDY FLORES STUDY: MRI BRAIN WO; MRA HEAD W/O C; MRA NECK WO.C; 04/30/2021 8:00 am INDICATION: atazia/dizziness, concern for cerebellar stroke, Lie Flat: Yes, Pre Med: No; dizziness/ataxia concern for cerebellar stroke, Lie Flat: Yes, Pre Med: No, O2: No; Ataxia/dizziness concern for cerebellar stroke, Lie Flat: Yes, Pre Med: No. Stroke protocol. COMPARISON: Head CT 04/29/2021 ACCESSION NUMBER(S): [id number]; [id number]; [id number] ORDERING CLINICIAN: HAYES CHAIREZ TECHNIQUE: Axial T2, FLAIR, DWI, gradient echo T2 and sagittal and coronal T1 weighted images of brain were acquired. [id number] MRA of the head and neck was performed. The images were reviewed as source images and maximum intensity projections. Carotid stenoses were determined using modified NASCET criteria. FINDINGS: Brain: CSF Spaces: The ventricles and sulci are normal, unchanged. Parenchyma: No acute infarct is noted on the diffusion images. The white matter has a few scattered focal FLAIR hyperintensities mostly in the frontal lobes and along the external capsules. No hemorrhage or mass is noted. Paranasal Sinuses and Mastoids: The maxillary sinuses have retention cysts bilaterally. The mastoid air cells are normally aerated. MRA of head: Anterior circulation: There is expected flow signal in bilateral intracranial internal carotid arteries, bilateral carotid terminals, bilateral proximal anterior and middle cerebral arteries. Posterior circulation: Bilateral intracranial vertebral arteries, vertebrobasilar junction, basilar artery and proximal posterior cerebral arteries demonstrate expected flow signal. MRA of neck: The source images are mildly degraded by artifact. Right carotid vessels: There is expected flow signal in the visualized portion of the common carotid artery. There is mild attenuation of flow signal at the carotid bifurcation which may be secondary to flow related artifact. The internal carotid artery in the neck demonstrates expected flow signal. There is 0% stenosis . Left carotid vessels: There is expected flow signal in the visualized portion of the common carotid artery. There is mild attenuation of flow signal at the carotid bifurcation which may be secondary to flow related artifact. The internal carotid artery in the neck demonstrates expected flow signal. There is 0% stenosis . Vertebral vessels: The visualized segments of the cervical vertebral arteries demonstrate expected flow signal. IMPRESSION: MRI Brain: No acute infarct, hemorrhage or mass is noted. The white matter has a few focal FLAIR hyperintensities which may be secondary to migraine, hypertension, demyelinating, degenerative, chronic microvascular ischemic or other etiologies. MRA: 1. Normal cerebral MR angiogram. 2. Normal cervical carotid/vertebral MR angiogram. Electronically signed by: ECTOR GALVEZ MD Normal [facility] NR MRA NECK WO.Con NR MRA NECK WO.C Patient Name: TRUDY FLORES STUDY: MRI BRAIN WO; MRA HEAD W/O C; MRA NECK WO.C; 04/30/2021 8:00 am INDICATION: atazia/dizziness, concern for cerebellar stroke, Lie Flat: Yes, Pre Med: No; dizziness/ataxia concern for cerebellar stroke, Lie Flat: Yes, Pre Med: No, O2: No; Ataxia/dizziness concern for cerebellar stroke, Lie Flat: Yes, Pre Med: No. Stroke protocol. COMPARISON: Head CT 04/29/2021 ACCESSION NUMBER(S): [id number]; [id number]; [id number] ORDERING CLINICIAN: HAYES CHAIREZ TECHNIQUE: Axial T2, FLAIR, DWI, gradient echo T2 and sagittal and coronal T1 weighted images of brain were acquired. [id number] MRA of the head and neck was performed. The images were reviewed as source images and maximum intensity projections. Carotid stenoses were determined using modified NASCET criteria. FINDINGS: Brain: CSF Spaces: The ventricles and sulci are normal, unchanged. Parenchyma: No acute infarct is noted on the diffusion images. The white matter has a few scattered focal FLAIR hyperintensities mostly in the frontal lobes and along the external capsules. No hemorrhage or mass is noted. Paranasal Sinuses and Mastoids: The maxillary sinuses have retention cysts bilaterally. The mastoid air cells are normally aerated. MRA of head: Anterior circulation: There is expected flow signal in bilateral intracranial internal carotid arteries, bilateral carotid terminals, bilateral proximal anterior and middle cerebral arteries. Posterior circulation: Bilateral intracranial vertebral arteries, vertebrobasilar junction, basilar artery and proximal posterior cerebral arteries demonstrate expected flow signal. MRA of neck: The source images are mildly degraded by artifact. Right carotid vessels: There is expected flow signal in the visualized portion of the common carotid artery. There is mild attenuation of flow signal at the carotid bifurcation which may be secondary to flow related artifact. The internal carotid artery in the neck demonstrates expected flow signal. There is 0% stenosis . Left carotid vessels: There is expected flow signal in the visualized portion of the common carotid artery. There is mild attenuation of flow signal at the carotid bifurcation which may be secondary to flow related artifact. The internal carotid artery in the neck demonstrates expected flow signal. There is 0% stenosis . Vertebral vessels: The visualized segments of the cervical vertebral arteries demonstrate expected flow signal. IMPRESSION: MRI Brain: No acute infarct, hemorrhage or mass is noted. The white matter has a few focal FLAIR hyperintensities which may be secondary to migraine, hypertension, demyelinating, degenerative, chronic microvascular ischemic or other etiologies. MRA: 1. Normal cerebral MR angiogram. 2. Normal cervical carotid/vertebral MR angiogram. Electronically signed by: ECTOR GALVEZ MD Normal [facility] NR MRI BRAIN WOon 04-30-2021 NR MRI BRAIN WO Patient Name: TRUDY FLORES STUDY: MRI BRAIN WO; MRA HEAD W/O C; MRA NECK WO.C; 04/30/2021 8:00 am INDICATION: atazia/dizziness, concern for cerebellar stroke, Lie Flat: Yes, Pre Med: No; dizziness/ataxia concern for cerebellar stroke, Lie Flat: Yes, Pre Med: No, O2: No; Ataxia/dizziness concern for cerebellar stroke, Lie Flat: Yes, Pre Med: No. Stroke protocol. COMPARISON: Head CT 04/29/2021 ACCESSION NUMBER(S): [id number]; [id number]; [id number] ORDERING CLINICIAN: HAYES CHAIREZ TECHNIQUE: Axial T2, FLAIR, DWI, gradient echo T2 and sagittal and coronal T1 weighted images of brain were acquired. [id number] MRA of the head and neck was performed. The images were reviewed as source images and maximum intensity projections. Carotid stenoses were determined using modified NASCET criteria. FINDINGS: Brain: CSF Spaces: The ventricles and sulci are normal, unchanged. Parenchyma: No acute infarct is noted on the diffusion images. The white matter has a few scattered focal FLAIR hyperintensities mostly in the frontal lobes and along the external capsules. No hemorrhage or mass is noted. Paranasal Sinuses and Mastoids: The maxillary sinuses have retention cysts bilaterally. The mastoid air cells are normally aerated. MRA of head: Anterior circulation: There is expected flow signal in bilateral intracranial internal carotid arteries, bilateral carotid terminals, bilateral proximal anterior and middle cerebral arteries. Posterior circulation: Bilateral intracranial vertebral arteries, vertebrobasilar junction, basilar artery and proximal posterior cerebral arteries demonstrate expected flow signal. MRA of neck: The source images are mildly degraded by artifact. Right carotid vessels: There is expected flow signal in the visualized portion of the common carotid artery. There is mild attenuation of flow signal at the carotid bifurcation which may be secondary to flow related artifact. The internal carotid artery in the neck demonstrates expected flow signal. There is 0% stenosis . Left carotid vessels: There is expected flow signal in the visualized portion of the common carotid artery. There is mild attenuation of flow signal at the carotid bifurcation which may be secondary to flow related artifact. The internal carotid artery in the neck demonstrates expected flow signal. There is 0% stenosis . Vertebral vessels: The visualized segments of the cervical vertebral arteries demonstrate expected flow signal. IMPRESSION: MRI Brain: No acute infarct, hemorrhage or mass is noted. The white matter has a few focal FLAIR hyperintensities which may be secondary to migraine, hypertension, demyelinating, degenerative, chronic microvascular ischemic or other etiologies. MRA: 1. Normal cerebral MR angiogram. 2. Normal cervical carotid/vertebral MR angiogram. Electronically signed by: ECTOR GALVEZ MD Normal [facility] Order Reconciliationon 04-30 Order Reconciliation Page 1 Admission Reconciliation Document Reconciliation Type: Admission requested on behalf of Sharon Ricardo (Physician) done by Sharon Ricardo (DO) Admission - Reconciliation: 30-Apr-2021 17:50 by: Sharon Ricardo () Admission - Reset to Incomplete: 30-Apr-2021 17:53 by: Sharon Ricardo () Admission - Reconciliation: 30-Apr-2021 17:56 by: Sharon Ricardo () Home MedicationsEnteredLast Dose TakenReconciled with current Order Reconciliation Comment/ Additional Information albuterol 2.5 mg/3 mL (0.083%) inhalation solution 3 milliliter(s) inhaled every 6 hours, As Needed wheezing and dyspnea 30-Apr-2021 Albuterol 2.5 mg/ 3 mL Nebulizer Soln (PROVENTIL)DOSE = 3 mL Inhalation Every 6 Hours via Nebulizer, PRN Shortness of Breathalbuterol 2.5 mg/3 mL (0.083%) inhalation solution continued as the inpatient order Albuterol 2.5 mg/ 3 mL Nebulizer Soln Breo Ellipta 100 mcg-25 mcg/inh inhalation powder 1 puff(s) inhaled once a day 30-Apr-2021 Fluticasone 250 microgram -Salmeterol 50 microgram/ Inh Powder (ADVAIR)DOSE = 1 inhalation Every 12 HoursBreo Ellipta 100 mcg-25 mcg/inh inhalation powder continued as the inpatient order Fluticasone 250 microgram -Salmeterol 50 microgram/ Inh Flonase 50 mcg/inh nasal spray 1 spray(s) nasal once a [id number] Fluticasone 50 microgram/ Nasal Inhalation (FLONASE)DOSE = 1 spray(s) Each Nostril DailyFlonase 50 mcg/inh nasal spray continued as the inpatient order Fluticasone 50 microgram/ Nasal Inhalation montelukast 10 mg oral tablet 1 tab(s) orally once a [id number] Montelukast Tablet (SINGULAIR)DOSE = 10 mg Oral At Bedtimemontelukast 10 mg oral tablet continued as the inpatient order Montelukast omeprazole 20 mg oral delayed release capsule 1 cap(s) orally once a day 30-Apr-2021 Pantoprazole Enteric Coated Tablet (PROTONIX)DOSE = 20 mg Oral Dailyomeprazole 20 mg oral delayed release capsule continued as the inpatient order Pantoprazole Additional Current Orders Ketorolac Injectable (TORADOL)DOSE = 15 mg IntraVenous Push Once Meclizine Tablet (ANTIVERT, BONINE)DOSE = 25 mg Oral 3 Times a Day Prochlorperazine Injectable (COMPAZINE)DOSE = 10 mg IntraVenous Push Once Sodium Chloride 0.9% IV Bolus DOSE = 1,000 mL OnceInfuse over 1 hour(s) Normal [facility] PT/INRon 04-30-2021 PROTHROMBIN TIME Canceled Normal [facility] Comment on above: Order Comment: COVID CALLED TO BINH PARKS, 05/10/2021 11:23 Performed By: #### C OV19 #### [facility] [id number] [place] [id number] PT, INR Canceled Normal [facility] Comment on above: Order Comment: COVID CALLED TO BINH PARKS, 05/10/2021 11:23 Performed By: #### C OV19 #### [facility] [id number] [place] [address] Patient Profile - Adult v2on 04-30-2021 Patient Profile - Adult v2 Profile: Initial Info: How to be AddressedMiranda Spoken Language PreferredEnglish Stated Reason for AdmissionDizziness Wants Family/Rep Notified of Admissionn/a; family present Notify PCPnotify PCP Informed of Patient Visiting Rightsyes Arrived Fromemergency department Patient Belongingsremains with patient Patient Belongings Remaining with Patientcell phone/electronics Medications Brought to Hospitalno General Health: Weight in kg70 kilogram(s)(1) Weight in ylu801.3 pound(s) Weight Methodactual (measured) Scale Typebed Height in cm147.3 centimeter(s) Height in feet4 feet(1) Height in dctvof53 inch(es)(1) Height Methodstated BMI (kg/m2)32.262 square meter RSP Based Care: How would you like to participate in your careKeep me informed What is the number one concern for you during this hospitalizationHaving a solution to my vertigo What is the most important thing we can do to support you during this hospitalizationKeep me informed Is there anything we need to know to best care for Ryan/A Substance: Smoking Statusnever smoker (2) Alcohol Usedenies(2) Drug Usedenies (2) Health Mgmt: Symptoms/Conditions Managed at HomeAsthma- PRN breathing treatments, inhalers Allergies- daily Claritin GERD- Prilosec Are You no (3) Are You Currently Breastfeedingno (3) Relationship/Environ: Resource/Environmental Concernsnone Primary Source of Support/Comfortspouse Lives Withspouse Living Arrangementshouse Services Anticipated at Transitionnone Anticipated Transition Tohome Significant IndicatorsComplete Information Review: Allergies, Home Meds and Significant Events have been Reviewed and Verified with Patient/Familyyes ALLERGY, INTOLERANCE, ADVERSE EVENT: Allergies: No Known Allergies: Active Electronic Signatures: Shira Ac (ISABEL) (Signed 30-Apr-2021 18:51) Authored: Initial Info, General Health, RSP Based Care, Substance, Health Mgmt, Relationship/Environ, Additional Information Last Updated: 30-Apr-2021 18:51 by Shira Ac (ISABEL) References: 1. Data Referenced From 1. Vital Signs 30-Apr-2021 06:28 2. Data Referenced From Risk Screen - Adult Emergency 30-Apr-2021 07:03 3. Data Referenced From MRI Safety Screen v2 30-Apr-2021 06:40 Normal [facility] Provider Note - ED Care Fam sitionon 04-30-2021 Provider Note - ED Care Transition This report has been cancelled. Normal [facility] Provider Note - ED Care Transition ED Care Transition: Chart Review: ED NOTES ED NOTES: Signout is a 40-year-old female with no significant past medical history who presented as a transfer from outside hospital for an MRI in the setting of dizziness ataxia nausea and vomiting. Patient with no history of this previously. Concern for potential basilar stroke. MRI is ordered and pending. Recommended follow-up on the MRIs, reassess. MRIs reviewed, no evidence of posterior stroke. Flair hyperintensities appreciated with a broad differential. Patient given oral Valium, reported subjective improvement. Neurology evaluates and believes is likely benign vertigo. Hospitalized on medicine service for symptomatic control of her dizziness, unable to walk secondary to dizziness. In light of this will seek hospitalization for symptomatic control. CLINICAL IMPRESSION Diagnosis/Annotation: ED Dx Name:Dizziness Code:R42 Disposition: hospitalized ATTESTATION Attestation: I saw and evaluated the patient. I personally obtained the long and critical portions of the history and physical exam or was physically present for long and critical portions performed by the resident/fellow. I reviewed the resident/fellows documentation and discussed the patient with the resident/fellow. I agree with the resident/fellows medical decision making as documented in the residents note CRITICAL CARE TIME Is this a critically ill patient: no Electronic Signatures: Victorino Naranjo) (Signed 03-May-2021 06:54) Authored: ED Notes, Attestation, Chart Review Co-Signer: ED Notes, Clinical Impression, Attestation, Chart Review Adonis Avila ( (Resident)) (Signed 30-Apr-2021 18:11) Authored: ED Notes, Clinical Impression, Attestation, Chart Review, Scores Last Updated: 03-May-2021 06:54 by Victorino Naranjo) [facility] Provider Note - ED v3on 08-3 Provider Note - ED v3 Provider Note: Chart Review: ED NOTES ED NOTES: HPI: -This is a 40-year-old female with past medical history arthritis, fibromyalgia, asthma, allergiespresenting to the emergency department as a transfer from outside hospital for MRI in the setting of dizziness, ataxia, nausea and vomiting for several days. Outside hospital did not have MRI capabilities and there was concern for potential basilar stroke. On arrival patient still endorsing some mild nausea and dizziness described as the room spinning. Denies additional symptoms including headaches, vision changes, chest pain, shortness of breath, back pain, abdominal pain. ROS: A complete review of systems was performed and is otherwise negative except as noted in HPI PMH/PSH: Per HPI, EMR FH: Noncontributory SH: Denies etoh, tobacco, illicts Allergies: Per EMR Medications: Per EMR, listed below PE: Vital signs reviewed in nursing triage note, EMR flow sheets, and at patient's bedside. GEN: well appearing, no acute distress HEAD: atraumatic EYES: EOMI, PEERL, no scleral icterus CVS/CHEST: reg rate, nl rhythm, no murmurs/gallops/rubs PULM: CTAB b/l no wheezes, crackles, or rhonchi GI: NT/ND, no masses or organomegaly, soft, no guarding EXT: no LE edema, 2+ periph pulses in bilat radial and DP NEURO: CN 3-12 grossly intact, no focal deficits, no facial asymmetry, moving all extremities, 5/5 strength and sensation intact in all extremities, finger/nose and heel/ko testing unremarkable, gait unsteady without ataxia SKIN: warm, dry, no rashes or ulcerations PSYCH: AAOx3 answers questions appropriately ED Course/Treatment/MDM: Results: *See section(s) entitled 'Lab Results' and 'Diagnostic Imaging Results Review' for entirety. Notable results listed below MDM - -This is a 40-year-old female with past medical history arthritis, fibromyalgia, asthma, allergiespresenting to the emergency department as a transfer from outside hospital for MRI in the setting of dizziness, ataxia, nausea and vomiting for several days. Patient hemodynamically stable upon presentation to the emergency department, no acute distress and vitals are unremarkable. Initial neuro exam without any focal deficits and was largely unremarkable other than unsteady gait. MRI was ordered. Patient was signed out to oncoming provider pending MRI with plans for neurology consult. Patient otherwise remained stable throughout her time in the emergency department. Clinical Impression: *See section entitled ``Diagnoses/Visit Problems nausea/vomiting/unsteady gait Dispo - signed out to oncoming provider I reviewed the patient's case with the ED physician who also saw the patient and agrees with the plan. *Disclaimer: This note was dictated by speech recognition. Minor errors in office manager executive assistant may be present. Please call with questions. Hayes Chairez MD PGY-3 Emergency Medicine HISTORY OF PRESENTING ILLNESS TRUDY is a 40 year old Female and was seen by me at 30-Apr-2021 06:25 for a chief complaint of nausea . Other complaints include: pt was seen at [address] nausea x 3 days and postural instability =. CT scan show a possible cerebellar CVA and pt was sent here for an MRI. pt c/o CARVAJAL and dizziness at this time. . Triage Information: Most recent Vital Sign Value Date Temp (F): 98.6 04-30-2021 06:28 Temp (C): 37 04-30-2021 06:28 Heart Rate (beats/min): 83 04-30-2021 06:28 Respirations (breaths/min): 18 04-30-2021 06:28 SpO2 (%): 98 04-30-2021 06:28 BP Systolic (mm Hg): 120 04-30-2021 06:28 BP Diastolic (mm Hg): 82 04-30-2021 06:28 PAST MEDICAL HISTORY ALLERGIES/INTOLERANCES: No Known Allergies HEALTH HISTORY: No documented data. OUTPATIENT MEDICATIONS: Home Medications Review Status for Reconciliation: Not Done Med Status: Patient Currently Takes Medications Drug Name: albuterol 2.5 mg/3 mL (0.083%) inhalation solution Instructions: 3 milliliter(s) inhaled every 6 hours, As Needed wheezing and dyspnea Drug Name: montelukast 10 mg oral tablet Instructions: 1 tab(s) orally once a day Drug Name: omeprazole 20 mg oral delayed release capsule Instructions: 1 cap(s) orally once a day Drug Name: Breo Ellipta 100 mcg-25 mcg/inh inhalation powder Instructions: 1 puff(s) inhaled once a day Drug Name: Flonase 50 mcg/inh nasal spray Instructions: 1 spray(s) nasal once a day Drug Name: meclizine 25 mg oral tablet Instructions: 1 tab(s) orally 3 times a day SIGNIFICANT EVENTS: No documented data. MDM MDM/ED COURSE: Discussed Findings with: patient and family Data Reviewed: vital signs, nurses notes and outside studies Awaiting: MRI results DISPOSITION Diagnosis/Annotation: ED Dx Name:Dizziness Code:R42 Name:Ataxia Code:R27.0 Disposition: HANDOFF Signed out to Incoming Provider: Adonis Avila Condition on Disposition: stable (more content not included)... Normal [facility] Risk Screen - Adult Emergenc yon 04-30-2021 Risk Screen - Adult Emergency Preferred Language: Preferred Language: Preferred Language for Discussing Health Care (patient/designee)Rw[place]an Advanced Directives: Advance Directive/DNRno Family Violence Adult: Abuse Screen: Are you or have you been threatened or abused physically, emotionally, or sexually by anyoneno Learning Assessment (Patient): Learning Assessment (Patient): Patient is Able to be Assessed for Learningyes Factors Influencing Readiness to Learnacuteness of illness Factors that Impact Ability to Learnnone Devices/Methods Used to Communicatenone Learning Preferencesaudio Cultural Considerationsnone Developmental Considerationsnone Jehovah'S Witness Considerationsnone Learning Assessment (Other Learner): Learning Assessment (Other Learner): Other learner availableno Pressure Injury/TB/Substance: Pressure Injury: Do you have a coughno Smoking Statusnever smoker (1) Alcohol Usedenies(1) Drug Usedenies (1) Admission Risk Screen: Significant IndicatorsComplete CAGE: CAGE: Is this an injured patient at a Trauma Center ([facility]/[place]): no Electronic Signatures: Buddy Pierre (RN) (Signed 30-Apr-2021 07:03) Authored: Preferred Language, Advanced Directives, Family Violence Adult, Learning Assessment (Patient), Learning Assessment (Other Learner), Pressure Injury/TB/Substance, Pressure Injury, CAGE Last Updated: 30-Apr-2021 07:03 by Buddy Pierre (ISABEL) References: 1. Data Referenced From Risk Screen - Adult Emergency 29-Apr-2021 14:34 Normal [facility] CT Head without Contraston 0 04-29-2021 CT Head limited WO contrast Normal [facility] Work Phone: Complete Blood Count + Diffe rentialon 04-29-2021 Basophils/100 WBC (Bld) 1.2 % 0.0 - 2.0 [facility] Work Phone: Erythrocyte distribution width (RBC) [Ratio] 14.7 % above high threshold See Below [facility] Work Phone: Comment on above: Reference Range: 11. 5 - 14.5 Hematocrit (Bld) [Volume fraction] 39.4 % See Below [facility] Work Phone: Comment on above: Reference Range: 36. 0 - 46.0 Hemoglobin (Bld) [Mass/Vol] 13.0 g/dL See Below [facility] [facility] Work Phone: Comment on above: Reference Range: 12. 0 - 16.0 Lymphocytes/100 WBC (Bld) 26.3 % See Below [facility] [facility] Work Phone: Comment on above: Reference Range: 13. 0 - 44.0 MCHC (RBC) [Mass/Vol] 32.9 g/dL See Below [facility] [facility] Work Phone: Comment on above: Reference Range: 32. 0 - 36.0 MCV (RBC) [Entitic vol] 93 fL 80 - 100 [facility] Work Phone: Monocytes/100 WBC (Bld) 4.4 % 2.0 - 10.0 [facility] Work Phone: Neutrophils/100 WBC (Bld) 66.6 % See Below [facility] [facility] Work Phone: Comment on above: Reference Range: 40. 0 - 80.0 Platelets (Bld) [#/Vol] 341 10*3/uL 150 - 450 [facility] Work Phone: RBC (Bld) [#/Vol] 4.23 {x10E12/L} See Below [facility] Work Phone: Comment on above: Reference Range: 4.0 0 - 5.20 WBC (Bld) [#/Vol] 6.1 10*3/uL 4.4 - 11.3 [facility] Work Phone: Complete Blood Count + Differential 0.10 {x10E9/L} See Below [facility] [employer] [facility] Work Phone: Comment on above: Reference Range: 0.0 0 - 0.10 Reference Range: 0.0 0 - 0.70 Complete Blood Count + Differential 0.30 {x10E9/L} See Below [facility] Work Phone: Comment on above: Reference Range: 0.1 0 - 1.00 Complete Blood Count + Differential 1.60 {x10E9/L} See Below [facility] [employer] [facility] Work Phone: Comment on above: Reference Range: 1.2 0 - 4.80 Complete Blood Count + Differential 4.10 {x10E9/L} See Below [facility] [employer] [facility] Work Phone: Comment on above: Reference Range: 1.2 0 - 7.70 Percent differential counts (%) should be interpreted in the context of the absolute cell counts (cells/L). Complete Blood Count + Differential 1.5 % 0.0 - 6.0 [facility] [employer] [facility] Work Phone: Coronavirus 2019 RNA by PCR, Symptomaticon 04-29-2021 Coronavirus 2019 RNA by PCR, Symptomatic Not detected Normal See Below [facility] [employer] [facility] Work Phone: Comment on above: SOURCE: Nasal, Nasop haryngealReference Range: Not Detected.This test has received FDA Emergency Use Authorization (EUA) and has been verified by [facility]. This test is only authorized for the duration of time that circumstances exist to justify the authorization of the emergency use of in vitro diagnostic tests for the detection of SARS-CoV-2 virus and/or diagnosis of COVID-19 infection under section 564(b)(1) of the Act, 21 U.S.C. 360bbb-3(b)(1), unless the authorization is terminated or revoked sooner. [facility] is certified under CLIA-88 as qualified to perform high complexity testing. Testing is performed in the [facility] laboratory located at [address] [place] [address].SARS-CoV-2/Flu/RSV Multiplex Test: Fact sheet for providers: https://www.fda.gov/media/674746/downloadFact sheet for patients: https://www.fda.gov/media/194612/download Laboratory - Chemistry and C hemistry - challengeon 04-29-2021 Anion gap [Moles/Vol] 8 mmol/L below low threshold 10 - 20 [facility] Work Phone: Calcium [Mass/Vol] 8.9 mg/dL 8.6 - 10.3 [facility] Work Phone: Chloride [Moles/Vol] 106 mmol/L 98 - 107 [facility] Work Phone: CO2 [Moles/Vol] 27 mmol/L 21 - 32 [facility] Work Phone: Creatinine [Mass/Vol] 0.63 mg/dL See Below [facility] Work Phone: Comment on above: Reference Range: 0.5 0 - 1.05 Glucose [Mass/Vol] 108 mg/dL above high threshold 74 - 99 [facility] Work Phone: Potassium [Moles/Vol] 3.4 mmol/L below low threshold 3.5 - 5.3 [facility] Work Phone: Sodium [Moles/Vol] 138 mmol/L 136 - 145 [facility] Work Phone: Urea nitrogen [Mass/Vol] 10 mg/dL 6 - 23 [facility] Work Phone: Laboratory - Drug toxicology on 04-29-2021 Amphetamines Screen Ql (U) Negative NEGATIVE [facility] Work Phone: Comment on above: CUTOFF LEVEL: 500 NG /ML Cross-reactivity has been reported with high concentrations of the following drugs: buproprion, chloroquine, chlorpromazine, ephedrine, mephentermine, fenfluramine, phentermine, phenylpropanolamine, pseudoephedrine, and propranolol. Barbiturates Screen Ql (U) Negative NEGATIVE [facility] Work Phone: Comment on above: CUTOFF LEVEL: 200 NG /ML Benzodiazepines Ql (U) Negative NEGATIVE [facility] Work Phone: Comment on above: CUTOFF LEVEL: 200 NG /ML Benzoylecgonine Screen Ql (U) Negative NEGATIVE [facility] Work Phone: Comment on above: CUTOFF LEVEL: 150 NG /ML Cannabinoids Screen Ql (U) Negative NEGATIVE [facility] Work Phone: Comment on above: CUTOFF LEVEL: 50 NG/ ML Methadone Screen Ql (U) Negative NEGATIVE [facility] Work Phone: Comment on above: CUTOFF LEVEL: 150 NG /ML The metabolite P-yrhqm-ewpdrjeqiadohq (LAAM) is not detected by this method in concentrations that would be found in the urine of patients on LAAM therapy. Opiates Screen Ql (U) Negative NEGATIVE [facility] [facility] Work Phone: Comment on above: CUTOFF LEVEL: 300 NG /ML The opiate screen does not detect fentanyl, meperidine, or tramadol. Oxycodone is not consistently detected (refer to Oxycodone Screen, Urine result). oxyCODONE+oxyMORphone Screen Ql (U) Negative NEGATIVE [facility] Work Phone: Comment on above: CUTOFF LEVEL: 100 NG /ML This test will accurately detect both oxycodone and oxymorphone. Phencyclidine Ql (U) Negative NEGATIVE [facility] Work Phone: Comment on above: CUTOFF LEVEL: 25 NG/ ML Cross-reactivity has been reported with dextromethorphan. Magnesium, Serumon 1 Magnesium [Mass/Vol] 2.04 mg/dL See Below [facility] Work Phone: Comment on above: Reference Range: 1.6 0 - 2.40 No Panel Informationon 04-29 >60 >60 [facility] Work Phone: Comment on above: CALCULATIONS OF DIDIER MATED GFR ARE PERFORMED USING THE MDRD STUDY EQUATION FOR THE IDMS-TRACEABLE CREATININE METHODS. CLIN CHEM 2007;53:766-72 [email or web address]?[email or web address] eveTestByDateTime?PatientID= [id number]&Date=29-04-2021&Ti me=[id number]&TestTyp e=ECG&Site=14&OutputType=PDF &Ext=PDF [facility] Work Phone: Please see physicia n note for formal interpretation confirmed by Scribe [facility] Work Phone: Normal [facility] Work Phone: [phone] [facility] Work Phone: [phone] [facility] Work Phone: [phone] [facility] Work Phone: [phone] [facility] Work Phone: [phone] [facility] Work Phone: 12 1 [facility] Work Phone: 65 1 [facility] Work Phone: 3 1 [facility] Work Phone: [phone] [facility] Work Phone: [phone] [facility] Work Phone: [phone] 1 [facility] Work Phone: [phone] 1 [facility] Work Phone: [phone] [facility] Work Phone: Negative NEGATIVE [facility] Work Phone: Comment on above: CUTOFF LEVEL: 1 NG/M L The performance characteristics of this test have been determined by the individual laboratory site where testing is performed. This test has not been cleared or approved by the FDA; however, the FDA has determined that such clearance is not necessary. SEE BELOW [facility] Work Phone: Comment on above: Drug screen results are presumptive and should not be used to assess compliance with prescribed medication. Definitive confirmatory drug testing has been added to this sample for any positive screen result and will be reported separately. .Toxicology screening results are reported qualitatively. The concentration must be greater than or equal to the cutoff to be reported as positive. The concentration at which the screening test can detect an individual drug or metabolite varies. The absence of expected drug(s) and/or drug metabolite(s) may indicate non-compliance, inappropriate timing of specimen collection relative to drug administration, poor drug absorption, diluted/adulterated urine, or limitations of testing. For medical purposes only; not valid for forensic use. .Interpretive questions should be directed to the laboratory medical directors. Radiologyon 04-29-2021 XR Chest Single view Normal [facility] Work Phone: Troponin I, Serumon 04-29-20 21 Troponin I.cardiac [Mass/Vol] ng/mL See Below [facility] Work Phone: Comment on above: Reference Range: 0.0 0 - 0.03LESS THAN 0.04 NG/ML: NEGATIVEREPEAT TESTING IN THREE TO SIX HOURSIF CLINICALLY INDICATED.0.04 - 0.5 NG/ML: CONSISTENT WITH POSSIBLECARDIAC DAMAGE AND POSSIBLE INCREASEDCLINICAL RISK.SERIAL MEASUREMENTS MAY HELP ASSESS EXTENT OFMYOCARDIAL DAMAGE.>0.5 NG/ML: CONSISTENT WITH CARDIAC DAMAGE,INCREASED CLINICAL RISK AND MYOCARDIALINFARCTION. SERIAL MEASUREMENTS MAY HELPASSESS EXTENT OF MYOCARDIAL DAMAGE..Note: Troponin I testing is performed using different testing methodology at [facility] than at other [facility]. Direct result comparisons should only be made within the same method. URINALYSIS WITH CULTURE IF I NDICATEDon 04-29-2021 Color (U) Yellow See Below [facility] Work Phone: Comment on above: Reference Range: STR AW,YELLOW Glucose Ql (U) Negative NEGATIVE [facility] Work Phone: Ketones Ql (U) Negative NEGATIVE [facility] Work Phone: Leukocyte esterase Test strip Ql (U) Negative NEGATIVE [facility] Work Phone: pH (U) 8.0 [pH] 5.0 - 8.0 [facility] Work Phone: Protein (U) [Mass/Vol] Negative NEGATIVE [facility] Work Phone: RBC (U) [#/Vol] Negative NEGATIVE [facility] Work Phone: Specific gravity (U) [Rel density] 1.016 1 See Below [facility] Work Phone: Comment on above: Reference Range: 1.0 05 - 1.035 URINALYSIS WITH CULTURE IF INDICATED Negative NEGATIVE [facility] Work Phone: URINALYSIS WITH CULTURE IF INDICATED <2.0 0.0 - 1.9 [facility] Work Phone: URINALYSIS WITH CULTURE IF INDICATED HAZY CLEAR [facility] Work Phone: Urine Teston 04-29 HCG ( test) Ql (U) Negative Negative [facility] Work Phone: XR Hand 3+ Views Lefton 04-02 XR Hand 3+ Views Left Exam Date/Time: 04/28/2019 08:18 EDT Reason for Exam: left finger pain Report STUDY: XR Hand 3+ Views Left; 04/28/2019 8:18 am INDICATION: left finger pain. COMPARISON: None. ACCESSION NUMBER(S): [id number] ORDERING CLINICIAN: Yesenia Owens FINDINGS: No fracture dislocation. Joint spaces are preserved without erosions. IMPRESSION: No acute osseous injury of the left hand. FINAL REPORT Dictated: 04/28/2019 5:44 pm Alphonse Nash MD Signed (Electronic Signature): 04/28/2019 5:44 pm Signed by: Alphonse Nash MD Technologist: [facility] XR Chest 2 Viewson 9 XR Chest 2 Views Exam Date/Time: 03/03/2019 12:15 EDT Reason for Exam: ASTHMA;Cough Report STUDY: XR Chest 2 Views; 03/03/2019 12:15 pm INDICATION: Cough. COMPARISON: 03/27/2018 ACCESSION NUMBER(S): [id number] ORDERING CLINICIAN: Yesenia Lee FINDINGS: CARDIOMEDIASTINAL SILHOUETTE AND VASCULATURE: Cardiac size: Within normal limits considering technique Aortic shadow: Within normal limits considering technique Mediastinal contours: Within normal limits considering technique Pulmonary vasculature: Within normal limits without definite congestion LUNGS: There is moderate elevation of the left hemidiaphragm similar to the prior examination. The lungs are clear. ABDOMEN AND OTHER FINDINGS: No remarkable upper abdominal findings. BONES: No acute osseous changes. IMPRESSION: 1. No active cardiopulmonary disease. FINAL REPORT Dictated: 03/03/2019 2:35 pm Aly Olivo MD Signed (Electronic Signature): 03/03/2019 2:35 pm Signed by: Aly Olivo MD Technologist: RICHELLE [facility] US Renalon 11-17-2018 US Renal Exam Date/Time: 11/17/2018 15:14 EDT Reason for Exam: RECURRENT UTI;Other (please specify) Report STUDY: US Renal; 11/17/2018 3:14 pm INDICATION: Other (please specify). COMPARISON: None. ACCESSION NUMBER(S): [id number] ORDERING CLINICIAN: Yesenia Lee TECHNIQUE: Multiple images of the kidneys were obtained . FINDINGS: RIGHT KIDNEY: The right kidney measures 10.1 cm in length. The renal cortical echogenicity and thickness are within normal limits. No hydronephrosis is present; no evidence of nephrolithiasis. LEFT KIDNEY: The left kidney measures 10.1 cm in length. The renal cortical echogenicity and thickness are within normal limits. No hydronephrosis is present; no evidence of nephrolithiasis. BLADDER: The urinary bladder is unremarkable in appearance. IMPRESSION: Unremarkable renal ultrasound. FINAL REPORT Dictated: 11/17/2018 6:22 pm Katerine Read MD Signed (Electronic Signature): 11/17/2018 6:22 pm Signed by: Katerine Read MD Technologist: GEENA [facility] C Urineon 09-07-2018 C Urine Final Report: >100,0 00 cfu/ml Escherichia coli ORGANISM: EC SUSCEPTIBILITY RESULTS Antibiotic BLUE Dilutn BLUE Interp ORGANISM: EC Amox/Cla : <=8/4 S Amp : <=8 S Amp/Sul : <=8/4 S Cefaz : <=8 S Cefo : <=2 S Cipro : >4 R Gent : <=4 S Levo : >4 R Taj : <=1 S Nitro : <=32 S Pip/Hamzah : <=16 S Tetra : <=4 S Tobra : <=4 S SXT : <=2/38 S Normal [facility] Comment on above: Performed By: #### 2 [id number] #### FRANCISCO J Microbiology Subsection [facility] [place] [address] XR Wrist Left 3+ Views (Ottoniel dard)on 07-20-2018 INR Coag RelTime (Bld) X-ray of the left wrist 3 views due to trauma and pain reveals normal-appearing left wrist no fracture no dislocation no malalignment Invalid Interpretation Code FUJI SYNAPSE [facility] Pathology ([facility])on 01-21-2018 Pathology ([facility]) FINAL GYNECOLOGIC CY TOLOGY [id number] ADEQUACYSatisfactory for Evaluation. No endocervical cells/transformation zonecomponent present.GENERAL CATEGORIZATIONNegative for Intraepithelial Lesion or MalignancyCOMMENTHigh Risk HPV was ordered and performed at [facility] Laboratory. Results arereported below in this report. A negative result is a normal result. Apositive result is an abnormal result.HPV HIGH RISK NEGATIVE: The results of this test indicate the patient'sspecimen is NEGATIVE for the following high-risk HPV types:16/18/31/33/35/39/45/5 1/52/56/58/59/66/68. RELATED LABORATORY RESULTSOrdered by: Carlos Date: 01/21/2018 Ord Time: 20:26Test Collected Result Abnormal Range Units SpecimenName D&T TypeHPV Negative NA MSCRNA, 8HighRiskThe HPV test detects E6/E7 viral messenger RNA (mRNA) high-risk HPV ssstzvyvf46,18,31,33,35,39,4 5,51,55,58,59,66, and 68 which are associated with cervicalcancer and its precursor lesions. However, cross-reactions with othergenotypes may occur. Results should be correlated with cytologic andhistologic findings. Sensitivity may be affected by cellularity of specimen.CLINICAL HISTORYComment: No LMP provided.SPECIMEN(A) SCREENING CERVICAL/ENDOCERVICAL THIN PREP VIALPerformed at [facility], [address] [place], [place] [address]Screened by: Signed Out by: KAILA PURI [employer] Reported: 01/23/2018 Normal [facility] Healthcare Comment on above: Performed By: #### G YN ####[facility] [id number] [place] [address] Vital Signs Date Time Vital Sign Value Performing Clinician Facility 09-28-2024 07:44-0500 Body height 148.[address] Yesenia Lee MD Work Phone: 1(116)768-193142 [place] [address] 09-28-2024 07:44-0500 Body mass index (BMI) [Ratio] 32.4 kg/m2 Dr. Yesenia Lee MD Work Phone: 7(264)[phone] [place] [address] 09-28-2024 07:44-0500 Body temperature 97.4 [degF] Dr. Yesenia Lee MD Work Phone: 0(748)[phone] [place] [address] 09-28-2024 07:44-0500 Body weight 71.[address] Yesenia Lee MD Work Phone: 6(230)509-392142 [place] [address] 09-28-2024 07:44-0500 Diastolic blood pressure 69 mm[Hg] Dr. Yesenia Lee MD Work Phone: 4(824)372-405142 [place] [address] 09-28-2024 07:44-0500 Heart rate 102 /min Dr. Yesenia Lee MD Work Phone: 8(135)[phone] [place] [address] 09-28-2024 07:44-0500 Respiratory rate 18 /min Dr. Yesenia Lee MD Work Phone: 2(100)[phone] [place] [address] 09-28-2024 07:44-0500 SaO2% (BldA) [Mass fraction] 98 % Dr. Yesenia Lee MD Work Phone: 1(292)030-603942 [place] [address] 09-28-2024 07:44-0500 Systolic blood pressure 107 mm[Hg] Dr. Yesenia Lee MD Work Phone: 8(876)449-936942 [place] [address] 08-20-2024 08:09-0500 Body mass index (BMI) [Ratio] 31 kg/m2 Dr. Yesenia Lee MD Work Phone: 3(285)[phone] [place] [address] 08-20-2024 08:09-0500 Body temperature 97.5 [degF] Dr. Yesenia Lee MD Work Phone: 0(416)[phone] [place] [address] 08-20-2024 08:09-0500 Body weight 68.[address] Yesenia Lee MD Work Phone: [facility] 08-20-2024 08:09-0500 Diastolic blood pressure 80 mm[Hg] Dr. Yesenia Lee MD Work Phone: [facility] 08-20-2024 08:09-0500 Heart rate 83 /min Dr. Yesenia Lee MD Work Phone: [facility] 08-20-2024 08:09-0500 Respiratory rate 18 /min Dr. Yesenia Lee MD Work Phone: [facility] 08-20-2024 08:09-0500 SaO2% (BldA) [Mass fraction] 98 % Dr. Yesenia Lee MD Work Phone: [facility] 08-20-2024 08:09-0500 Systolic blood pressure 121 mm[Hg] Dr. Yesenia Lee MD Work Phone: [facility] 06-18-2024 08:35-0400 Body height 149.9 cm Yesenia Lee MD Work Phone: [facility] 06-18-2024 08:35-0400 Body mass index (BMI) [Ratio] 30.7 kg/m2 Yesenia Lee MD Work Phone: [facility] 06-18-2024 08:35-0400 Body weight 68.95 kg Yesenia Lee MD Work Phone: [facility] 06-18-2024 08:35-0400 Diastolic blood pressure 62 mm[Hg] Yesenia Lee MD Work Phone: [facility] 06-18-2024 08:35-0400 Heart rate 88 /min Yesenia Lee MD Work Phone: [facility] 06-18-2024 08:35-0400 Systolic blood pressure 110 mm[Hg] Yesenia Lee MD Work Phone: [facility] 06-11-2024 11:20-0400 Body height 149.9 cm Yesenia Lee MD Work Phone: [facility] 06-11-2024 11:20-0400 Body mass index (BMI) [Ratio] 30.11 kg/m2 Yesenia Lee MD Work Phone: [facility] 06-11-2024 11:20-0400 Body weight 67.63 kg Yesenia Lee MD Work Phone: [facility] 06-11-2024 11:20-0400 Diastolic blood pressure 68 mm[Hg] Yesenia Lee MD Work Phone: [facility] 06-11-2024 11:20-0400 Heart rate 93 /min Yesenia Lee MD Work Phone: [facility] 06-11-2024 11:20-0400 SaO2% (BldA) [Mass fraction] 98 % Yesenia Lee MD Work Phone: [facility] 06-11-2024 11:20-0400 Systolic blood pressure 116 mm[Hg] Yesenia Lee MD Work Phone: [facility] 05-18-2024 09:08-0400 Body height 149.9 cm Senthil Alas [employer] Work Phone: [facility] 05-18-2024 09:08-0400 Body mass index (BMI) [Ratio] 32.32 kg/m2 Senthil Alas [employer] Work Phone: [facility] 05-18-2024 09:08-0400 Body temperature 98.1 [degF] Senthil Alas [employer] Work Phone: [facility] 05-18-2024 09:08-0400 Body weight 72.58 kg Senthil Alas [employer] Work Phone: [facility] 05-18-2024 09:08-0400 Diastolic blood pressure 79 mm[Hg] Senhtil Alas [employer] Work Phone: [facility] 05-18-2024 09:08-0400 Heart rate 97 /min Senthil Alas [employer] Work Phone: [facility] 05-18-2024 09:08-0400 Respiratory rate 16 /min Senthil Alas [employer] Work Phone: [facility] 05-18-2024 09:08-0400 SaO2% (BldA) [Mass fraction] 98 % Senthil Alas [employer] Work Phone: [facility] 05-18-2024 09:08-0400 Systolic blood pressure 123 mm[Hg] Senthil Alas [employer] Work Phone: [facility] 03-08-2024 09:34-0400 Body height 149.9 cm [facility] 03-08-2024 09:34-0400 Body mass index (BMI) [Ratio] 30.3 kg/m2 [facility] 03-08-2024 09:34-0400 Body weight 68.04 kg [facility] 02-12-2024 07:59-0400 Body mass index (BMI) [Ratio] 32.31 kg/m2 Yesenia Lee MD Work Phone: [facility] 02-12-2024 07:59-0400 Body weight 70.13 kg Yesenia Lee MD Work Phone: [facility] 02-12-2024 07:59-0400 Diastolic blood pressure 62 mm[Hg] Yesenia Lee MD Work Phone: [facility] 02-12-2024 07:59-0400 Heart rate 83 /min Yesenia Lee MD Work Phone: [facility] 02-12-2024 07:59-0400 SaO2% (BldA) [Mass fraction] 97 % Yesenia Lee MD Work Phone: [facility] 02-12-2024 07:59-0400 Systolic blood pressure 108 mm[Hg] Yesenia Lee MD Work Phone: [facility] 01-02-2024 08:55-0400 Body height 147.3 cm Yesenia Lee MD Work Phone: [facility] 01-02-2024 08:55-0400 Body mass index (BMI) [Ratio] 31.56 kg/m2 Yesenia Lee MD Work Phone: [facility] 01-02-2024 08:55-0400 Body weight 68.49 kg Yesenia Lee MD Work Phone: 3(581)[phone] [place] [address] 01-02-2024 08:55-0400 Diastolic blood pressure 68 mm[Hg] Yesenia Lee MD Work Phone: 3(884)478-258226 [place] [address] 01-02-2024 08:55-0400 Heart rate 94 /min Yesenia Lee MD Work Phone: 9(006)174-772726 [place] [address] 01-02-2024 08:55-0400 SaO2% (BldA) [Mass fraction] 97 % Yesenia Lee MD Work Phone: [facility] 01-02-2024 08:55-0400 Systolic blood pressure 110 mm[Hg] Yesenia Lee MD Work Phone: 6(193)802-822326 [place] [address] 08-28-2023 08:01-0500 Body height 148.[address] Yesneia Lee Work Phone: 4(790)661-927489 [place] [address] 08-28-2023 07:59-0500 Body mass index (BMI) [Ratio] 30.9 kg/m2 Dr. Yesenia Lee Work Phone: [facility] 08-28-2023 07:59-0500 Body temperature 98.6 [degF] Dr. Yesenia Lee Work Phone: 9(331)299-450299 [place] [address] 08-28-2023 07:59-0500 Body weight 68.[address] Yesenia Lee Work Phone: 2(024)236-270999 [place] [address] 08-28-2023 07:59-0500 Diastolic blood pressure 69 mm[Hg] Dr. Yesenia Lee Work Phone: 7(172)701-080389 [place] [address] 08-28-2023 07:59-0500 Heart rate 86 /min Dr. Yesenia Lee Work Phone: [facility] 08-28-2023 07:59-0500 Respiratory rate 16 /min Dr. Yesenia Lee Work Phone: [facility] 08-28-2023 07:59-0500 SaO2% (BldA) [Mass fraction] 95 % Dr. Yesenia Lee Work Phone: [facility] 08-28-2023 07:59-0500 Systolic blood pressure 106 mm[Hg] Dr. Yesenia Lee Work Phone: [facility] 11-25-2022 10:47-0400 Body temperature 99.1 [degF] Rhonda Adolfo DPM Work Phone: [facility] 11-25-2022 10:47-0400 Diastolic blood pressure 66 mm[Hg] Rhonda Adolfo DPM Work Phone: [facility] 11-25-2022 10:47-0400 Heart rate 91 /min Rhonda Adolfo DPM Work Phone: [facility] 11-25-2022 10:47-0400 Systolic blood pressure 99 mm[Hg] Rhonda Adolfo DPM Work Phone: [facility] 08-30-2022 08:47-0500 Body height 148.[address] Yesenia Lee Work Phone: [facility] 08-30-2022 07:54-0500 Body mass index (BMI) [Ratio] 29.1 kg/m2 Dr. Yesenia Lee Work Phone: [facility] 08-30-2022 07:54-0500 Body temperature 97.2 [degF] Dr. Yesenia Lee Work Phone: [facility] 08-30-2022 07:54-0500 Body weight 64.[address] Yesenia Lee Work Phone: [facility] 08-30-2022 07:54-0500 Diastolic blood pressure 72 mm[Hg] Dr. Yesenia Lee Work Phone: [facility] 08-30-2022 07:54-0500 Heart rate 80 /min Dr. Yesenia Lee Work Phone: [facility] 08-30-2022 07:54-0500 Respiratory rate 18 /min Dr. Yesenia Lee Work Phone: [facility] 08-30-2022 07:54-0500 SaO2% (BldA) [Mass fraction] 97 % Dr. Yesenia Lee Work Phone: [facility] 08-30-2022 07:54-0500 Systolic blood pressure 114 mm[Hg] Dr. Yesenia Lee Work Phone: [facility] 02-28-2022 07:38-0400 Body height 148.[address] Yesenia Lee Work Phone: [facility] Work Phone: 02-28-2022 07:32-0400 Body mass index (BMI) [Ratio] 30.2 kg/m2 Dr. Yesenia Lee Work Phone: [facility] Work Phone: 02-28-2022 07:32-0400 Body temperature 98.6 [degF] Dr. Yesenia Lee Work Phone: [facility] Work Phone: 02-28-2022 07:32-0400 Body weight 66.[address] Yesenia Lee Work Phone: [facility] Work Phone: 02-28-2022 07:32-0400 Diastolic blood pressure 64 mm[Hg] Dr. Yesenia Lee Work Phone: [facility] Work Phone: 02-28-2022 07:32-0400 Heart rate 87 /min Dr. Yesenia Lee Work Phone: [facility] Work Phone: 02-28-2022 07:32-0400 Respiratory rate 17 /min Dr. Yesenia Lee Work Phone: [facility] Work Phone: 02-28-2022 07:32-0400 SaO2% (BldA) [Mass fraction] 99 % Dr. Yesenia Lee Work Phone: [facility] Work Phone: 02-28-2022 07:32-0400 Systolic blood pressure 112 mm[Hg] Dr. Yesenia Lee Work Phone: [facility] Work Phone: 02-08-2022 08:22-0400 Body height 147.32 cm Yesenia Lee Work Phone: [facility] Work Phone: 02-08-2022 08:22-0400 Body mass index (BMI) [Ratio] 30.72 kg/m2 Yesenia Lee Work Phone: [facility] Work Phone: 02-08-2022 08:22-0400 Body surface area Derived from formula 1.6 m2 Yesenia Lee Work Phone: [facility] Work Phone: 02-08-2022 08:22-0400 Body weight 66.68 kg Yesenia Lee Work Phone: [facility] Work Phone: 02-08-2022 08:22-0400 Diastolic blood pressure 72 mm[Hg] Yesenia Lee Work Phone: [facility] Work Phone: 02-08-2022 08:22-0400 Heart rate 78 /min Yesenia Lee Work Phone: [facility] Work Phone: 02-08-2022 08:22-0400 SaO2% (BldA) [Mass fraction] 98 % Yeseniaestuardo eLe Work Phone: [facility] Work Phone: 02-08-2022 08:22-0400 Systolic blood pressure 118 mm[Hg] Yesenia O Lee Work Phone: [facility] Work Phone: 12-04-2021 10:27-0400 Body height 147.32 cm Yeseniaestuardo Lee Work Phone: [facility] Work Phone: 12-04-2021 10:27-0400 Body mass index (BMI) [Ratio] 31.56 kg/m2 Yesenia O Lee Work Phone: [facility] Work Phone: 12-04-2021 10:27-0400 Body surface area Derived from formula 1.62 m2 Yesenia O Lee Work Phone: [facility] Work Phone: 12-04-2021 10:27-0400 Body weight 68.49 kg Yesenia O Lee Work Phone: [facility] Work Phone: 12-04-2021 10:27-0400 Diastolic blood pressure 64 mm[Hg] Yesenia Lee Work Phone: [facility] Work Phone: 12-04-2021 10:27-0400 Heart rate 96 /min Yesenia Lee Work Phone: [facility] Work Phone: 12-04-2021 10:27-0400 Systolic blood pressure 120 mm[Hg] Yesenia Lee Work Phone: [facility] Work Phone: 07-13-2021 11:36-0500 Body height 147.32 cm Yesenia Huber Lee Work Phone: [facility] Work Phone: 07-13-2021 11:36-0500 Body mass index (BMI) [Ratio] 29.29 kg/m2 Yesenia Huber Lee Work Phone: [facility] Work Phone: 07-13-2021 11:36-0500 Body surface area Derived from formula 1.57 m2 Yesenia Huber Lee Work Phone: [facility] Work Phone: 07-13-2021 11:36-0500 Body temperature 98.9 [degF] Yesenia Lee Work Phone: [facility] Work Phone: 07-13-2021 11:36-0500 Body weight 63.56 kg Yesenia Huber Lee Work Phone: [facility] Work Phone: 07-13-2021 11:36-0500 Diastolic blood pressure 68 mm[Hg] Yesenia Lee Work Phone: [facility] Work Phone: 07-13-2021 11:36-0500 Heart rate 84 /min Yesenia Lee Work Phone: [facility] Work Phone: 07-13-2021 11:36-0500 Systolic blood pressure 118 mm[Hg] Yesenia Lee Work Phone: [facility] Work Phone: 05-25-2021 08:52-0400 Body height 147.32 cm Yesenia Lee Work Phone: [facility] Work Phone: 05-25-2021 08:52-0400 Body mass index (BMI) [Ratio] 31.21 kg/m2 Yesenia Lee Work Phone: [facility] Work Phone: 05-25-2021 08:52-0400 Body surface area Derived from formula 1.61 m2 Yesenia Lee Work Phone: [facility] Work Phone: 05-25-2021 08:52-0400 Body temperature 97.7 [degF] Yesenia Lee Work Phone: [facility] [employer] [facility] Work Phone: 05-25-2021 08:52-0400 Body weight 67.73 kg Yesenia Lee Work Phone: [facility] [employer] [facility] Work Phone: 05-25-2021 08:52-0400 Diastolic blood pressure 70 mm[Hg] Yesenia Lee Work Phone: [facility] Work Phone: 05-25-2021 08:52-0400 Heart rate 94 /min Yesenia Lee Work Phone: [employer] [facility] Work Phone: 05-25-2021 08:52-0400 SaO2% (BldA) [Mass fraction] 99 % Yesenia Lee Work Phone: [facility] Work Phone: 05-25-2021 08:52-0400 Systolic blood pressure 116 mm[Hg] Yesenia Lee Work Phone: [facility] Work Phone: 05-11-2021 17:21-0400 Diastolic blood pressure 65 mm[Hg] Yesenia Lee Other Phone: [facility] 05-11-2021 17:21-0400 Heart rate 92 /min Yesenia Lee Other Phone: [facility] 05-11-2021 17:21-0400 Respiratory rate 16 /min Yesenia Lee Other Phone: [facility] 05-11-2021 17:21-0400 SaO2% (BldA) [Mass fraction] 96 % Yesenia Lee Other Phone: [facility] 05-11-2021 17:21-0400 Systolic blood pressure 106 mm[Hg] Yesenia Lee Other Phone: [facility] 04-30-2021 06:30-0400 Diastolic blood pressure 75 mm[Hg] Yesenia Lee Other Phone: [facility] 04-30-2021 06:30-0400 Heart rate 69 /min Yesenia Lee Other Phone: [facility] 04-30-2021 06:30-0400 Respiratory rate 16 /min Yesenia Lee Other Phone: [facility] 04-30-2021 06:30-0400 SaO2% (BldA) [Mass fraction] 95 % Yesenia Lee Other Phone: [facility] 04-30-2021 06:30-0400 Systolic blood pressure 99 mm[Hg] Yesenia Lee Other Phone: [facility] 07-20-2018 10:16-0500 BMI (Body Mass Index) 28.28 kg/m2 Jayy Saab [facility] 07-20-2018 10:16-0500 Height 149.9 cm Jayy Saab [facility] 07-20-2018 10:16-0500 Weight 63.5 kg Jayy Saab [facility] Encounters Encounter Date Encounter Type Care Provider Facility Start: 12-21-2024 End: 12-21-2024 ambulatory Yesenia Lee [place] Start: 11-04-2024 End: 11-04-[address] Yesenia Lee MD Work Phone: [facility] Work Phone: Start: 11-04-2024 End: 11-04-[address] Yvonne Clark MD -Laboratory, [place] Work Phone: Start: 11-04-2024 End: 11-04-2024 ambulatory [facility] Facility:[facility] Start: 09-28-2024 End: 09-28-2024 Patient encounter procedure DANIEL Fregoso [facility] Work Phone: Start: 09-28-2024 End: 09-28-2024 ambulatory Yesenia Lee Facility:[facility] Start: 09-09-2024 End: 09-09-2024 Patient encounter procedure DANIEL Fregoso [facility] Work Phone: Start: 09-09-2024 End: 09-09-2024 ambulatory Yesenia Lee Facility:[facility] Start: 08-20-2024 End: 08-20-2024 Patient encounter procedure DANIEL Fregoso [facility] Work Phone: Start: 08-20-2024 End: 08-20-2024 ambulatory Yesenia Lee Facility:[facility] Start: 08-04-2024 End: 08-04-[address] Yvonne Clark MD -Laboratory, [place] Work Phone: Start: 08-04-2024 End: 08-04-[facility] Start: 07-20-2024 ambulatory Dom Lobo Facility:[facility] Start: 07-20-2024 End: 07-20-2024 ambulatory Dom Lobo Facility:[facility] Start: 07-01-2024 End: 07-01-2024 ambulatory Yesenia Lee Facility:[facility] Start: 06-18-2024 End: 06-18-2024 Office outpatient visit 15 minutes Yesenia Lee MD Work Phone: [facility] Comment on above: Left facial swelling (Primary Dx); Chronic sinusitis, unspecified location Start: 06-18-2024 End: [facility] Start: 06-11-2024 End: 06-11-2024 Office outpatient visit 15 minutes Yesenia Lee MD Work Phone: [facility] Comment on above: Left facial swelling (Primary Dx) Start: 06-11-2024 End: 06-11-2024 ambulatory [facility] Start: 05-18-2024 End: 05-18-2024 Patient encounter procedure Senthil Toshia Brayanaislinnevelina [employer] Work Phone: [facility] Comment on above: Acute non-recurrent maxillary sinusitis (Primary Dx) Start: 05-18-2024 End: 05-18-2024 ambulatory [facility] Start: 05-12-2024 End: 05-12-2024 ambulatory [facility] Facility:[facility] Start: 03-08-2024 End: 03-08-2024 Subsequent hospital visit by physician Titi Glover [facility] Comment on above: Screening mammogram for breast cancer Screening for heart disease Start: 03-08-2024 End: 03-08-2024 ambulatory [facility] Start: 02-19-2024 End: 02-19-2024 ambulatory [facility] Facility:[facility] Start: 02-12-2024 End: 02-12-2024 Patient encounter status Yesenia Lee MD Work Phone: [facility] Work Phone: Start: 02-12-2024 End: 02-12-2024 Periodic preventive med est patient 40-64yrs Yesenia Lee MD Work Phone: [facility] Comment on above: Screening mammogram for breast cancer (Primary Dx); Mild persistent asthma without complication (HHS-HCC); Screening for heart disease; Wellness examination Start: 02-12-2024 End: 02-12-2024 ambulatory [facility] Start: 01-02-2024 End: 01-02-2024 Office outpatient visit 15 minutes Yesenia Lee MD Work Phone: [facility] Comment on above: Pruritic rash (Prima ry Dx); Inflammatory polyarthropathies (Multi); Mild persistent asthma without complication ([facility]) Start: 01-02-2024 End: 01-02-2024 ambulatory YESENIA LEE [facility] Ambulatory Start: 11-26-2023 End: 11-26-[address] Yesenia Lee Work Phone: [facility] Work Phone: Start: 11-26-2023 End: 11-26-[address] Yesenia Lee Work Phone: [facility] Work Phone: Start: 09-04-2023 End: 09-04-[address] Yesenia Lee Work Phone: [facility] Work Phone: Start: 09-04-2023 End: 09-04-[address] Yesenia Lee Work Phone: [facility] Work Phone: Start: 08-28-2023 End: 08-28-[address] Yesenia Lee Work Phone: [facility] Work Phone: Start: 06-03-2023 End: 06-03-[address] Yesenia Lee Work Phone: [facility] Work Phone: Start: 02-27-[address] Yesenia Lee Facility:[id number] Start: 02-18-2023 End: 02-19-2023 ambulatory YESENIA LEE [facility] Start: 12-13-2022 End: 12-13-[address] Yesenia Lee Work Phone: [facility] Work Phone: Start: 12-13-2022 End: 12-13-[address] Yesenia Lee Work Phone: [facility] Start: 11-25-2022 End: 11-25-2022 ambulatory [facility] Start: 11-25-2022 End: 11-25-2022 Office outpatient new 30 minutes Rhonda Cope DPM Work Phone: [facility] Comment on above: Sesamoiditis of left foot (Primary Dx); Sesamoiditis of right foot; Acquired plantar porokeratosis; Bilateral foot pain Start: 09-19-2022 End: 09-19-[address] Yesenia Lee Work Phone: [facility] Work Phone: Start: 09-19-2022 End: 09-19-[address] Yesenia Lee Work Phone: [facility] Start: 08-30-2022 End: 08-30-[address] Yes[facility] Start: 07-01-2022 Rx Renewal Yesenia Lee Work Phone: [facility] Work Phone: Start: 06-28-2022 End: 06-28-2022 ambulatory [facility] Work Phone: Start: 06-28-2022 End: 06-28-2022 Patient encounter procedure [facility] Start: 06-21-2022 End: 06-21-2022 ambulatory [facility] Work Phone: Start: 06-21-2022 End: 06-21-2022 Patient encounter procedure [facility] Start: 03-08-2022 End: 03-08-[address] Yesenia Lee Work Phone: [facility] Start: 02-28-2022 End: 02-28-[address] Yesenia Lee [facility] Start: 02-25-2022 Chart Update Yesenia Lee Work Phone: [facility] Work Phone: Start: 12-21-2021 End: 12-21-2021 Patient encounter procedure [facility] Start: 12-06-2021 AUDIT Yesenia Lee Work Phone: -[facility] Work Phone: Start: 12-05-2021 Chart Update Yesenia Lee Work Phone: [facility] [address] DO Work Phone: Start: 12-04-2021 Office outpatient vi sit 15 minutes Yesenia Lee Work Phone: -[facility] Work Phone: Start: 10-26-2021 End: 10-26-2021 Patient encounter procedure [facility] Start: 09-25-2021 Office outpatient vi sit 15 minutes Yesenia Lee Work Phone: -[facility] Work Phone: Start: 07-15-2021 Chart Update Yesenia Lee Work Phone: -[facility] Work Phone: Start: 07-13-2021 Office outpatient vi sit 25 minutes Yesenia Lee Work Phone: [facility] Work Phone: Start: 07-10-2021 Rx Renewal Yesenia Lee Work Phone: [facility] Work Phone: Start: 05-25-2021 Office outpatient vi sit 15 minutes Yesenia Lee Work Phone: [facility] Work Phone: Start: 05-25-2021 Patient encounter procedure Vivienne Lee Work Phone: [facility] Work Phone: Start: 05-11-2021 End: 05-11-2021 Emergency department patient visit Hiram Seth [facility] Start: 05-10-2021 FIDENCIO, Provider : Yesenia Lee, Status: Pen, Time: 1:40 PM Yesenia Lee Work Phone: [facility] Work Phone: Start: 05-10-2021 Chart Update Yesenia Lee Work Phone: [facility] Work Phone: Start: 05-10-2021 Chart Update Yesenia Lee Work Phone: [facility] Work Phone: Start: 05-08-2021 Phys/qhp telephone evaluation 11-20 min Yesenia Lee Work Phone: [facility] Work Phone: Start: 04-29-2021 End: 04-30-2021 Emergency department patient visit Francisco J Frazier [facility] Emergency 10 Start: 07-20-2018 End: 07-20-2018 Office outpatient new 20 minutes Jayy Saab Work Phone: [facility] Comment on above: TFCC (triangular fib rocartilage complex) injury, left, initial encounter (Primary Dx); Left wrist pain Procedures Date Procedure Procedure Detail Performing Clinician Start: 03-08-2024 Ct heart no contrast quant eval coronry calcium Yesenia Lee MD Work Phone: Start: 03-08-2024 End: 03-08-2024 Mammography Yesenia Lee MD Work Phone: Start: 02-27-2023 Mammography Yesenia templeton MD Work Phone: Start: 02-18-2023 Lipid panel YESENIA Templeton Start: 02-18-2023 Lipid 1996 panel - S barrie or Plasma Yesenia Lee MD Work Phone: Start: 06-28-2022 Plain chest X-ray Start: 04-29-2021 End: 04-29-2021 EKG impression Alessia Villarreal Start: 07-20-2018 End: 07-20-2018 Radex wrist complete minimum 3 views Jayy Saab Work Phone: Abdominal hysterectomy Yesenia Lee section Yesenia Lee Cholecystectomy Yesenia Lee Endoscopic balloon dilatation of ostium of paranasal sinus Yesenia Lee Tonsillectomy Yesenia Lee Plan of Treatment Date Care Activity Detail Author Start: 2031 Zoster Vaccines (1 of 2) Zoste r Vaccines (1 of 2) [facility] Start: 02-19-2028 Lipid panel Lipid Panel [facility] Start: 03-08-2025 Screening for malign ant neoplasm of breast Mammogram [facility] Start: 02-14-2025 End: 02-14-2025 Patient encounter procedure 02/14/2025 8:00 AM EDT Office Visit [address] [phone] Yesenia Lee MD [address] [id number] [facility] Start: 02-12-2025 Yearly Adult Physical Yearly Adult P hysical [facility] Start: 06-18-2024 End: 06-18-2024 Patient encounter procedure 06/18/2024 8:40 AM EDT Office Visit [address] [phone] Yesenia Lee MD [address] [address] [facility] Start: 05-02-2024 COVID-19 Vaccine ( season) COVID-19 Vaccine ( season) [facility] Start: 05-02-2024 COVID-19 Vaccine ( season) COVID-19 Vaccine () [facility] Start: 05-02-2024 Influenza vaccination [facility] Start: 03-08-2024 End: 03-08-[address] [facility] Start: 02-28-2024 Screening for malign ant neoplasm of breast Mammogram [facility] Start: 02-13-2024 Yearly Adult Physical Yearly Adult P hysical [facility] Start: 02-12-2024 End: 02-11-2025 CT for calcium scoring WO contrast and CTA W contrast IV Heart and coronary arteries CT cardiac scoring wo IV contrast Imaging Routine Screening for heart disease Expected: 02/12/2024, Expires: 02/11/2025 [facility] Work Phone: Comment on above: Expected: 02/12/2024 , Expires: 02/11/2025 Start: 02-12-2024 End: 04-13-2025 DBT Breast - bilateral BI mammo bilateral screening tomosynthesis Imaging Routine Screening mammogram for breast cancer Expected: 02/12/2024, Expires: 04/13/2025 [facility] Work Phone: Comment on above: Expected: 02/12/2024 , Expires: 04/13/2025 Start: 02-12-2024 End: 02-12-2024 Patient encounter procedure 02/12/2024 8:00 AM EDT Office Visit [facility] [address] [place] [phone] Yesenia Lee MD [address] [facility] [place] [address] [facility] Start: 05-02-2023 COVID-19 Vaccine ( season) COVID-19 Vaccine () [facility] Start: 12-16-2022 End: 12-16-2022 Patient encounter procedure 12/16/2022 7:45 AM EDT Office Visit [facility] [address] [place] [address] Rhonda Cope, LIZ [address] [place] [address] [facility] Start: 05-02-2022 Influenza vaccination Sequenti al Influenza Vaccine (#1) [facility] Start: 02-08-2022 EPV, Provider: Yesenia Lee, Status: Pen, Time: 8:20 AM EPV, Provider: Yesenia Lee, Status: Pen, Time: 8:20 AM [facility] Work Phone: Start: 2021 Screening for malign ant neoplasm of breast Mammogram [facility] Start: 05-02-2018 Influenza vaccination SEQUENTI AL INFLUENZA VACCINE (#1) [facility] Start: 10-23-2006 DTaP/Tdap/Td Vaccine s (4 - Tdap) DTaP/Tdap/Td Vaccines (4 - Tdap) [facility] Start: 10-23-2006 DTaP/Tdap/Td Vaccine s (6 - Tdap) DTaP/Tdap/Td Vaccines (6 - Tdap) [facility] Start: 2002 Screening for malign ant neoplasm of cervix [facility] Start: 1999 Diabetes mellitus screening Diabetes Screening [facility] Start: 1999 Hepatitis C screening Hepatitis C Sc reening [facility] Start: 1996 HIV screening HIV Screening [facility] Start: 1994 Varicella vaccination Varicell a Vaccines (1 of 2 - 13+ 2-dose series) [facility] Start: 1993 Depression screening using PHQ-9 (Patient Health Questionnaire 9) score Depression Screening (PHQ-2/9) [facility] Start: 1987 Pneumococcal Vaccine : Pediatrics (0 to 5 Years) and At-Risk Patients (6 to 64 Years) (1 of 2 - PCV) Pneumococcal Vaccine: Pediatrics (0 to 5 Years) and At-Risk Patients (6 to 64 Years) (1 of 2 - PCV) [facility] Start: 1984 History and physical examination, annual for health maintenance Wellness Visit [facility] Start: 01-15-1982 COVID-19 Vaccine (#1) COVID-19 Vacci ne (#1) [facility] Start: 1981 HIV screening HIV Screening [facility] Start: 1981 Screening for malign ant neoplasm of cervix [facility] Start: 1981 Tetanus [facility] Start: 1981 Yearly Adult Physical Yearly Adult P [facility] In-vitro immunologic test [facility] Work Phone: Measurement of respiratory function [facility] Mycobacterium tuberculosis tuberculin stimulated gamma interferon [Presence] in Blood [facility] Work Phone: Immunizations Immunization Date Immunization Notes Care Provider Jayden campos 05-17-2020 Seasonal, quadrivale nt, recombinant, injectable influenza vaccine, preservative free Yesenia Lee Work Phone: [facility] Work Phone: 05-17-2020 influenza virus vaccine, unspecified formulation Yesenia Lee MD Work Phone: [facility] Work Phone: 10-22-2006 TD(adult) unspecifie d formulation Yesenia Lee Work Phone: [facility] 10-29-1999 hepatitis B vaccine, pediatric or pediatric/adolescent dosage Yesenia Lee Work Phone: [facility] Work Phone: 10-29-1999 TD(adult) unspecifie d formulation Yesenia Lee Work Phone: [facility] Work Phone: 03-14-1999 hepatitis B vaccine, pediatric or pediatric/adolescent dosage Yesenia Lee Work Phone: [facility] Work Phone: 01-31-1999 hepatitis B vaccine, pediatric or pediatric/adolescent dosage Yesenia Lee Work Phone: [facility] Work Phone: 05-15-1994 measles, mumps and rubella virus vaccine Yesenia Huber Lee Work Phone: [facility] Work Phone: 11-16-1986 diphtheria, tetanus toxoids and acellular pertussis vaccine, unspecified formulation Yesenia Lee Work Phone: [facility] Work Phone: 11-16-1986 trivalent poliovirus vaccine, live, oral Yesenia Lee Work Phone: [facility] Work Phone: 06-12-1983 diphtheria, tetanus toxoids and acellular pertussis vaccine, unspecified formulation Yesenia Lee Work Phone: [facility] Work Phone: 04-10-1983 measles, mumps and rubella virus vaccine Yesenia Lee Work Phone: [facility] Work Phone: 06-12-1982 trivalent poliovirus vaccine, live, oral Yesenia Lee Work Phone: [facility] Work Phone: 04-25-1982 diphtheria, tetanus toxoids and pertussis vaccine Yesenia Lee Work Phone: [facility] Work Phone: 1981 diphtheria, tetanus toxoids and pertussis vaccine Yesenia Lee Work Phone: [facility] Work Phone: 1981 trivalent poliovirus vaccine, live, oral Yesenia Lee Work Phone: [facility] Work Phone: 1981 diphtheria, tetanus toxoids and pertussis vaccine Yesenia Lee Work Phone: [facility] Work Phone: 1981 trivalent poliovirus vaccine, live, oral Yesenia Lee Work Phone: [facility] Work Phone: Payers Date Payer Category Payer Self-pay [id number] 2018 [employer] Blue [employer] Managed Care [facility] [id number] 2018 Unknown 2018 Unknown [id number] 1981 Unknown [id number] 2..840.1.843927.3.579.2. 903 1981 Unknown [id number] 2..840.1.691372.3.579.2. 1245 1981 Unknown [id number] 2.16.840.1.093617.3.579.2. 1069 1981 Unknown [id number] 2..840.1.483055.3.579.2. 1243 1981 Unknown [id number] 2.840.1.729413.3.579.2. 1243 1981 Unknown [id number] 2.840.1.375374.3.579.2. 1243 1981 Unknown [id number] 2.840.1.732461.3.579.2. 1244 1981 Unknown [id number] 2.840.1.377246.3.579.2. 124 1981 Unknown [id number] 2.840.1.528846.3.579.2. 124 1981 Unknown [id number] 2.0.1.524732.3.579.2. 1244 Unknown [id number] Unknown [id number] 2.840.1.147551.3.579.2. 462 Unknown [id number] 2.840.1.418879.3.579.2. 462 Unknown [id number] 2.840.1.216883.3.579.2. 462 Unknown [id number] 2.840.1.207261.3.579.2. 462 Unknown [id number] 2.840.1.793935.3.579.2. 462 Unknown [id number] 2.840.1.817700.3.579.2. 462 Unknown [id number] 2.840.1.672652.3.579.2. 462 Unknown [id number] 2.840.1.505581.3.579.2. 462 Unknown [id number] 2.840.1.176726.3.579.2. 462 Unknown [id number] 2.840.1.901633.3.579.2. 462 Unknown [id number] .840.1.453698.3.579.2. 462 Social History Date Type Detail Facility Start: 07-20-2018 End: 08-20-2024 Tobacco smoking status NHIS Never smoker [facility] Start: 1980 Sex Assigned At Not on file [facility] Start: 08-16-2021 End: 08-28-2023 Tobacco smoking consumption unknown [facility] Start: 10-10-2021 End: 02-12-2024 Denies alcohol consumption Denies alcohol consumption [facility] Work Phone: Start: 1980 Sex Assigned At Female W [facility] Start: 11-25-2022 End: 02-11-2023 Tobacco use and exposure Smokeless tobacco non-user [facility] Start: 11-25-2022 Alcohol intake Current drinke r of alcohol (finding) [facility] Start: 10-10-2021 End: 02-12-2024 Tobacco use panel [facility] Start: 11-25-2022 Alcohol Comment rarely [facility] Start: 07-20-2018 Gender identity Identifies as female gender (finding) [facility] Start: 07-20-2018 Sexual orientation Heterosexual (fin ding) [facility] Start: 11-15-2022 End: 06-18-2024 Exposure to SARS-CoV-2 (event) Not sure [facility] Start: 01-02-2024 End: 05-18-2024 Alcoholic beverage intake Lifetime non-drinker (finding) [facility] Work Phone: Start: 11-18-2024 Sex Female (finding) [facility] NEGATED: Highlighted row - - [facility] Work Phone: Functional Status Date Assessment Result Facility NEGATED: Highlighted row Functional performance Functional status health issues are not documented Disease [facility] Work Phone: Mental Status Date Assessment Result Facility NEGATED: Highlighted row Cognitive function [Interpretation] Cognitive status health issues are not documented Disease [facility] Work Phone: Clinical Notes 05-01-2021 to 08-20-2024 Note Date & Type Note Facility 08-20-2024 Evaluation note Diagnosis Onset Date Resolution Asthma chronic August 20, 2024 10:06am Methotrexate, correction, current use chronic August 20, 2024 10:06am JASON (obstructive sleep apnea) chronic August 20, 2 024 10:06am Rheumatoid arthritis chronic Dece mber 2023 10:06am Asthma chronic September 28, 2024 7:54am Diaphragm dysfunction chronic Marcelo uary 2024 7:54am 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 female who presents for Follow-up. HPI Follow up left facial swelling. Completed augmentin, swelling has completely resolved. Still has some nasal congestion. Allergies have been flared this season. On flonase, claritin d and singulair. Discussed possible switch to cetirizine -d, pt states prefers to leave as is for now. Review of Systems All other systems reviewed and are negative. . No Known Allergies Current Outpatient Medications on File Prior to Visit Medication Sig Dispense Refill albuterol 2.5 mg /3 mL (0.083 %) nebulizer solution Inhale. albuterol 90 mcg/actuation inhaler 2 PUFF INHALED EVERY 6 HOURS fluticasone (Flonase) 50 mcg/actuation nasal spray Administer 2 sprays into each nostril once daily. folic acid (Folvite) 1 mg tablet Take 2 tablets (2 mg) by mouth once daily. hydroxychloroquine (Plaquenil) 200 mg tablet Take 1.5 tablets (300 mg) by mouth once daily. methotrexate (Trexall) 2.5 mg tablet TAKE 8 TABLETS BY MOUTH ONE TIME PER WEEK montelukast (Singulair) 10 mg tablet Take 1 tablet (10 mg) by mouth once daily at bedtime. omeprazole (PriLOSEC) [address] capsule Take 1 capsule (40 mg) by mouth once daily. Do not crush or chew. 90 capsule 0 predniSONE (Deltasone) 10 mg tablet TAKE 1 TABLET BY MOUTH EVERY DAY NEEDED FOR 3-5 DAYS WITH A FLARE Symbicort 160-4.5 mcg/actuation inhaler Inhale 2 puffs 2 times a day. [DISCONTINUED] loratadine-pseudoephedrine (Claritin-D 24-hour) 10-240 mg 24 hr tablet TAKE 1 TABLETBY MOUTH EVERY DAY 30 tablet 2 [DISCONTINUED] amoxicillin-pot clavulanate (Augmentin) 875-125 mg tablet Take 1 tablet (875 mg) by mouth 2 times a day for 7 days. 14 tablet 0 [DISCONTINUED] fluconazole (Diflucan) 150 mg tablet Take 1 tablet (150 mg) by mouth 1 time for 1 dose. 1 tablet 1 No current facility-administered medications on file prior to visit. Patient Active Problem List Diagnosis Allergic rhinitis Asthma, mild persistent ([facility]) Chronic sinusitis Diaphragmatic paralysis Chronic GERD Fibromyalgia Inflammatory polyarthropathies (Multi) Mild sleep apnea Objective Visit Vitals BP 110/62 (BP Location: Left arm, Patient Position: Sitting) Pulse 88 Physical Exam Vitals reviewed. HENT: Head: Normocephalic. Comments: No facial swelling, no asymmetry noted Neurological: General: No focal deficit present. Mental Status: She is alert. Psychiatric: Mood and Affect: Mood normal. Assessment/Plan Problem List Items Addressed This Visit Chronic sinusitis Relevant Medications loratadine-pseudoephedrine (Claritin-D 24-hour) 10-240 mg 24 hr tablet Other Visit Diagnoses Left facial swelling - Primary Call concerns. Routine followup this summer. Yesenia Lee MD [facility] Phone: [phone] History of Present illness Narrative* Yesenia Lee MD - 06/11/2024 11:20 AM EDT Subjective Trudy Flores is a 43 y.o. female who presents for Facial Swelling (Left sided facialswelling , tender to touch ). HPI Left facial swelling for a few days, tender , painful. B=No dental pain. Took augmentin a few weeksago from urgent care for sinus infection. Eating fine, no fevers/chills, no ear pain. Review of Systems All other systems reviewed and are negative. . No Known Allergies Current Outpatient Medications on File Prior to Visit Medication Sig Dispense Refill albuterol 2.5 mg /3 mL (0.083 %) nebulizer solution Inhale. albuterol 90 mcg/actuation inhaler 2 PUFF INHALED EVERY 6 HOURS fluticasone (Flonase) 50 mcg/actuation nasal spray Administer 2 sprays into each nostril once daily. folic acid (Folvite) 1 mg tablet Take 2 tablets (2 mg) by mouth once daily. hydroxychloroquine (Plaquenil) 200 mg tablet Take 1.5 tablets (300 mg) by mouth once daily. loratadine-pseudoephedrine (Claritin-D 24-hour) 10-240 mg 24 hr tablet TAKE 1 TABLET BY MOUTH EVERYDAY 30 tablet 2 methotrexate (Trexall) 2.5 mg tablet TAKE 8 TABLETS BY MOUTH ONE TIME PER WEEK montelukast (Singulair) 10 mg tablet Take 1 tablet (10 mg) by mouth once daily at bedtime. omeprazole (PriLOSEC) [address] capsule Take 1 capsule (40 mg) by mouth once daily. Do not crush or chew. 90 capsule 0 predniSONE (Deltasone) 10 mg tablet TAKE 1 TABLET BY MOUTH EVERY DAY NEEDED FOR 3-5 DAYS WITH A FLARE Symbicort 160-4.5 mcg/actuation inhaler Inhale 2 puffs 2 times a day. [DISCONTINUED] loratadine-pseudoephedrine (Claritin-D 24-hour) 10-240 mg 24 hr tablet [DISCONTINUED] predniSONE (Deltasone) 10 mg tablet 4 tabs daily for 3 days, 3 tabs daily for 3 days, 2 tabs daily for 3 days, 1 tab daily for 3 days, then discontinue (Patient not taking: Reported on05/18/2024) 30 tablet 0 No current facility-administered medications on file prior to visit. Patient Active Problem List Diagnosis Allergic rhinitis Asthma, mild persistent ([facility]) Chronic sinusitis Diaphragmatic paralysis Chronic GERD Fibromyalgia Inflammatory polyarthropathies (Multi) Mild sleep apnea Objective Visit Vitals BP 116/68 Pulse 93 Physical Exam Vitals reviewed. HENT: Head: Normocephalic. Comments: Mild swelling along left lower jaw , extending to lower teeth area, no gum swelling noted, no oral mucosa abnormalities, mild tender, not red Pulmonary: Effort: Pulmonary effort is normal. Neurological: Mental Status: She is alert. Assessment/Plan Problem List Items Addressed This Visit None Visit Diagnoses Left facial swelling - Primary Relevant Medications amoxicillin-pot clavulanate (Augmentin) 875-125 mg tablet fluconazole (Diflucan) 150 mg tablet Follow up 1weeks, discussed when to seek urgent and emergent care. Yesenia Lee MD documented in this [facility] Work Phone: [phone]) 397-502109-17-2024 History of Present illness Narrative* Senthil Alas, CREW [employer] SERVICER HELPER - 05/18/2024 9:05 AM EDT 43 y.o. female patient presents for evaluation of sinus pressure. Patient reports 2 week of progressively worsening maxillary sinus pain, nasal congestion, and headache. There is reported mild postnasal drip and ear pressure. Has a history of seasonal allergies and asthma. No fever, cough, or otherconstitutional signs and symptoms. Symptoms have been refractory to rkar-ksk-[id number] medications. Vitals: 05/18/24 0908 BP: 123/79 Pulse: 97 Resp: 16 Temp: 36.7 C (98.1 F) SpO2: 98% No Known Allergies Medication Documentation Review Audit Reviewed by Ary Lee MA (Volleyball Commentator) on 05/18/24 at 0907 Medication Order Taking? Sig Documenting Provider Last Dose Status albuterol 2.5 mg /3 mL (0.083 %) nebulizer solution [id number] Yes Inhale. Historical Provider, Taking Active albuterol 90 mcg/actuation inhaler [id number] Yes 2 PUFF INHALED EVERY 6 HOURS Historical Provider, Taking Active fluticasone (Flonase) 50 mcg/actuation nasal spray [id number] No Administer 2 sprays into each nostril once daily. Historical Provider, Not Taking Active folic acid (Folvite) 1 mg tablet [id number] Yes Take 2 tablets (2 mg) by mouth once daily. MD Maryann Taking Active hydroxychloroquine (Plaquenil) 200 mg tablet [id number] Yes Take 1.5 tablets (300 mg) by mouth once daily. Historical ProviderMD Taking Active loratadine-pseudoephedrine (Claritin-D 24-hour) 10-240 mg 24 hr tablet [id number] Yes Historical Provider, Taking Active loratadine-pseudoephedrine (Claritin-D 24-hour) 10-240 mg 24 hr tablet [id number] Yes TAKE 1 TABLET BY MOUTH EVERY DAY Yesenia Lee MD Taking Active methotrexate (Trexall) 2.5 mg tablet [id number] Yes TAKE 8 TABLETS BY MOUTH ONE TIME PER WEEK Historical ProviderMD Taking Active montelukast (Singulair) 10 mg tablet [id number] Yes Take 1 tablet (10 mg) by mouth once daily at bedtime. Historical ProviderMD Taking Active Discontinued 05/17/24 185 omeprazole (PriLOSEC) [address] capsule [id number] Yes Take 1 capsule (40 mg) by mouth once daily. Donot crush or chew. Yesenia Lee MD Taking Active predniSONE (Deltasone) 10 mg tablet [id number] Yes TAKE 1 TABLET BY MOUTH EVERY DAY NEEDED FOR 3-5DAYS WITH A FLARE Historical ProviderMD Taking Active predniSONE (Deltasone) 10 mg tablet [id number] No 4 tabs daily for 3 days, 3 tabs daily for 3 days, 2 tabs daily for 3 days, 1 tab daily for 3 days, then discontinue Patient not taking: Reported on 05/18/2024 Yesenia Lee MD Not Taking Active Symbicort 160-4.5 mcg/actuation inhaler [id number] Yes Inhale 2 puffs 2 times a day. Historical Provider, Taking Active Past Medical History: Diagnosis Date Personal history of other mental and behavioral disorders 08/02/2019 History of major depression Past Surgical History: Procedure Laterality Date MR HEAD ANGIO WO IV CONTRAST 04/30/2021 MR HEAD ANGIO WO IV CONTRAST 04/30/2021 [facility] [place] [facility] MR NECK ANGIO WO IV CONTRAST 04/30/2021 MR NECK ANGIO WO IV CONTRAST 04/30/2021 [facility] [place] [facility] OTHER SURGICAL HISTORY 08/02/2019 section OTHER SURGICAL HISTORY 08/02/2019 Cholecystectomy OTHER SURGICAL HISTORY 08/02/2019 Tonsillectomy OTHER SURGICAL HISTORY 08/02/2019 Hysterectomy abdominal OTHER SURGICAL HISTORY 08/02/2019 Balloon sinuplasty ROS See HPI Physical Exam Vitals and nursing note reviewed. Constitutional: Appearance: She is ill-appearing (mildly). HENT: Head: Normocephalic and atraumatic. Right Ear: Tympanic membrane and ear canal normal. Left Ear: Tympanic membrane and ear canal normal. Nose: Congestion present. Mouth/Throat: Mouth: Mucous membranes are moist. Pharynx: Oropharynx is clear. Eyes: Extraocular Movements: Extraocular movements intact. Conjunctiva/sclera: Conjunctivae normal. Pupils: Pupils are equal, round, and reactive to light. Cardiovascular: Rate and Rhythm: Normal rate. Pulmonary: Effort: Pulmonary effort is normal. Breath sounds: Examination of the left-middle field reveals wheezing. Examination of the left-lowerfield reveals wheezing. Decreased breath sounds and wheezing present. No rhonchi or rales. Lymphadenopathy: Cervical: Cervical adenopathy present. Skin: General: Skin is warm and dry. Neurological: General: No focal deficit present. Mental Status: She is alert and oriented to person, place, and time. Psychiatric: Mood and Affect: Mood normal. Behavior: Behavior normal. Assessment/Plan/MDM Trudy was seen today for uri. Diagnoses and all orders for this visit: Acute non-recurrent maxillary sinusitis (Primary) - amoxicillin-pot clavulanate (Augmentin) 875-125 mg tablet; Take 1 tablet by mouth 2 times a day for 7 days. - fluconazole (Diflucan) 150 mg tablet; Take 1 tablet (150 mg) by mouth every 3 days for 2 doses. Encouraged pt to use PRN albuterol and continue otc cold remedies PRN, push PO fluids and rest. Patient's clinical presentation is otherwise unremarkable at this time. Patient is discharged with instructions to follow-up with primary care or seek emergency medical attention for worsening symptoms or any new concerns. I did personally review Trudy's past medical history, surgical history, social history, as well as family history (when relevant). In this case, I also oversaw the her drug management by reviewing her medication list, allergy list, as well as the medications that I prescribed during the UC courseand/or recommended as an out-patient (including possible OTC medications such as acetaminophen, NSAIDs , etc). After reviewing the items above, I did not look at previous medical documentation, such as recent hospitalizations, office visits, and/or recent consultations with PCP/specialist. SDOH: Another factor that I considered in Trudy's care was her Social Determinants of Health (SDOH). During this UC encounter, she did not have social determinants of health. Those SDOH influencingTrudy's care are: none Senthil Alas CNP [facility] [phone] [facility] Work Phone: [phone] History of Present illness Narrative* Yesenia Lee MD - 02/12/2024 8:00 AM EDT Patient presents for periodic surveillance of chronic medical problems. Subjective Trudy Flores is a 43 y.o. female who presents for Follow-up (yearly). HPI Sees rheum, Dr Matute, Dr Lobo Santiago pulmonary Asthma, stable, uses rescue inhaler Seasonal allergies, stable Inflammatory polyarthropathies stable States rash is better, declines dermatology evaluation Due for mammogram soon. S/p hysterectomy , no indication for pap smear Had lipid panel last year. Pt requests a ct calcium score Review of Systems All other systems reviewed and are negative. . Current Outpatient Medications: albuterol 2.5 mg /3 mL (0.083 %) nebulizer solution, Inhale., Disp: , Rfl: albuterol 90 mcg/actuation inhaler, 2 PUFF INHALED EVERY 6 HOURS, Disp: , Rfl: fluticasone (Flonase) 50 mcg/actuation nasal spray, Administer 2 sprays into each nostril once daily., Disp: , Rfl: folic acid (Folvite) 1 mg tablet, Take 2 tablets (2 mg) by mouth once daily., Disp: , Rfl: hydroxychloroquine (Plaquenil) 200 mg tablet, Take 1.5 tablets (300 mg) by mouth once daily., Disp:, Rfl: loratadine-pseudoephedrine (Claritin-D 24-hour) 10-240 mg 24 hr tablet, , Disp: , Rfl: methotrexate (Trexall) 2.5 mg tablet, TAKE 8 TABLETS BY MOUTH ONE TIME PER WEEK, Disp: , Rfl: montelukast (Singulair) 10 mg tablet, Take 1 tablet (10 mg) by mouth once daily at bedtime., Disp: , Rfl: omeprazole (PriLOSEC) [address] capsule, TAKE 1 CAPSULE BY MOUTH EVERY DAY, Disp: 90 capsule, Rfl: 3 predniSONE (Deltasone) 10 mg tablet, TAKE 1 TABLET BY MOUTH EVERY DAY NEEDED FOR 3-5 DAYS WITH AFLARE, Disp: , Rfl: predniSONE (Deltasone) 10 mg tablet, 4 tabs daily for 3 days, 3 tabs daily for 3 days, 2 tabs dailyfor 3 days, 1 tab daily for 3 days, then discontinue, Disp: 30 tablet, Rfl: 0 loratadine-pseudoephedrine (Claritin-D 24-hour) 10-240 mg 24 hr tablet, TAKE 1 TABLET BY MOUTH EVERY DAY, Disp: 30 tablet, Rfl: 11 Symbicort 160-4.5 mcg/actuation inhaler, Inhale 2 puffs 2 times a day., Disp: , Rfl: Patient Active Problem List Diagnosis Allergic rhinitis Asthma, mild persistent ([facility]) Chronic sinusitis Diaphragmatic paralysis Chronic GERD Fibromyalgia Inflammatory polyarthropathies (Multi) Mild sleep apnea Objective Visit Vitals BP 108/62 Pulse 83 Physical Exam Vitals reviewed. HENT: Head: Normocephalic. Cardiovascular: Rate and Rhythm: Normal rate and regular rhythm. Pulmonary: Effort: Pulmonary effort is normal. Breath sounds: Normal breath sounds. Neurological: General: No focal deficit present. Mental Status: She is alert. Psychiatric: Mood and Affect: Mood normal. Assessment/Plan Problem List Items Addressed This Visit Asthma, mild persistent ([facility]) Other Visit Diagnoses Screening mammogram for breast cancer - Primary Relevant Orders BI mammo bilateral screening tomosynthesis Screening for heart disease Relevant Orders CT cardiac scoring wo IV contrast Wellness examination Call concerns. Routine follow up annually. Yesenia Lee MD documented in this [facility] Work Phone: [phone] History of Present illness Narrative* Yesenia Lee MD - 01/02/2024 9:00 AM EDT Subjective Trudy Flores is a 43 y.o. female who presents for Rash. Rash Pruritic rash on arms and thighs for 1 1/2 weeks. 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 Itches quite a bit, no one else at home has. Arms have been sun exposed, thighs have not History of asthma and inflammatory polyarthropathy, stable Review of Systems Skin: Positive for rash. All other systems reviewed and are negative. . Objective Visit Vitals BP 110/68 Pulse 94 Physical Exam Vitals reviewed. HENT: Head: Normocephalic. Pulmonary: Effort: Pulmonary effort is normal. Skin: Comments: Fine maculopapular rash with excoriations on forearms, to mid bicep area, Nothing on hands, nothing interdigital,no burrows, nothing on abdomen Neurological: Mental Status: She is alert. Assessment/Plan Problem List Items Addressed This Visit Asthma, mild persistent ([facility]) Inflammatory polyarthropathies (Multi) Other Visit Diagnoses Pruritic rash - Primary Relevant Medications predniSONE (Deltasone) 10 mg tablet Consider reaction to chemical at work, keep arms covered and see if that helps. Trial of prednisone tape, can take benadryl at bedtime, call concerns . Yesenia Lee MD [facility] Work Phone: [phone]) [phone] Instructions* Patient Instructions* Rhonda Cope DPM - 11/25/2022 11:32 AM EDT Sesamoiditis Plantar Porokeratosis (PPK) documented in this [id number] History of Present illness Narrative* Rhonda Cope DPM - 11/25/2022 10:48 AM EDT Images from the original note were not included. NEW Patient Visit Rhonda Cope DPM Patient Name: Trudy lFores. . Date of : 1980, 42 y.o.. Gender: female. Subjective: Patient is a pleasant 42-year-old female who presents to clinic concerned about warts to bilateral feet. States that they have been present for 2-3 months. States that she has tried inqq-xio-qzkcvye remedies with no success. States that her [...] Date Asthma Fibromyalgia RA (rheumatoid arthritis) ([facility]) Past Surgical History: Procedure Laterality Date SECTION, [...] of the first metatarsal head, bilaterally. Upon debridementof lesions, no nucleated core noted. Discussed with [...] satisfaction. Patient understands to call with any questionsor concerns. Patient is to follow-up in 2-3 [...] Podiatric Physician & Surgeon documented in this [id number] History of Present illness Narrative* Trudy presents with a few days of urinary urgency, frequency and left flank pain, mild nausea. Novomiting, no fevers/chills. * Left eyebrow twitching the last week, will monitor and let us know if that persists. [facility] Work Phone: [phone]) [phone] History of Present illness Narrative* Trudy presents with a few days of urinary urgency, frequency and left flank pain, mild nausea. Novomiting, no fevers/chills. * Left eyebrow twitching the last week, will monitor and let us know if that persists. [facility] Work Phone: [phone] History of Present illness Narrative* Trudy presents virtually with cough and cold symptoms that started around 09/11. She went to urgent care 09/13 and was treated with augmentin. COmpleted the augmentin, still has cough and congestion,and now has symptoms of vaginal yeast infection. She has a history of mild persistent asthma and has used her rescue inhaler a few times. * She had covid this past fall and received the monoclonal antibody infusion. She is not vaccinated. . Her spouse has covid. Advised I do not recommend testing as its not going to change our managementat this point. She states she needs it for work since her spouse is positive. * Denies shortness of breath. -[facility] Work Phone: [phone]) [phone] NoteSend Summary: Discharge Summary Providers: Provider RoleProvider Name AttendingSoSharon Suárez Julie O Note Recipients: PCP Discharge: Summary: Admission Date: .30-Apr-2021 06:20:00 Discharge Date: 01-May-2021 Attending Physician at Discharge: Sharon Ricardo Admission Reason: VERTIGO Final Discharge Diagnoses: 1. Vertigo 2. Hx of asthma 3. dizziness 4. dehydration Procedures: none Condition at Discharge: Satisfactory Disposition at Discharge: .Home Vital Signs: T PRBPSpO2 [id number]/7894% Date/Time05/01 8: 8: 8: 8: 8:05 Range(36.5C - 36.5C ) (84 - 84 ) (18 - 18 ) (114 - 114 )/ (78 - 78 ) (94% - 94% ) Date: Weight/Scale Type:Height: 30-Apr-2021 18:4870 kg / xfj768.3 cm Physical Exam: Constitutional: Well developed female [...] dry, no lesions, no rashes Hospital Course: Trudy Flores is a 40 year old female with past medical history of fibromyalgia, asthma, arthritis, and allergies since to the emergency department today as a transfer from an outside hospital for an MRI in the setting of dizziness, ataxia, and nausea. Patient was transferred here for an MRI with concern for a potential basilar stroke. Upon examination of patient on , patient is resting in bed on her [...] Up Appointments: Follow-Up Appointment 01: Physician/Dept/Service: Dr. Yesenia Lee Primary Care Physician Scheduled Date/Time: 08-May-2021 08:40 Location: [address] [place] [address] Discharge Medications: Home Medication montelukast 10 mg [...] Last Updated: 02-May-2021 04:02 by Sharon Ricardo ()[facility]08-31-2021 NoteHistory of Present Illness: /Lactating: Are You no (1) Are You Currently Breastfeedingno (1) HPI: Trudy Flores is a 40 year old female with past medical history of fibromyalgia, asthma, arthritis, and allergies since to the emergency department today as a transfer from an outside hospital for an MRI in the setting of dizziness, ataxia, and nausea. Patient was transferred here for an MRI with concern for a potential basilar stroke. Upon examination of patient on , patient is resting in bed on her [...] been reviewed. Objective: Objective Information: T PRBPSpO2 [id number]% Date/Time04/30 6: 18: 18: 18: 18:00 Range(37C - 37C [...] mL IntraVenous Scheduled Medications (more content not included)...[facility] noteNo assessment information availableWKindred [facility] Work Phone: Evaluation note* Diagnosis Onset Date Resolution Status Asthma chronic Diaphragmatic paralysis chronometer tester heather Environmental allergies chronometer tester heather JASON (obstructive sleep apnea) chronic [facility] Work Phone: Evaluation note* Diagnosis Onset Date Resolution Status Asthma chronic Diaphragmatic paralysis chronometer tester heather Environmental allergies chronometer tester heather [facility] Work Phone: Evaluation note* Diagnosis Sesamoiditis of left foot- Primary Sesamoiditis of right foot Acquired plantar porokeratosis Bilateral foot pain [facility] Diagnosis Onset Date Resolution Status Methotrexate, industrial custodian, current use acute Asthma chronic [facility] Work Phone: Evaluation note* Diagnosis Pruritic rash- Primary Inflammatory polyarthropathies (Multi) Unspecified inflammatory polyarthropathy Mild persistent asthma without complication ([facility]) [facility] Work Phone: Evaluation note* Diagnosis Screening mammogram for breast cancer- Primary Mild persistent asthma without complication ([facility]) Screening for heart disease Screening for other and unspecified cardiovascular conditions Wellness examination documented in [facility] Work Phone: Evaluation note* Diagnosis Left facial swelling- Primary Swelling, mass, or lump in head and neck documented in this encounter [facility] Work Phone: Evaluation note* Diagnosis Left facial swelling- Primary Swelling, mass, or lump in head and neck Chronic sinusitis, unspecified location documented in this encounter [facility] Work Phone: Evaluation note* Diagnosis Screening mammogram for breast cancer documented in this [facility] Work Phone: Evaluation note* Diagnosis Screening for heart disease Screening for other and unspecified cardiovascular conditions documented in this encounter [facility] Work Phone: [phone] note* Diagnosis Acute non-recurrent maxillary sinusitis- Primary documented in this encounter [facility] Work Phone: History of Present illness NarrativeDid have infusion. helped with symptoms.[facility] Work Phone: History of Present illness NarrativeShe presents today for right ear pain after having COVID, having some pressure in both ears. She was treated with z pack and prednisone. She continues to have a lingering cough. It is improved. No sputum. Some shortness of breath. Denies fever or body aches. No GI symptoms. Did have infusion. helped with symptoms.[facility] Work Phone: History of Present illness Narrative* Pt [...] shift. Recommend some labs to begin with. [facility] [employer] [facility] Work Phone: Reason for referral (narrative)No reason for referral information availableWKindred Hospital [facility] Work Phone: Summary Purpose Family History No Family [...] Family history of leukemia: Grandparent(V16.6, Z80.6) Status:Active Relationship Condition Age at Onset Recorded Date/T desiree Not Specified Heart failure Unknown Leukemia Unknown Primary malignant neoplasm of lung Unknow n mother Primary malignant neoplasm of skin Unknow n Asthma Unknown grandmother Malignant neoplasm Unknown Chronic obstructive pulmonary disease Unk nown Unknown Family Member Name Dates Details Family [...] Saab MD - 07/20/2018 12:32 PM EST Trudy comes in today for followup of left wrist. Trudy had a significant injury to her left [...] have a little bit of coughChief Complaint: TRUDY FLORES is here with a chief complaint of C/O SINUS PAIN AND PRESSURE; ALSOHAS SOME SINUS DRAINAGE X 2-3D.* Chief Complaint: TRUDY FLORES is here with a chief complaint of VIRTUAL VISIT; C/O NONPRODUCTIVE COUGH AND HEAD CONGESTION SINCE 09/13/21; WAS SEEN AT [facility] AND TREATED FOR EAR INFECTION; HAS COMPLETED THOSE ATB'S; PTS TESTED POSITIVE FOR COVID YESTERDAY. * An interactive audio and video telecommunication system which permits real time communications between the patient (at the originating site) and provider (at the distant site) was utilized to providethis telehealth service. Chief Complaint: TRUDY FLORES is here with a chief complaint of C/O URINARY FREQUENCY AND URGENCYX 5-6D.Chief Complaint: TRUDY FLORES is here with a chief complaint of C/O URINARY FREQUENCY AND URGENCYX 5-6D. Chief Complaint and Reason for Visit Chief Complaint ARTHRITIS/PAIN- COPY PCP S/O- PAIN- COPY PCP Chief Complaint S/O- PAIN- COPY PCP 6 M FU S/O- PAIN- COPY PCP Reason for Visit Asthma Diaphragmatic paralysis Environmental allergies JASON (obstructive sleep apnea) Chief Complaint S/O- PAIN- COPY PCP S/O- PAIN COPY PCP LABS AND XRAY- PAIN COPY PCP Chief Complaint S/O- PAIN COPY PCP LABS AND XRAY- PAIN COPY PCP 6 M FU S/O- PAIN -COPY PCP Reason for Visit Asthma Diaphragmatic paralysis Environmental allergies Chief Complaint 6 M FU S/O- PAIN -COPY PCP S/O- PAIN- COPY PCP Reason for Visit Asthma Diaphragmatic paralysis Environmental allergies Chief Complaint S/O- PAIN - COPY PCP 1 yr fu S/O- PAIN- COPY PCP Reason for Visit Methotrexate, long t erm, current use Asthma Chief Complaint 1 yr fu S/O- PAIN- COPY PCP STANDING ORDER Reason for Visit Methotrexate, long t erm, current use Asthma Chief Complaint Admit Date RECURRING ORDER August 04, 2024 7 :34am 1 Y FU August 20, 2024 10:06am JASON September 09, 2024 8: 09am 6 wk FU September 28, 2024 7 :54am Reason for Visit Admit Date Asthma August 20, 2024 10:06am Methotrexate, correction, current use Dec 2023 10:06am JASON (obstructive sleep apnea) August 022023 10:06am Rheumatoid arthritis August 20, 2024 10:06am Asthma September 28, 2024 7 :54am Diaphragm dysfunction September 28, 2024 7:54am Methotrexate, industrial custodian, current use Marcelo hernandez 2024 7:54am JASON (obstructive sleep apnea) September 282024 7:54am Rheumatoid arthritis September 28, 2024 7:54am Reason for Referral Specialty Diagnoses / Procedures Referred By Contac t Referred To Contact Radiology Diagnoses Screening for heart disease Procedures CT cardiac scoring wo IV contrast Yesenia Lee MD [address] [place] [address] Referral ID Status Reason Start Date Expiration Date Visits Requested Visits Authorized [id number] Pending Review Perform Procedure 02/12/2024 02/11/2025 1 1 Specialty Diagnoses / Procedures Referred By Contac t Referred To Contact Radiology Diagnoses Screening mammogram for breast cancer Procedures BI mammo bilateral screening tomosynthesis Yesenia Lee MD [address] [place] [address] Referral ID Status Reason Start Date Expiration Date Visits Requested Visits Authorized [id number] Authorized Perform Procedure 02/12/2024 02/11/2025 1 1 Referral ID Status Reason Start Date Expiration Date Visits Requested Visits Authorized [id number] Authorized Perform Procedure 02/12/2024 02/11/2025 1 1 Additional Source Comments INFORMATION SOURCE (unrecogn ized section and content) DATE CREATED AUTHOR 02/18/2018 [facility] DATE CREATED AUTHOR AUTHOR'S ORGANIZ ATION 04/30/2019 [facility] DATE CREATED AUTHOR AUTHOR'S ORGANIZ ATION 02/08/2022 [facility] DATE CREATED AUTHOR AUTHOR'S ORGANIZ ATION 02/08/2022 [employer] DATE CREATED AUTHOR AUTHOR'S ORGANIZ ATION 11/26/2022 [facility] DATE CREATED AUTHOR AUTHOR'S ORGANIZ ATION 02/22/2023 [facility] DATE CREATED AUTHOR AUTHOR'S ORGANIZ ATION 03/01/2023 [facility] DATE CREATED AUTHOR AUTHOR'S ORGANIZ ATION 05/19/2024 [facility] DATE CREATED AUTHOR AUTHOR'S ORGANIZ ATION 06/20/2024 [facility] DATE CREATED AUTHOR AUTHOR'S ORGANIZ ATION 12/23/2024 [facility] Reason for Visit (unrecogniz ed section and content) Reason Comments Pain Reason Comments Foot Problem Bilateral possible w arts x 2-3 mos - pt has tried OTC remedies with no success - pt states that the areas are becoming painful Reason Comments Rash Reason Comments Follow-up yearly Specialty Diagnoses / Procedures Referred By Contac t Referred To Contact Primary Care Diagnoses Mild persistent asthma without complication ([facility]) Procedures Follow Up In Primary Care Yesenia Lee MD [address] [place] [address] Referral ID Status Reason Start Date Expiration Date Visits Re quested Visits Authorized [id number] Closed 02/11/2023 08/10/2023 1 1 Reason Comments Facial Swelling Left sided facial sw elling , tender to touch Reason Comments Follow-up Specialty Diagnoses / Procedures Referred By Reece t Referred To Contact Radiology Diagnoses Screening mammogram for breast cancer Procedures BI mammo bilateral screening tomosynthesis Yesenia Lee MD [address] [place] [address] Referral ID Status Reason Start Date Expiration Date Visits Requested Visits Authorized [id number] Authorized Perform Procedure 02/12/2024 02/11/2025 1 1 Specialty Diagnoses / Procedures Referred By Reece t Referred To Contact Radiology Diagnoses Screening for heart disease Procedures CT cardiac scoring wo IV contrast Yesenia Lee MD [address] [place] [address] Referral ID Status Reason Start Date Expiration Date Visits Requested Visits Authorized [id number] Authorized Perform Procedure 02/12/2024 02/11/2025 1 1 Reason Comments URI Congestion, headache , sinus pressure, x 2 weeks <item><item> Privacy Markings (unrecogniz ed section and content) Section Author: Binh العلي PROHIBITION ON REDISCLOSURE OF CONFIDENTIAL INFORMATION This notice accompanies a disclosure of information concerning a client made to you with the consent of such client. Section Author: Binh العلي PROHIBITION ON REDISCLOSURE OF CONFIDENTIAL INFORMATION This notice accompanies a disclosure of information concerning a client made to you with the consent of such client. Goals (unrecognized section and content) Goals may be documented in a n alternate sectionGoals may be documented in an alternate sectionGoals may be documented in an alternate sectionGoals may be documented in an alternate sectionGoals may be documented in an alternate sectionGoals may be documented in an alternate sectionGoals may be documented in an alternate sectionGoals may be documented in an alternate sectionGoals may be documented in an alternate section Care Teams (unrecognized sec tion and content) Team Status: Active Member Role Status Dates Dr. Yesenia Lee MD Family Provider Active Dr. Yesenia Lee MD Primary Care Provider Active Team Status: Inactive Member Role Status Dates Dr. Yesenia Lee MD Primary Care Provider, Referrin g Provider Active Suzanna Michael APPLICATION ENGINEER, APPLICATION ENGINEER-C Attending Provider Active Team Status: Inactive Member Role Status Dates Dr. Yesenia Lee MD Primary Care Provider Active Dr. Yvonne Clark MD Attending Provider, Referring Provider Active Remelt Operator Relationship Specialty [place] [address] [place] [id number] PCP - General Family Medicine 10/12/15 Team Status: Inactive Member Role Status Dates Dr. Yesenia Lee MD Primary Care Provider, [facility] Provider Active Dr. Dom Diamond MD Attending Provider Active Remelt Operator Relationship Specialty Start Date End Date Yesenia Lee MD [address] [place] [address] PCP - [facility] PCP 09/01/21 Yesenia Lee MD [address] [place] [address] PCP - General Family Medicine 01/20/23 Remelt Operator Relationship Specialty Start Date End Date Yesenia Lee MD [address] [place] [address] PCP - [facility] PCP 09/01/21 Yesenia Lee MD [address] [place] [address] PCP - General Family Medicine 01/20/23 Remelt Operator Relationship Specialty Start Date End Date Yesenia Lee MD [address] [id number] PCP - [facility] PCP 09/01/21 Yesenia Lee MD [address] [address] PCP - General Family Medicine 05/18/24 Remelt Operator Relationship Specialty Start Date End Date Yesenia Lee MD [address] [place] [address] PCP - [facility] PCP 09/01/21 Yesenia Lee MD [address] [place] [address] PCP - General Family Medicine 01/20/23 Remelt Operator Relationship Specialty Start Date End Date Yesenia Lee MD [address] [place], [place] [id number] PCP - [facility] PCP 09/01/21 Yesenia Lee MD [address] [place] [address] PCP - General Family Medicine 01/20/23 Remelt Operator Relationship Specialty Start Date End Date Yesenia Lee MD [address] [place], [place] [id number] PCP - [facility] PCP 09/01/21 Yesenia Lee MD [address] [place], [place] [id number] PCP - General Family Medicine 05/18/24 Team Status: Inactive Member Role Status Dates Dr. Yesenia Lee MD Primary Care Provider Active Start: August 04, 2024 End: August 04, 2024 Dr. Yvonne Clark MD Attending Provider Active Start: August 04, 2024 End: August 04, 2024 Dr. Yvonne Clark MD Referring Provider Active Start: August 04, 2024 End: August 04, 2024 Team Status: Inactive Member Role Status Dates Dr. Yesenia Lee MD Primary Care Provider Active Start: August 20, 2024 End: August 20, 2024 Dr. Yesenia Lee MD Referring Provider Active Start: August 20, 2024 End: August 20, 2024 Faviola Fregoso NP-C Attending Provider Active Start: August 20, 2024 End: August 20, 2024 Team Status: Inactive Member Role Status Dates Dr. Yesenia Lee MD Primary Care Provider Active Start: September 09, 2024 End: September 09, 2024 ANTHONY Lynch Attending Provider Active Start: September 09, 2024 End: September 09, 2024 ANTHONY Lynch Referring Provider Active Start: September 09, 2024 End: September 09, 2024 Team Status: Inactive Member Role Status Dates Dr. Yesenia Lee MD Primary Care Provider Active Start: September 28, 2024 End: September 28, 2024 Dr. Yesenia Lee MD Referring Provider Active Start: September 28, 2024 End: September 28, 2024 ANTHONY Lynch Attending Provider Active Start: September 28, 2024 End: September 28, 2024 Team Status: Inactive Member Role Status Dates Dr. Yesenia Lee MD Primary Care Provider Active Start: November 04, 2024 End: November 04, 2024 Dr. Yvonne Clark MD Attending Provider Active Start: November 04, 2024 End: November 04, 2024 Dr. Yvonne Clark MD Referring Provider Active Start: November 04, 2024 End: November 04, 2024 FOR RECORDS PERTAINING TO PATIENTS WHO ARE [...] BE BASED ON THE PRIMARY CLINICAL RECORDS. [facility] [employer] provides no warranty or guarantee of the accuracy or completeness of information in this document.
[2025-02-01 10:09] LABS: Absolute Lymphocyte Count 1.71 X10^3/uL (0.83-4.51); Absolute Neutrophil Count 4.2 X10^3/uL (2.0-7.7); Basophil# 0.04 X10^3/uL; Basophil% 0.6 % (0-1); Eosinophil# 0.26 X10^3/uL; Eosinophils% 3.8 % (0-5); Hematocrit 38.5 % (37-47); Hemoglobin 12.6 g/dL (12.0-15.0); Lymphocyte # 1.71 X10^3/ul (0.83-4.51); Lymphocyte % 25.3 % (19-41); Mean Corp Hgb Conc 32.7 g/dL (32-36); Mean Corpuscular Hgb 30.7 pg (27.0-32.0); Mean Corpuscular Volume 93.7 fL (81-99); Mean Platelet Vol. 8.9 fl (6.2-12.0); Monocyte# 0.53 X10^3/uL; Monocyte% 7.8 % (0-10); NRBC Flagged by Analyzer 0 % (0-5); Neutrophil # 4.21 X10^3/uL (2.7-7.7); Neutrophil % 62.4 % (47-70); Platelet Count 328 K/mm3 (150-450); RBC Distribution Width CV 13.3 % (11.6-14.6); RBC Distribution Width SD 45.2 fl (35.1-43.9); Red Blood Count 4.11 M/mm3 (4.2-5.4); White Blood Count 6.8 K/mm3 (4.4-11.0)
[2025-02-01 11:17] LABS: ALB/GLOB Ratio 1.6 RATIO (0.9-2.4); AST(SGOT) 18 U/L (<=31); Alanine Aminotransfer ALT/SGPT 14 U/L (<=34); Albumin, Serum 4.2 g/dL (3.5-5.0); Alkaline Phosphatase 50 U/L (35-104); Anion Gap 10 (5-15); BUN 12 mg/dL (4-19); BUN/Creat Ratio 18.4 RATIO (10-20); Calcium,Total 9.1 mg/dL (7.6-11.0); Carbon Dioxide 25.3 mmol/L (21.0-32.0); Chloride 107 mmol/L (98-108); Creatinine, Serum 0.65 mg/dL (0.70-1.20); EST Glomerular Filtration Rate 112 (>60); Globulin 2.6 g/dL (2.2-4.2); Glucose 81 mg/dL (70-99); Protein, Total 6.8 g/dL (5.9-8.4); Sodium Level 142 mmol/L (133-145); Total Bilirubin 0.17 mg/dL (0.00-1.30)
== END | disposition home or self-care (01) ==
PROVIDERS: PCP Family Medicine; Referring Provider Internal Medicine Rheumatology; Visit Provider Internal Medicine Rheumatology
DX: M06.09 Rheumatoid arthritis without rheumatoid factor, multiple sites (principal); Z79.899 Other long term (current) drug therapy; R76.8 Other specified abnormal immunological findings in serum; M79.7 Fibromyalgia
CPT/HCPCS: 36415; 80053; 85025

== ENCOUNTER → 2025-04-26 | Outpatient (CLI) | payer BC, SELFPAY ==
[2025-04-26 17:56] LABS: Hematocrit 39.0 % (37-47); Hemoglobin 12.9 g/dL (12.0-15.0); Immature Granulocytes Count 0.010 X10^3/uL (0.0-0.0); Mean Corp Hgb Conc 33.1 g/dL (32-36); Mean Corpuscular Volume 92.0 fL (81-99); Mean Platelet Vol. 9.8 fl (6.2-12.0); NRBC Flagged by Analyzer 0 % (0-5); Platelet Count 247 K/mm3 (150-450); RBC Distribution Width CV 13.0 % (11.6-14.6); RBC Distribution Width SD 43.8 fl (35.1-43.9); Red Blood Count 4.24 M/mm3 (4.2-5.4); White Blood Count 5.5 K/mm3 (4.4-11.0)
[2025-04-26 18:15] LABS: AST(SGOT) 15 U/L (<=31); Alanine Aminotransfer ALT/SGPT 12 U/L (<=34); Albumin, Serum 4.3 g/dL (3.5-5.0); Alkaline Phosphatase 47 U/L (35-104); Anion Gap 9 (5-15); BUN 12 mg/dL (4-19); BUN/Creat Ratio 14.3 RATIO (10-20); Calcium,Total 9.0 mg/dL (7.6-11.0); Carbon Dioxide 23.7 mmol/L (21.0-32.0); Chloride 107 mmol/L (98-108); Globulin 2.4 g/dL (2.2-4.2); Glucose 100 mg/dL (70-99); Potassium 4.0 mmol/L (3.3-5.1)
== END | disposition home or self-care (01) ==
LOC: MTLAB 16:29
PROVIDERS: PCP Family Medicine; Referring Provider Internal Medicine Rheumatology; Visit Provider Internal Medicine Rheumatology
DX: M06.09 Rheumatoid arthritis without rheumatoid factor, multiple sites (principal); Z79.899 Other long term (current) drug therapy; R76.8 Other specified abnormal immunological findings in serum; M79.7 Fibromyalgia
CPT/HCPCS: 36415; 80053; 85025